=== PATIENT | male | born 1955 | race Caucasian/White ===

== ENCOUNTER → 2017-07-01 11:35 | Outpatient (CLI) | payer OTHER, SELFPAY ==
[2017-07-01 13:58] LABS: Absolute Lymphocyte Count 2.41 X10^3/ul (0.83-4.51); Absolute Neutrophil Count 5.3 X10^3/uL (2.0-7.7); Basophil# 0.02 X10^3/uL; Basophil% 0.2 % (0-1); Eosinophil# 0.12 X10^3/uL; Eosinophils% 1.4 % (0-5); Hematocrit 47.1 % (40-54); Hemoglobin 15.8 g/dl (13.0-16.5); Lymphocyte # 2.41 X10^3/ul (4.0); Lymphocyte % 28.4 % (19-41); Mean Corp Hgb Conc 33.5 g/gl (32-36); Mean Corpuscular Hgb 32.6 pg (27.0-32.0); Mean Corpuscular Volume 97.1 fL (80-94); Mean Platelet Vol. 9.5 fl (6.2-12.0); Monocyte% 7.1 % (0-10); Neutrophil # 5.34 X10^3/uL (2.7-7.7); Neutrophil % 62.8 % (47-70); Platelet Count 275 K/mm3 (150-450); RBC Distribution Width CV 13.4 % (11.6-14.6); RBC Distribution Width SD 46.3 fl (35.1-43.9); Red Blood Count 4.85 M/mm3 (4.6-6.2); White Blood Count 8.5 K/mm3 (4.4-11.0)
[2017-07-01 13:59] LABS: POSITIVE COUNT NO; POSITIVE DIFFERENTIAL NO; POSITIVE MORPHOLOGY NO
[2017-07-01 14:25] LABS: ALB/GLOB Ratio 1.1 RATIO (0.9-2.4); AST(SGOT) 23 U/L (15-37); Alanine Aminotransfer ALT/SGPT 36 U/L (16-61); Albumin, Serum 3.8 g/dL (3.2-5.0); Alkaline Phosphatase 82 U/L (45-117); Anion Gap 7 (5-15); BUN 11 mg/dL (7-18); BUN/Creat Ratio 12.9 RATIO (10-20); Calcium,Total 8.9 mg/dL (8.5-10.1); Chloride 107 mmol/L (98-107); Creatinine, Serum 0.85 mg/dL (0.70-1.30); EST Glomerular Filtration Rate 97 mL/min (>60); Est Glom Filt Rate - Afr Amer 118 mL/min (>60); Globulin 3.4 g/dL (2.2-4.2); Glucose 88 mg/dL (74-106); Potassium 4.1 mmol/L (3.5-5.1); Protein, Total 7.2 g/dL (6.4-8.2); Sodium Level 141 mmol/L (136-145)
== END ==
PROVIDERS: Family Provider Family Medicine; PCP Family Medicine; Visit Provider Internal Medicine Rheumatology
DX: M05.70 Rheumatoid arthritis with rheumatoid factor of unspecified site without organ or systems involvement (principal); Z79.899 Other long term (current) drug therapy; C44.91 Basal cell carcinoma of skin, unspecified; I73.9 Peripheral vascular disease, unspecified
CPT/HCPCS: 36415; 80053; 85025

== ENCOUNTER → 2017-07-12 09:15 | Day surgery (SDC) | payer OTHER, SELFPAY ==
[2017-07-11 11:33] VITALS: BMI 23.8
[2017-07-12 09:39] LABS: Hematocrit 47.6 % (40-54); Hemoglobin 16.5 g/dl (13.0-16.5); Mean Corp Hgb Conc 34.7 g/gl (32-36); Mean Corpuscular Hgb 33.5 pg (27.0-32.0); Mean Corpuscular Volume 96.6 fL (80-94); Mean Platelet Vol. 9.2 fl (6.2-12.0); Platelet Count 272 K/mm3 (150-450); RBC Distribution Width CV 13.7 % (11.6-14.6); RBC Distribution Width SD 47.8 fl (35.1-43.9); Red Blood Count 4.93 M/mm3 (4.6-6.2); Scan Indicated on CBC? Y/N NO; White Blood Count 11.4 K/mm3 (4.4-11.0)
[2017-07-12 09:45] LABS: Anion Gap 5 (5-15); BUN 13 mg/dL (7-18); BUN/Creat Ratio 14.6 RATIO (10-20); Calcium,Total 8.6 mg/dL (8.5-10.1); Chloride 108 mmol/L (98-107); Creatinine, Serum 0.89 mg/dL (0.70-1.30); EST Glomerular Filtration Rate 92 mL/min (>60); Est Glom Filt Rate - Afr Amer 112 mL/min (>60); Estimated Creatinine Clearance 78.65 ml/min; Glucose 118 mg/dL (74-106); Potassium 4.2 mmol/L (3.5-5.1); Sodium Level 140 mmol/L (136-145)
--- NOTE | 2017-07-12 11:50 | PCM.OPRPT ---
Problem List (1) Peripheral arterial occlusive disease Status: Acute Report of Operation Date of Procedure: 07/12/17 Pre-Operative Diagnosis: Symptomatic left lower extremity claudication Post-Operative Diagnosis: Left lower extremity superficial femoral artery in-stent stenosis Surgery/Procedure Performed:: Left lower extremity arteriogram with 5 x 40 mm Powerflex angioplasty and 6 x 80 mm Lutonix drug-coated balloon therapy Description of Surgical Findings:: Timeout and informed consent was obtained. 62-year-old gentleman was taken to the special procedures lab placed on the table. 50 mcg fentanyl and 2 mg of Versed were given as intravenous sedation. He received Ancef 2 g intravenously. The right groin was sterilely prepped draped. Ultrasound was used to identify the right common femoral artery. Under ultrasound guidance 2% lidocaine was instilled. A total of 10 cc was used. Under ultrasound guidance micropuncture needle inserted in the right common femoral artery. Micropuncture wire. Micropuncture sheath dilator. An 035 J-wire was inserted. A 5 Danish short sheath dilator was inserted. Using an 035 angled Glidewire a 5 Danish universal flush catheter was initially placed into the aorta and then selectively accessed into the left iliac system. It would suggest down into the left superficial femoral artery. Static views of the left superficial femoral artery and infrageniculate vessels were obtained. This demonstrated clinically significant in-stent stenosis within the previously placed protege that. An 035 Magic wire was advanced. The short 5 Danish sheath was removed. A 45 cm long 5 Danish sheath was placed. The patient received 7000 units of heparin. I predilated the lesion with a 5 x 40 mm Powerflex balloon. There was watermelon and each and the stent suggesting candy wrapper stenosis at each end of the stent. I treated with dilatation just past that area. I then placed a 6 x 80 mmLutonix drug-coated balloon. That was inflated to 12 annie of pressure. A final hand-injection performed. This demonstrated a 1 cm area of very limited dissection proximal to the stent. The in-stent stenosis however was felt to been appropriately treated. Devices were removed. A Perclose device was placed in the right groin and applied nicely. There were no apparent complications. He has a 3+ palpable left PT pulse. Foot was nice and viable. Angiographic findings demonstrate a left mid superficial femoral artery stent with in-stent stenosis. Subsequent to the angioplasty and drug-coated balloon therapy there is now resolution of the in-stent stenosis with a limited area of dissection proximal to the stent with no evidence of flow restriction. As the paclitaxel from the drug-coated balloon would be placed into the media I elected not to place additional metal at this time. He has three-vessel runoff initially seen. Well-tolerated taken to recovery or insect condition. Gennaro Hanna M.D., F.A.C.S.
--- NOTE | 2017-07-12 11:59 | OP.PCM_ITS ---
Problem List (1) Peripheral arterial occlusive disease Status: Acute Report of Operation Date of Procedure: 07/12/17 Pre-Operative Diagnosis: Symptomatic left lower extremity claudication Post-Operative Diagnosis: Left lower extremity superficial femoral artery in- stent stenosis Surgery/Procedure Performed:: Left lower extremity arteriogram with 5 x 40 mm Powerflex angioplasty and 6 x 80 mm Lutonix drug-coated balloon therapy Description of Surgical Findings:: Timeout and informed consent was obtained. 62-year-old gentleman was taken to the special procedures lab placed on the table. 50 mcg fentanyl and 2 mg of Versed were given as intravenous sedation. He received Ancef 2 g intravenously. The right groin was sterilely prepped draped. Ultrasound was used to identify the right common femoral artery. Under ultrasound guidance 2% lidocaine was instilled. A total of 10 cc was used. Under ultrasound guidance micropuncture needle inserted in the right common femoral artery. Micropuncture wire. Micropuncture sheath dilator. An 035 J-wire was inserted. A 5 [place] Islander short sheath dilator was inserted. Using an 035 angled Glidewire a 5 [place] Island[place] universal flush catheter was initially placed into the aorta and then selectively accessed into the left iliac system. It would suggest down into the left superficial femoral artery. Static views of the left superficial femoral artery and infrageniculate vessels were obtained. This demonstrated clinically significant in-stent stenosis within the previously placed protege that. An 035 Magic wire was advanced. The short 5 [place] Islander sheath was removed. A 45 cm long 5 [place] Islander sheath was placed. The patient received 7000 units of heparin. I predilated the lesion with a 5 x 40 mm Powerflex balloon. There was watermelon and each and the stent suggesting candy wrapper stenosis at each end of the stent. I treated with dilatation just past that area. I then placed a 6 x 80 mmLutonix drug-coated balloon. That was inflated to 12 annie of pressure. A final hand-injection performed. This demonstrated a 1 cm area of very limited dissection proximal to the stent. The in-stent stenosis however was felt to been appropriately treated. Devices were removed. A Perclose device was placed in the right groin and applied nicely. There were no apparent complications. He has a 3+ palpable left PT pulse. Foot was nice and viable. Angiographic findings demonstrate a left mid superficial femoral artery stent with in-stent stenosis. Subsequent to the angioplasty and drug-coated balloon therapy there is now resolution of the in-stent stenosis with a limited area of dissection proximal to the stent with no evidence of flow restriction. As the paclitaxel from the drug-coated balloon would be placed into the media I elected not to place additional metal at this time. He has three-vessel runoff initially seen. Well-tolerated taken to recovery or insect condition. Gennaro Hanna M.D., F.A.C.S.
[2017-07-12 12:51] LABS: ACT Activated Clotting Time 235 sec (74-137)
[2017-07-12 12:51] LABS: ACT Activated Clotting Time 120 sec (74-137)
== END ==
PROVIDERS: Family Provider Family Medicine; PCP Family Medicine; Visit Provider Surgery
DX: I77.9 Disorder of arteries and arterioles, unspecified (principal); T82.858A Stenosis of other vascular prosthetic devices, implants and grafts, initial encounter; Z79.899 Other long term (current) drug therapy; M06.9 Rheumatoid arthritis, unspecified; F41.9 Anxiety disorder, unspecified; E78.5 Hyperlipidemia, unspecified; F17.200 Nicotine dependence, unspecified, uncomplicated
CPT/HCPCS: 36200; 36245; 36415; 37224; 75625; 75710; 76937; 80048; 85027; 85347; 99152; 99153; C1725; J7030; Q9967; C1760; C1769; C1894

== ENCOUNTER → 2017-07-25 14:04 | Outpatient (CLI) | payer OTHER, SELFPAY ==
[2017-07-25 15:51] LABS: AST(SGOT) 17 U/L (15-37); Alanine Aminotransfer ALT/SGPT 27 U/L (16-61); Cholesterol 156 mg/dL (200); High Density Lipoprotein 60 mg/dL; Triglycerides 67 mg/dL; Very Low Density Lipoprotein 13 mg/dL (5-40)
== END ==
PROVIDERS: Family Provider Family Medicine; PCP Family Medicine; Visit Provider Family Medicine
DX: E78.5 Hyperlipidemia, unspecified (principal)
CPT/HCPCS: 36415; 80061; 84450; 84460

== ENCOUNTER → 2017-08-12 13:48 | Outpatient (CLI) | payer OTHER, SELFPAY ==
--- NOTE | 2017-08-15 05:49 | LEAS ---
Arterial Study - Arterial Study Arterial Study: Bilateral lower extremity noninvasive arterial exam with exercise Right lower extremity The right PT and DP ankle-brachial index at rest are 0.93 and 1.01 respectively. The right posterior tibial and dorsalis pedis waveforms are triphasic. Volume pulse recordings demonstrate normal amplification the calf. The ankle waveforms are significantly depressed and the digital waveforms essentially flattened. With exercise the right ZELALEM goes from resting 1.012 immediately after exercise at 0.66 there is failure of recovery by 9 minutes Left lower extremity Left PT and DP ankle-brachial indices at rest are 1.25 and 1.16 respectively. The left posterior tibial Doppler waveforms are triphasic while the dorsalis pedis is biphasic. The volume pulse recordings demonstrate maintained Waveforms but the ankle waveforms are significantly depressed and the digital waveforms essentially flattened. With exercise the left ZELALEM goes from resting 1.25 to immediate after exercise at 0.98 there is failure recovery by 9 minutes Impression Normal bilateral lower extremity resting indices. With exercise however indices drop bilaterally most notable on the right very much consistent with vascular claudication. The level of the disease cannot be determined on this study. Digital waveforms are severely flattened bilaterally consistent with significant distal small vessel disease. Gennaro Hanna M.D., F.A.C.S.
== END ==
PROVIDERS: Family Provider Family Medicine; PCP Family Medicine; Visit Provider Surgery
DX: I77.9 Disorder of arteries and arterioles, unspecified (principal)
CPT/HCPCS: 93924

== ENCOUNTER → 2017-09-20 10:04 | Outpatient (CLI) | payer OTHER, SELFPAY ==
[2017-09-20 12:14] LABS: Absolute Lymphocyte Count 2.25 X10^3/ul (0.83-4.51); Absolute Neutrophil Count 5.7 X10^3/uL (2.0-7.7); Basophil# 0.03 X10^3/uL; Basophil% 0.3 % (0-1); Eosinophil# 0.12 X10^3/uL; Eosinophils% 1.4 % (0-5); Hemoglobin 15.4 g/dl (13.0-16.5); Lymphocyte # 2.25 X10^3/ul (4.0); Lymphocyte % 26.1 % (19-41); Mean Corp Hgb Conc 34.2 g/gl (32-36); Mean Corpuscular Hgb 33.3 pg (27.0-32.0); Mean Corpuscular Volume 97.2 fL (80-94); Mean Platelet Vol. 9.9 fl (6.2-12.0); Monocyte# 0.45 X10^3/uL; Monocyte% 5.2 % (0-10); Neutrophil # 5.74 X10^3/uL (2.7-7.7); Neutrophil % 66.8 % (47-70); Platelet Count 262 K/mm3 (150-450); RBC Distribution Width CV 13.1 % (11.6-14.6); RBC Distribution Width SD 45.7 fl (35.1-43.9); Red Blood Count 4.63 M/mm3 (4.6-6.2); White Blood Count 8.6 K/mm3 (4.4-11.0)
[2017-09-20 12:22] LABS: ALB/GLOB Ratio 1.1 RATIO (0.9-2.4); AST(SGOT) 18 U/L (15-37); Alanine Aminotransfer ALT/SGPT 26 U/L (16-61); Albumin, Serum 3.5 g/dL (3.2-5.0); Alkaline Phosphatase 72 U/L (45-117); Anion Gap 7 (5-15); BUN 15 mg/dL (7-18); BUN/Creat Ratio 15.6 RATIO (10-20); Calcium,Total 8.5 mg/dL (8.5-10.1); Chloride 108 mmol/L (98-107); Creatinine, Serum 0.96 mg/dL (0.70-1.30); EST Glomerular Filtration Rate 85 mL/min (>60); Est Glom Filt Rate - Afr Amer 102 mL/min (>60); Globulin 3.2 g/dL (2.2-4.2); Glucose 125 mg/dL (74-106); Potassium 4.2 mmol/L (3.5-5.1); Protein, Total 6.7 g/dL (6.4-8.2); Sodium Level 142 mmol/L (136-145)
[2017-09-20 12:27] LABS: POSITIVE COUNT NO; POSITIVE DIFFERENTIAL NO; POSITIVE MORPHOLOGY NO
== END ==
PROVIDERS: Family Provider Family Medicine; PCP Family Medicine; Visit Provider Internal Medicine Rheumatology
DX: M05.70 Rheumatoid arthritis with rheumatoid factor of unspecified site without organ or systems involvement (principal); C44.91 Basal cell carcinoma of skin, unspecified; I73.9 Peripheral vascular disease, unspecified; Z79.899 Other long term (current) drug therapy
CPT/HCPCS: 36415; 80053; 85025

== ENCOUNTER → 2017-12-14 10:17 | Outpatient (CLI) | payer OTHER, SELFPAY ==
[2017-12-14 12:21] LABS: Absolute Lymphocyte Count 2.87 X10^3/ul (0.83-4.51); Absolute Neutrophil Count 6.5 X10^3/uL (2.0-7.7); Basophil# 0.04 X10^3/uL; Basophil% 0.4 % (0-1); Eosinophil# 0.21 X10^3/uL; Hematocrit 47.6 % (40-54); Hemoglobin 16.5 g/dl (13.0-16.5); Lymphocyte # 2.87 X10^3/ul (4.0); Lymphocyte % 27.5 % (19-41); Mean Corp Hgb Conc 34.7 g/gl (32-36); Mean Corpuscular Hgb 33.8 pg (27.0-32.0); Mean Corpuscular Volume 97.5 fL (80-94); Mean Platelet Vol. 9.9 fl (6.2-12.0); Monocyte# 0.75 X10^3/uL; Monocyte% 7.2 % (0-10); Neutrophil # 6.51 X10^3/uL (2.7-7.7); Neutrophil % 62.5 % (47-70); Platelet Count 274 K/mm3 (150-450); RBC Distribution Width CV 13.1 % (11.6-14.6); RBC Distribution Width SD 45.6 fl (35.1-43.9); Red Blood Count 4.88 M/mm3 (4.6-6.2); White Blood Count 10.4 K/mm3 (4.4-11.0)
[2017-12-14 12:28] LABS: POSITIVE COUNT NO; POSITIVE DIFFERENTIAL NO; POSITIVE MORPHOLOGY NO
[2017-12-14 12:41] LABS: AST(SGOT) 22 U/L (15-37); Alanine Aminotransfer ALT/SGPT 32 U/L (16-61); Albumin, Serum 3.7 g/dL (3.2-5.0); Alkaline Phosphatase 78 U/L (45-117); Anion Gap 7 (5-15); BUN 13 mg/dL (7-18); BUN/Creat Ratio 14.7 RATIO (10-20); Chloride 107 mmol/L (98-107); Creatinine, Serum 0.89 mg/dL (0.70-1.30); EST Glomerular Filtration Rate 93 mL/min (>60); Est Glom Filt Rate - Afr Amer 112 mL/min (>60); Globulin 3.6 g/dL (2.2-4.2); Glucose 93 mg/dL (74-106); Potassium 4.9 mmol/L (3.5-5.1); Protein, Total 7.3 g/dL (6.4-8.2); Sodium Level 142 mmol/L (136-145)
== END ==
PROVIDERS: Family Provider Family Medicine; PCP Family Medicine; Visit Provider Internal Medicine Rheumatology
DX: M05.70 Rheumatoid arthritis with rheumatoid factor of unspecified site without organ or systems involvement (principal); C44.91 Basal cell carcinoma of skin, unspecified; I73.9 Peripheral vascular disease, unspecified; Z79.899 Other long term (current) drug therapy
CPT/HCPCS: 36415; 80053; 85025

== ENCOUNTER → 2018-03-17 11:19 | Outpatient (CLI) | payer OTHER, SELFPAY ==
[2018-03-17 13:04] LABS: Absolute Lymphocyte Count 2.58 X10^3/ul (0.83-4.51); Absolute Neutrophil Count 4.2 X10^3/uL (2.0-7.7); Basophil# 0.04 X10^3/uL; Basophil% 0.5 % (0-1); Eosinophil# 0.19 X10^3/uL; Eosinophils% 2.5 % (0-5); Hemoglobin 16.9 g/dl (13.0-16.5); Lymphocyte # 2.58 X10^3/ul (4.0); Lymphocyte % 33.3 % (19-41); Mean Corp Hgb Conc 34.5 g/gl (32-36); Mean Corpuscular Hgb 34.3 pg (27.0-32.0); Mean Corpuscular Volume 99.4 fL (80-94); Monocyte# 0.69 X10^3/uL; Monocyte% 8.9 % (0-10); Neutrophil # 4.22 X10^3/uL (2.7-7.7); Neutrophil % 54.5 % (47-70); Platelet Count 269 K/mm3 (150-450); RBC Distribution Width CV 13.1 % (11.6-14.6); Red Blood Count 4.93 M/mm3 (4.6-6.2); White Blood Count 7.7 K/mm3 (4.4-11.0)
[2018-03-17 13:05] LABS: POSITIVE COUNT NO; POSITIVE DIFFERENTIAL NO; POSITIVE MORPHOLOGY NO
[2018-03-17 13:28] LABS: ALB/GLOB Ratio 1.1 RATIO (0.9-2.4); AST(SGOT) 18 U/L (15-37); Alanine Aminotransfer ALT/SGPT 27 U/L (16-61); Albumin, Serum 3.8 g/dL (3.2-5.0); Alkaline Phosphatase 83 U/L (45-117); Anion Gap 7 (5-15); BUN 13 mg/dL (7-18); BUN/Creat Ratio 14.3 RATIO (10-20); Calcium,Total 8.9 mg/dL (8.5-10.1); Chloride 106 mmol/L (98-107); Creatinine, Serum 0.91 mg/dL (0.70-1.30); EST Glomerular Filtration Rate 90 mL/min (>60); Est Glom Filt Rate - Afr Amer 109 mL/min (>60); Globulin 3.6 g/dL (2.2-4.2); Glucose 95 mg/dL (74-106); Potassium 4.1 mmol/L (3.5-5.1); Protein, Total 7.4 g/dL (6.4-8.2); Sodium Level 140 mmol/L (136-145)
== END ==
PROVIDERS: Family Provider Family Medicine; PCP Family Medicine; Referring Provider Internal Medicine Rheumatology; Visit Provider Internal Medicine Rheumatology
DX: M05.70 Rheumatoid arthritis with rheumatoid factor of unspecified site without organ or systems involvement (principal); C44.91 Basal cell carcinoma of skin, unspecified; I73.9 Peripheral vascular disease, unspecified; Z79.899 Other long term (current) drug therapy
CPT/HCPCS: 36415; 80053; 85025

== ENCOUNTER → 2018-06-16 14:48 | Outpatient (CLI) | payer OTHER, SELFPAY ==
[2018-06-16 15:32] LABS: Absolute Lymphocyte Count 2.46 X10^3/ul (0.83-4.51); Absolute Neutrophil Count 5.3 X10^3/uL (2.0-7.7); Basophil# 0.06 X10^3/uL; Basophil% 0.7 % (0-1); Eosinophil# 0.13 X10^3/uL; Eosinophils% 1.5 % (0-5); Hemoglobin 15.9 g/dl (13.0-16.5); Lymphocyte # 2.46 X10^3/ul (4.0); Lymphocyte % 28.7 % (19-41); Mean Corp Hgb Conc 33.8 g/gl (32-36); Mean Corpuscular Hgb 33.1 pg (27.0-32.0); Mean Corpuscular Volume 97.7 fL (80-94); Mean Platelet Vol. 9.5 fl (6.2-12.0); Monocyte# 0.64 X10^3/uL; Monocyte% 7.5 % (0-10); Neutrophil # 5.26 X10^3/uL (2.7-7.7); Neutrophil % 61.5 % (47-70); Platelet Count 278 K/mm3 (150-450); RBC Distribution Width CV 12.8 % (11.6-14.6); RBC Distribution Width SD 44.6 fl (35.1-43.9); Red Blood Count 4.81 M/mm3 (4.6-6.2); White Blood Count 8.6 K/mm3 (4.4-11.0)
[2018-06-16 15:56] LABS: POSITIVE COUNT NO; POSITIVE DIFFERENTIAL NO; POSITIVE MORPHOLOGY NO
[2018-06-16 15:58] LABS: ALB/GLOB Ratio 1.1 RATIO (0.9-2.4); AST(SGOT) 26 U/L (15-37); Alanine Aminotransfer ALT/SGPT 40 U/L (16-61); Albumin, Serum 3.8 g/dL (3.2-5.0); Alkaline Phosphatase 84 U/L (45-117); Anion Gap 8 (5-15); BUN 14 mg/dL (7-18); BUN/Creat Ratio 15.9 RATIO (10-20); Calcium,Total 8.9 mg/dL (8.5-10.1); Chloride 106 mmol/L (98-107); Creatinine, Serum 0.88 mg/dL (0.70-1.30); EST Glomerular Filtration Rate 93 mL/min (>60); Est Glom Filt Rate - Afr Amer 113 mL/min (>60); Globulin 3.4 g/dL (2.2-4.2); Glucose 96 mg/dL (74-106); Potassium 4.3 mmol/L (3.5-5.1); Protein, Total 7.2 g/dL (6.4-8.2); Sodium Level 141 mmol/L (136-145)
== END ==
PROVIDERS: Family Provider Family Medicine; PCP Family Medicine; Referring Provider Internal Medicine Rheumatology; Visit Provider Internal Medicine Rheumatology
DX: M05.70 Rheumatoid arthritis with rheumatoid factor of unspecified site without organ or systems involvement (principal); C44.91 Basal cell carcinoma of skin, unspecified; I73.9 Peripheral vascular disease, unspecified; Z79.899 Other long term (current) drug therapy
CPT/HCPCS: 36415; 80053; 85025

== ENCOUNTER → 2018-09-13 10:23 | Outpatient (CLI) | payer OTHER, SELFPAY ==
[2018-09-13 12:39] LABS: Absolute Lymphocyte Count 2.26 X10^3/ul (0.83-4.51); Absolute Neutrophil Count 6.5 X10^3/uL (2.0-7.7); Basophil# 0.03 X10^3/uL; Basophil% 0.3 % (0-1); Eosinophil# 0.18 X10^3/uL; Eosinophils% 1.9 % (0-5); Hematocrit 45.6 % (40-54); Hemoglobin 15.5 g/dl (13.0-16.5); Lymphocyte # 2.26 X10^3/ul (4.0); Lymphocyte % 23.7 % (19-41); Mean Corpuscular Hgb 32.9 pg (27.0-32.0); Mean Corpuscular Volume 96.8 fL (80-94); Mean Platelet Vol. 9.9 fl (6.2-12.0); Monocyte# 0.53 X10^3/uL; Monocyte% 5.6 % (0-10); Neutrophil # 6.51 X10^3/uL (2.7-7.7); Neutrophil % 68.3 % (47-70); Platelet Count 283 K/mm3 (150-450); RBC Distribution Width SD 45.4 fl (35.1-43.9); Red Blood Count 4.71 M/mm3 (4.6-6.2); White Blood Count 9.5 K/mm3 (4.4-11.0)
[2018-09-13 12:40] LABS: ALB/GLOB Ratio 1.1 RATIO (0.9-2.4); AST(SGOT) 22 U/L (15-37); Alanine Aminotransfer ALT/SGPT 28 U/L (16-61); Albumin, Serum 3.6 g/dL (3.2-5.0); Alkaline Phosphatase 82 U/L (45-117); Anion Gap 6 (5-15); BUN 11 mg/dL (7-18); BUN/Creat Ratio 13.4 RATIO (10-20); Calcium,Total 8.6 mg/dL (8.5-10.1); Chloride 108 mmol/L (98-107); Creatinine, Serum 0.82 mg/dL (0.70-1.30); EST Glomerular Filtration Rate 101 mL/min (>60); Est Glom Filt Rate - Afr Amer 122 mL/min (>60); Globulin 3.2 g/dL (2.2-4.2); Glucose 104 mg/dL (74-106); POSITIVE COUNT NO; POSITIVE DIFFERENTIAL NO; POSITIVE MORPHOLOGY NO; Protein, Total 6.8 g/dL (6.4-8.2); Sodium Level 142 mmol/L (136-145)
== END ==
PROVIDERS: Family Provider Family Medicine; PCP Family Medicine; Referring Provider Internal Medicine Rheumatology; Visit Provider Internal Medicine Rheumatology
DX: M05.70 Rheumatoid arthritis with rheumatoid factor of unspecified site without organ or systems involvement (principal); C44.91 Basal cell carcinoma of skin, unspecified; I73.9 Peripheral vascular disease, unspecified; Z79.899 Other long term (current) drug therapy
CPT/HCPCS: 36415; 80053; 85025

== ENCOUNTER → 2018-12-15 09:22 | Outpatient (CLI) | payer OTHER, SELFPAY ==
[2018-12-15 12:29] LABS: Absolute Lymphocyte Count 2.28 X10^3/uL (0.83-4.51); Absolute Neutrophil Count 5.5 X10^3/uL (2.0-7.7); Basophil# 0.05 X10^3/uL; Basophil% 0.6 % (0-1); Eosinophil# 0.25 X10^3/uL; Eosinophils% 2.9 % (0-5); Hematocrit 49.1 % (40-54); Hemoglobin 16.1 g/dL (13.0-16.5); Lymphocyte # 2.28 X10^3/ul (4.0); Lymphocyte % 26.1 % (19-41); Mean Corp Hgb Conc 32.8 g/dL (32-36); Mean Corpuscular Hgb 32.5 pg (27.0-32.0); Mean Corpuscular Volume 99.2 fL (80-94); Mean Platelet Vol. 9.8 fl (6.2-12.0); Monocyte# 0.62 X10^3/uL; Monocyte% 7.1 % (0-10); NRBC Flagged by Analyzer 0 % (0-5); Neutrophil % 62.8 % (47-70); Platelet Count 280 K/mm3 (150-450); RBC Distribution Width CV 13.2 % (11.6-14.6); RBC Distribution Width SD 47.9 fl (35.1-43.9); Red Blood Count 4.95 M/mm3 (4.6-6.2); White Blood Count 8.7 K/mm3 (4.4-11.0)
[2018-12-15 12:40] LABS: ALB/GLOB Ratio 1.2 RATIO (0.9-2.4); AST(SGOT) 19 U/L (15-37); Alanine Aminotransfer ALT/SGPT 25 U/L (16-61); Albumin, Serum 3.7 g/dL (3.2-5.0); Alkaline Phosphatase 86 U/L (45-117); Anion Gap 8 (5-15); BUN 11 mg/dL (7-18); BUN/Creat Ratio 13.2 RATIO (10-20); Calcium,Total 9.1 mg/dL (8.5-10.1); Chloride 106 mmol/L (98-107); Creatinine, Serum 0.84 mg/dL (0.70-1.30); EST Glomerular Filtration Rate 99 mL/min (>60); Est Glom Filt Rate - Afr Amer 120 mL/min (>60); Glucose 99 mg/dL (74-106); Potassium 4.5 mmol/L (3.5-5.1); Protein, Total 6.7 g/dL (6.4-8.2); Sodium Level 144 mmol/L (136-145)
== END ==
PROVIDERS: Family Provider Family Medicine; PCP Family Medicine; Referring Provider Internal Medicine Rheumatology; Visit Provider Internal Medicine Rheumatology
DX: M05.70 Rheumatoid arthritis with rheumatoid factor of unspecified site without organ or systems involvement (principal); C44.91 Basal cell carcinoma of skin, unspecified; I73.9 Peripheral vascular disease, unspecified; Z79.899 Other long term (current) drug therapy
CPT/HCPCS: 36415; 80053; 85025

== ENCOUNTER → 2019-02-13 15:01 | Outpatient (CLI) | payer OTHER, SELFPAY ==
[2019-02-13 17:54] LABS: AST(SGOT) 21 U/L (15-37); Alanine Aminotransfer ALT/SGPT 27 U/L (16-61); Cholesterol 176 mg/dL (200); High Density Lipoprotein 52 mg/dL; Triglycerides 60 mg/dL; Very Low Density Lipoprotein 12 mg/dL (5-40)
== END ==
PROVIDERS: Family Provider Family Medicine; PCP Family Medicine; Referring Provider Family Medicine; Visit Provider Family Medicine
DX: E78.5 Hyperlipidemia, unspecified (principal)
CPT/HCPCS: 36415; 80061; 84450; 84460

== ENCOUNTER → 2019-03-12 11:14 | Outpatient (CLI) | payer OTHER, SELFPAY ==
[2019-03-12 14:10] LABS: Absolute Lymphocyte Count 2.35 X10^3/uL (0.83-4.51); Absolute Neutrophil Count 5.5 X10^3/uL (2.0-7.7); Basophil# 0.04 X10^3/uL; Basophil% 0.5 % (0-1); Eosinophil# 0.17 X10^3/uL; Hematocrit 48.9 % (40-54); Lymphocyte # 2.35 X10^3/ul (4.0); Lymphocyte % 27.4 % (19-41); Mean Corp Hgb Conc 32.7 g/dL (32-36); Mean Corpuscular Hgb 32.5 pg (27.0-32.0); Mean Corpuscular Volume 99.4 fL (80-94); Mean Platelet Vol. 9.3 fl (6.2-12.0); Monocyte# 0.55 X10^3/uL; Monocyte% 6.4 % (0-10); NRBC Flagged by Analyzer 0 % (0-5); Neutrophil # 5.45 X10^3/uL (2.7-7.7); Neutrophil % 63.4 % (47-70); Platelet Count 272 K/mm3 (150-450); RBC Distribution Width CV 12.8 % (11.6-14.6); RBC Distribution Width SD 46.8 fl (35.1-43.9); Red Blood Count 4.92 M/mm3 (4.6-6.2); White Blood Count 8.6 K/mm3 (4.4-11.0)
[2019-03-12 14:29] LABS: ALB/GLOB Ratio 1.1 RATIO (0.9-2.4); AST(SGOT) 20 U/L (15-37); Alanine Aminotransfer ALT/SGPT 29 U/L (16-61); Albumin, Serum 3.7 g/dL (3.2-5.0); Alkaline Phosphatase 80 U/L (45-117); Anion Gap 7 (5-15); BUN 13 mg/dL (7-18); BUN/Creat Ratio 16.9 RATIO (10-20); Calcium,Total 8.8 mg/dL (8.5-10.1); Chloride 107 mmol/L (98-107); Creatinine, Serum 0.77 mg/dL (0.70-1.30); EST Glomerular Filtration Rate 109 mL/min (>60); Est Glom Filt Rate - Afr Amer 132 mL/min (>60); Globulin 3.4 g/dL (2.2-4.2); Glucose 86 mg/dL (74-106); Potassium 4.1 mmol/L (3.5-5.1); Protein, Total 7.1 g/dL (6.4-8.2); Sodium Level 140 mmol/L (136-145)
== END ==
PROVIDERS: Family Provider Family Medicine; PCP Family Medicine; Referring Provider Internal Medicine Rheumatology; Visit Provider Internal Medicine Rheumatology
DX: M05.70 Rheumatoid arthritis with rheumatoid factor of unspecified site without organ or systems involvement (principal); C44.91 Basal cell carcinoma of skin, unspecified; I73.9 Peripheral vascular disease, unspecified; Z79.899 Other long term (current) drug therapy
CPT/HCPCS: 36415; 80053; 85025

== ENCOUNTER → 2019-06-11 12:34 | Outpatient (CLI) | payer OTHER, SELFPAY ==
[2019-06-11 14:02] LABS: Absolute Lymphocyte Count 2.46 X10^3/uL (0.83-4.51); Absolute Neutrophil Count 4.9 X10^3/uL (2.0-7.7); Basophil# 0.04 X10^3/uL; Basophil% 0.5 % (0-1); Eosinophil# 0.17 X10^3/uL; Eosinophils% 2.1 % (0-5); Hematocrit 47.2 % (40-54); Hemoglobin 15.5 g/dL (13.0-16.5); Lymphocyte # 2.46 X10^3/ul (4.0); Lymphocyte % 30.9 % (19-41); Mean Corp Hgb Conc 32.8 g/dL (32-36); Mean Corpuscular Volume 97.5 fL (80-94); Mean Platelet Vol. 9.5 fl (6.2-12.0); NRBC Flagged by Analyzer 0 % (0-5); Neutrophil # 4.88 X10^3/uL (2.7-7.7); Neutrophil % 61.2 % (47-70); Platelet Count 251 K/mm3 (150-450); RBC Distribution Width CV 12.4 % (11.6-14.6); RBC Distribution Width SD 44.7 fl (35.1-43.9); Red Blood Count 4.84 M/mm3 (4.6-6.2)
[2019-06-11 14:22] LABS: ALB/GLOB Ratio 1.1 RATIO (0.9-2.4); AST(SGOT) 19 U/L (15-37); Alanine Aminotransfer ALT/SGPT 32 U/L (16-61); Albumin, Serum 3.7 g/dL (3.2-5.0); Alkaline Phosphatase 75 U/L (45-117); Anion Gap 4 (5-15); BUN 11 mg/dL (7-18); BUN/Creat Ratio 12.2 RATIO (10-20); Calcium,Total 8.9 mg/dL (8.5-10.1); Chloride 109 mmol/L (98-107); EST Glomerular Filtration Rate 91 mL/min (>60); Est Glom Filt Rate - Afr Amer 110 mL/min (>60); Globulin 3.5 g/dL (2.2-4.2); Glucose 90 mg/dL (74-106); Potassium 4.2 mmol/L (3.5-5.1); Protein, Total 7.2 g/dL (6.4-8.2); Sodium Level 141 mmol/L (136-145)
== END ==
PROVIDERS: PCP Family Medicine; Referring Provider Internal Medicine Rheumatology; Visit Provider Internal Medicine Rheumatology
DX: M05.70 Rheumatoid arthritis with rheumatoid factor of unspecified site without organ or systems involvement (principal); C44.91 Basal cell carcinoma of skin, unspecified; I73.9 Peripheral vascular disease, unspecified; Z79.899 Other long term (current) drug therapy
CPT/HCPCS: 36415; 80053; 85025

== ENCOUNTER → 2019-09-10 10:47 | Outpatient (CLI) | payer OTHER, SELFPAY ==
[2019-09-10 12:00] LABS: Absolute Lymphocyte Count 2.15 X10^3/uL (0.83-4.51); Absolute Neutrophil Count 5.1 X10^3/uL (2.0-7.7); Basophil# 0.05 X10^3/uL; Basophil% 0.6 % (0-1); Eosinophil# 0.15 X10^3/uL; Eosinophils% 1.9 % (0-5); Hematocrit 47.8 % (40-54); Hemoglobin 16.1 g/dL (13.0-16.5); Lymphocyte # 2.15 X10^3/ul (4.0); Lymphocyte % 27.4 % (19-41); Mean Corp Hgb Conc 33.7 g/dL (32-36); Mean Corpuscular Hgb 32.7 pg (27.0-32.0); Mean Corpuscular Volume 97.2 fL (80-94); Mean Platelet Vol. 9.6 fl (6.2-12.0); Monocyte# 0.43 X10^3/uL; Monocyte% 5.5 % (0-10); NRBC Flagged by Analyzer 0 % (0-5); Neutrophil # 5.05 X10^3/uL (2.7-7.7); Neutrophil % 64.3 % (47-70); Platelet Count 277 K/mm3 (150-450); RBC Distribution Width CV 12.6 % (11.6-14.6); RBC Distribution Width SD 44.9 fl (35.1-43.9); Red Blood Count 4.92 M/mm3 (4.6-6.2); White Blood Count 7.9 K/mm3 (4.4-11.0)
[2019-09-10 12:19] LABS: ALB/GLOB Ratio 1.1 RATIO (0.9-2.4); AST(SGOT) 25 U/L (15-37); Alanine Aminotransfer ALT/SGPT 34 U/L (16-61); Albumin, Serum 3.8 g/dL (3.2-5.0); Alkaline Phosphatase 84 U/L (45-117); Anion Gap 6 (5-15); BUN 15 mg/dL (7-18); BUN/Creat Ratio 16.7 RATIO (10-20); Chloride 107 mmol/L (98-107); EST Glomerular Filtration Rate 91 mL/min (>60); Est Glom Filt Rate - Afr Amer 110 mL/min (>60); Globulin 3.5 g/dL (2.2-4.2); Glucose 128 mg/dL (74-106); Protein, Total 7.3 g/dL (6.4-8.2); Sodium Level 140 mmol/L (136-145)
== END ==
PROVIDERS: PCP Family Medicine; Referring Provider Internal Medicine Rheumatology; Visit Provider Internal Medicine Rheumatology
DX: M05.70 Rheumatoid arthritis with rheumatoid factor of unspecified site without organ or systems involvement (principal); C44.91 Basal cell carcinoma of skin, unspecified; I73.9 Peripheral vascular disease, unspecified; Z79.899 Other long term (current) drug therapy
CPT/HCPCS: 36415; 80053; 85025

== ENCOUNTER → 2019-12-03 12:59 | Outpatient (CLI) | payer OTHER, SELFPAY ==
[2019-12-03 15:17] LABS: Absolute Neutrophil Count 12.3 X10^3/uL (2.0-7.7); Basophil# 0.03 X10^3/uL; Basophil% 0.2 % (0-1); Eosinophil# 0.03 X10^3/uL; Eosinophils% 0.2 % (0-5); Hematocrit 49.6 % (40-54); Hemoglobin 16.5 g/dL (13.0-16.5); Lymphocyte % 10.2 % (19-41); Mean Corp Hgb Conc 33.3 g/dL (32-36); Mean Corpuscular Hgb 33.2 pg (27.0-32.0); Mean Corpuscular Volume 99.8 fL (80-94); Mean Platelet Vol. 9.5 fl (6.2-12.0); Monocyte# 0.72 X10^3/uL; Monocyte% 4.9 % (0-10); NRBC Flagged by Analyzer 0 % (0-5); Neutrophil # 12.32 X10^3/uL (2.7-7.7); Neutrophil % 84.2 % (47-70); Platelet Count 302 K/mm3 (150-450); RBC Distribution Width CV 12.8 % (11.6-14.6); RBC Distribution Width SD 46.8 fl (35.1-43.9); Red Blood Count 4.97 M/mm3 (4.6-6.2); White Blood Count 14.7 K/mm3 (4.4-11.0)
[2019-12-03 15:27] LABS: AST(SGOT) 14 U/L (15-37); Alanine Aminotransfer ALT/SGPT 26 U/L (16-61); Albumin, Serum 3.8 g/dL (3.2-5.0); Alkaline Phosphatase 81 U/L (45-117); Anion Gap 9 (5-15); BUN 14 mg/dL (7-18); BUN/Creat Ratio 16.5 RATIO (10-20); Chloride 100 mmol/L (98-107); Creatinine, Serum 0.85 mg/dL (0.70-1.30); EST Glomerular Filtration Rate 97 mL/min (>60); Est Glom Filt Rate - Afr Amer 117 mL/min (>60); Globulin 3.7 g/dL (2.2-4.2); Glucose 110 mg/dL (74-106); Potassium 3.7 mmol/L (3.5-5.1); Protein, Total 7.5 g/dL (6.4-8.2); Sodium Level 135 mmol/L (136-145)
== END ==
PROVIDERS: PCP Family Medicine; Referring Provider Internal Medicine Rheumatology; Visit Provider Internal Medicine Rheumatology
DX: M05.70 Rheumatoid arthritis with rheumatoid factor of unspecified site without organ or systems involvement (principal); C44.91 Basal cell carcinoma of skin, unspecified; I73.9 Peripheral vascular disease, unspecified; Z79.899 Other long term (current) drug therapy
CPT/HCPCS: 36415; 80053; 85025

== ENCOUNTER → 2019-12-31 14:12 | Outpatient (CLI) | payer OTHER, SELFPAY ==
[2019-12-31 18:36] LABS: AST(SGOT) 18 U/L (15-37); Alanine Aminotransfer ALT/SGPT 26 U/L (16-61); Cholesterol 171 mg/dL (200); High Density Lipoprotein 54 mg/dL; Triglycerides 74 mg/dL; Very Low Density Lipoprotein 15 mg/dL (5-40)
== END ==
PROVIDERS: PCP Family Medicine; Visit Provider Family Medicine
DX: E78.5 Hyperlipidemia, unspecified (principal)
CPT/HCPCS: 36415; 80061; 84450; 84460

== ENCOUNTER → 2020-02-19 10:49 | Outpatient (CLI) | payer OTHER, SELFPAY ==
[2020-02-19 12:26] LABS: Absolute Lymphocyte Count 2.46 X10^3/uL (0.83-4.51); Absolute Neutrophil Count 5.8 X10^3/uL (2.0-7.7); Basophil# 0.05 X10^3/uL; Basophil% 0.6 % (0-1); Eosinophil# 0.15 X10^3/uL; Eosinophils% 1.7 % (0-5); Hematocrit 47.9 % (40-54); Hemoglobin 15.6 g/dL (13.0-16.5); Lymphocyte # 2.46 X10^3/ul (4.0); Lymphocyte % 27.1 % (19-41); Mean Corp Hgb Conc 32.6 g/dL (32-36); Mean Corpuscular Hgb 32.6 pg (27.0-32.0); Mean Platelet Vol. 9.5 fl (6.2-12.0); Monocyte# 0.55 X10^3/uL; Monocyte% 6.1 % (0-10); NRBC Flagged by Analyzer 0 % (0-5); Neutrophil # 5.84 X10^3/uL (2.7-7.7); Neutrophil % 64.2 % (47-70); Platelet Count 286 K/mm3 (150-450); RBC Distribution Width CV 12.6 % (11.6-14.6); Red Blood Count 4.79 M/mm3 (4.6-6.2); White Blood Count 9.1 K/mm3 (4.4-11.0)
[2020-02-19 13:15] LABS: ALB/GLOB Ratio 1.1 RATIO (0.9-2.4); AST(SGOT) 20 U/L (15-37); Alanine Aminotransfer ALT/SGPT 22 U/L (16-61); Albumin, Serum 3.9 g/dL (3.2-5.0); Alkaline Phosphatase 95 U/L (45-117); Anion Gap 4 (5-15); BUN 11 mg/dL (7-18); BUN/Creat Ratio 12.8 RATIO (10-20); Calcium,Total 9.1 mg/dL (8.5-10.1); Chloride 108 mmol/L (98-107); Creatinine, Serum 0.86 mg/dL (0.70-1.30); EST Glomerular Filtration Rate 95 mL/min (>60); Est Glom Filt Rate - Afr Amer 115 mL/min (>60); Globulin 3.4 g/dL (2.2-4.2); Glucose 97 mg/dL (74-106); Potassium 4.4 mmol/L (3.5-5.1); Protein, Total 7.3 g/dL (6.4-8.2); Sodium Level 140 mmol/L (136-145)
== END ==
PROVIDERS: PCP Family Medicine; Referring Provider Internal Medicine Rheumatology; Visit Provider Internal Medicine Rheumatology
DX: M05.70 Rheumatoid arthritis with rheumatoid factor of unspecified site without organ or systems involvement (principal); Z79.899 Other long term (current) drug therapy; C44.91 Basal cell carcinoma of skin, unspecified; I73.9 Peripheral vascular disease, unspecified
CPT/HCPCS: 36415; 80053; 85025

== ENCOUNTER → 2020-05-07 09:20 | Outpatient (CLI) | payer OTHER, SELFPAY ==
[2020-05-07 10:08] LABS: Absolute Lymphocyte Count 2.31 X10^3/uL (0.83-4.51); Basophil# 0.05 X10^3/uL; Basophil% 0.5 % (0-1); Eosinophil# 0.22 X10^3/uL; Eosinophils% 2.2 % (0-5); Hematocrit 50.4 % (40-54); Hemoglobin 16.8 g/dL (13.0-16.5); Lymphocyte # 2.31 X10^3/ul (4.0); Lymphocyte % 22.7 % (19-41); Mean Corp Hgb Conc 33.3 g/dL (32-36); Mean Platelet Vol. 9.3 fl (6.2-12.0); Monocyte% 5.9 % (0-10); NRBC Flagged by Analyzer 0 % (0-5); Neutrophil # 6.95 X10^3/uL (2.7-7.7); Neutrophil % 68.3 % (47-70); Platelet Count 270 K/mm3 (150-450); RBC Distribution Width CV 12.2 % (11.6-14.6); RBC Distribution Width SD 44.6 fl (35.1-43.9); Red Blood Count 5.09 M/mm3 (4.6-6.2); White Blood Count 10.2 K/mm3 (4.4-11.0)
[2020-05-07 10:51] LABS: ALB/GLOB Ratio 1.1 RATIO (0.9-2.4); AST(SGOT) 18 U/L (15-37); Alanine Aminotransfer ALT/SGPT 33 U/L (16-61); Albumin, Serum 3.8 g/dL (3.2-5.0); Alkaline Phosphatase 87 U/L (45-117); Anion Gap 3 (5-15); BUN 14 mg/dL (7-18); Calcium,Total 8.9 mg/dL (8.5-10.1); Chloride 108 mmol/L (98-107); Creatinine, Serum 0.82 mg/dL (0.70-1.30); EST Glomerular Filtration Rate 100 mL/min (>60); Est Glom Filt Rate - Afr Amer 121 mL/min (>60); Globulin 3.5 g/dL (2.2-4.2); Glucose 99 mg/dL (74-106); Protein, Total 7.3 g/dL (6.4-8.2); Sodium Level 139 mmol/L (136-145)
== END ==
PROVIDERS: PCP Family Medicine; Referring Provider Internal Medicine Rheumatology; Visit Provider Internal Medicine Rheumatology
DX: M05.70 Rheumatoid arthritis with rheumatoid factor of unspecified site without organ or systems involvement (principal); C44.91 Basal cell carcinoma of skin, unspecified; I73.9 Peripheral vascular disease, unspecified; Z79.899 Other long term (current) drug therapy
CPT/HCPCS: 36415; 80053; 85025

== ENCOUNTER → 2020-07-01 11:26 | Outpatient (CLI) | payer OTHER, SELFPAY ==
[2020-07-01 13:14] LABS: PSA,Total - Annual Screen 6.04 ng/mL (0.00-4.00)
== END ==
PROVIDERS: PCP Family Medicine; Referring Provider Family Medicine; Visit Provider Family Medicine
DX: Z00.00 Encounter for general adult medical examination without abnormal findings (principal); Z12.5 Encounter for screening for malignant neoplasm of prostate
CPT/HCPCS: 36415; 84153; G0103

== ENCOUNTER → 2020-07-17 13:05 | Outpatient (CLI) | payer OTHER, SELFPAY ==
--- NOTE | 2020-07-17 13:09 | EKG12_ITS ---
Test Reason : PRE OP Blood Pressure : / mmHG Vent. Rate : 080 BPM Atrial Rate : 080 BPM P-R Int : 118 ms QRS Dur : 068 ms QT Int : 368 ms P-R-T Axes : 065 063 077 degrees QTc Int : 424 ms Normal sinus rhythm Normal ECG Confirmed by SAHIL SILVER, CONNOR ([id number]), state editor MO SUMNER ([id number]) on 07/21/2020 7:52:36 AM Referred By: ANA Confirmed By:NICOLAS BAXTER MD
[2020-07-17 14:23] LABS: Hematocrit 46.6 % (40-54); Hemoglobin 15.9 g/dL (13.0-16.5); Mean Corp Hgb Conc 34.1 g/dL (32-36); Mean Corpuscular Hgb 33.4 pg (27.0-32.0); Mean Corpuscular Volume 97.9 fL (80-94); Mean Platelet Vol. 9.6 fl (6.2-12.0); Platelet Count 273 K/mm3 (150-450); RBC Distribution Width CV 12.5 % (11.6-14.6); RBC Distribution Width SD 44.8 fl (35.1-43.9); Red Blood Count 4.76 M/mm3 (4.6-6.2)
[2020-07-17 14:36] LABS: Anion Gap 4 (5-15); BUN 11 mg/dL (7-18); BUN/Creat Ratio 13.5 RATIO (10-20); Chloride 106 mmol/L (98-107); Creatinine, Serum 0.81 mg/dL (0.70-1.30); EST Glomerular Filtration Rate 102 mL/min (>60); Est Glom Filt Rate - Afr Amer 123 mL/min (>60); Glucose 106 mg/dL (74-106); Potassium 4.3 mmol/L (3.5-5.1); Sodium Level 138 mmol/L (136-145)
== END ==
PROVIDERS: PCP Family Medicine; Visit Provider Urology
DX: Z01.812 Encounter for preprocedural laboratory examination (principal); Z20.822 Contact with and (suspected) exposure to COVID-19; I10 Essential (primary) hypertension
CPT/HCPCS: 36415; 80048; 85027; 87635; 93005; C9803; U0005; U0003

== ENCOUNTER → 2020-08-04 12:40 | Outpatient (CLI) | payer OTHER, SELFPAY ==
[2020-08-04 15:23] LABS: Absolute Lymphocyte Count 2.54 X10^3/uL (0.83-4.51); Absolute Neutrophil Count 7.1 X10^3/uL (2.0-7.7); Basophil# 0.04 X10^3/uL; Basophil% 0.4 % (0-1); Eosinophil# 0.08 X10^3/uL; Eosinophils% 0.8 % (0-5); Hematocrit 48.5 % (40-54); Hemoglobin 15.8 g/dL (13.0-16.5); Lymphocyte # 2.54 X10^3/ul (4.0); Lymphocyte % 24.4 % (19-41); Mean Corp Hgb Conc 32.6 g/dL (32-36); Mean Corpuscular Hgb 32.4 pg (27.0-32.0); Mean Corpuscular Volume 99.6 fL (80-94); Mean Platelet Vol. 9.6 fl (6.2-12.0); Monocyte# 0.64 X10^3/uL; Monocyte% 6.1 % (0-10); NRBC Flagged by Analyzer 0 % (0-5); Neutrophil # 7.08 X10^3/uL (2.7-7.7); Platelet Count 270 K/mm3 (150-450); RBC Distribution Width CV 12.3 % (11.6-14.6); RBC Distribution Width SD 45.6 fl (35.1-43.9); Red Blood Count 4.87 M/mm3 (4.6-6.2); White Blood Count 10.4 K/mm3 (4.4-11.0)
[2020-08-04 15:26] LABS: ALB/GLOB Ratio 1.1 RATIO (0.9-2.4); AST(SGOT) 21 U/L (15-37); Alanine Aminotransfer ALT/SGPT 29 U/L (16-61); Albumin, Serum 3.7 g/dL (3.2-5.0); Alkaline Phosphatase 81 U/L (45-117); Anion Gap 5 (5-15); BUN 12 mg/dL (7-18); BUN/Creat Ratio 13.9 RATIO (10-20); Calcium,Total 9.1 mg/dL (8.5-10.1); Chloride 108 mmol/L (98-107); Creatinine, Serum 0.86 mg/dL (0.70-1.30); EST Glomerular Filtration Rate 95 mL/min (>60); Est Glom Filt Rate - Afr Amer 115 mL/min (>60); Globulin 3.5 g/dL (2.2-4.2); Glucose 109 mg/dL (74-106); Potassium 4.4 mmol/L (3.5-5.1); Protein, Total 7.2 g/dL (6.4-8.2); Sodium Level 141 mmol/L (136-145)
== END ==
LOC: MTRAD 12:41 → MTLAB 12:48
PROVIDERS: PCP Family Medicine; Referring Provider Internal Medicine Rheumatology; Visit Provider Internal Medicine Rheumatology
DX: M05.70 Rheumatoid arthritis with rheumatoid factor of unspecified site without organ or systems involvement (principal); C44.91 Basal cell carcinoma of skin, unspecified; I73.9 Peripheral vascular disease, unspecified; Z79.899 Other long term (current) drug therapy
CPT/HCPCS: 36415; 80053; 85025

== ENCOUNTER → 2020-10-22 09:05 | Outpatient (CLI) | payer OTHER, SELFPAY ==
[2020-10-22 10:07] LABS: Absolute Lymphocyte Count 1.88 X10^3/uL (0.83-4.51); Absolute Neutrophil Count 6.3 X10^3/uL (2.0-7.7); Basophil# 0.05 X10^3/uL; Basophil% 0.6 % (0-1); Eosinophil# 0.14 X10^3/uL; Eosinophils% 1.6 % (0-5); Hematocrit 46.8 % (40-54); Hemoglobin 15.5 g/dL (13.0-16.5); Lymphocyte # 1.88 X10^3/ul (0.83-4.51); Mean Corp Hgb Conc 33.1 g/dL (32-36); Mean Corpuscular Volume 99.8 fL (80-94); Mean Platelet Vol. 9.7 fl (6.2-12.0); Monocyte# 0.52 X10^3/uL; Monocyte% 5.8 % (0-10); NRBC Flagged by Analyzer 0 % (0-5); Neutrophil # 6.32 X10^3/uL (2.7-7.7); Neutrophil % 70.6 % (47-70); Platelet Count 269 K/mm3 (150-450); RBC Distribution Width CV 12.6 % (11.6-14.6); RBC Distribution Width SD 46.3 fl (35.1-43.9); Red Blood Count 4.69 M/mm3 (4.6-6.2)
[2020-10-22 10:33] LABS: ALB/GLOB Ratio 1.1 RATIO (0.9-2.4); AST(SGOT) 23 U/L (15-37); Alanine Aminotransfer ALT/SGPT 29 U/L (16-61); Albumin, Serum 3.6 g/dL (3.2-5.0); Alkaline Phosphatase 76 U/L (45-117); Anion Gap 4 (5-15); BUN 10 mg/dL (7-18); BUN/Creat Ratio 13.2 RATIO (10-20); Calcium,Total 9.1 mg/dL (8.5-10.1); Chloride 108 mmol/L (98-107); Creatinine, Serum 0.76 mg/dL (0.70-1.30); EST Glomerular Filtration Rate 110 mL/min (>60); Est Glom Filt Rate - Afr Amer 133 mL/min (>60); Globulin 3.2 g/dL (2.2-4.2); Glucose 97 mg/dL (74-106); Potassium 4.5 mmol/L (3.5-5.1); Protein, Total 6.8 g/dL (6.4-8.2); Sodium Level 141 mmol/L (136-145)
== END ==
PROVIDERS: PCP Family Medicine; Referring Provider Internal Medicine Rheumatology; Visit Provider Internal Medicine Rheumatology
DX: M05.70 Rheumatoid arthritis with rheumatoid factor of unspecified site without organ or systems involvement (principal); C44.91 Basal cell carcinoma of skin, unspecified; I73.9 Peripheral vascular disease, unspecified; Z79.899 Other long term (current) drug therapy
CPT/HCPCS: 36415; 80053; 85025

== ENCOUNTER → 2021-01-13 09:19 | Outpatient (CLI) | payer OTHER, SELFPAY ==
[2021-01-13 12:16] LABS: Absolute Lymphocyte Count 2.03 X10^3/uL (0.83-4.51); Absolute Neutrophil Count 6.1 X10^3/uL (2.0-7.7); Basophil# 0.07 X10^3/uL; Basophil% 0.8 % (0-1); Eosinophil# 0.13 X10^3/uL; Eosinophils% 1.5 % (0-5); Hematocrit 46.7 % (40-54); Hemoglobin 15.9 g/dL (13.0-16.5); Lymphocyte # 2.03 X10^3/ul (0.83-4.51); Lymphocyte % 22.9 % (19-41); Mean Corpuscular Hgb 33.8 pg (27.0-32.0); Mean Corpuscular Volume 99.2 fL (80-94); Monocyte# 0.49 X10^3/uL; Monocyte% 5.5 % (0-10); NRBC Flagged by Analyzer 0 % (0-5); Neutrophil # 6.12 X10^3/uL (2.7-7.7); Platelet Count 266 K/mm3 (150-450); RBC Distribution Width CV 12.6 % (11.6-14.6); Red Blood Count 4.71 M/mm3 (4.6-6.2); White Blood Count 8.9 K/mm3 (4.4-11.0)
[2021-01-13 12:47] LABS: ALB/GLOB Ratio 1.1 RATIO (0.9-2.4); AST(SGOT) 17 U/L (15-37); Alanine Aminotransfer ALT/SGPT 25 U/L (16-61); Albumin, Serum 3.8 g/dL (3.2-5.0); Alkaline Phosphatase 85 U/L (45-117); Anion Gap 5 (5-15); BUN 12 mg/dL (7-18); BUN/Creat Ratio 16.4 RATIO (10-20); Calcium,Total 9.5 mg/dL (8.5-10.1); Chloride 108 mmol/L (98-107); Creatinine, Serum 0.73 mg/dL (0.70-1.30); EST Glomerular Filtration Rate 114 mL/min (>60); Est Glom Filt Rate - Afr Amer 138 mL/min (>60); Globulin 3.4 g/dL (2.2-4.2); Glucose 89 mg/dL (74-106); Potassium 4.3 mmol/L (3.5-5.1); Protein, Total 7.2 g/dL (6.4-8.2); Sodium Level 141 mmol/L (136-145)
== END ==
PROVIDERS: PCP Family Medicine; Referring Provider Internal Medicine Rheumatology; Visit Provider Internal Medicine Rheumatology
DX: M05.70 Rheumatoid arthritis with rheumatoid factor of unspecified site without organ or systems involvement (principal); C44.519 Basal cell carcinoma of skin of other part of trunk; I73.9 Peripheral vascular disease, unspecified; Z79.899 Other long term (current) drug therapy
CPT/HCPCS: 36415; 80053; 85025

== ENCOUNTER → 2021-01-21 11:05 | Outpatient (CLI) | payer OTHER, SELFPAY ==
[2021-01-21 12:52] LABS: AST(SGOT) 17 U/L (15-37); Alanine Aminotransfer ALT/SGPT 23 U/L (16-61); Anion Gap 4 (5-15); BUN 9 mg/dL (7-18); BUN/Creat Ratio 13.2 RATIO (10-20); Calcium,Total 9.1 mg/dL (8.5-10.1); Chloride 107 mmol/L (98-107); Cholesterol 173 mg/dL (200); Creatinine, Serum 0.68 mg/dL (0.70-1.30); EST Glomerular Filtration Rate 124 mL/min (>60); Est Glom Filt Rate - Afr Amer 150 mL/min (>60); Glucose 102 mg/dL (74-106); High Density Lipoprotein 63 mg/dL; Potassium 4.2 mmol/L (3.5-5.1); Sodium Level 139 mmol/L (136-145); Triglycerides 54 mg/dL; Very Low Density Lipoprotein 11 mg/dL (5-40)
== END ==
PROVIDERS: PCP Family Medicine; Referring Provider Family Medicine; Visit Provider Family Medicine
DX: I10 Essential (primary) hypertension (principal); E78.5 Hyperlipidemia, unspecified
CPT/HCPCS: 36415; 80048; 80061; 84450; 84460

== ENCOUNTER → 2021-01-29 09:28 | Outpatient (CLI) | payer OTHER, SELFPAY ==
[2021-01-29 12:16] LABS: PSA,Total- Diagnostic 6.04 ng/mL (0.0-4.0)
== END ==
PROVIDERS: PCP Family Medicine; Referring Provider Urology; Visit Provider Urology
DX: R97.20 Elevated prostate specific antigen [PSA] (principal)
CPT/HCPCS: 36415; 84153

== ENCOUNTER 2021-02-13 07:50 | Day surgery (SDC) | payer OTHER, SELFPAY ==
--- NOTE | 2021-02-13 | COLBX_PTH ---
PATIENT: SIENA SOSA LOC: EN U#:[id number] AGE/SX: 66/M ROOM: RE02/13/[address]: Dr. Gennaro Hanna MD : 1955 BED: DIS: 02/13/2021 SPEC #: [id number] RECD: 02/13/21 12:41 STATUS: DAVID CRUZ #: [id number] LEXI: 02/13/21 00:[address]: Gennaro Hanna DEPT: SURGICAL PATHOLOGY RECD BY: Eduardo Wilson ENTERED: 02/13/21 12:41 SP TYPE: COLON BX BRENDON DR: Dr. Jessica Astorga MD Tissues: A - SPLENIC FLEXURE B - Sigmoid colon biopsy C - Sigmoid colon biopsy D - Sigmoid colon biopsy Procedures: Surgery Specimen Level IV HEADER OPERATION: Colonoscopy ? open access (MAC) PRE-OP DIAGNOSIS: Screening for intestinal cancer TISSUE SUBMITTED: A ? Splenic flexure polyp, B ? Proximal sigmoid polyp biopsy, C ? Mid sigmoid polyp biopsy, D ? Distal sigmoid polyp MICROSCOPIC DIAGNOSIS A. Colonic polyp at splenic flexure, biopsy: Tubular adenoma. B. Proximal sigmoid colon polyp, biopsy: Hyperplastic polyp. C. Mid sigmoid colon polyp, biopsy: Fragments of hyperplastic polyp. D. Distal sigmoid colon polyp, biopsy. Fragments of tubular adenoma. AM:cosmo 02/16/2021 MICROSCOPIC DESCRIPTION Slides are reviewed. GROSS DESCRIPTION A - Received in fixative is one container labeled with the patient's name and designated splenic flexure polyp. The specimen consists of a piña-pink polyp measuring 1.5 x 1 x 1 cm. The apparent base is inked. Also present in the container are multiple fragments of piña soft tissue measuring in aggregate 1.5 x 0.5 x 0.1 cm. The entire specimen is submitted in one cassette. B - Received in fixative is one container labeled with the patient's name and designated proximal sigmoid polyp biopsy. The specimen consists of one irregular fragment of light piña soft tissue that measures 0.4 x 0.3 x 0.1 cm. The specimen is totally submitted in one cassette. C - Received in fixative is one container labeled with the patient's name and designated mid sigmoid polyp biopsy. The specimen consists of multiple irregular fragments of light piña soft tissue that in aggregate measure 1 x 0.3 x 0.1 cm. The specimen is totally submitted in one cassette. D - Received in fixative is one container labeled with the patient's name and designated distal sigmoid polyp. The specimen consists of multiple irregular fragments of light piña soft tissue mixed with fecal material that in aggregate measure 2 x 0.5 x 0.3 cm. The specimen is totally submitted in one cassette. / JAVID:cosmo 02/13/21 TC:5 CPT: 48327 x4
--- NOTE | 2021-02-13 07:55 | PCM.HP.STD ---
HPI - General HPI Narrative SIENA SOSA, is a 66 M who presents today for screening colonoscopy. He has never had a previous exam. His mother had colon cancer. His only anticoagulant is aspirin. He presents via open access today. PFSH Medical History Anxiety Arthritis Cancer Depression High cholesterol Hyperlipidemia Hypertension Peripheral arterial occlusive disease Rheumatoid arthritis Shortness of breath on exertion Smoker Home Medications duloxetine 60 mg PO DAILY 07/23/16 [History Last Taken Unknown] folic acid 2 mg PO DAILY 07/23/16 [History Last Taken Unknown] methotrexate sodium 12.5 mg PO FR 07/23/16 [History Last Taken Unknown] atorvastatin 20 mg PO QHS 07/30/16 [History Last Taken Unknown] aspirin [Aspir-81] 81 mg PO DAILY 02/10/21 [History Last Taken 02/12/21 18:00] metoprolol tartrate 50 mg PO QHS 02/10/21 [History Last Taken 02/13/21 06:00] Allergy/AdvReac Type Severity Reaction Status Date / Time NSAIDS (Non-Steroidal Allergy Hives Verified 02/13/21 08:23 Anti-Inflamma Family History Mother Colon cancer Father Arthritis Surgical History (Updated 07/26/17 @ 13:48 by Gertrude Pineda) APLL APLL Hx of shoulder surgery S/P carpal tunnel release Social History (Updated 07/26/17 @ 14:[address] Gennaro Hanna MD) Smoking Status: Current every day smoker tobacco type: cigarettes second hand exposure: Yes alcohol intake: never substance use type: does not use caffeine: Yes what type of physical activity do you participate in: none frequency: does not exercise seatbelt use: always ROS Constitutional Constitutional: Reports systems reviewed and no addt'l complaints, except as documented Cardiovascular Cardiovascular: Denies chest pain Respiratory/Chest Respiratory/Chest: Denies shortness of breath at rest Gastrointestinal Gastrointestinal: Denies abdominal pain, change in bowel habits, hematochezia or melena Physical Exam Const alert, oriented x3 and no apparent distress General Appearance: cooperative and comfortable Eyes General Eye: normal appearance of both eyes Neck General: normal visual inspection Chest inspection of chest normal Resp Effort and Inspection: able to speak in complete sentences and symmetric chest movement Auscultation: clear to auscultation bilaterally Cardio regular rate and regular rhythm GI soft to palpation, non-tender and non-distended Extremity no calf tenderness Neuro oriented x3 Psych thought process normal Results Lab / Micro Data Micro: Microbiology 02/12/21 10:00 Interface Orders SARS-CoV-2 Antigen (Rapid) - Final Assessment & Plan Assessment/Plan (1) Screening for intestinal cancer: PLAN: The patient presents via open access today for screening colonoscopy with possible biopsy or polypectomy as indicated. Family history colon cancer in his mother. He has not had a previous endoscopy. He is aware of the technique, benefit, risk, alternatives. He is had an opportunity to ask and have questions answered. We will proceed as noted. Gennaro Hanna M.D., F.A.C.S. Procedure Criteria Type of Procedure Procedure Type: Elective Elective Risks - COVID COVID Risk Discussion: The surgeon/proceduralist and patient have discussed in detail the risk of exposure to and/or potential harm posed by the COVID-19 virus with having a surgery/procedure at this time versus the risk of delaying the surgery/procedure. It is not possible to know either the risk of delaying the surgery or procedure or chance of getting an infection with perfect accuracy, but a joint decision was made between the patient and the surgeon/proceduralist to proceed at this time with the scheduled surgery/procedure as indicated on the consent form.
[2021-02-13 08:25] VITALS: BP 137/78; PULSE 77; RESP 18; TEMP 35.9; O2SAT 96; BMI 22.6
[2021-02-13] MEDS: Lactated Ringers 1,000 ML 100 ML IV (08:30)
[2021-02-13 09:54] VITALS: BP 137/78; BP 97/71; PULSE 65; RESP 16; TEMP 36.8; O2SAT 99
--- NOTE | 2021-02-13 09:57 | OP.COLON_ITS ---
Patient Name: Artur Wall Procedure Date: 02/13/2021 9:04 AM Date of : 1955 Age: 66 Procedure: Colonoscopy Indications: Screening for colorectal malignant neoplasm Providers: Gennaro Hanna MD Referring MD: Gennaro Hanna MD Medicines: See the Anesthesia note for documentation of the administered medications Patient Profile: Last Colonoscopy: none. The patient's first colonoscopy is today. Complications: No immediate complications. Procedure: Pre-Anesthesia Assessment: - Prior to the procedure, a History and Physical was performed, and patient medications and allergies were reviewed. The patient's tolerance of previous anesthesia was also reviewed. The risks and benefits of the procedure and the sedation options and risks were discussed with the patient. All questions were answered, and informed consent was obtained. Prior Anticoagulants: The patient has taken aspirin, last dose was day of procedure. ASA Grade Assessment: II - A patient with mild systemic disease. After reviewing the risks and benefits, the patient was deemed in satisfactory condition to undergo the procedure. After I obtained informed consent, the scope was passed under direct vision. Throughout the procedure, the patient's blood pressure, pulse, and oxygen saturations were monitored continuously. The pediatric colonoscope was introduced through the anus and advanced to the cecum, identified by appendiceal orifice and ileocecal valve. The colonoscopy was performed with moderate difficulty due to multiple diverticula in the colon. The patient tolerated the procedure well. The quality of the bowel preparation was good. Scope In: 9:13:09 AM Scope Withdrawal Time 0 hours 28 minutes 27 seconds Scope Out: 9:46:35 AM Total Procedure Duration Time 0 hours 33 minutes 26 seconds Findings: The digital rectal exam findings include non-thrombosed external hemorrhoids, non-thrombosed internal hemorrhoids and internal hemorrhoids that prolapse with straining, but spontaneously regress to the resting position (Grade II). Pertinent negatives include normal prostate (size, shape, and consistency). A 20 mm polyp was found in the splenic flexure. The polyp was pedunculated. Polypectomy was attempted, initially using a large endoloop and hot snare. The large endoloop was maneuvered over the polyp stalk and closed at the mucosal attachment (prior to using the hot snare) in order to prevent bleeding. Polyp resection was incomplete using the hot snare. This intervention then required a different device and polypectomy technique. The polyp was removed with a hot snare. Resection and retrieval were complete. A 5 mm polyp was found in the proximal sigmoid colon. The polyp was sessile. The polyp was removed with a cold biopsy forceps. Resection and retrieval were complete. A 9 mm polyp was found in the mid sigmoid colon. The polyp was sessile. The polyp was removed with a cold biopsy forceps. Resection and retrieval were complete. A 9 mm polyp was found in the distal sigmoid colon. The polyp was semi-pedunculated. The polyp was removed with a hot snare. Resection and retrieval were complete. To prevent bleeding post-intervention, one hemostatic clip was successfully placed. There was no bleeding at the end of the procedure. Multiple diverticula were found in the sigmoid colon and descending colon. Impression: - Non-thrombosed external hemorrhoids, non-thrombosed internal hemorrhoids and internal hemorrhoids that prolapse with straining, but spontaneously regress to the resting position (Grade II) found on digital rectal exam. - One 20 mm polyp at the splenic flexure, removed with a hot snare. Resected and retrieved. - One 5 mm polyp in the proximal sigmoid colon, removed with a cold biopsy forceps. Resected and retrieved. - One 9 mm polyp in the mid sigmoid colon, removed with a cold biopsy forceps. Resected and retrieved. - One 9 mm polyp in the distal sigmoid colon, removed with a hot snare. Resected and retrieved. Clip was placed. - Diverticulosis in the sigmoid colon and in the descending colon. Recommendation: - Discharge patient to home. - Resume previous diet. - Continue present medications. - Repeat colonoscopy in 1 year for surveillance. - Telephone my office for pathology results in 1 week. Procedure Code(s): --- Professional --- 12795, Colonoscopy, flexible; with removal of tumor(s), polyp(s), or other lesion(s) by snare technique 78198, 59, Colonoscopy, flexible; with biopsy, single or multiple Diagnosis Code(s): --- Professional --- Z12.11, Encounter for screening for malignant neoplasm of colon K64.1, Second degree hemorrhoids K64.4, Residual hemorrhoidal skin tags D12.3, Benign neoplasm of transverse colon (hepatic flexure or splenic flexure) D12.5, Benign neoplasm of sigmoid colon K57.30, Diverticulosis of large intestine without perforation or abscess without bleeding CPT copyright 2017 [employer]. All rights reserved. The codes documented in this report are preliminary and upon surface hydrologist review may be revised to meet current compliance requirements. Gennaro Hanna MD 02/13/2021 9:56:41 AM This report has been signed electronically. Number of Addenda: 0 Note Initiated On: 02/13/2021 9:04 AM
--- NOTE | 2021-02-13 09:58 | OP.CCLET_ITS ---
02/13/2021 Jessica [address] [place] [address] Re : Colonoscopy procedure for Artur Wall Dear Dr. Astorga This procedure was performed on Saturday, February 13, 2021. My impressions and recommendations are as follows: Impressions : - Non-thrombosed external hemorrhoids, non-thrombosed internal hemorrhoids and internal hemorrhoids that prolapse with straining, but spontaneously regress to the resting position (Grade II) found on digital rectal exam. - One 20 mm polyp at the splenic flexure, removed with a hot snare. Resected and retrieved. - One 5 mm polyp in the proximal sigmoid colon, removed with a cold biopsy forceps. Resected and retrieved. - One 9 mm polyp in the mid sigmoid colon, removed with a cold biopsy forceps. Resected and retrieved. - One 9 mm polyp in the distal sigmoid colon, removed with a hot snare. Resected and retrieved. Clip was placed. - Diverticulosis in the sigmoid colon and in the descending colon. Recommendations : - Discharge patient to home. - Resume previous diet. - Continue present medications. - Repeat colonoscopy in 1 year for surveillance. - Telephone my office for pathology results in 1 week. My findings are described in the full procedure note, which is enclosed. If I can be of further assistance, please feel free to contact me at Doctor phone number(s): Work: . Sincerely, Gennaro Hanna MD 02/13/2021 9:56:41 AM This report has been signed electronically.
[2021-02-13 10:00] VITALS: BP 102/69; BP 137/78; PULSE 65; RESP 16; O2SAT 99
[2021-02-13 10:05] VITALS: BP 112/72; BP 137/78; PULSE 65; RESP 16; O2SAT 95
[2021-02-13 10:11] VITALS: BP 108/63; BP 137/78; RESP 16; TEMP 36.2; O2SAT 100
[2021-02-13 10:38] VITALS: BP 137/78
== END 2021-02-13 10:44 | disposition home or self-care (01) ==
LOC: EN 07:52 → AC 07:52
PROVIDERS: PCP Family Medicine; Referring Provider Surgery; Visit Provider Surgery
PROC: 0DJD8ZZ Inspection of Lower Intestinal Tract, Via Natural or Artificial Opening Endoscopic (ICD-10-PCS; CPT 45378; principal; 2021-02-13 08:55)
DX: Z12.11 Encounter for screening for malignant neoplasm of colon (principal); K64.1 Second degree hemorrhoids; K64.4 Residual hemorrhoidal skin tags; D12.3 Benign neoplasm of transverse colon; D12.5 Benign neoplasm of sigmoid colon; K57.30 Diverticulosis of large intestine without perforation or abscess without bleeding; I10 Essential (primary) hypertension; E78.00 Pure hypercholesterolemia, unspecified; M06.9 Rheumatoid arthritis, unspecified; F32.9 Major depressive disorder, single episode, unspecified; F41.9 Anxiety disorder, unspecified; F17.210 Nicotine dependence, cigarettes, uncomplicated; Z79.82 Long term (current) use of aspirin; Z79.899 Other long term (current) drug therapy; Z20.822 Contact with and (suspected) exposure to COVID-19; Z80.0 Family history of malignant neoplasm of digestive organs
CPT/HCPCS: 45380; 45385; 87426; 88305; C9803; J7120

== ENCOUNTER → 2021-04-01 09:45 | Outpatient (CLI) | payer OTHER, SELFPAY ==
[2021-04-01 12:18] LABS: Absolute Lymphocyte Count 2.44 X10^3/uL (0.83-4.51); Absolute Neutrophil Count 5.6 X10^3/uL (2.0-7.7); Basophil# 0.06 X10^3/uL; Basophil% 0.7 % (0-1); Eosinophil# 0.15 X10^3/uL; Eosinophils% 1.7 % (0-5); Hemoglobin 15.9 g/dL (13.0-16.5); Lymphocyte # 2.44 X10^3/ul (0.83-4.51); Lymphocyte % 27.4 % (19-41); Mean Corp Hgb Conc 33.8 g/dL (32-36); Mean Corpuscular Hgb 33.6 pg (27.0-32.0); Mean Corpuscular Volume 99.4 fL (80-94); Mean Platelet Vol. 9.8 fl (6.2-12.0); Monocyte# 0.66 X10^3/uL; Monocyte% 7.4 % (0-10); NRBC Flagged by Analyzer 0 % (0-5); Neutrophil # 5.55 X10^3/uL (2.7-7.7); Neutrophil % 62.5 % (47-70); Platelet Count 278 K/mm3 (150-450); RBC Distribution Width CV 12.5 % (11.6-14.6); RBC Distribution Width SD 46.4 fl (35.1-43.9); Red Blood Count 4.73 M/mm3 (4.6-6.2); White Blood Count 8.9 K/mm3 (4.4-11.0)
[2021-04-01 13:19] LABS: AST(SGOT) 23 U/L (15-37); Alanine Aminotransfer ALT/SGPT 27 U/L (16-61); Albumin, Serum 3.7 g/dL (3.2-5.0); Alkaline Phosphatase 80 U/L (45-117); Anion Gap 8 (5-15); BUN 17 mg/dL (7-18); BUN/Creat Ratio 20.6 RATIO (10-20); Calcium,Total 9.2 mg/dL (8.5-10.1); Chloride 108 mmol/L (98-107); Creatinine, Serum 0.83 mg/dL (0.70-1.30); EST Glomerular Filtration Rate 99 mL/min (>60); Est Glom Filt Rate - Afr Amer 120 mL/min (>60); Globulin 3.6 g/dL (2.2-4.2); Glucose 117 mg/dL (74-106); Potassium 4.7 mmol/L (3.5-5.1); Protein, Total 7.3 g/dL (6.4-8.2); Sodium Level 140 mmol/L (136-145)
== END ==
PROVIDERS: PCP Family Medicine; Referring Provider Internal Medicine Rheumatology; Visit Provider Internal Medicine Rheumatology
DX: M05.70 Rheumatoid arthritis with rheumatoid factor of unspecified site without organ or systems involvement (principal); C44.91 Basal cell carcinoma of skin, unspecified; I73.9 Peripheral vascular disease, unspecified; Z79.899 Other long term (current) drug therapy
CPT/HCPCS: 36415; 80053; 85025

== ENCOUNTER 2021-07-02 09:47 | Outpatient (CLI) | payer OTHER, SELFPAY ==
[2021-07-02 12:05] LABS: Absolute Lymphocyte Count 2.34 X10^3/uL (0.83-4.51); Absolute Neutrophil Count 6.4 X10^3/uL (2.0-7.7); Basophil# 0.07 X10^3/uL; Basophil% 0.7 % (0-1); Eosinophil# 0.18 X10^3/uL; Eosinophils% 1.9 % (0-5); Hematocrit 44.7 % (40-54); Hemoglobin 15.4 g/dL (13.0-16.5); Lymphocyte # 2.34 X10^3/ul (0.83-4.51); Lymphocyte % 24.2 % (19-41); Mean Corp Hgb Conc 34.5 g/dL (32-36); Mean Corpuscular Hgb 34.1 pg (27.0-32.0); Mean Corpuscular Volume 99.1 fL (80-94); Mean Platelet Vol. 9.5 fl (6.2-12.0); Monocyte# 0.68 X10^3/uL; NRBC Flagged by Analyzer 0 % (0-5); Neutrophil # 6.35 X10^3/uL (2.7-7.7); Neutrophil % 65.9 % (47-70); Platelet Count 303 K/mm3 (150-450); RBC Distribution Width CV 13.1 % (11.6-14.6); RBC Distribution Width SD 47.5 fl (35.1-43.9); Red Blood Count 4.51 M/mm3 (4.6-6.2); White Blood Count 9.7 K/mm3 (4.4-11.0)
[2021-07-02 12:22] LABS: ALB/GLOB Ratio 1.1 RATIO (0.9-2.4); AST(SGOT) 19 U/L (15-37); Alanine Aminotransfer ALT/SGPT 34 U/L (16-61); Albumin, Serum 3.7 g/dL (3.2-5.0); Alkaline Phosphatase 73 U/L (45-117); Anion Gap 4 (5-15); BUN 12 mg/dL (7-18); BUN/Creat Ratio 15.7 RATIO (10-20); Calcium,Total 8.7 mg/dL (8.5-10.1); Chloride 108 mmol/L (98-107); Creatinine, Serum 0.77 mg/dL (0.70-1.30); EST Glomerular Filtration Rate 108 mL/min (>60); Est Glom Filt Rate - Afr Amer 131 mL/min (>60); Globulin 3.4 g/dL (2.2-4.2); Glucose 107 mg/dL (74-106); Potassium 4.3 mmol/L (3.5-5.1); Protein, Total 7.1 g/dL (6.4-8.2); Sodium Level 140 mmol/L (136-145)
== END 2021-07-02 23:59 | disposition home or self-care (01) ==
LOC: MTLAB 09:48
PROVIDERS: PCP Family Medicine; Referring Provider Internal Medicine Rheumatology; Visit Provider Internal Medicine Rheumatology
DX: M05.70 Rheumatoid arthritis with rheumatoid factor of unspecified site without organ or systems involvement (principal); I73.9 Peripheral vascular disease, unspecified; C44.91 Basal cell carcinoma of skin, unspecified; Z79.899 Other long term (current) drug therapy
CPT/HCPCS: 36415; 80053; 85025

== ENCOUNTER → 2021-09-29 | Outpatient (CLI) | payer OTHER, SELFPAY ==
[2021-09-29 12:19] LABS: Absolute Lymphocyte Count 2.86 X10^3/uL (0.83-4.51); Basophil# 0.07 X10^3/uL; Basophil% 0.7 % (0-1); Eosinophil# 0.16 X10^3/uL; Eosinophils% 1.7 % (0-5); Hematocrit 47.7 % (40-54); Hemoglobin 16.2 g/dL (13.0-16.5); Lymphocyte # 2.86 X10^3/ul (0.83-4.51); Lymphocyte % 29.6 % (19-41); Mean Corpuscular Hgb 33.3 pg (27.0-32.0); Mean Corpuscular Volume 97.9 fL (80-94); Mean Platelet Vol. 9.4 fl (6.2-12.0); Monocyte# 0.54 X10^3/uL; Monocyte% 5.6 % (0-10); NRBC Flagged by Analyzer 0 % (0-5); Neutrophil # 5.99 X10^3/uL (2.7-7.7); Neutrophil % 62.1 % (47-70); Platelet Count 290 K/mm3 (150-450); RBC Distribution Width CV 12.4 % (11.6-14.6); RBC Distribution Width SD 44.6 fl (35.1-43.9); Red Blood Count 4.87 M/mm3 (4.6-6.2); White Blood Count 9.7 K/mm3 (4.4-11.0)
[2021-09-29 12:52] LABS: ALB/GLOB Ratio 1.1 RATIO (0.9-2.4); AST(SGOT) 25 U/L (15-37); Alanine Aminotransfer ALT/SGPT 31 U/L (16-61); Albumin, Serum 3.9 g/dL (3.2-5.0); Alkaline Phosphatase 85 U/L (45-117); Anion Gap 6 (5-15); BUN 21 mg/dL (7-18); BUN/Creat Ratio 24.6 RATIO (10-20); Calcium,Total 9.2 mg/dL (8.5-10.1); Chloride 107 mmol/L (98-107); Creatinine, Serum 0.85 mg/dL (0.70-1.30); EST Glomerular Filtration Rate 96 mL/min (>60); Est Glom Filt Rate - Afr Amer 116 mL/min (>60); Globulin 3.5 g/dL (2.2-4.2); Glucose 107 mg/dL (74-106); Potassium 4.7 mmol/L (3.5-5.1); Protein, Total 7.4 g/dL (6.4-8.2); Sodium Level 139 mmol/L (136-145)
== END | disposition home or self-care (01) ==
LOC: MTLAB 10:06
PROVIDERS: PCP Family Medicine; Referring Provider Internal Medicine Rheumatology; Visit Provider Internal Medicine Rheumatology
DX: M05.70 Rheumatoid arthritis with rheumatoid factor of unspecified site without organ or systems involvement (principal); I73.9 Peripheral vascular disease, unspecified; C44.91 Basal cell carcinoma of skin, unspecified; Z79.899 Other long term (current) drug therapy
CPT/HCPCS: 36415; 80053; 85025

== ENCOUNTER → 2021-11-17 | Outpatient (CLI) | payer OTHER, SELFPAY | END | disposition home or self-care (01) | LOC: MFPLAB 10:16 | PROVIDERS: PCP Family Medicine; Visit Provider Family Medicine | DX: Z12.5 Encounter for screening for malignant neoplasm of prostate (principal) | CPT/HCPCS: 36415; 84153; G0103 ==

== ENCOUNTER → 2021-12-25 | Outpatient (CLI) | payer OTHER, SELFPAY ==
[2021-12-25 12:37] LABS: AST(SGOT) 16 U/L (15-37); Alanine Aminotransfer ALT/SGPT 22 U/L (16-61); Albumin, Serum 3.5 g/dL (3.2-5.0); Alkaline Phosphatase 77 U/L (45-117); Anion Gap 2 (5-15); BUN 15 mg/dL (7-18); BUN/Creat Ratio 17.6 RATIO (10-20); Chloride 111 mmol/L (98-107); Creatinine, Serum 0.85 mg/dL (0.70-1.30); EST Glomerular Filtration Rate 96 mL/min (>60); Est Glom Filt Rate - Afr Amer 116 mL/min (>60); Globulin 3.4 g/dL (2.2-4.2); Glucose 79 mg/dL (74-106); Potassium 4.3 mmol/L (3.5-5.1); Protein, Total 6.9 g/dL (6.4-8.2); Sodium Level 140 mmol/L (136-145)
[2021-12-25 12:47] LABS: Absolute Neutrophil Count 7.4 X10^3/uL (2.0-7.7); Basophil# 0.07 X10^3/uL; Basophil% 0.7 % (0-1); Eosinophil# 0.23 X10^3/uL; Eosinophils% 2.2 % (0-5); Hematocrit 47.4 % (40-54); Hemoglobin 16.1 g/dL (13.0-16.5); Lymphocyte % 18.2 % (19-41); Mean Corpuscular Hgb 34.6 pg (27.0-32.0); Mean Corpuscular Volume 101.9 fL (80-94); Mean Platelet Vol. 9.5 fl (6.2-12.0); Monocyte# 0.79 X10^3/uL; Monocyte% 7.6 % (0-10); NRBC Flagged by Analyzer 0 % (0-5); Neutrophil # 7.44 X10^3/uL (2.7-7.7); Platelet Count 262 K/mm3 (150-450); RBC Distribution Width CV 13.4 % (11.6-14.6); RBC Distribution Width SD 50.2 fl (35.1-43.9); Red Blood Count 4.65 M/mm3 (4.6-6.2); White Blood Count 10.5 K/mm3 (4.4-11.0)
== END | disposition home or self-care (01) ==
LOC: MTLAB 09:43
PROVIDERS: PCP Family Medicine; Referring Provider Internal Medicine Rheumatology; Visit Provider Internal Medicine Rheumatology
DX: M05.70 Rheumatoid arthritis with rheumatoid factor of unspecified site without organ or systems involvement (principal); I73.9 Peripheral vascular disease, unspecified; C44.519 Basal cell carcinoma of skin of other part of trunk; Z79.899 Other long term (current) drug therapy
CPT/HCPCS: 36415; 80053; 85025

== ENCOUNTER → 2022-02-01 | Outpatient (CLI) | payer OTHER, SELFPAY ==
--- NOTE | 2022-02-01 10:12 | RAD_ITS ---
STUDY: X-RAY - PELVIS AND LEFT HIP REASON FOR EXAM: Male, 67 years old. PAIN TECHNIQUE: XR Hip Unilateral with Pelvis when performed; 2-3 Views COMPARISON: None. FINDINGS: There is a non-specific bowel gas pattern. Normal visualized soft tissue structures. There are atherosclerotic vascular calcifications. There are degenerative changes of the lumbar spine. Normal bilateral iliac wings, sacroiliac joints and visualized sacrum. Normal bilateral superior and inferior pubic rami. Normal pubic symphysis. Normal bilateral ischial tuberosities. Normal visualized femoral head. Normal acetabulum. Normal hip joint. Left leg stent graft. RAD/HIP, UNI W/ Pelvis 2-3 Views IMPRESSION: No acute findings. Electronically Signed: Idris Fountain MD at 18:22 EDT ,
== END | disposition home or self-care (01) ==
LOC: MTRAD 10:11
PROVIDERS: PCP Family Medicine; Referring Provider Family Medicine; Visit Provider Family Medicine
DX: M25.552 Pain in left hip (principal)
CPT/HCPCS: 73502

== ENCOUNTER → 2022-03-23 | Outpatient (CLI) | payer OTHER, SELFPAY ==
[2022-03-23 15:29] LABS: Absolute Neutrophil Count 6.8 X10^3/uL (2.0-7.7); Basophil# 0.07 X10^3/uL; Basophil% 0.7 % (0-1); Eosinophil# 0.13 X10^3/uL; Eosinophils% 1.3 % (0-5); Hematocrit 47.3 % (40-54); Hemoglobin 16.1 g/dL (13.0-16.5); Lymphocyte % 23.1 % (19-41); Mean Corpuscular Hgb 34.2 pg (27.0-32.0); Mean Corpuscular Volume 100.4 fL (80-94); Mean Platelet Vol. 9.7 fl (6.2-12.0); Monocyte# 0.61 X10^3/uL; Monocyte% 6.1 % (0-10); NRBC Flagged by Analyzer 0 % (0-5); Neutrophil # 6.81 X10^3/uL (2.7-7.7); Neutrophil % 68.6 % (47-70); Platelet Count 306 K/mm3 (150-450); RBC Distribution Width SD 48.4 fl (35.1-43.9); Red Blood Count 4.71 M/mm3 (4.6-6.2); White Blood Count 9.9 K/mm3 (4.4-11.0)
[2022-03-23 15:35] LABS: ALB/GLOB Ratio 1.1 RATIO (0.9-2.4); AST(SGOT) 20 U/L (15-37); Alanine Aminotransfer ALT/SGPT 28 U/L (16-61); Albumin, Serum 3.7 g/dL (3.2-5.0); Alkaline Phosphatase 79 U/L (45-117); Anion Gap 5 (5-15); BUN 11 mg/dL (7-18); BUN/Creat Ratio 15.2 RATIO (10-20); Calcium,Total 9.2 mg/dL (8.5-10.1); Chloride 105 mmol/L (98-107); Creatinine, Serum 0.73 mg/dL (0.70-1.30); EST Glomerular Filtration Rate 115 mL/min (>60); Est Glom Filt Rate - Afr Amer 139 mL/min (>60); Globulin 3.3 g/dL (2.2-4.2); Glucose 93 mg/dL (74-106); Potassium 4.3 mmol/L (3.5-5.1); Sodium Level 138 mmol/L (136-145)
== END | disposition home or self-care (01) ==
LOC: MTLAB 12:51
PROVIDERS: PCP Family Medicine; Referring Provider Internal Medicine Rheumatology; Visit Provider Internal Medicine Rheumatology
DX: M05.70 Rheumatoid arthritis with rheumatoid factor of unspecified site without organ or systems involvement (principal); I73.9 Peripheral vascular disease, unspecified; C44.91 Basal cell carcinoma of skin, unspecified; Z79.899 Other long term (current) drug therapy
CPT/HCPCS: 36415; 80053; 85025

== ENCOUNTER → 2022-06-23 | Outpatient (CLI) | payer OTHER, SELFPAY ==
[2022-06-23 12:24] LABS: Absolute Lymphocyte Count 2.17 X10^3/uL (0.83-4.51); Absolute Neutrophil Count 7.1 X10^3/uL (2.0-7.7); Basophil# 0.05 X10^3/uL; Basophil% 0.5 % (0-1); Eosinophil# 0.09 X10^3/uL; Eosinophils% 0.9 % (0-5); Hematocrit 48.7 % (40-54); Hemoglobin 15.8 g/dL (13.0-16.5); Lymphocyte # 2.17 X10^3/ul (0.83-4.51); Lymphocyte % 21.2 % (19-41); Mean Corp Hgb Conc 32.4 g/dL (32-36); Mean Corpuscular Hgb 32.9 pg (27.0-32.0); Mean Corpuscular Volume 101.5 fL (80-94); Mean Platelet Vol. 9.7 fl (6.2-12.0); Monocyte# 0.67 X10^3/uL; Monocyte% 6.5 % (0-10); NRBC Flagged by Analyzer 0 % (0-5); Neutrophil # 7.06 X10^3/uL (2.7-7.7); Neutrophil % 68.9 % (47-70); Platelet Count 281 K/mm3 (150-450); RBC Distribution Width CV 12.5 % (11.6-14.6); RBC Distribution Width SD 46.8 fl (35.1-43.9); White Blood Count 10.2 K/mm3 (4.4-11.0)
[2022-06-23 12:43] LABS: ALB/GLOB Ratio 1.2 RATIO (0.9-2.4); AST(SGOT) 23 U/L (15-37); Alanine Aminotransfer ALT/SGPT 28 U/L (16-61); Albumin, Serum 3.9 g/dL (3.2-5.0); Alkaline Phosphatase 76 U/L (45-117); Anion Gap 8 (5-15); BUN 11 mg/dL (7-18); Calcium,Total 8.9 mg/dL (8.5-10.1); Chloride 107 mmol/L (98-107); Creatinine, Serum 0.78 mg/dL (0.70-1.30); EST Glomerular Filtration Rate 105 mL/min (>60); Est Glom Filt Rate - Afr Amer 127 mL/min (>60); Globulin 3.3 g/dL (2.2-4.2); Glucose 102 mg/dL (74-106); Potassium 4.5 mmol/L (3.5-5.1); Protein, Total 7.2 g/dL (6.4-8.2); Sodium Level 142 mmol/L (136-145)
== END | disposition home or self-care (01) ==
PROVIDERS: PCP Family Medicine; Referring Provider Internal Medicine Rheumatology; Visit Provider Internal Medicine Rheumatology
DX: M05.70 Rheumatoid arthritis with rheumatoid factor of unspecified site without organ or systems involvement (principal); I73.9 Peripheral vascular disease, unspecified; C44.91 Basal cell carcinoma of skin, unspecified; Z79.899 Other long term (current) drug therapy
CPT/HCPCS: 36415; 80053; 85025

== ENCOUNTER → 2022-09-22 | Outpatient (CLI) | payer OTHER, SELFPAY ==
[2022-09-22 15:29] LABS: Absolute Lymphocyte Count 2.12 X10^3/uL (0.83-4.51); Absolute Neutrophil Count 7.4 X10^3/uL (2.0-7.7); Basophil# 0.07 X10^3/uL; Basophil% 0.7 % (0-1); Eosinophil# 0.15 X10^3/uL; Eosinophils% 1.4 % (0-5); Hematocrit 49.1 % (40-54); Hemoglobin 16.8 g/dL (13.0-16.5); Lymphocyte # 2.12 X10^3/ul (0.83-4.51); Lymphocyte % 20.3 % (19-41); Mean Corp Hgb Conc 34.2 g/dL (32-36); Mean Corpuscular Hgb 34.3 pg (27.0-32.0); Mean Corpuscular Volume 100.2 fL (80-94); Mean Platelet Vol. 9.9 fl (6.2-12.0); Monocyte# 0.68 X10^3/uL; Monocyte% 6.5 % (0-10); NRBC Flagged by Analyzer 0 % (0-5); Neutrophil % 70.7 % (47-70); Platelet Count 278 K/mm3 (150-450); RBC Distribution Width CV 13.2 % (11.6-14.6); RBC Distribution Width SD 48.8 fl (35.1-43.9); White Blood Count 10.5 K/mm3 (4.4-11.0)
[2022-09-22 16:05] LABS: ALB/GLOB Ratio 1.2 RATIO (0.9-2.4); AST(SGOT) 22 U/L (15-37); Alanine Aminotransfer ALT/SGPT 34 U/L (16-61); Albumin, Serum 3.7 g/dL (3.2-5.0); Alkaline Phosphatase 90 U/L (45-117); Anion Gap 8 (5-15); BUN 13 mg/dL (7-18); BUN/Creat Ratio 13.6 RATIO (10-20); Calcium,Total 9.1 mg/dL (8.5-10.1); Chloride 106 mmol/L (98-107); Creatinine, Serum 0.96 mg/dL (0.70-1.30); EST Glomerular Filtration Rate 83 mL/min (>60); Est Glom Filt Rate - Afr Amer 101 mL/min (>60); Globulin 3.2 g/dL (2.2-4.2); Glucose 109 mg/dL (74-106); Potassium 4.2 mmol/L (3.5-5.1); Protein, Total 6.9 g/dL (6.4-8.2); Sodium Level 140 mmol/L (136-145)
== END | disposition home or self-care (01) ==
LOC: MTLAB 12:57
PROVIDERS: PCP Family Medicine; Referring Provider Internal Medicine Rheumatology; Visit Provider Internal Medicine Rheumatology
DX: M05.70 Rheumatoid arthritis with rheumatoid factor of unspecified site without organ or systems involvement (principal); I73.9 Peripheral vascular disease, unspecified; C44.519 Basal cell carcinoma of skin of other part of trunk; Z79.899 Other long term (current) drug therapy
CPT/HCPCS: 36415; 80053; 85025

== ENCOUNTER 2022-10-01 07:03 | Day surgery (SDC) | payer OTHER, SELFPAY ==
[2022-10-01 07:27] VITALS: BP 130/68; PULSE 73; RESP 16; TEMP 36.5; O2SAT 97; BMI 23.2
--- NOTE | 2022-10-01 07:36 | PCM.HP.STD ---
HPI - General General Date of Service: 10/01/22 Chief Complaint: Personal history of colon polyps HPI Narrative SIENA SOSA, is a 67 M who presents who presents via open access today for a colonoscopy. He has a personal history of multiple colon polyps. January 2021 I did a colonoscopy identified multiple polyps and had to use an Endoloop snare for one of them. He has a family history of the mother has colon cancer. He denies abdominal pain bright red blood per rectum or melena. PFSH Medical History Anxiety Arthritis Cancer COPD (chronic obstructive pulmonary disease) Depression High cholesterol History of adenomatous polyp of colon Hyperlipidemia Hypertension Leg cramps Peripheral arterial occlusive disease Rheumatoid arthritis Shortness of breath on exertion Smoker Home Medications duloxetine 60 mg capsule,delayed release 60 mg PO QHS Depression 07/23/16 [History Last Taken Unknown] folic acid 1 mg tablet 2 mg PO DAILY Arthritis 07/23/16 [History Last Taken Unknown] methotrexate sodium 2.5 mg tablet 12.5 mg PO FR Arthritis 07/23/16 [History Last Taken Unknown] atorvastatin 20 mg tablet 20 mg PO QHS Cholesterol 07/30/16 [History Last Taken Unknown] aspirin 81 mg tablet,delayed release 81 mg PO DAILY 02/10/21 [History Last Taken 02/12/21 18:00] metoprolol tartrate 50 mg tablet 50 mg PO DAILY 02/10/21 [History Last Taken 02/13/21 06:00] amlodipine 5 mg tablet 5 mg PO QHS 09/27/22 [History Last Taken Unknown] fluticasone furoate 200 mcg-vilanterol 25 mcg/dose inhalation powder (Breo Ellipta) 1 inh inhalation DAILY 09/27/22 [History Last Taken Unknown] Allergy/AdvReac Type Severity Reaction Status Date / Time clopidogrel [From Plavix] Allergy Rash Verified 10/01/22 07:26 dandelion (Taraxacum Allergy Other Verified 10/01/22 07:26 officinale) NSAIDS (Non-Steroidal Allergy Hives Verified 10/01/22 07:26 Anti-Inflamma Family History Mother Colon cancer Father Arthritis Surgical History (Updated 09/27/22 @ 12:04 by Kamala Espana) APLL APLL History of colonoscopy Hx of shoulder surgery S/P carpal tunnel release Social History (Updated 02/24/23 @ 10:49 by Ambreen Das) household members: spouse Smoking Status: Current every day smoker tobacco type: cigarettes second hand exposure: Yes alcohol intake: never substance use type: does not use caffeine: Yes what type of physical activity do you participate in: none frequency: does not exercise seatbelt use: always ROS Constitutional Constitutional: Reports systems reviewed and no addt'l complaints, except as documented Cardiovascular Cardiovascular: Denies chest pain Respiratory/Chest Respiratory/Chest: Denies shortness of breath at rest Gastrointestinal Gastrointestinal: Denies abdominal pain, change in bowel habits, hematochezia or melena Vital Signs Vital Signs Vital Signs: 10/01/22 07:27 10/01/22 07:27 Temperature 97.7 F L Temperature Source Temporal Pulse Rate 73 Respiratory Rate 16 Respiratory Pattern Normal Blood Pressure 130/68 H Blood Pressure Mean 88 Blood Pressure Source Monitor Blood Pressure Position Semi-Fowlers Blood Pressure Location Left Arm Pulse Ox 97 Oxygen Delivery Method Room Air Weight Weight: 143 lb 15.39 oz Body Mass Index (BMI) 23.2 Physical Exam Const alert, oriented x3 and no apparent distress General Appearance: cooperative and comfortable Eyes General Eye: normal appearance of both eyes Neck General: normal visual inspection Chest inspection of chest normal Resp Effort and Inspection: able to speak in complete sentences and symmetric chest movement Auscultation: clear to auscultation bilaterally Cardio regular rate and regular rhythm GI soft to palpation, non-tender and non-distended Extremity no calf tenderness Neuro oriented x3 Psych thought process normal Assessment & Plan Assessment/Plan (1) History of adenomatous polyp of colon: PLAN: The patient presents via open access today. I propose for him a colonoscopy with possible biopsy or polypectomy as indicated. He is aware of the technique, benefit, risk, alternatives. We will proceed as noted. Gennaro Hanna M.D., F.A.C.S.
[2022-10-01] MEDS: Lactated Ringers 1,000 ML 15 ML IV (07:38)
--- NOTE | 2022-10-01 08:15 | COLBX_PTH ---
PATIENT: SIENA SOSA LOC: EN U#:[id number] AGE/SX: 67/M ROOM: RE10/01/[address]: Dr. Gennaro Hanna MD : 1955 BED: DIS: 10/01/2022 SPEC #: [id number] RECD: 10/01/22 10:27 STATUS: DAVID ARROYO #: [id number] LEXI: 10/01/22 08:[address]: Gennaro Hanna DEPT: SURGICAL PATHOLOGY RECD BY: Julieth Cuello ENTERED: 10/01/22 11:26 SP TYPE: COLON BX OTHR DR: Dr. Jessica Astorga MD Tissues: A - Ascending colon B - COLON BIOPSY C - Sigmoid colon biopsy Procedures: Surgery Specimen Level IV HEADER OPERATION: Colonoscopy ? open access (MAC), polypectomy, biopsy PRE-OP DIAGNOSIS: History of adenomatous polyp of colon TISSUE SUBMITTED: A - Mid ascending colon polyp biopsy, B - Polyp proximal sigmoid, C - Polyp mid sigmoid MICROSCOPIC DIAGNOSIS A. Mid ascending colon polyp, biopsy: Fragments of hyperplastic polyp. B. Proximal sigmoid colon polyp, biopsy: Fragments of hyperplastic polyp. C. Mid sigmoid colon polyp, biopsy: Fragments of hyperplastic polyp. AM:cosmo 10/04/2022 MICROSCOPIC DESCRIPTION Slides are reviewed. GROSS DESCRIPTION A - Received in fixative is one container labeled with the patient's name and designated mid ascending colon polyp biopsy. The specimen consists of two irregular fragments of light piña soft tissue that in aggregate measure 0.6 x 0.3 x 0.1 cm. The specimen is totally submitted in one cassette. B - Received in fixative is one container labeled with the patient's name and designated polyp proximal sigmoid. The specimen consists of two irregular fragments of light piña soft tissue that in aggregate measure 0.6 x 0.4 x 0.2 cm. The specimen is totally submitted in one cassette. C - Received in fixative is one container labeled with the patient's name and designated polyp mid sigmoid. The specimen consists of two irregular fragments of light piña soft tissue that in aggregate measure 0.4 x 0.3 x 0.1 cm. The specimen is totally submitted in one cassette. / JAVID:cosmo 10/01/2022 TC:5 CPT: 52960 x3
[2022-10-01 08:48] VITALS: BP 130/68; BP 95/60; PULSE 88; RESP 16; TEMP 36.4; O2SAT 100
--- NOTE | 2022-10-01 08:50 | OP.COLON_ITS ---
Patient Name: Artur Wall Procedure Date: 10/01/2022 8:16 AM Date of : 1955 Age: 67 Procedure: Colonoscopy Indications: High risk colon cancer surveillance: Personal history of colonic polyps Providers: Gennaro Hanna MD Referring MD: Jessica Astorga Medicines: See the Anesthesia note for documentation of the administered medications Patient Profile: Last Colonoscopy: 1 year ago. Complications: No immediate complications. Procedure: Pre-Anesthesia Assessment: - Prior to the procedure, a History and Physical was performed, and patient medications and allergies were reviewed. The patient's tolerance of previous anesthesia was also reviewed. The risks and benefits of the procedure and the sedation options and risks were discussed with the patient. All questions were answered, and informed consent was obtained. Prior Anticoagulants: The patient has taken no previous anticoagulant or antiplatelet agents. ASA Grade Assessment: II - A patient with mild systemic disease. After reviewing the risks and benefits, the patient was deemed in satisfactory condition to undergo the procedure. After I obtained informed consent, the scope was passed under direct vision. Throughout the procedure, the patient's blood pressure, pulse, and oxygen saturations were monitored continuously. The adult colonoscope was introduced through the anus and advanced to the cecum, identified by appendiceal orifice and ileocecal valve. The colonoscopy was performed without difficulty. The patient tolerated the procedure well. The quality of the bowel preparation was good. The ileocecal valve and the appendiceal orifice were photographed. Scope In: 8:22:17 AM Scope Withdrawal Time 0 hours 15 minutes 46 seconds Scope Out: 8:42:14 AM Total Procedure Duration Time 0 hours 19 minutes 57 seconds Findings: The digital rectal exam findings include non-thrombosed internal hemorrhoids and internal hemorrhoids that prolapse with straining, but spontaneously regress to the resting position (Grade II). Pertinent negatives include normal prostate (size, shape, and consistency). A 5 mm polyp was found in the mid ascending colon. The polyp was sessile. The polyp was removed with a cold biopsy forceps. Resection and retrieval were complete. A 6 mm polyp was found in the proximal sigmoid colon. The polyp was sessile. The polyp was removed with a hot snare. Resection and retrieval were complete. A 4 mm polyp was found in the proximal sigmoid colon. The polyp was sessile. The polyp was removed with a cold biopsy forceps. Resection and retrieval were complete. Two sessile polyps were found in the distal sigmoid colon. The polyps were 3 to 4 mm in size. These polyps were removed with a cold biopsy forceps. Resection and retrieval were complete. Multiple diverticula were found in the sigmoid colon. Impression: - Non-thrombosed internal hemorrhoids and internal hemorrhoids that prolapse with straining, but spontaneously regress to the resting position (Grade II) found on digital rectal exam. - One 5 mm polyp in the mid ascending colon, removed with a cold biopsy forceps. Resected and retrieved. - One 6 mm polyp in the proximal sigmoid colon, removed with a hot snare. Resected and retrieved. - One 4 mm polyp in the proximal sigmoid colon, removed with a cold biopsy forceps. Resected and retrieved. - Two 3 to 4 mm polyps in the distal sigmoid colon, removed with a cold biopsy forceps. Resected and retrieved. - Diverticulosis in the sigmoid colon. Recommendation: - Discharge patient to home. - Resume previous diet. - Continue present medications. - Repeat colonoscopy in 3 years for surveillance based on pathology results. - Telephone my office for pathology results in 1 week. Procedure Code(s): --- Professional --- 84580, Colonoscopy, flexible; with removal of tumor(s), polyp(s), or other lesion(s) by snare technique 46802, 59, Colonoscopy, flexible; with biopsy, single or multiple Diagnosis Code(s): --- Professional --- Z86.010, Personal history of colonic polyps K64.1, Second degree hemorrhoids D12.2, Benign neoplasm of ascending colon D12.5, Benign neoplasm of sigmoid colon K57.30, Diverticulosis of large intestine without perforation or abscess without bleeding CPT copyright 2017 [employer]. All rights reserved. The codes documented in this report are preliminary and upon prototype special build review may be revised to meet current compliance requirements. Gennaro Hanna MD 10/01/2022 8:49:36 AM This report has been signed electronically. Number of Addenda: 0 Note Initiated On: 10/01/2022 8:16 AM
--- NOTE | 2022-10-01 08:50 | OP.CCLET_ITS ---
10/01/2022 Jessica Astorga [address] [place] [address] Re : Colonoscopy procedure for Artur Wall Dear Dr. Astorga This procedure was performed on Saturday, October 01, 2022. My impressions and recommendations are as follows: Impressions : - Non-thrombosed internal hemorrhoids and internal hemorrhoids that prolapse with straining, but spontaneously regress to the resting position (Grade II) found on digital rectal exam. - One 5 mm polyp in the mid ascending colon, removed with a cold biopsy forceps. Resected and retrieved. - One 6 mm polyp in the proximal sigmoid colon, removed with a hot snare. Resected and retrieved. - One 4 mm polyp in the proximal sigmoid colon, removed with a cold biopsy forceps. Resected and retrieved. - Two 3 to 4 mm polyps in the distal sigmoid colon, removed with a cold biopsy forceps. Resected and retrieved. - Diverticulosis in the sigmoid colon. Recommendations : - Discharge patient to home. - Resume previous diet. - Continue present medications. - Repeat colonoscopy in 3 years for surveillance based on pathology results. - Telephone my office for pathology results in 1 week. My findings are described in the full procedure note, which is enclosed. If I can be of further assistance, please feel free to contact me at Doctor phone number(s): Work: . Sincerely, Gennaro Hanna MD 10/01/2022 8:49:36 AM This report has been signed electronically.
[2022-10-01 08:56] VITALS: BP 130/68; BP 99/59; PULSE 81; RESP 16; O2SAT 99
[2022-10-01 09:01] VITALS: BP 105/64; BP 130/68; PULSE 81; RESP 16; O2SAT 100
[2022-10-01 09:05] VITALS: BP 130/68; BP 94/64; PULSE 77; RESP 16; TEMP 36.6; O2SAT 97
[2022-10-01 09:20] VITALS: BP 130/68
== END 2022-10-01 09:23 | disposition home or self-care (01) ==
LOC: EN 07:07 → AC 07:07
PROVIDERS: PCP Family Medicine; Referring Provider Family Medicine; Visit Provider Surgery
PROC: 0DJD8ZZ Inspection of Lower Intestinal Tract, Via Natural or Artificial Opening Endoscopic (ICD-10-PCS; CPT 45378; principal; 2022-10-01 08:10)
DX: Z12.11 Encounter for screening for malignant neoplasm of colon (principal); M06.9 Rheumatoid arthritis, unspecified; J44.9 Chronic obstructive pulmonary disease, unspecified; D12.2 Benign neoplasm of ascending colon; D12.5 Benign neoplasm of sigmoid colon; K64.1 Second degree hemorrhoids; E78.00 Pure hypercholesterolemia, unspecified; I10 Essential (primary) hypertension; K57.30 Diverticulosis of large intestine without perforation or abscess without bleeding; F32.A Depression, unspecified; F17.210 Nicotine dependence, cigarettes, uncomplicated; Z79.02 Long term (current) use of antithrombotics/antiplatelets; Z79.82 Long term (current) use of aspirin; Z79.899 Other long term (current) drug therapy; Z86.010 Personal history of colon polyps; Z80.0 Family history of malignant neoplasm of digestive organs
CPT/HCPCS: 45385; 45380; 88305; J7120; J2405

== ENCOUNTER → 2022-12-23 | Outpatient (CLI) | payer OTHER, SELFPAY ==
[2022-12-23 15:14] LABS: Absolute Lymphocyte Count 2.29 X10^3/uL (0.83-4.51); Basophil# 0.06 X10^3/uL; Basophil% 0.6 % (0-1); Eosinophil# 0.21 X10^3/uL; Eosinophils% 2.2 % (0-5); Hematocrit 46.3 % (40-54); Hemoglobin 16.1 g/dL (13.0-16.5); Lymphocyte # 2.29 X10^3/ul (0.83-4.51); Lymphocyte % 24.5 % (19-41); Mean Corp Hgb Conc 34.8 g/dL (32-36); Mean Corpuscular Hgb 34.9 pg (27.0-32.0); Mean Corpuscular Volume 100.4 fL (80-94); Mean Platelet Vol. 9.5 fl (6.2-12.0); Monocyte# 0.77 X10^3/uL; Monocyte% 8.2 % (0-10); NRBC Flagged by Analyzer 0 % (0-5); Neutrophil # 5.99 X10^3/uL (2.7-7.7); Neutrophil % 64.1 % (47-70); Platelet Count 262 K/mm3 (150-450); RBC Distribution Width CV 13.1 % (11.6-14.6); RBC Distribution Width SD 48.3 fl (35.1-43.9); Red Blood Count 4.61 M/mm3 (4.6-6.2); White Blood Count 9.4 K/mm3 (4.4-11.0)
[2022-12-23 16:30] LABS: AST(SGOT) 17 U/L (15-37); Alanine Aminotransfer ALT/SGPT 28 U/L (16-61); Albumin, Serum 3.4 g/dL (3.2-5.0); Alkaline Phosphatase 80 U/L (45-117); Anion Gap 1 (5-15); BUN 10 mg/dL (7-18); BUN/Creat Ratio 12.6 RATIO (10-20); Chloride 108 mmol/L (98-107); EST Glomerular Filtration Rate 103 mL/min (>60); Est Glom Filt Rate - Afr Amer 125 mL/min (>60); Globulin 3.3 g/dL (2.2-4.2); Glucose 85 mg/dL (74-106); Potassium 3.9 mmol/L (3.5-5.1); Protein, Total 6.7 g/dL (6.4-8.2); Sodium Level 140 mmol/L (136-145)
== END | disposition home or self-care (01) ==
LOC: MTLAB 13:52
PROVIDERS: PCP Family Medicine; Visit Provider Internal Medicine Rheumatology
DX: M05.70 Rheumatoid arthritis with rheumatoid factor of unspecified site without organ or systems involvement (principal); Z79.899 Other long term (current) drug therapy
CPT/HCPCS: 36415; 80053; 85025

== ENCOUNTER → 2023-01-21 | Outpatient (CLI) | payer OTHER, SELFPAY ==
[2023-01-21 13:06] LABS: AST(SGOT) 18 U/L (15-37); Alanine Aminotransfer ALT/SGPT 25 U/L (16-61); Cholesterol 165 mg/dL (200); High Density Lipoprotein 58 mg/dL; Triglycerides 64 mg/dL; Very Low Density Lipoprotein 13 mg/dL (5-40)
== END | disposition home or self-care (01) ==
LOC: MTLAB 10:33
PROVIDERS: PCP Family Medicine; Referring Provider Family Medicine; Visit Provider Family Medicine
DX: E78.5 Hyperlipidemia, unspecified (principal); Z12.5 Encounter for screening for malignant neoplasm of prostate
CPT/HCPCS: 36415; 80061; 84153; 84450; 84460; G0103

== ENCOUNTER → 2023-03-18 | Outpatient (CLI) | payer OTHER, SELFPAY ==
[2023-03-18 12:05] LABS: Absolute Neutrophil Count 8.5 X10^3/uL (2.0-7.7); Basophil# 0.05 X10^3/uL; Basophil% 0.5 % (0-1); Eosinophil# 0.11 X10^3/uL; Hematocrit 46.2 % (40-54); Hemoglobin 15.9 g/dL (13.0-16.5); Lymphocyte % 15.6 % (19-41); Mean Corp Hgb Conc 34.4 g/dL (32-36); Mean Corpuscular Volume 101.8 fL (80-94); Mean Platelet Vol. 9.4 fl (6.2-12.0); Monocyte# 0.47 X10^3/uL; Monocyte% 4.3 % (0-10); NRBC Flagged by Analyzer 0 % (0-5); Neutrophil # 8.49 X10^3/uL (2.7-7.7); Neutrophil % 78.1 % (47-70); Platelet Count 241 K/mm3 (150-450); RBC Distribution Width CV 12.3 % (11.6-14.6); Red Blood Count 4.54 M/mm3 (4.6-6.2); White Blood Count 10.9 K/mm3 (4.4-11.0)
[2023-03-18 12:21] LABS: AST(SGOT) 16 U/L (15-37); Alanine Aminotransfer ALT/SGPT 25 U/L (16-61); Albumin, Serum 3.3 g/dL (3.2-5.0); Alkaline Phosphatase 90 U/L (45-117); Anion Gap 5 (5-15); BUN 15 mg/dL (7-18); BUN/Creat Ratio 18.1 RATIO (10-20); Calcium,Total 8.9 mg/dL (8.5-10.1); Chloride 106 mmol/L (98-107); Creatinine, Serum 0.83 mg/dL (0.70-1.30); EST Glomerular Filtration Rate 98 mL/min (>60); Est Glom Filt Rate - Afr Amer 119 mL/min (>60); Globulin 3.4 g/dL (2.2-4.2); Glucose 137 mg/dL (74-106); Potassium 4.1 mmol/L (3.5-5.1); Protein, Total 6.7 g/dL (6.4-8.2); Sodium Level 139 mmol/L (136-145)
== END | disposition home or self-care (01) ==
LOC: MTLAB 10:36
PROVIDERS: PCP Family Medicine; Referring Provider Internal Medicine Rheumatology; Visit Provider Internal Medicine Rheumatology
DX: M05.70 Rheumatoid arthritis with rheumatoid factor of unspecified site without organ or systems involvement (principal); Z79.899 Other long term (current) drug therapy
CPT/HCPCS: 36415; 80053; 85025

== ENCOUNTER 2023-05-24 12:04 | Inpatient (IN) | payer OTHER, MEDICARE, SELFPAY ==
[2023-05-24] VITALS (11 sets, daily range): BP systolic 106–113; BP diastolic 72–91; PULSE 61–76; RESP 18–26; TEMP 36–36.9; O2SAT 88–97
--- NOTE | 2023-05-24 12:30 | ED.VIS.DYS ---
HPI <BRAIN Lane - Last Filed: 05/24/23 15:00> History of Present Illness Chief Complaint: Cold Sx Narrative Narrative: Patient presenting today after being sent from urgent care due to hypoxia. He reports that he has been sick with flulike symptoms over the past week. He is concerned that he has COVID. He reports that he has had shortness of breath, nausea, diarrhea, productive cough, weakness, lightheadedness, and decreased appetite. He reports that he feels dehydrated. He denies fever, chills, abdominal pain, chest pain. Has has a PMH of daily tobacco use, COPD, hypertension, and peripheral vascular disease. PE Risk Factors: Negative for Prior DVT or PE, Recent immobilization, Recent surgery or Recent travel PFSH <BRAIN Lane - Last Filed: 05/24/23 15:00> PFSH Medical History Anxiety Arthritis Cancer COPD (chronic obstructive pulmonary disease) Depression High cholesterol History of adenomatous polyp of colon Hyperlipidemia Hypertension Leg cramps Peripheral arterial occlusive disease Rheumatoid arthritis Shortness of breath on exertion Smoker Home Medications duloxetine 60 mg capsule,delayed release 60 mg PO QHS Depression 07/23/16 [History Last Taken Unknown] folic acid 1 mg tablet 2 mg PO DAILY Arthritis 07/23/16 [History Last Taken Unknown] methotrexate sodium 2.5 mg tablet 12.5 mg PO FR Arthritis 07/23/16 [History Last Taken Unknown] atorvastatin 20 mg tablet 20 mg PO QHS Cholesterol 07/30/16 [History Last Taken Unknown] aspirin 81 mg tablet,delayed release 81 mg PO DAILY 02/10/21 [History Last Taken 02/12/21 18:00] metoprolol tartrate 50 mg tablet 50 mg PO DAILY 02/10/21 [History Last Taken 02/13/21 06:00] amlodipine 5 mg tablet 5 mg PO QHS 09/27/22 [History Last Taken Unknown] fluticasone furoate 200 mcg-vilanterol 25 mcg/dose inhalation powder (Breo Ellipta) 1 inh inhalation DAILY 09/27/22 [History Last Taken Unknown] metoprolol succinate 50 mg tablet,extended release 24 hr mg PO 05/24/23 [History Last Taken Unknown] Allergy/AdvReac Type Severity Reaction Status Date / Time clopidogrel [From Plavix] Allergy Rash Verified 10/01/22 07:26 dandelion (Taraxacum Allergy Other Verified 10/01/22 07:26 officinale) NSAIDS (Non-Steroidal Allergy Hives Verified 10/01/22 07:26 Anti-Inflamma Family History Mother Colon cancer Father Arthritis Surgical History APLL APLL History of colonoscopy Hx of shoulder surgery S/P carpal tunnel release Social History household members: spouse Smoking Status: Current every day smoker tobacco type: cigarettes second hand exposure: Yes alcohol intake: never substance use type: does not use caffeine: Yes what type of physical activity do you participate in: none frequency: does not exercise seatbelt use: always ROS <BRAIN Lane - Last Filed: 05/24/23 15:00> ROS ED Constitutional Constitutional ED: Reports fatigue and weakness; Denies chills or fever(s) ENT ENT ED: Denies rhinorrhea or sore throat Cardiovascular Cardiovascular: Denies chest pain or palpitations Respiratory/Chest Respiratory/Chest: Reports chest congestion, cough, dyspnea and dyspnea on exertion Gastrointestinal Gastrointestinal: Reports diarrhea and nausea; Denies abdominal pain or vomiting Musculoskeletal Musculoskeletal: Denies arthralgias or myalgias Integumentary Denies rash Neurologic Neurologic: Reports weakness EXAM <BRAIN Lane - Last Filed: 05/24/23 15:00> Physical Exam Const Vital Signs: 05/24/23 12:05 05/24/23 12:34 05/24/23 12:35 Temperature 96.8 F L Temperature Source Temporal Pulse Rate 76 70 Respiratory Rate 26 H 19 H Respiratory Effort Short of Breath Respiratory Depth Respiratory Pattern Tachypnea Blood Pressure 113/72 110/91 H Blood Pressure Mean 85 97 Pulse Ox 88 96 Oxygen Delivery Method Room Air Nasal Cannula Oxygen Flow Rate (L/min) 3 05/24/23 13:21 05/24/23 13:40 05/24/23 14:10 Temperature Temperature Source Pulse Rate 69 68 Respiratory Rate 18 24 H Respiratory Effort Normal Non-Labored Respiratory Depth Normal Respiratory Pattern Normal Normal Blood Pressure 112/76 Blood Pressure Mean 88 Pulse Ox 93 Oxygen Delivery Method Nasal Cannula Nasal Cannula Oxygen Flow Rate (L/min) 3 3 Positive well nourished, well developed and no apparent distress General Appearance ED: well developed HEENT Reports normocephalic, head/scalp atraumatic and dry mucous membranes Mouth ED: Yes dry mucous membranes Mouth: dry mucous membranes Eyes PERRL and EOMs intact bilaterally Neck full ROM and supple Chest Wall inspection of chest normal Resp normal respiratory effort and clear to auscultation bilaterally Cardio regular rate and regular rhythm GI soft to palpation, non-tender, non-distended and no masses Back/Spine normal ROM and normal to inspection Extremity normal to inspection and full ROM Neuro oriented x3, CN's II-XII intact bilaterally, moves all extremities, no focal motor deficits and no sensory deficits noted Sensorium / Orientation: awake and alert Psych mental status grossly normal and thought process normal Skin no rashes or lesions noted and no wounds <Dr. Kalin Stahl MD - Last Filed: 05/24/23 15:10> Physical Exam Const Vital Signs: 05/24/23 12:05 05/24/23 12:34 05/24/23 12:35 Temperature 96.8 F L Temperature Source Temporal Pulse Rate 76 70 Respiratory Rate 26 H 19 H Respiratory Effort Short of Breath Respiratory Depth Respiratory Pattern Tachypnea Blood Pressure 113/72 110/91 H Blood Pressure Mean 85 97 Pulse Ox 88 96 Oxygen Delivery Method Room Air Nasal Cannula Oxygen Flow Rate (L/min) 3 05/24/23 13:21 05/24/23 13:40 05/24/23 14:10 Temperature Temperature Source Pulse Rate 69 68 Respiratory Rate 18 24 H Respiratory Effort Normal Non-Labored Respiratory Depth Normal Respiratory Pattern Normal Normal Blood Pressure 112/76 Blood Pressure Mean 88 Pulse Ox 93 Oxygen Delivery Method Nasal Cannula Nasal Cannula Oxygen Flow Rate (L/min) 3 3 [facility] <BRAIN Lane - Last Filed: 05/24/23 15:00> [facility] Narrative Medical decision making narrative: Patient presenting with cold-like symptoms he has had over the past week. He went to urgent care originally but was sent here due to being hypoxic. He is 88% on room air and has been placed on 3 L supplemental O2 and is now 96%. He is slightly tachypneic. Labs will be obtained as well as COVID and influenza swabs. He will be given IV fluids. Chest x-ray will be obtained to rule out infiltrate and other cardiopulmonary abnormality and shows COPD changes. COVID and flu negative. Labs are unremarkable. He was given Solu-Medrol and breathing treatments. On reexamination patient was taken off supplemental O2 and did drop to 86% on room air. Given his hypoxia, I do feel that he needs to be admitted to the hospital for further treatment. I spoke with Dr. Aparicio, patient will be admitted in stable condition and is comfortable with plan. Lab Data Attestation: I reviewed the patient's lab results. Labs: Laboratory Results - last 24 hr 05/24/23 12:05 WBC 5.2 RBC 5.36 Hgb 17.6 H Hct 51.9 MCV 96.8 H MCH 32.8 H MCHC 33.9 RDW Std Deviation 43.8 RDW Coeff of Carmen 12.4 Plt Count 164 MPV 10.2 Immature Gran % (Auto) 0.600 Neut % (Auto) 74.3 H Lymph % (Auto) 13.6 L Harlan % (Auto) 11.3 H Eos % (Auto) 0.0 Baso % (Auto) 0.2 Absolute Neuts (auto) 3.9 Absolute Lymphs (auto) 0.71 L Nucleated RBC % 0 Reactive Lymphocytes 1+ Sodium 136 Potassium 4.5 Chloride 101 Carbon Dioxide 30.0 Anion Gap 5 BUN 16 Creatinine 0.83 Est GFR (MDRD) Af Amer 119 Est GFR (MDRD) Non-Af 98 BUN/Creatinine Ratio 19.3 Glucose 120 H Calcium 8.2 L Radiography X-Ray: Read by ED Physician and Read by Radiologist Diagnostic Testing: Clinical Impression(s) from Imaging Studies Chest X-Ray 05/24/23 12:50 IMPRESSION: 1. Hyperinflation and COPD changes. 2. No focal infiltrate is seen. Electronically Signed: Eduardo Llanos MD at 13:20 EST , <Dr. Kalin Stahl MD - Last Filed: 05/24/23 15:10> [facility] Lab Data Labs: Laboratory Results - last 24 hr 05/24/23 12:05 WBC 5.2 RBC 5.36 Hgb 17.6 H Hct 51.9 MCV 96.8 H MCH 32.8 H MCHC 33.9 RDW Std Deviation 43.8 RDW Coeff of Carmen 12.4 Plt Count 164 MPV 10.2 Immature Gran % (Auto) 0.600 Neut % (Auto) 74.3 H Lymph % (Auto) 13.6 L Harlan % (Auto) 11.3 H Eos % (Auto) 0.0 Baso % (Auto) 0.2 Absolute Neuts (auto) 3.9 Absolute Lymphs (auto) 0.71 L Nucleated RBC % 0 Reactive Lymphocytes 1+ Sodium 136 Potassium 4.5 Chloride 101 Carbon Dioxide 30.0 Anion Gap 5 BUN 16 Creatinine 0.83 Est GFR (MDRD) Af Amer 119 Est GFR (MDRD) Non-Af 98 BUN/Creatinine Ratio 19.3 Glucose 120 H Calcium 8.2 L Radiography Diagnostic Testing: Clinical Impression(s) from Imaging Studies Chest X-Ray 05/24/23 12:50 IMPRESSION: 1. Hyperinflation and COPD changes. 2. No focal infiltrate is seen. Electronically Signed: Eduardo Llanos MD at 13:20 EST , Treatment and Re-Evaluation Comments:: I have personally performed a face to face assessment of the patient and have reviewed the NICOLASA Note. I performed a substantive portion of the visit including all aspects of the following. My ledbetter findings include: History is cold symptoms with mild dyspnea for the past week. Thinks he may have a history of COPD but is not sure. Continues to smoke. Has not used his rescue inhaler at all in the past week even though he admits he has 1. Has been using a prescription maintenance inhaler. Exam is diffuse end expiratory wheezes and diminished breath sounds symmetrically but no rales or rhonchi. Mildly tachypneic but in no distress. Conversive in full sentences. No leg edema no JVD. Medical Decison Making infectious workup including chest x-ray, swabs, nebulizers, steroids, oxygen and reevaluation. Other additions or changes: [None] Discharge Plan Dx/Rx/DC Orders Clinical Impression: Viral illness, Hypoxia, COPD exacerbation Disposition Disposition: Acute Care [facility]
[2023-05-24 12:43] LABS: Absolute Lymphocyte Count 0.71 X10^3/uL (0.83-4.51); Absolute Neutrophil Count 3.9 X10^3/uL (2.0-7.7); Basophil# 0.01 X10^3/uL; Basophil% 0.2 % (0-1); Hematocrit 51.9 % (40-54); Hemoglobin 17.6 g/dL (13.0-16.5); Lymphocyte # 0.71 X10^3/ul (0.83-4.51); Lymphocyte % 13.6 % (19-41); Mean Corp Hgb Conc 33.9 g/dL (32-36); Mean Corpuscular Hgb 32.8 pg (27.0-32.0); Mean Corpuscular Volume 96.8 fL (80-94); Mean Platelet Vol. 10.2 fl (6.2-12.0); Monocyte# 0.59 X10^3/uL; Monocyte% 11.3 % (0-10); NRBC Flagged by Analyzer 0 % (0-5); Neutrophil # 3.87 X10^3/uL (2.7-7.7); Neutrophil % 74.3 % (47-70); POSITIVE MORPHOLOGY YES; Platelet Count 164 K/mm3 (150-450); RBC Distribution Width CV 12.4 % (11.6-14.6); RBC Distribution Width SD 43.8 fl (35.1-43.9); Red Blood Count 5.36 M/mm3 (4.6-6.2); White Blood Count 5.2 K/mm3 (4.4-11.0)
[2023-05-24 12:45] LABS: Differential Indicated SCAN CRITERIA MET
[2023-05-24] MEDS: 0.9% Normal Saline (1000mL) 1,000 ML 999 ML IV (12:49)
--- NOTE | 2023-05-24 12:50 | RAD_ITS ---
INDICATION: cough EXAMINATION/TECHNIQUE: X-RAY - XR Chest 2 Views COMPARISON: No relevant prior comparison study available FINDINGS: LINES/DEVICES: None. LUNGS: Lungs are hyperinflated with COPD changes. No focal infiltrate is seen. No evidence of pleural effusions. MEDIASTINUM AND CARDIOVASCULAR STRUCTURES: Cardiac silhouette not enlarged. Central airways and mediastinal contour are unremarkable. BONES AND SOFT TISSUES: No demonstrated acute osseous changes. RAD/Chest PA and Lateral IMPRESSION: 1. Hyperinflation and COPD changes. 2. No focal infiltrate is seen. Electronically Signed: Eduardo Llanos MD at 13:20 EST ,
[2023-05-24 12:55] LABS: Anion Gap 5 (5-15); BUN 16 mg/dL (7-18); BUN/Creat Ratio 19.3 RATIO (10-20); Calcium,Total 8.2 mg/dL (8.5-10.1); Chloride 101 mmol/L (98-107); Creatinine, Serum 0.83 mg/dL (0.70-1.30); EST Glomerular Filtration Rate 98 mL/min (>60); Est Glom Filt Rate - Afr Amer 119 mL/min (>60); Glucose 120 mg/dL (74-106); Potassium 4.5 mmol/L (3.5-5.1); Sodium Level 136 mmol/L (136-145)
[2023-05-24 13:16] LABS: Reactive Lymphocyte 1+
[2023-05-24] MEDS: Ipratropium/Albuterol Sulfate 3 ML AMPUL.NEB INHALATION ×3 (13:23→23:58)
[2023-05-24] MEDS: MethylPREDNISolone 125 MG/2 ML Vial IV (13:38)
--- NOTE | 2023-05-24 14:30 | NURSING ---
DR FRANCY JOHNS STOCKTON
--- NOTE | 2023-05-24 14:38 | PCM.HP.STD ---
HPI - General General Date of Admission: 05/24/23 Date of Service: 05/24/23 Chief Complaint: Shortness of breath and cough and dyspnea for 1 week HPI Narrative SIENA SOSA, is a 68 M, history of COPD, currently smoker about half pack per day came to ED for shortness of breath progressively worsening along with cough for 1 week. Patient is states that he was not getting better therefore went to urgent care today from where he was sent to ED. Patient has chronic tremors and shaking but denies history of Parkinson disease or associated diagnosis. He measured his temperature at home and was afebrile. Not on home oxygen or NIPPV. In ED, patient was tachypneic and found hypoxic, 88% on room air, 93% on 3 L of oxygen. Patient given treatment for COPD exacerbation and further admitted. Earlier patient tested negative for COVID and flu. PFSH Medical History Anxiety Arthritis Cancer COPD (chronic obstructive pulmonary disease) Depression High cholesterol History of adenomatous polyp of colon Hyperlipidemia Hypertension Leg cramps Peripheral arterial occlusive disease Rheumatoid arthritis Shortness of breath on exertion Smoker Home Medications duloxetine 60 mg capsule,delayed release 60 mg PO QHS Depression 07/23/16 [History Last Taken Unknown] folic acid 1 mg tablet 2 mg PO DAILY Arthritis 07/23/16 [History Last Taken Unknown] methotrexate sodium 2.5 mg tablet 12.5 mg PO FR Arthritis 07/23/16 [History Last Taken Unknown] atorvastatin 20 mg tablet 20 mg PO QHS Cholesterol 07/30/16 [History Last Taken Unknown] aspirin 81 mg tablet,delayed release 81 mg PO DAILY 02/10/21 [History Last Taken 02/12/21 18:00] metoprolol tartrate 50 mg tablet 50 mg PO DAILY 02/10/21 [History Last Taken 02/13/21 06:00] amlodipine 5 mg tablet 5 mg PO QHS 09/27/22 [History Last Taken Unknown] fluticasone furoate 200 mcg-vilanterol 25 mcg/dose inhalation powder (Breo Ellipta) 1 inh inhalation DAILY 09/27/22 [History Last Taken Unknown] metoprolol succinate 50 mg tablet,extended release 24 hr mg PO 05/24/23 [History Last Taken Unknown] Allergy/AdvReac Type Severity Reaction Status Date / Time clopidogrel [From Plavix] Allergy Rash Verified 10/01/22 07:26 dandelion ([place] Allergy Other Verified 10/01/22 07:26 officinale) NSAIDS (Non-Steroidal Allergy Hives Verified 10/01/22 07:26 Anti-Inflamma Family History Mother Colon cancer Father Arthritis Surgical History APLL APLL History of colonoscopy Hx of shoulder surgery S/P carpal tunnel release Social History household members: spouse Smoking Status: Current every day smoker tobacco type: cigarettes second hand exposure: Yes alcohol intake: never substance use type: does not use caffeine: Yes what type of physical activity do you participate in: none frequency: does not exercise seatbelt use: always ROS ROS Narrative Constitutional: Reports fatigue and weakness. No fever. HEENT: Reports systems reviewed and no addt'l complaints, except as documented Respiratory/Chest: As described in HPI. Mild wheezing CVS: Denies chest pain pressure or tightness. Gastrointestinal: Denies coffee ground emesis, hematemesis or vomiting Genitourinary: Denies burning urination or new urinary tract symptoms Musculoskeletal: Denies acute joint pain or limited range of motion. No acute injury Neurologic: Chronic tremors but does not have diagnosis. Denies seizure-like symptoms. skin: No ulcer. No rash Endocrinology: Reports systems reviewed and no addt'l complaints, except as documented Hematologic/Lymphatic: Reports systems reviewed and no addt'l complaints, except as documented Rest 14 ROS are negative except as mentioned in HPI Vital Signs Vital Signs Vital Signs: 05/24/23 12:05 05/24/23 12:34 05/24/23 12:35 Temperature 96.8 F L Temperature Source Temporal Pulse Rate 76 70 Respiratory Rate 26 H 19 H Respiratory Effort Short of Breath Respiratory Depth Respiratory Pattern Tachypnea Blood Pressure 113/72 110/91 H Blood Pressure Mean 85 97 Pulse Ox 88 96 Oxygen Delivery Method Room Air Nasal Cannula Oxygen Flow Rate (L/min) 3 05/24/23 13:21 05/24/23 13:40 05/24/23 14:10 Temperature Temperature Source Pulse Rate 69 68 Respiratory Rate 18 24 H Respiratory Effort Normal Non-Labored Respiratory Depth Normal Respiratory Pattern Normal Normal Blood Pressure 112/76 Blood Pressure Mean 88 Pulse Ox 93 Oxygen Delivery Method Nasal Cannula Nasal Cannula Oxygen Flow Rate (L/min) 3 3 Results Lab / Micro Data 05/24/23 12:05 05/24/23 12:05 Labs: Laboratory Results - last 24 hr 05/24/23 12:05: WBC 5.2, RBC 5.36, Hgb 17.6 H, Hct 51.9, MCV 96.8 H, MCH 32.8 H, MCHC 33.9, RDW Std Deviation 43.8, RDW Coeff of Carmen 12.4, Plt Count 164, MPV 10.2, Immature Gran % (Auto) 0.600, Neut % (Auto) 74.3 H, Lymph % (Auto) 13.6 L, [place] % (Auto) 11.3 H, Eos % (Auto) 0.0, Baso % (Auto) 0.2, Absolute Neuts (auto) 3.9, Absolute Lymphs (auto) 0.71 L, Nucleated RBC % 0, Reactive Lymphocytes 1+, Sodium 136, Potassium 4.5, Chloride 101, Carbon Dioxide 30.0, Anion Gap 5, BUN 16, Creatinine 0.83, Est GFR (MDRD) Af Amer 119, Est GFR (MDRD) Non-Af 98, BUN/Creatinine Ratio 19.3, Glucose 120 H, Calcium 8.2 L Micro: Microbiology 05/24/23 12:09 Nasal Secretion SARS-CoV-2 & FLU Antigen (Rapid) - Final Imagaing Radiology Impression Chest X-Ray 05/24/23 12:50 IMPRESSION: 1. Hyperinflation and COPD changes. 2. No focal infiltrate is seen. Electronically Signed: Eduardo Llanos MD at 13:20 EST , Assessment & Plan Assessment/Plan (1) COPD exacerbation: PLAN: Plan This is a 68-year-old gentleman with history of COPD is being admitted for COPD exacerbation: 1. COPD exacerbation possible due to viral acute bronchitis: ABG was done in the ED 7.4 on 1 L of oxygen. Will increase oxygen at least to 2 L/min. Patient is being admitted on [facility] floor. Patient is being managed on scheduled bronchodilator, IV Solu-Medrol, Mucinex, incentive spirometry and Pep.SARS-CoV-2 and flu antigens are negative. COVID-19 PCR, respiratory panel and sputum culture ordered ordered. Advised follow-up in pulmonary clinic for PFT. 2. Hypertension: Amlodipine 5 mg daily continued. Metoprolol succinate 50 mg daily. 3. Dyslipidemia: 4. Peripheral arterial occlusive disease:Patient had left lower extremity arteriogram by Dr. Hanna in 2018 and found to have left SFA in-stent restenosis and angioplasty was done. 5. Chronic smoker: Smoking cessation advised. 6. Maternal arthritis: Patient on methotrexate and folic acid continued. DVT prophylaxis moderate to high risk: Lovenox 40 mg subcut daily. Living will/advanced directive/end of life care: Patient does have living will or advanced directive. His near the bedside is power of insurance defense attorney for health. After discussion of benefits/risks procedures involved with full code, DNR CC arrest and DNR CC, the patient opted for full code. Patient does want artificial life support including intubation, tube feed, ventilator and/chest compression, central venous catheter, vasopressor and DC shock if needed Total time spent in [id number] encounter in discussion of advanced directive 17 minutes. Charges/Coding Visit Charges Inpatient E&M: 23327 Init Hosp L3 Procedures Hospitalists Procedures: 87524 Advncd Care Plan 30 Min
[2023-05-24 15:21] LABS: Allen Test Positive; Base Excess -2 mmol/L (-2 to +2); Bicarbonate 22.5 mmol/L (22-26); Blood Gas Specimen Type ART; Mode Not entered; O2 Delivery Device Cannula; PO2 59 mmHG (75-100); SITE R Radial; SO2 92 % (95-99); Total Carbon Dioxide 24 mmol/L; pCO2 32.6 mmHg (35-45); pH 7.45 (7.35-7.45)
[2023-05-24] MEDS: 0.9% Normal Saline (1000mL) 1,000 ML 75 ML IV (16:13)
[2023-05-24] MEDS: Azithromycin 250 MG Tablet 500 MG PO (16:14)
[2023-05-24] MEDS: guaiFENesin/D-Methorphan TAB.SR.12H 2 TABLET PO ×2 (16:14→22:18)
[2023-05-24] MEDS: Enoxaparin 40 MG/0.4 ML Syringe SC (16:37)
--- OUTSIDE RECORDS SUMMARY | 2023-05-24 17:21 | XMS RPT_ITS | CCD ---
Author Name Unknown Address [address] [place] [address] Organization [facility] Care Team Providers Care Patient Partner Name Role Phone Gennaro Hanna MD Unavailable [phone] Jessica Astorga Primary Care Provider Jessica Astorga Ghassan Primary Care Provider JESSICA ASTORGA GHASSAN Primary Care Unavailable JOLLIFF, JESSICA GHASSAN Primary Care Unavailable ELZA AMANDA Referring Unavailable JOLLIFF, JESSICA GHASSAN Primary Care Unavailable JOLLIFF, JESSICA GHASSAN Primary Care Unavailable JOKAITLYNIFF, JESSICA GHASSAN Primary Care Unavailable DUGLAS HARRISON Attending Unavailable RODLLIFF, JESSICA GHASSAN Primary Care Unavailable NAYELI HUTCHINS Referring Unavailable Allergies Allergy Classification Reported Allergen(s) Allergy Type Date of Onset Reaction(s) Facility (11 sources) ibuprofen; Translations: [IBUPROFEN] Drug Allergy 07-28-2016 [facility] Work Phone: (5 sources) Dandelion Extract; Translations: [DANDELION EXTRACT] Drug Allergy 07-16-2022 [facility] Medications Current Medications Medication Drug Class(es) Dates Sig (Normalized) Sig (Original) amoxicillin 875 mg / clavulanate 125 mg oral tablet (1 source) Penicillin-class Antibacterial Start: 05-18-2022 End: 05-23-2022 take 1 tablet by mouth twice daily amoxicillin-clav ulanic acid (AUGMENTIN) 875-125 mg per tablet Take 1 tablet by mouth twice daily for 5 days. 10 tablet 0 05/18/2022 05/23/2022 Active Completed/Discontinued Medications Medication Drug Class(es) Dates Sig (Normalized) Sig (Original) [id number] 200 actuat albuterol 0.09 mg/actuat metered dose inhaler (7 sources) beta2-Adrenergic Agonist Start: 05-17-2022 take 2 puff(s) by inhalation every four hours as needed albuterol HFA (PROAIR HFA) 90 mcg/actuation inhaler Inhale 2 Puffs as instructed every 4 hours as needed. 18 g 0 05/17/2022 Active Problems Active Problems Problem Classification Problem Date Documented Da te Episodic/Chronic Anxiety disorders (2 sources) Anxiety disorder; Translations: [Anxiety disorder, unspecified] Onset: 02-28-2017 02-28-2017 Chronic Blindness and vision defects (1 source) Disorder of refraction; Translations: [Unspecified disorder of refraction] 01-10-2023 Episodic Chronic obstructive pulmonary disease and bronchiectasis (8 sources) Pulmonary emphysema; Translations: [Emphysema, unspecified] Onset: 07-28-2016 07-28-2016 Chronic Disorders of lipid metabolism (2 sources) Hyperlipidemia; Translations: [Hyperlipidemia, unspecified] Onset: 02-28-2017 02-28-2017 Chronic Inflammation; infection of eye (except that caused by tuberculosis or sexually transmitteddisease) (1 source) Chronic allergic conjunctivitis; Translations: [Other chronic allergic conjunctivitis] 12-20-2022 Chronic Osteoarthritis (2 sources) Arthritis; Translations: [Unspecified osteoarthritis, unspecified site] Onset: 02-28-2017 02-28-2017 Chronic Other circulatory disease (2 sources) Peripheral arterial occlusive disease; Translations: [Peripheral vascular disease, unspecified] Onset: 02-28-2017 02-28-2017 Chronic Other circulatory disease (1 source) Wheeze - rhonchi; Translations: [Other specified symptoms and signs involving the circulatory and respiratory systems] Episodic Other eye disorders (2 sources) Lesion of conjunctiva; Translations: [Unspecified disorder of conjunctiva] 12-20-2022 Episodic Other eye disorders (1 source) Disorder of lacrimal gland; Translations: [Dry eye syndrome of bilateral lacrimal glands] 12-20-2022 Episodic Other eye disorders (1 source) Meibomian gland dysfunction of bilateral eyes; Translations: [Meibomian gland dysfunction right eye, upper and lower eyelids] 12-20-2022 Episodic Other lower respiratory disease (1 source) Cough; Translations: [Acute cough] Episodic Other lower respiratory disease (1 source) Wheezing; Translations: [Wheezing] Episodic Peripheral and visceral atherosclerosis (8 sources) Peripheral vascular disease, unspecified; Translations: [Peripheral vascular disease, unspecified] Onset: 07-28-2016 07-28-2016 Chronic Rheumatoid arthritis and related disease (2 sources) Rheumatoid arthritis; Translations: [Rheumatoid arthritis, unspecified] Onset: 02-28-2017 02-28-2017 Chronic Unclassified (1 source) Acute cough; Translations: [Acute cough] Onset: 05-18-2022 Past or Other Problems Problem Classification Problem Date Documented Da te Episodic/Chronic Spondylosis; intervertebral disc disorders; other back problems (2 sources) Sciatica; Translations: [Sciatica, left side] Onset: 01-14-2022 Episodic Results Test Name Value Interpretation Reference Range Facil ity Vital Signs Date Time Vital Sign Value Performing Clinician Marcos lity 05-17-2022 12:58-0500 Body temperature 97.39 [degF] Nayeli Hutchins APRN.[employer] Work Phone: [facility] 05-17-2022 12:58-0500 Body weight 67.77 kg Nayeli Hutchins 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.[employer] Work Phone: [facility] 05-17-2022 12:58-0500 Diastolic blood pressure 70 mm[Hg] Nayeli Hutchins 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.[employer] Work Phone: [facility] 05-17-2022 12:58-0500 Heart rate 80 /min Nayeli Hutchins 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.[employer] Work Phone: [facility] 05-17-2022 12:58-0500 Respiratory rate 26 /min Nayeli Hutchins 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.[employer] Work Phone: [facility] 05-17-2022 12:58-0500 SaO2% (BldA) [Mass fraction] 93 % Nayeli Hutchins 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.[employer] Work Phone: [facility] 05-17-2022 12:58-0500 Systolic blood pressure 112 mm[Hg] Nayeli Hutchins 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.[employer] Work Phone: [facility] 01-14-2022 11:43-0400 Body temperature 98.8 [degF] Elza Praisler-Wood 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.[employer] Work Phone: [facility] 01-14-2022 11:43-0400 Body weight 67.22 kg Elza Praisler-Wood 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.[employer] Work Phone: [facility] 01-14-2022 11:43-0400 Diastolic blood pressure 78 mm[Hg] Elza Praisler-Wood 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.[employer] Work Phone: [facility] 01-14-2022 11:43-0400 Heart rate 80 /min Elza Praisler-Wood 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.[employer] Work Phone: [facility] 01-14-2022 11:43-0400 Respiratory rate 20 /min Elza Praisler-Wood 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.[employer] Work Phone: [facility] 01-14-2022 11:43-0400 SaO2% (BldA) [Mass fraction] 96 % Elza Praisler-Wood 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.[employer] Work Phone: [facility] 01-14-2022 11:43-0400 Systolic blood pressure 140 mm[Hg] Elza Praisler-Wood 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.[employer] Work Phone: [facility] Encounters Encounter Date Encounter Type Care Provider Facility Start: 01-10-2023 End: 01-10-2023 ambulatory [facility] Facility:[facility] Start: 01-10-2023 End: 01-10-2023 Patient encounter procedure James Chen MD Work Phone: Ophthalmology Procedures Date Procedure Procedure Detail Performing Clinician Start: 12-20-2022 End: 12-20-2022 Cmptr ophthalmic dx img ant segmt w/i&r uni/bi Duglas Harrison MD Work Phone: Start: 12-20-2022 Computerized corneal topography uni/bi Duglas Harrison MD Work Phone: Plan of Treatment Date Care Activity Detail Author Start: 01-21-2023 Influenza vaccination [facility] Start: 05-23-2022 ADVANCE DIRECTIVE DISCUSSION ADVANCE DIRECTIVE DISCUSSION [facility] Start: 05-23-2022 DEPRESSION ASSESSMENT DEPRESSION ASSESSMENT [facility] Start: 01-21-2022 Influenza vaccination INFLUENZA (#1) [facility] Start: 05-23-2021 ADVANCE DIRECTIVE DISCUSSION ADVANCE DIRECTIVE DISCUSSION [facility] Start: 05-23-2021 DEPRESSION ASSESSMENT DEPRESSION ASSESSMENT [facility] Start: 03-24-2017 End: 03-24-[address] [facility] Work Phone: Start: 02-28-2017 End: 02-28-2017 Ar[address] Arterial exam [facility] Work Phone: Start: 02-28-2017 End: 02-28-2017 N-invas physiologic std lxtr art compl bi PVR with exercise [facility] Work Phone: Start: 01-06-2011 PROSTATE CANCER SCREENING DISCUSSION PROSTATE CANCER SCREENING DISCUSSION [facility] Start: 01-06-2006 Influenza vaccination LUNG CANCER SCREENING [facility] Start: 01-06-2006 SHINGRIX VACCINE (1 of 2) SHINGRIX VACCINE (1 of 2) [facility] Start: 01-06-2001 COLOGUARD (FIT-DNA) COLOGUARD (FIT-DNA) [facility] Start: 01-06-2001 Colonoscopy COLONOSCOPY [facility] Start: 01-06-2001 COLORECTAL CANCER SCREENING COLORECTAL CANCER SCREENING [facility] Start: 01-06-[address] COLONOGRAPHY [facility] Start: 01-06-2001 DIABETES SCREEN DIABETES SCREEN [facility] Start: 01-06-2001 FECAL OCCULT BLOOD FECAL OCCULT BLOOD [facility] Start: 01-06-2001 SIGMOIDOSCOPY SIGMOIDOSCOPY [facility] Start: 01-06-1991 LIPID SCREEN LIPID SCREEN [facility] Start: 01-06-1986 Zoledronic acid therapy ALPHA-1 ANTITRYPSIN DEFICIENCY SCREENING [facility] Start: 01-06-1975 SHINGRIX VACCINE (1 of 2) SHINGRIX VACCINE (1 of 2) [facility] Start: 01-06-1975 Urine microalbumin profile DTAP,TDAP,TD (1 - Tdap) [facility] Start: 01-06-1974 ANNUAL PCP TEAM CHRONIC DISEASE VISIT ANNUAL PCP TEAM CHRONIC DISEASE VISIT [facility] Start: 01-06-1974 HEPATITIS C SCREENING HEPATITIS C SCREENING [facility] Start: 01-06-1974 SPIROMETRY SPIROMETRY [facility] Start: 1968 Adult depression screening assessment DEPRESSION SCREENING [facility] Start: 01-06-1962 PNEUMOCOCCAL: 65+ (1 - PCV) PNEUMOCOCCAL: 65+ (1 - PCV) [facility] Start: 01-06-1961 COVID-19 VACCINE (#1) COVID-19 VACCINE (#1) [facility] Start: 1956 COVID-19 VACCINE (#1) COVID-19 VACCINE (#1) [facility] Start: 1955 ABDOMINAL AORTIC ANEURYSM SCREENING ABDOMINAL AORTIC ANEURYSM SCREENING [facility] Payers Date Payer Category Payer Unknown [id number] 2018 Unknown [id number] Social History Date Type Detail Facility Start: 01-14-2022 End: 01-10-2023 Tobacco smoking status NHIS Smokes tobacco daily [facility] History of tobacco use Cigarette Smoker C [facility] Start: 01-14-2022 End: 12-20-2022 Cigarettes smoked current (pack per day) - Reported 1 [facility] Start: 01-14-2022 End: 01-10-2023 Tobacco use and exposure Smokeless tobacco non-user [facility] Start: 01-14-2022 End: 01-10-2023 Alcohol intake Current non-drinker of alcohol (finding) [facility] Start: 01-14-2022 Tobacco Comment recently cut b ack to 4-5 days [facility] Start: 1955 Sex Assigned At Not on file C [facility] Start: 01-04-2022 End: 01-14-2022 Exposure to SARS-CoV-2 (event) Not sure [facility] Work Phone: Start: 05-17-2022 End: 12-20-2022 Tobacco use panel [facility] National Score (1-10 0), lower number is lower risk 67 [facility] Clinical Notes 01-14-2022 to 01-10-2023 James Chen MD - 01/10/2023 11:24 AM EDTTelephone Encounter - Jing Vallecillo APRN.CNP - 12/24/2022 5:06 PM EDTTelephone Encounter - Duglas Harrison MD - 12/24/2022 11:27 AM EDT Note Date & Type Note Facility 01-10-2023 Note HNO ID: [id number] Author: James Chen MD Service: ? Author Type: Physician Type: Progress Notes Filed: 01/10/2023 12:04 PM Note Text: 68 yo male, - referred by Dr Harrison for an evaluation of a Conjunctival lesion left eye. 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 I have seen and examined this patient. I have discussed the case and the management of this patient's care with the Resident/Fellow, if applicable. I also have reviewed and agree with the assessment and plan as stated above and agree with all of its relevant components. James Chen MD January 10, 2023 12:03 PM [facility] 01-10-2023 History of Presen t illness Narrative 68 yo male, - referred by Dr Harrison for an evaluation of a Conjunctival lesion left eye. 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 I have seen and examined this patient. I have discussed the case and the management of this patient's care with the Resident/Fellow, if applicable. I also have reviewed and agree with the assessment and plan as stated above and agree with all of its relevant components. James Chen MD January 10, 2023 12:03 PM documented in this encounter [facility] 12-24-2022 Miscellaneous Notes Phoned pt. Scheduled with Dr. James Chen on 01/10 at 11:30am. documented in this encounter [facility] 12-24-2022 Miscellaneous Notes Discussed images/exam with Dr. Chen and Jing Vallecillo. Exam with Dr. Chen recommended. Notified pt that schedulers will call to establish appt. All questions answered. documented in this encounter [facility] 12-20-2022 Note HNO ID: [id number] Author: Duglas Harrison MD Service: ? Author Type: Physician Type: Progress Notes Filed: 12/20/2022 11:51 AM Note Text: Conjunctival lesion OS - 3 months ago noticed lesion OS - [place] significant amount of time [place] - symmetric intermittent itching (no pain) - likely related to ocular surface per below - temporal conj lesion with engorged vessel - images obtained - will discuss with Dr. James Chen Other chronic allergic conjunctivitis of both eyes - discussed OTC allergy drop such as pataday Dry eye syndrome, both eyes Meibomian gland dysfunction, both eyes - Treatment options discussed, including warm compresses, lid cleansers (occusoft eyelash dry cleaner hand/theratears sterilid), and ATs (instructions printed/reviewed) I have confirmed and edited as necessary the relevant ophthalmic history, ROS, and the neuro exam findings as obtained by others. I have seen and examined Siena Sosa. I have discussed the case and the management of this patient's care with the Resident/Fellow, if applicable. I also have reviewed and agree with the assessment and plan as stated above and agree with all of its relevant components. Duglas Harrison MD [facility] 12-20-2022 Instructions Duglas Harrison MD - 12/20/2022 10:09 AM EDT Start Artificial tears 3-4 times daily Brands, such as the examples listed below, are available over the counter at stores like [employer], etc. - Systane - Optive - Blink and Soothe XP - Refresh Artificial tear drops are available in 2 versions: - With preservative: large bottle, can be irritating with frequent >4 times daily use over time, good for occasional use - Without preservative: small clear container, individual daily use, less irritating formulation, can be recapped throughout day and then trashed after being open >24 hours AVOID drops such as Visine as they can exacerbate inflammation Start warm compress 10 minutes daily Obtain a reusable warm compress (examples listed below): - Bausch and lomb TheraPearl eyemask - Donato mask - Can also use other devices that hold moderate heat for extended periods of time that are gentle and safe to use around the eye Follow the instructions provided on the box of the mask to heat Start cleansing eyelid daily Following 10 minute application of heat, gently clean the area with cleaning product (examples listed below): - TheraTears SteriLid Antimicrobial Eyelid Cleanser and Facial Wash - OcuSoft Eyelash Cleanser Pre-Moistened Towelette Discontinue if there is any significant redness, swelling, pain, blurred vision or discharge. documented in this encounter [facility] 12-20-2022 History of Presen t illness Narrative Conjunctival lesion OS - 3 months ago noticed lesion OS - [place] significant amount of time [place] - symmetric intermittent itching (no pain) - likely related to ocular surface per below - temporal conj lesion with engorged vessel - images obtained - will discuss with Dr. James Chen Other chronic allergic conjunctivitis of both eyes - discussed OTC allergy drop such as pataday Dry eye syndrome, both eyes Meibomian gland dysfunction, both eyes - Treatment options discussed, including warm compresses, lid cleansers (occusoft eyelash dry cleaner hand/theratears sterilid), and ATs (instructions printed/reviewed) I have confirmed and edited as necessary the relevant ophthalmic history, ROS, and the neuro exam findings as obtained by others. I have seen and examined Siena Sosa. I have discussed the case and the management of this patient's care with the Resident/Fellow, if applicable. I also have reviewed and agree with the assessment and plan as stated above and agree with all of its relevant components. Duglas Harrison MD documented in this encounter [facility] 11-03-2022 Miscellaneous Notes I reviewed the notes-I would suggest trying to get in with any of our cornea providers in the meantime for an initial consultation. If needed, I can always see the patient in follow-up if my input is needed but I would expect any of her cornea doctors could at least provide some initial guidance here. Patient is being referred by Dr. Lozano for a corneal contusion and the doctor would like to know if you can see the patient sooner than the NA appt. Records are in your office for review. documented in this encounter [facility] 05-18-2022 Note HNO ID: [id number] Author: RT Jalil(R) Service: Nuclear Medicine Author Type: Technologist Type: Progress Notes Filed: 05/18/2022 10:06 AM Note Text: Radiology Service Progress Note PATIENT NAME: Siena Sosa DATE OF SERVICE: May 18, 2022 TIME: 10:01 AM PATIENT IDENTITY VERIFICATION COMPLETED USING TWO (2) IDENTIFIERS: Name and Date of confirmed by patient verbally. FALL SCREENING: Has the patient had 2 falls in the last year or 1 fall with injury or currently using an Ambulatory Assistive Device (Walker, Cane, Wheelchair, Crutches, etc.)? No PATIENT GENDER DATA: Male PATIENT RELEVANT IMPLANT DATA REVIEWED: Not Applicable RADIOLOGY DEPARTMENT: General X-ray: Exam(s) Completed: Chest X-Ray PERIPHERAL IV DATA: Not applicable SIGNED BY: Valerie Thapa RT(R) May 18, 2022 10:01 AM [facility] 05-18-2022 Miscellaneous Notes This [facility] called patient at [phone]. and identified with name and . Informed of xray results below Added augmentin to Doxycyline Follow up with PCP in 2 weeks. All questions answered. Nayeli Hutchins CNP RESULT: Lines, tubes, and devices: None. Lungs and pleura: Bilateral perihilar hazy opacities. Hyperinflation of the lungs. No pleural effusion or pneumothorax. Cardiomediastinal silhouette: Normal cardiomediastinal silhouette. Bones and soft tissues: Degenerative disease of the thoracic spine. IMPRESSION: Bilateral perihilar hazy opacities may be infectious/inflammatory Interpred by : KIM JONES MD documented in this encounter [facility] 05-17-2022 Note HNO ID: [id number] Author: Nayeli Hutchins APRN.[employer] [facility] Service: ? Author Type: Nurse Practitioner Type: Progress Notes Filed: 05/17/2022 1:30 PM Note Text: Subjective The history is provided by the patient and the spouse. No computer language coder was used. HPI Siena Sosa is a 67 year old male who presents today for CC of cough, chest congestion, wheezing, shortness of breath for 10 days. He was not tested for covid or flu He has used mucinex without relief. He is an everyday smoker, denies any asthma or copd, patient of Dr. Delacruz, denies any known kidney issues BP 112/70 Pulse 80 Temp 36.3 ?C (97.4 ?F) Resp 26 Wt 67.8 kg (149 lb 6.4 oz) SpO2 93% Social History Tobacco Use Smoking status: Every Day Packs/day: 1.00 Types: Cigarettes Smokeless tobacco: Never Tobacco comments: recently cut back to 4-5 days Substance Use Topics Alcohol use: No Drug use: No PAST MEDICAL HISTORY Diagnosis Date Arthritis Hyperlipidemia I have confirmed and edited as necessary, the [facility] Review of Systems Constitutional: Positive for malaise/fatigue. Negative for chills and fever. HENT: Positive for congestion. Negative for ear pain, sinus pain and sore throat. Respiratory: Positive for cough, shortness of breath and wheezing. Negative for sputum production. Cardiovascular: Negative for chest pain. Gastrointestinal: Negative for abdominal pain, diarrhea, nausea and vomiting. Musculoskeletal: Negative for myalgias. Neurological: Negative for headaches. Objective Physical Exam Vitals and nursing note reviewed. Constitutional: Appearance: He is not toxic-appearing. HENT: Head: Normocephalic and atraumatic. Right Ear: Tympanic membrane, ear canal and external ear normal. Left Ear: Tympanic membrane, ear canal and external ear normal. Nose: Mucosal edema, congestion and rhinorrhea present. Right Sinus: No maxillary sinus tenderness or frontal sinus tenderness. Left Sinus: No maxillary sinus tenderness or frontal sinus tenderness. Mouth/Throat: Pharynx: Uvula midline. No oropharyngeal exudate or posterior oropharyngeal erythema. Tonsils: No tonsillar abscesses. Cardiovascular: Rate and Rhythm: Normal rate and regular rhythm. Heart sounds: Normal heart sounds. Pulmonary: Effort: Pulmonary effort is normal. Breath sounds: Decreased breath sounds, wheezing and rhonchi present. No rales. Lymphadenopathy: Head: Right side of head: No submental, submandibular, tonsillar or preauricular adenopathy. Left side of head: No submental, submandibular, tonsillar or preauricular adenopathy. Cervical: No cervical adenopathy. Right cervical: No superficial cervical adenopathy. Left cervical: No superficial cervical adenopathy. Neurological: Mental Status: He is alert. ASSESSMENT/PLAN: 1. Acute cough - ICD9: 786.2, ICD10: R05.1 (primary diagnosis) - XR CHEST 2V FRONTAL/LAT 2. Wheezing - ICD9: 786.07, ICD10: R06.2 3. Rhonchi - ICD9: 786.7, ICD10: R09.89 Possible pneumonia, bronchitis Prednisone burst, albuterol inhaler, tessalon perls Will return tomorrow for cxr Will start on doxycyline, if positive for pneumonia will need Augmentin called in Diagnosis and treatment plan were discussed and questions were answered to the patient's satisfaction. Pt acknowledged understanding of concepts and follow up plan. Specific signs and symptoms that would indicate the need for higher level of care were discussed in detail warranting prompt ER evaluation. Nayeli Hutchins APRN.[employer] [facility] 05-17-2022 History of Presen t illness Narrative Subjective The history is provided by the patient and the spouse. No computer language coder was used. HPI Siena Sosa is a 67 year old male who presents today for CC of cough, chest congestion, wheezing, shortness of breath for 10 days. He was not tested for covid or flu He has used mucinex without relief. He is an everyday smoker, denies any asthma or copd, patient of Dr. Delacruz, denies any known kidney issues BP 112/70 Pulse 80 Temp 36.3 C (97.4 F) Resp 26 Wt 67.8 kg (149 lb 6.4 oz) SpO2 93% Social History Tobacco Use Smoking status: Every Day Packs/day: 1.00 Types: Cigarettes Smokeless tobacco: Never Tobacco comments: recently cut back to 4-5 days Substance Use Topics Alcohol use: No Drug use: No PAST MEDICAL HISTORY Diagnosis Date Arthritis Hyperlipidemia I have confirmed and edited as necessary, the [facility] Review of Systems Constitutional: Positive for malaise/fatigue. Negative for chills and fever. HENT: Positive for congestion. Negative for ear pain, sinus pain and sore throat. Respiratory: Positive for cough, shortness of breath and wheezing. Negative for sputum production. Cardiovascular: Negative for chest pain. Gastrointestinal: Negative for abdominal pain, diarrhea, nausea and vomiting. Musculoskeletal: Negative for myalgias. Neurological: Negative for headaches. Objective Physical Exam Vitals and nursing note reviewed. Constitutional: Appearance: He is not toxic-appearing. HENT: Head: Normocephalic and atraumatic. Right Ear: Tympanic membrane, ear canal and external ear normal. Left Ear: Tympanic membrane, ear canal and external ear normal. Nose: Mucosal edema, congestion and rhinorrhea present. Right Sinus: No maxillary sinus tenderness or frontal sinus tenderness. Left Sinus: No maxillary sinus tenderness or frontal sinus tenderness. Mouth/Throat: Pharynx: Uvula midline. No oropharyngeal exudate or posterior oropharyngeal erythema. Tonsils: No tonsillar abscesses. Cardiovascular: Rate and Rhythm: Normal rate and regular rhythm. Heart sounds: Normal heart sounds. Pulmonary: Effort: Pulmonary effort is normal. Breath sounds: Decreased breath sounds, wheezing and rhonchi present. No rales. Lymphadenopathy: Head: Right side of head: No submental, submandibular, tonsillar or preauricular adenopathy. Left side of head: No submental, submandibular, tonsillar or preauricular adenopathy. Cervical: No cervical adenopathy. Right cervical: No superficial cervical adenopathy. Left cervical: No superficial cervical adenopathy. Neurological: Mental Status: He is alert. ASSESSMENT/PLAN: 1. Acute cough - ICD9: 786.2, ICD10: R05.1 (primary diagnosis) - XR CHEST 2V FRONTAL/LAT 2. Wheezing - ICD9: 786.07, ICD10: R06.2 3. Rhonchi - ICD9: 786.7, ICD10: R09.89 Possible pneumonia, bronchitis Prednisone burst, albuterol inhaler, tessalon perls Will return tomorrow for cxr Will start on doxycyline, if positive for pneumonia will need Augmentin called in Diagnosis and treatment plan were discussed and questions were answered to the patient's satisfaction. Pt acknowledged understanding of concepts and follow up plan. Specific signs and symptoms that would indicate the need for higher level of care were discussed in detail warranting prompt ER evaluation. Nayeli Hutchins APRN.ANABELL documented in this encounter [facility] 05-17-2022 Instructions Nayeli Hutchins APRN.CNP - 05/17/2022 1:22 PM EST Albuterol inhaler 2 puffs every 4-6 hours as needed for cough, shortness of breath Tessalon Perles 1-2 every 8 hours, do not combine this with robitussin or delsym Continue mucinex Doxycyline as ordered CXR tomorrow, if positive will need to add second antibiotic. Xray 8-7 pm tomorrow * Prednisone 40 mg (2 tablets) per day for 5 days, take in morning or early in day * Do not NSAIDs during this 5 day course (ibuprofen, naproxen, Motrin, Aleve, Advil) Tylenol only during prednisone use * Follow up with primary care provider if no improvement with treatment * Seek medical care immediately, call 911, go to ER if you have chest pain, difficulty breathing, shortness of breath, inability to swallow. documented in this encounter [facility] 01-14-2022 Note HNO ID: [id number] Author: RT Jalil(R) Service: Nuclear Medicine Author Type: Technologist Type: Progress Notes Filed: 01/14/2022 12:28 PM Note Text: Radiology Service Progress Note PATIENT NAME: Siena Sosa DATE OF SERVICE: January 14, 2022 TIME: 12:13 PM PATIENT IDENTITY VERIFICATION COMPLETED USING TWO (2) IDENTIFIERS: Name and Date of confirmed by patient verbally. FALL SCREENING: Has the patient had 2 falls in the last year or 1 fall with injury or currently using an Ambulatory Assistive Device (Walker, Cane, Wheelchair, Crutches, etc.)? No PATIENT GENDER DATA: Male PATIENT RELEVANT IMPLANT DATA REVIEWED: Not Applicable RADIOLOGY DEPARTMENT: General X-ray: Exam(s) Completed: Spine X-Ray(s): Lumbar AP / LAT / L5-S1 PERIPHERAL IV DATA: Not applicable SIGNED BY: RT Jalil(R) January 14, 2022 12:13 PM [facility] 01-14-2022 Note HNO ID: [id number] Author: Elza Amanda APRN.[facility] [facility] Service: ? Author Type: Nurse Practitioner Type: Progress Notes Filed: 01/14/2022 12:58 PM Note Text: Subjective HPI Siena Sosa is a 67 year old male who presents with left lower back pain that radiates to his left buttock for the past 5 days. He denies any injury. He rates his pain 10/10 at night. He cannot lay down as the pain is worse with lying or standing and walking. He is most comfortable when sitting. He has taken tylenol for pain. He also used a heating pad which made his pain worse. He denies any loss of bowel or bladder function. Review of Systems Constitutional: Negative for chills and fever. Respiratory: Negative. Cardiovascular: Negative. Genitourinary: Negative. Musculoskeletal: Positive for back pain and joint pain. Negative for falls. Skin: Negative for itching and rash. Neurological: Negative for tingling, tremors, focal weakness and weakness. BP 140/78 Pulse 80 Temp 37.1 ?C (98.8 ?F) Resp 20 Wt 67.2 kg (148 lb 3.2 oz) SpO2 96% PAST MEDICAL HISTORY Diagnosis Date Arthritis Hyperlipidemia PAST SURGICAL HISTORY Procedure Laterality Date CARPAL TUNNEL Bilateral 2013 SHOULDER SURGERY HX Left 2015 Dr. Brambila ALLERGIES Ibuprofen MEDICATIONS amLODIPine (NORVASC) 5 mg tablet TAKE 1 TABLET BY MOUTH EVERYDAY AT BEDTIME metoprolol succinate ER (TOPROL XL) 50 mg 24 hr tablet BABY ASPIRIN ORAL Take 81 mg by mouth once daily. DULoxetine (CYMBALTA) 60 mg capsule Take 60 mg by mouth once daily. atorvastatin (LIPITOR) 20 mg tablet Take 20 mg by mouth once daily. folic acid 1 mg tablet Take 2 mg by mouth once daily. methotrexate 2.5 mg tablet Take 2.5 mg by mouth one time only. Take five tablets once a week BREO ELLIPTA 200-25 mcg/dose inhaler clopidogrel (PLAVIX) 75 mg tablet 75 mg once daily. FAMILY HISTORY Problem Relation Age of Onset Colon Cancer Mother Arthritis Father Social History Tobacco Use Smoking status: Every Day Packs/day: 1.00 Types: Cigarettes Smokeless tobacco: Never Tobacco comments: recently cut back to 4-5 days Substance Use Topics Alcohol use: No Drug use: No Objective Physical Exam Vitals and nursing note reviewed. Constitutional: Appearance: Normal appearance. Cardiovascular: Rate and Rhythm: Normal rate. Pulmonary: Effort: Pulmonary effort is normal. Musculoskeletal: General: Tenderness present. Lumbar back: Tenderness present. No swelling, signs of trauma or bony tenderness. Positive left straight leg raise test. Negative right straight leg raise test. Back: Skin: General: Skin is warm and dry. Findings: No bruising, erythema or rash. Neurological: Mental Status: He is alert. Motor: Motor function is intact. No weakness or abnormal muscle tone. Gait: Gait is intact. Gait normal. Deep Tendon Reflexes: Reflex Scores: Patellar reflexes are 2+ on the right side and 2+ on the left side. ASSESSMENT/PLAN: 1. Left sided sciatica - ICD9: 724.3, ICD10: M54.32 Sciatica - Ice for localized tenderness - Prednisone burst- see orders - Xrays- see orders - XR LUMBAR GENERAL 3V AP/LAT/L5-S1 Radiologist FINDINGS: There are five cqg-lny-idxtwbj lumbar vertebrae. No acute fracture or subluxations are noted. There is diffuse disc space narrowing involving L1-L5 levels. There is at least moderate osteophyte formation. Others: Degenerative changes noted in bilateral hips. 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 Banquet Prep Cook: ANNI Transcribe Date/Time: Jan 14 2022 12:32P Dictated by : LON WHITE MD - PREDNISONE 10 MG TABLET - rest, no lifting, bending, twisting, turning. - Ice only, avoid heat. - Follow-up with your PCP in 3-5 days if symptoms have not improved or sooner if symptoms worsen - Discussed red flags and need for immediate medical evaluation if any occur. - Discussed supportive care treatment with fluids, rest and analgesia. - Discussed expected course of illness Elza Amanda APRN.ANABELL [facility] 01-14-2022 Instructions Elza Amanda APRN.ANABELL - 01/14/2022 12:45 PM EDT ASSESSMENT/PLAN: 1. Left sided sciatica - ICD9: 724.3, ICD10: M54.32 Sciatica - Ice for localized tenderness - Prednisone burst- see orders - Xrays- see orders - XR LUMBAR GENERAL 3V AP/LAT/L5-S1 Radiologist FINDINGS: There are five bdx-vag-[id number] lumbar vertebrae. No acute fracture or subluxations are noted. There is diffuse disc space narrowing involving L1-L5 levels. There is at least moderate osteophyte formation. Others: Degenerative changes noted in bilateral hips. 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 Banquet Prep Cook: ANNI Transcribe Date/Time: Jan 14 2022 12:32P Dictated by : LON WHITE MD - PREDNISONE 10 MG TABLET - rest, no lifting, bending, twisting, turning. - Ice only, avoid heat. - Follow-up with your PCP in 3-5 days if symptoms have not improved or sooner if symptoms worsen - Discussed red flags and need for immediate medical evaluation if any occur. - Discussed supportive care treatment with fluids, rest and analgesia. - Discussed expected course of illness Elza Amanda APRN.CNP SCIATICA: Your exam shows you have sciatica, a condition most often seen in patients with disc disease of the lower back. Sciatica causes pain to radiate from the lower back or buttock area down the leg. It results from pressure on nerve roots coming out of the spine when a disc deteriorates and pushes to one side. Often there is a history of back problems. In most cases sciatica improves greatly with conservative treatment. Most patients with it are completely better after 2-4 weeks of supportive care. Bed rest reduces the disc pressure greatly; sitting is the worst position since the pressure on the disc is over 5 times greater than it is while lying down. You should avoid bending, lifting, and all other activities which make the problem worse. After the pain improves, you may continue with normal activity, taking brief periods for bed rest throughout the day until you are back to normal. Aspirin, ibuprofen, or other anti-inflammatory drugs are often used to help control pain. Muscle relaxants may help by relieving spasm and providing mild sedation. Cold therapy and massage may also give significant relief. Spinal manipulation is not recommended because it can increase the degree of disc protrusion. Surgery is reserved for patients that do not improve with conservative treatment, or who have signs of severe nerve root pressure. You should see your doctor for follow up care as recommended. A program for back injury rehabilitation with stretching and strengthening exercises is an important part of management. Please call your doctor, a back specialist, or the emergency room right away if you notice increased pain, weakness, or numbness in your legs, or if you have any difficulty with bladder or bowel control. documented in this encounter [facility] 01-14-2022 History of Presen t illness Narrative Images from the original note were not included. Subjective HPI Siena Sosa is a 67 year old male who presents with left lower back pain that radiates to his left buttock for the past 5 days. He denies any injury. He rates his pain 10/10 at night. He cannot lay down as the pain is worse with lying or standing and walking. He is most comfortable when sitting. He has taken tylenol for pain. He also used a heating pad which made his pain worse. He denies any loss of bowel or bladder function. Review of Systems Constitutional: Negative for chills and fever. Respiratory: Negative. Cardiovascular: Negative. Genitourinary: Negative. Musculoskeletal: Positive for back pain and joint pain. Negative for falls. Skin: Negative for itching and rash. Neurological: Negative for tingling, tremors, focal weakness and weakness. BP 140/78 Pulse 80 Temp 37.1 C (98.8 F) Resp 20 Wt 67.2 kg (148 lb 3.2 oz) SpO2 96% PAST MEDICAL HISTORY Diagnosis Date Arthritis Hyperlipidemia PAST SURGICAL HISTORY Procedure Laterality Date CARPAL TUNNEL Bilateral 2013 SHOULDER SURGERY HX Left 2015 Dr. Brambila ALLERGIES Ibuprofen MEDICATIONS amLODIPine (NORVASC) 5 mg tablet TAKE 1 TABLET BY MOUTH EVERYDAY AT BEDTIME metoprolol succinate ER (TOPROL XL) 50 mg 24 hr tablet BABY ASPIRIN ORAL Take 81 mg by mouth once daily. DULoxetine (CYMBALTA) 60 mg capsule Take 60 mg by mouth once daily. atorvastatin (LIPITOR) 20 mg tablet Take 20 mg by mouth once daily. folic acid 1 mg tablet Take 2 mg by mouth once daily. methotrexate 2.5 mg tablet Take 2.5 mg by mouth one time only. Take five tablets once a week BREO ELLIPTA 200-25 mcg/dose inhaler clopidogrel (PLAVIX) 75 mg tablet 75 mg once daily. FAMILY HISTORY Problem Relation Age of Onset Colon Cancer Mother Arthritis Father Social History Tobacco Use Smoking status: Every Day Packs/day: 1.00 Types: Cigarettes Smokeless tobacco: Never Tobacco comments: recently cut back to 4-5 days Substance Use Topics Alcohol use: No Drug use: No Objective Physical Exam Vitals and nursing note reviewed. Constitutional: Appearance: Normal appearance. Cardiovascular: Rate and Rhythm: Normal rate. Pulmonary: Effort: Pulmonary effort is normal. Musculoskeletal: General: Tenderness present. Lumbar back: Tenderness present. No swelling, signs of trauma or bony tenderness. Positive left straight leg raise test. Negative right straight leg raise test. Back: Skin: General: Skin is warm and dry. Findings: No bruising, erythema or rash. Neurological: Mental Status: He is alert. Motor: Motor function is intact. No weakness or abnormal muscle tone. Gait: Gait is intact. Gait normal. Deep Tendon Reflexes: Reflex Scores: Patellar reflexes are 2+ on the right side and 2+ on the left side. ASSESSMENT/PLAN: 1. Left sided sciatica - ICD9: 724.3, ICD10: M54.32 Sciatica - Ice for localized tenderness - Prednisone burst- see orders - Xrays- see orders - XR LUMBAR GENERAL 3V AP/LAT/L5-S1 Radiologist FINDINGS: There are five yie-xfm-ciermpe lumbar vertebrae. No acute fracture or subluxations are noted. There is diffuse disc space narrowing involving L1-L5 levels. There is at least moderate osteophyte formation. Others: Degenerative changes noted in bilateral hips. 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 Banquet Prep Cook: ANNI Transcribe Date/Time: Jan 14 2022 12:32P Dictated by : LON WHITE MD - PREDNISONE 10 MG TABLET - rest, no lifting, bending, twisting, turning. - Ice only, avoid heat. - Follow-up with your PCP in 3-5 days if symptoms have not improved or sooner if symptoms worsen - Discussed red flags and need for immediate medical evaluation if any occur. - Discussed supportive care treatment with fluids, rest and analgesia. - Discussed expected course of illness Elza Amanda APRN.[facility] documented in this encounter [facility] Acute cough- Primary Wheezing Rhonchi Abnormal chest sounds [facility] Diagnosis Conjunctival lesion- Primary Unspecified disorder of conjunctiva Other chronic allergic conjunctivitis of both eyes Dry eye syndrome of bilateral lacrimal glands Tear film insufficiency, unspecified Meibomian gland dysfunction (MGD) of upper and lower lids of both eyes [facility] Diagnosis Conjunctival lesion- Primary Unspecified disorder of conjunctiva Refraction error Unspecified disorder of refraction and accommodation [facility] Diagnostic Procedure Only (Urgent) - Closed Specialty Diagnoses / Procedures Referred By Contac t Referred To Contact XR IMAGING Diagnoses Left sided sciatica Procedures XR LUMBAR GENERAL 3V AP/LAT/L5-S1 RADEX SPINE LUMBOSACRAL 2/3 VIEWS Praisler-Wood, Elza, 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.[employer] [facility] [facility] [address] [place] [address] Xr Imaging Referral ID Status Reason Start Date Expiration Date V isits Requested Visits Authorized [id number] Closed Auto-Generate d Referral 01/14/2022 02/13/2023 1 1 [facility] Reason for Referral Specialty Diagnoses / Procedures Referred By Contac t Referred To Contact Nayeli Hutchins APRN.[facility] [facility] [address] [place] [address] Referral ID Status Reason Start Date Expiration Date V isits Requested Visits Authorized [id number] Pending Review 1 1 Summary Purpose Family History No Family History Records Found Advance Directives No Advanced Directives Records Found Additional Source Comments Source Comments (unrecognize d section and content) In the event this informatio n is protected by the Federal Confidentiality of Alcohol and Drug Abuse Patient Records regulations: The Federal rules restrict any use of the information to criminally investigate or prosecute any alcohol or drug abuse patient.[facility] the event this information is protected by the Federal Confidentiality of Alcohol and Drug Abuse Patient Records regulations: The Federal rules restrict any use of the information to criminally investigate or prosecute any alcohol or drug abuse patient.[facility] the event this information is protected by the Federal Confidentiality of Alcohol and Drug Abuse Patient Records regulations: The Federal rules restrict any use of the information to criminally investigate or prosecute any alcohol or drug abuse patient.[facility] the event this information is protected by the Federal Confidentiality of Alcohol and Drug Abuse Patient Records regulations: The Federal rules restrict any use of the information to criminally investigate or prosecute any alcohol or drug abuse patient.[facility] the event this information is protected by the Federal Confidentiality of Alcohol and Drug Abuse Patient Records regulations: The Federal rules restrict any use of the information to criminally investigate or prosecute any alcohol or drug abuse patient.[facility] the event this information is protected by the Federal Confidentiality of Alcohol and Drug Abuse Patient Records regulations: The Federal rules restrict any use of the information to criminally investigate or prosecute any alcohol or drug abuse patient.[facility] the event this information is protected by the Federal Confidentiality of Alcohol and Drug Abuse Patient Records regulations: The Federal rules restrict any use of the information to criminally investigate or prosecute any alcohol or drug abuse patient.[facility] the event this information is protected by the Federal Confidentiality of Alcohol and Drug Abuse Patient Records regulations: The Federal rules restrict any use of the information to criminally investigate or prosecute any alcohol or drug abuse patient.[facility] Reason for Visit (unrecogniz ed section and content) Reason Comments Cough Fatigue,wheezing x1. 5 weeks Reason Comments Results Reason Comments Appointment Received Outside Medical Records Reason Comments Corneal evaluation Reason Comments Patient Update Reason Comments Appointment Reason Comments Conjunctival lesion OS Care Teams (unrecognized sec tion and content) Patient Partner Relationship Specialty Start Date End Date Jessica Astorga PCP - General Family Medicine 07/27/16 Patient Partner Relationship Specialty Start Date End Date Jessica Astorga PCP - General Family Medicine 07/27/16 Patient Partner Relationship Specialty Start Date End Date Jessica Astorga PCP - General Family Medicine 07/27/16 Patient Partner Relationship Specialty Start Date End Date Jessica Astorga PCP - General Family Medicine 07/27/16 Patient Partner Relationship Specialty Start Date End Date Jessica Astorga PCP - General [facility] Medicine 07/27/16 Patient Partner Relationship Specialty Start Date End Date Jessica Astorga PCP - General Family Medicine 07/27/16 (unrecognized sect ion and content) No Status Records Found INFORMATION SOURCE (unrecogn ized section and content) FOR RECORDS PERTAINING TO PATIENTS WHO ARE OR HAVE BEEN ENROLLED IN A CHEMICAL DEPENDENCY/SUBSTANCEABUSE PROGRAM, SOME INFORMATION MAY BE OMITTED. This clinical summary was aggregated from multiple sources. Caution should be exercised in using it in the provision of clinical care. This summary normalizes information from multiple sources, and as a consequence, information in this document may materially change the coding, format and clinical context of patient data. In addition, data may be omitted in some cases. CLINICAL DECISIONS SHOULD BE BASED ON THE PRIMARY CLINICAL RECORDS. [employer] [facility] provides no warranty or guarantee of the accuracy or completeness of information in this document.
--- NOTE | 2023-05-24 21:57 | NURSING ---
ot sleepin with 02 on at 2lnc po drop to 82%. increased 02 to 4lnc
[2023-05-24] MEDS: Atorvastatin Calcium 20 MG Tablet PO (22:18)
[2023-05-24] MEDS: DULoxetine Hcl 60 MG Capsule PO (22:18)
[2023-05-24] MEDS: amLODIPine 5 MG Tablet PO (22:18)
[2023-05-25] VITALS (9 sets, daily range): BP systolic 101–134; BP diastolic 65–77; PULSE 64–81; RESP 16–20; TEMP 36.6–37.1; O2SAT 85–96; BMI 23.3
[2023-05-25] MEDS: Ipratropium/Albuterol Sulfate 3 ML AMPUL.NEB INHALATION ×3 (04:01→15:09)
[2023-05-25 07:45] LABS: Absolute Lymphocyte Count 0.59 X10^3/uL (0.83-4.51); Absolute Neutrophil Count 5.1 X10^3/uL (2.0-7.7); Basophil# 0.02 X10^3/uL; Basophil% 0.3 % (0-1); Hematocrit 46.2 % (40-54); Hemoglobin 15.6 g/dL (13.0-16.5); Lymphocyte # 0.59 X10^3/ul (0.83-4.51); Lymphocyte % 9.8 % (19-41); Mean Corp Hgb Conc 33.8 g/dL (32-36); Mean Corpuscular Hgb 33.1 pg (27.0-32.0); Mean Corpuscular Volume 98.1 fL (80-94); Mean Platelet Vol. 9.8 fl (6.2-12.0); Monocyte# 0.28 X10^3/uL; Monocyte% 4.6 % (0-10); NRBC Flagged by Analyzer 0 % (0-5); Neutrophil # 5.13 X10^3/uL (2.7-7.7); POSITIVE DIFFERENTIAL YES; POSITIVE MORPHOLOGY YES; Platelet Count 151 K/mm3 (150-450); RBC Distribution Width CV 12.3 % (11.6-14.6); RBC Distribution Width SD 44.3 fl (35.1-43.9); Red Blood Count 4.71 M/mm3 (4.6-6.2)
[2023-05-25 07:53] LABS: Differential Indicated SCAN CRITERIA MET
[2023-05-25] MEDS: Enoxaparin 40 MG/0.4 ML Syringe SC (08:44)
--- NOTE | 2023-05-25 08:44 | PN.HOSP_ITS ---
Reason for Visit Reason for Visit: Diagnoses Chronic obstructive pulmonary disease with (acute) exacerbation (05/24/23) Subjective Subjective Feeling better overall. Breathing better. Said he been sick for about a week before initially presenting. Objective Data Objective Data Vital Signs: Vital Signs Temp Pulse Resp BP Pulse Ox O2 Del Method O2 Flow Rate 36.6 C 64 20 H 101/74 95 Nasal Cannula 2 05/25/23 05:00 05/25/23 05:00 05/25/23 05:00 05/25/23 05:00 05/25/23 07:15 05/25/23 07:15 05/25/23 07:15 Oxygen Flow Rate (L/min) 2 Oxygen Delivery Method Nasal Cannula Weight: 65.5 kg Body Mass Index (BMI) 23.3 Intake & Output: Intake and Output for Last 24 Hours 05/23/23 05/24/23 05/25/23 23:59 23:59 23:59 Intake Total 1000 / 1000 1000 / 1000 Output Total 300 / 300 500 / 500 Balance 700 / 700 500 / 500 Lab / Micro Data 05/25/23 07:15 05/25/23 08:37 Labs: Laboratory Results - last 24 hr 05/24/23 12:05: WBC 5.2, RBC 5.36, Hgb 17.6 H, Hct 51.9, MCV 96.8 H, MCH 32.8 H, MCHC 33.9, RDW Std Deviation 43.8, RDW Coeff of Carmen 12.4, Plt Count 164, MPV 10.2, Immature Gran % (Auto) 0.600, Neut % (Auto) 74.3 H, Lymph % (Auto) 13.6 L, [place] % (Auto) 11.3 H, Eos % (Auto) 0.0, Baso % (Auto) 0.2, Absolute Neuts (auto) 3.9, Absolute Lymphs (auto) 0.71 L, Nucleated RBC % 0, Reactive Lymphocytes 1+, Sodium 136, Potassium 4.5, Chloride 101, Carbon Dioxide 30.0, Anion Gap 5, BUN 1 6, Creatinine 0.83, Est GFR (MDRD) Af Amer 119, Est GFR (MDRD) Non-Af 98, BUN/Creatinine Ratio 19.3, Glucose 120 H, Calcium 8.2 L 05/25/23 07:15: WBC 6.0, RBC 4.71, Hgb 15.6, Hct 46.2, MCV 98.1 H, MCH 33.1 H, MCHC 33.8, RDW Std Deviation 44.3 H, RDW Coeff of Carmen 12.3, Plt Count 151, MPV 9.8, Immature Gran % (Auto) 0.300, Neut % (Auto) 85.0 H, Lymph % (Auto) 9.8 L, [place] % (Auto) 4.6, Eos % (Auto) 0.0, Baso % (Auto) 0.3, Absolute Neuts (auto) 5.1, Absolute Lymphs (auto) 0.59 L, Nucleated RBC % 0, Sodium Cancelled, Potassium Cancelled, Chloride Cancelled, Carbon Dioxide Cancelled, Anion Gap Cancelled, BUN Cancelled, Creatinine Cancelled, Estim Creat Clear Calc Cancelled, Est GFR (MDRD) Af Amer Cancelled, Est GFR (MDRD) Non-Af Cancelled, BUN/Creatinine Ratio Cancelled, Glucose Cancelled, Calcium Cancelled Micro: Microbiology 05/24/23 Unknown Mucosa - Nasopharyngeal Respiratory Panel (PCR) - Final 05/24/23 Unknown Mucosa - Nasopharyngeal Coronavirus COVID-19 PCR - Final 05/24/23 12:09 Nasal Secretion SARS-CoV-2 & FLU Antigen (Rapid) - Final ABG Data ABG results: ABG 05/24/23 15:17 Specimen Type ART Sample Site R Radial pH 7.45 Bicarbonate Actual 22.5 Total CO2 24 Base Excess -2 O2 Saturation 92 L O2 % 1.0 ABG pCO2 32.6 L ABG pO2 59 L Erick Test Positive O2 Delivery Device Cannula Vent Mode Not entered Radiography Diagnostic Testing: Radiology Impression Chest X-Ray 05/24/23 12:50 IMPRESSION: 1. Hyperinflation and COPD changes. 2. No focal infiltrate is seen. Electronically Signed: Eduardo Llanos MD at 13:20 EST , Physical Exam Const alert and no apparent distress HEENT head/scalp atraumatic Resp clear to auscultation bilaterally Cardio regular rate and regular rhythm Neuro Sensorium / Orientation: awake and alert Assessment & Plan Assessment/Plan (1) COPD exacerbation: PLAN: Plan COPD exacerbation * possible due to viral acute bronchitis: * ABG was done in the ED 7.4 on 1 L of oxygen. * scheduled bronchodilator, IV Solu-Medrol, Mucinex, incentive spirometry and Pep. * SARS-CoV-2 and flu antigens are negative. COVID-19 PCR, respiratory panel negative. * Advised follow-up in pulmonary clinic for PFT. * Patient requiring 3 L of oxygen with activity. Patient is ambulatory in the home and community and requires home oxygen with portability. * Change to prednisone taper. Albuterol. Chronic conditions: * Hypertension: Amlodipine 5 mg daily continued. Metoprolol succinate 50 mg daily. * Dyslipidemia: * Peripheral arterial occlusive disease:Patient had left lower extremity arteriogram by Dr. Hanna in 2018 and found to have left SFA in-stent restenosis and angioplasty was done. * Chronic smoker: Smoking cessation advised. * Rheumatoid arthritis: Patient on methotrexate and folic acid continued. DVT prophylaxis moderate to high risk: Lovenox 40 mg subcut daily. Code Status: full.
[2023-05-25] MEDS: Folic Acid 1 MG Tablet 2 MG PO (08:46)
[2023-05-25] MEDS: Azithromycin 250 MG Tablet 500 MG PO (08:46)
[2023-05-25] MEDS: Aspirin E.C. 81 MG Tablet PO (08:46)
[2023-05-25] MEDS: guaiFENesin/D-Methorphan TAB.SR.12H 2 TABLET PO (08:47)
[2023-05-25 08:55] LABS: Differential Comment SCANNED; Reactive Lymphocyte 1+
[2023-05-25 09:30] LABS: Anion Gap 3 (5-15); BUN 14 mg/dL (7-18); Calcium,Total 8.1 mg/dL (8.5-10.1); Chloride 111 mmol/L (98-107); Creatinine, Serum 0.58 mg/dL (0.70-1.30); EST Glomerular Filtration Rate 147 mL/min (>60); Est Glom Filt Rate - Afr Amer 178 mL/min (>60); Estimated Creatinine Clearance 64.69 ml/min; Glucose 159 mg/dL (74-106); Potassium 3.9 mmol/L (3.5-5.1); Sodium Level 138 mmol/L (136-145)
[2023-05-25] MEDS: 0.9% Saline Lock 10 ML Syringe IV (14:12)
--- NOTE | 2023-05-25 14:37 | DS.PCM_ITS ---
Providers Date of Admission: 05/24/23 Primary Care Physician: Dr. Jessica Astorga MD Reason For Visit: COPD EXACERBATION Diagnosis Discharge Diagnosis (1) COPD exacerbation: Status: Chronic Code(s): J44.1 - Chronic obstructive pulmonary disease with (acute) exacerbation Plan COPD exacerbation * possible due to viral acute bronchitis: * ABG was done in the ED 7.4 on 1 L of oxygen. * scheduled bronchodilator, IV Solu-Medrol, Mucinex, incentive spirometry and Pep. * SARS-CoV-2 and flu antigens are negative. COVID-19 PCR, respiratory panel negative. * Advised follow-up in pulmonary clinic for PFT. * Patient requiring 3 L of oxygen with activity. Patient is ambulatory in the home and community and requires home oxygen with portability. * Change to prednisone taper. Albuterol. Chronic conditions: * Hypertension: Amlodipine 5 mg daily continued. Metoprolol succinate 50 mg daily. * Dyslipidemia: * Peripheral arterial occlusive disease:Patient had left lower extremity arteriogram by Dr. Hanna in 2018 and found to have left SFA in-stent restenosis and angioplasty was done. * Chronic smoker: Smoking cessation advised. * Rheumatoid arthritis: Patient on methotrexate and folic acid continued. DVT prophylaxis moderate to high risk: Lovenox 40 mg subcut daily. Code Status: full. Medications at Discharge Home Medications duloxetine 60 mg capsule,delayed release 60 mg PO QHS Depression 07/23/16 folic acid 1 mg tablet 2 mg PO DAILY Arthritis 07/23/16 methotrexate sodium 2.5 mg tablet 12.5 mg PO FR Arthritis 07/23/16 atorvastatin 20 mg tablet 20 mg PO QHS Cholesterol 07/30/16 aspirin 81 mg tablet,delayed release 81 mg PO DAILY 02/10/21 amlodipine 5 mg tablet 5 mg PO QHS 09/27/22 fluticasone furoate 200 mcg-vilanterol 25 mcg/dose inhalation powder (Breo Ellipta) 1 inh inhalation DAILY 09/27/22 albuterol sulfate 90 mcg/actuation aerosol inhaler 2 puff inhalation Q6H PRN shortness of breath or wheezing #6.7 grams 05/25/23 azithromycin 250 mg tablet 500 mg (2 x 250 mg) PO Q24 #3 tabs 05/25/23 metoprolol succinate 50 mg tablet,extended release 24 hr 50 mg PO DAILY #30 tabs 05/25/23 prednisone 10 mg tablet 10 mg PO DAILY #30 tabs 05/25/23 Hospital Course Operations None Procedures None Summary of Care Provided Minutes Spent on Discharge: 32 Weight / BMI Weight Weight: 65.5 kg Body Mass Index (BMI) 23.3 ABG / Lab / Microbiology Data 05/25/23 07:15 05/25/23 08:37 Laboratory: Laboratory Results - last 24 hr 05/25/23 07:15: WBC 6.0, RBC 4.71, Hgb 15.6, Hct 46.2, MCV 98.1 H, MCH 33.1 H, MCHC 33.8, RDW Std Deviation 44.3 H, RDW Coeff of Carmen 12.3, Plt Count 151, MPV 9 .8, Immature Gran % (Auto) 0.300, Neut % (Auto) 85.0 H, Lymph % (Auto) 9.8 L, [place] % (Auto) 4.6, Eos % (Auto) 0.0, Baso % (Auto) 0.3, Absolute Neuts (auto) 5.1, Absolute Lymphs (auto) 0.59 L, Nucleated RBC % 0, Differential Comment SCANNED, Reactive Lymphocytes 1+, Sodium Cancelled, Potassium Cancelled, Chloride Cancelled, Carbon Dioxide Cancelled, Anion Gap Cancelled, BUN Cancelled, Creatinine Cancelled, Estim Creat Clear Calc Cancelled, Est GFR (MDRD) Af Amer Cancelled, Est GFR (MDRD) Non-Af Cancelled, BUN/Creatinine Ratio Cancelled, Glucose Cancelled, Calcium Cancelled 05/25/23 08:37: Sodium 138, Potassium 3.9, Chloride 111 H, Carbon Dioxide 24.0, Anion Gap 3 L, BUN 14, Creatinine 0.58 L, Estim Creat Clear Calc 64.69, Est GFR (MDRD) Af Amer 178, Est GFR (MDRD) Non-Af 147, BUN/Creatinine Ratio 24.0 H, Glucose 159 H, Calcium 8.1 L Microbiology: Microbiology 05/24/23 20:30 Urine, Random Streptococcus pneumoniae Antigen (M - Final 05/24/23 20:30 Urine, Clean Catch Legionella Antigen - Final 05/24/23 16:05 Sputum, Expectorated/Coughed Gram Stain - Final 05/24/23 Unknown Mucosa - Nasopharyngeal Respiratory Panel (PCR) - Final 05/24/23 Unknown Mucosa - Nasopharyngeal Coronavirus COVID-19 PCR - Final 05/24/23 12:09 Nasal Secretion SARS-CoV-2 & FLU Antigen (Rapid) - Final ABG: ABG 05/24/23 15:17 Specimen Type ART Sample Site R Radial pH 7.45 Bicarbonate Actual 22.5 Total CO2 24 Base Excess -2 O2 Saturation 92 L O2 % 1.0 ABG pCO2 32.6 L ABG pO2 59 L Erick Test Positive O2 Delivery Device Cannula Vent Mode Not entered D/C Instructions Discharge Diet: No restrictions Meaningful Use Info Meaningful Use Diagnoses (Choose all that apply): None applicable Discharge Plan Admission Admit Date/Time: 05/24/23 14:33 Primary Reason for Your Visit: COPD exacerbation. Attending Provider: Saul Henry Primary Care Provider: Jessica Astorga Consulting Providers: Christoph Aparicio Instructions Additional Instructions / Restrictions: An exacerbation of your COPD. It is unclear what started out but it may have been due to an infection he may have had a week before. Your infectious workup here, however, was negative. You will be on prednisone taper as well as albuterol as needed. You will require oxygen least temporarily. Please follow- up with pulmonology as outpatient. Discharge Orders/Prescriptions Prescriptions: New metoprolol succinate 50 mg Tablet Extended Release 24 Hr 50 mg PO DAILY Qty: 30 0RF azithromycin 250 mg Tablet 500 mg PO Q24 Qty: 3 0RF albuterol sulfate 90 mcg/actuation HFA aerosol inhaler 2 puff inhalation Q6H PRN (Reason: shortness of breath or wheezing) Qty: 6.7 0RF prednisone 10 mg tablet 10 mg PO DAILY Qty: 30 0RF Rx Instructions: 4 tabs daily for 3 days, then 3 tabs daily for 3 days, then 2 tabs daily for 3 days, then 1 tab daily for 3 days Continued methotrexate sodium 2.5 MG tablet 12.5 mg PO FR folic acid 1 MG tablet 2 mg PO DAILY duloxetine 60 MG capsule 60 mg PO QHS atorvastatin 20 MG tablet 20 mg PO QHS aspirin 81 mg Tablet,Delayed Release (Dr/Ec) 81 mg PO DAILY amlodipine 5 mg Tablet 5 mg PO QHS fluticasone furoate-vilanterol [Breo Ellipta] 200-25 mcg/dose Blister With Device 1 inh INHALATION DAILY Discontinued metoprolol tartrate 50 mg Tablet 50 mg PO DAILY Referrals / Follow Up: [facility] [Provider Group] - Within 1 Month Jessica Astorga MD [Primary Care Provider] - Within 2 Weeks Disposition Disposition (needs filled in before D/C Order can be placed): Home, Self Care Charges/Coding Visit Charges Inpatient E&M: 04162 Disch Hosp >30min
--- NOTE | 2023-05-25 14:39 | CASEMGMT ---
TERI HOPPER Assessment Face to Face with patient for initial transition planning/care coordination assessment. TERI HOPPER introduced self and role at [facility], pt voices understanding. Pt is A&Ox4 and is resting comfortably in bed and is calm. Care providers, pharmacy, and demographics verified. Admitting dx: COPD Exacerbation LACE Strata: 2 PCP: Gauri Specialists: Mirtha [facility] Insurance: MMO, MCR A only Prescription Benefit: Yes LNOK: - Meghann Wall Living Arrangements: Pt states he lives in a one story home with a basement with his . States one step to enter the home with no issues. Pt states there are side rails for the basement stairs. ADLs/IADLs: Pt states complete independence. Transportation: Pt and pt drives DME: Denies any prior DME use. Pt verbally provided with local list of in-network DME companies. Pt is on oxygen currently and states that he would be willing to go through [facility] if needing home O2. Pt states they have a pulse ox device at home. HHC/SNF: Denies history or needs. Pt?s goal/ Plan: Pt goal is to DC from the hospital today or tomorrow with his . Will follow for home O2. Geraldine Gonzalez RN, CM
== END 2023-05-25 18:38 | disposition home or self-care (01) | DRG 192 ==
LOC: ED 12:55 → MS3 14:42
PROVIDERS: Physician Assistant; Admitting Provider Internal Medicine; Emergency Provider Emergency Medicine; PCP Family Medicine
DX: J44.1 Chronic obstructive pulmonary disease with (acute) exacerbation (principal); E78.00 Pure hypercholesterolemia, unspecified; I73.9 Peripheral vascular disease, unspecified; M06.9 Rheumatoid arthritis, unspecified; I10 Essential (primary) hypertension; J20.8 Acute bronchitis due to other specified organisms; F17.210 Nicotine dependence, cigarettes, uncomplicated; Z79.82 Long term (current) use of aspirin; Z79.899 Other long term (current) drug therapy
CPT/HCPCS: 36415; 36600; 71046; 80048; 82803; 85025; 87070; 87205; 87428; 87449; 87633; 87635; 94640; 94668; 94762; 99252; 99285; 99406; J7030; A4216; G0463

== ENCOUNTER → 2023-06-14 | Outpatient (CLI) | payer OTHER, SELFPAY ==
[2023-06-14 15:59] LABS: Absolute Lymphocyte Count 1.63 X10^3/uL (0.83-4.51); Absolute Neutrophil Count 7.7 X10^3/uL (2.0-7.7); Basophil# 0.04 X10^3/uL; Basophil% 0.4 % (0-1); Eosinophil# 0.18 X10^3/uL; Eosinophils% 1.7 % (0-5); Hematocrit 41.5 % (40-54); Hemoglobin 13.6 g/dL (13.0-16.5); Lymphocyte # 1.63 X10^3/ul (0.83-4.51); Lymphocyte % 15.5 % (19-41); Mean Corp Hgb Conc 32.8 g/dL (32-36); Mean Corpuscular Hgb 32.9 pg (27.0-32.0); Mean Corpuscular Volume 100.5 fL (80-94); Monocyte# 0.77 X10^3/uL; Monocyte% 7.3 % (0-10); NRBC Flagged by Analyzer 0 % (0-5); Neutrophil # 7.72 X10^3/uL (2.7-7.7); Neutrophil % 73.3 % (47-70); Platelet Count 317 K/mm3 (150-450); RBC Distribution Width CV 12.3 % (11.6-14.6); RBC Distribution Width SD 44.5 fl (35.1-43.9); Red Blood Count 4.13 M/mm3 (4.6-6.2); White Blood Count 10.5 K/mm3 (4.4-11.0)
[2023-06-14 16:38] LABS: ALB/GLOB Ratio 0.5 RATIO (0.9-2.4); AST(SGOT) 16 U/L (15-37); Alanine Aminotransfer ALT/SGPT 21 U/L (16-61); Albumin, Serum 2.1 g/dL (3.2-5.0); Alkaline Phosphatase 74 U/L (45-117); Anion Gap 5 (5-15); BUN 12 mg/dL (7-18); BUN/Creat Ratio 16.9 RATIO (10-20); Chloride 106 mmol/L (98-107); Creatinine, Serum 0.71 mg/dL (0.70-1.30); EST Glomerular Filtration Rate 118 mL/min (>60); Est Glom Filt Rate - Afr Amer 143 mL/min (>60); Globulin 4.5 g/dL (2.2-4.2); Glucose 96 mg/dL (74-106); Potassium 4.1 mmol/L (3.5-5.1); Protein, Total 6.6 g/dL (6.4-8.2); Sodium Level 138 mmol/L (136-145)
== END | disposition home or self-care (01) ==
LOC: MTLAB 13:29
PROVIDERS: PCP Family Medicine; Referring Provider Internal Medicine Rheumatology; Visit Provider Internal Medicine Rheumatology
DX: M05.70 Rheumatoid arthritis with rheumatoid factor of unspecified site without organ or systems involvement (principal); Z79.899 Other long term (current) drug therapy
CPT/HCPCS: 36415; 80053; 85025

== ENCOUNTER → 2023-09-06 | Outpatient (CLI) | payer OTHER, SELFPAY ==
[2023-09-06 17:47] LABS: Absolute Lymphocyte Count 2.57 X10^3/uL (0.83-4.51); Absolute Neutrophil Count 7.2 X10^3/uL (2.0-7.7); Basophil# 0.06 X10^3/uL; Basophil% 0.6 % (0-1); Eosinophil# 0.12 X10^3/uL; Eosinophils% 1.1 % (0-5); Hematocrit 46.4 % (40-54); Hemoglobin 15.6 g/dL (13.0-16.5); Lymphocyte # 2.57 X10^3/ul (0.83-4.51); Lymphocyte % 24.5 % (19-41); Mean Corp Hgb Conc 33.6 g/dL (32-36); Mean Corpuscular Hgb 32.8 pg (27.0-32.0); Mean Corpuscular Volume 97.7 fL (80-94); Mean Platelet Vol. 9.2 fl (6.2-12.0); Monocyte# 0.52 X10^3/uL; Monocyte% 4.9 % (0-10); NRBC Flagged by Analyzer 0 % (0-5); Neutrophil # 7.22 X10^3/uL (2.7-7.7); Neutrophil % 68.7 % (47-70); Platelet Count 287 K/mm3 (150-450); RBC Distribution Width CV 13.3 % (11.6-14.6); RBC Distribution Width SD 48.1 fl (35.1-43.9); Red Blood Count 4.75 M/mm3 (4.6-6.2); White Blood Count 10.5 K/mm3 (4.4-11.0)
[2023-09-06 18:05] LABS: AST(SGOT) 22 U/L (15-37); Alanine Aminotransfer ALT/SGPT 25 U/L (16-61); Albumin, Serum 3.8 g/dL (3.2-5.0); Alkaline Phosphatase 84 U/L (45-117); Anion Gap 6 (5-15); BUN 12 mg/dL (7-18); BUN/Creat Ratio 14.1 RATIO (10-20); Calcium,Total 9.4 mg/dL (8.5-10.1); Chloride 107 mmol/L (98-107); Creatinine, Serum 0.85 mg/dL (0.70-1.30); EST Glomerular Filtration Rate 95 mL/min (>60); Est Glom Filt Rate - Afr Amer 115 mL/min (>60); Globulin 3.8 g/dL (2.2-4.2); Glucose 85 mg/dL (74-106); Potassium 4.4 mmol/L (3.5-5.1); Protein, Total 7.6 g/dL (6.4-8.2); Sodium Level 140 mmol/L (136-145)
== END | disposition home or self-care (01) ==
LOC: MTLAB 14:30
PROVIDERS: PCP Family Medicine; Referring Provider Internal Medicine Rheumatology; Visit Provider Internal Medicine Rheumatology
DX: M05.70 Rheumatoid arthritis with rheumatoid factor of unspecified site without organ or systems involvement (principal); Z79.899 Other long term (current) drug therapy
CPT/HCPCS: 36415; 80053; 85025

== ENCOUNTER → 2023-11-14 | Outpatient (CLI) | payer OTHER, SELFPAY ==
--- NOTE | 2023-11-14 07:00 | RAD_ITS ---
Examination: Orbit radiograph. INDICATION: Foreign body. TECHNIQUE: 2 images of the orbits were obtained. COMPARISON: None FINDINGS: There are no radiopaque foreign bodies within the orbits. The paranasal sinuses are well aerated. There are no suspicious bony lesions seen. RAD/Orbits for Foreign Body IMPRESSION: No orbital foreign body identified. Electronically Signed: Simi Olivas MD at 8:08 EDT ,
--- NOTE | 2023-11-14 08:00 | MRI_ITS ---
HISTORY: lower extremity hyperreflexia; myelopathy , TREMORS. TECHNIQUE: Multiplanar and multisequence MR images of the cervical spine were obtained without contrast. 226 images. COMPARISON: None. FINDINGS: VERTEBRAE: Vertebral body heights maintained. Degenerative endplate bone marrow changes of C5-6 and C6/-7. VERTEBRAL ALIGNMENT: Reversal of the cervical lordosis without significant anterior or posterior subluxation. SPINAL CORD: Slightly increased T2 cord signal at C5-6 and C6-7. SOFT TISSUES: No prevertebral fluid collection. INTERVERTEBRAL DISCS: C2-3: No significant posterior disc protrusion, central canal stenosis, or foraminal narrowing. C3-4: Very mild disc bulge with uncovertebral and facet arthropathy resulting in minimal narrowing of the thecal sac and mild bilateral foraminal narrowing. C4-5: Mild posterior disc bulge osteophyte complex with uncovertebral and facet arthropathy resulting in mild indentation of the ventral cord, mild central canal stenosis, and bilateral foraminal narrowing. C5-6, C6-7: Mild posterior disc bulge osteophyte complexes with uncovertebral and facet arthropathy resulting in moderate-severe central canal stenosis, mild flattening of the ventral cord, and bilateral foraminal narrowing. C7-T1: Minimal disc bulge without significant central canal stenosis. Mild right foraminal narrowing. MRI/Spine Cervical (Routine) IMPRESSION: Multilevel degenerative disc disease resulting in moderate-severe spinal canal stenosis, mild cord impingement, mild cord edema/myelopathy, and bilateral foraminal narrowing of C5-6 and C6-7. Mild spinal canal stenosis, mild cord impingement, and mild bilateral foraminal narrowing of C4-5. Electronically Signed: Gardenia Rangel MD at 10:29 EDT ,
== END | disposition home or self-care (01) ==
LOC: MRI 06:55
PROVIDERS: PCP Family Medicine; Referring Provider Psychiatry & Neurology Neurology; Visit Provider Psychiatry & Neurology Neurology
DX: G95.9 Disease of spinal cord, unspecified (principal); R29.2 Abnormal reflex; Z71.1 Person with feared health complaint in whom no diagnosis is made
CPT/HCPCS: 70030; 72141

== ENCOUNTER → 2023-11-30 | Outpatient (CLI) | payer MEDICARE, SELFPAY ==
[2023-11-30 10:09] LABS: Absolute Lymphocyte Count 2.16 X10^3/uL (0.83-4.51); Absolute Neutrophil Count 5.7 X10^3/uL (2.0-7.7); Basophil# 0.06 X10^3/uL; Basophil% 0.7 % (0-1); Eosinophil# 0.25 X10^3/uL; Eosinophils% 2.9 % (0-5); Hematocrit 46.5 % (40-54); Hemoglobin 15.6 g/dL (13.0-16.5); Lymphocyte # 2.16 X10^3/ul (0.83-4.51); Lymphocyte % 24.7 % (19-41); Mean Corp Hgb Conc 33.5 g/dL (32-36); Mean Corpuscular Hgb 33.5 pg (27.0-32.0); Mean Platelet Vol. 9.4 fl (6.2-12.0); Monocyte# 0.57 X10^3/uL; Monocyte% 6.5 % (0-10); NRBC Flagged by Analyzer 0 % (0-5); Neutrophil # 5.68 X10^3/uL (2.7-7.7); Neutrophil % 64.7 % (47-70); Platelet Count 254 K/mm3 (150-450); RBC Distribution Width CV 13.4 % (11.6-14.6); RBC Distribution Width SD 49.3 fl (35.1-43.9); Red Blood Count 4.65 M/mm3 (4.6-6.2); White Blood Count 8.8 K/mm3 (4.4-11.0)
[2023-11-30 10:49] LABS: AST(SGOT) 16 U/L (15-37); Alanine Aminotransfer ALT/SGPT 19 U/L (16-61); Albumin, Serum 3.4 g/dL (3.2-5.0); Alkaline Phosphatase 91 U/L (45-117); Anion Gap 5 (5-15); BUN 14 mg/dL (7-18); BUN/Creat Ratio 17.1 RATIO (10-20); Calcium,Total 8.7 mg/dL (8.5-10.1); Chloride 107 mmol/L (98-107); Creatinine, Serum 0.82 mg/dL (0.70-1.30); EST Glomerular Filtration Rate 100 mL/min (>60); Est Glom Filt Rate - Afr Amer 121 mL/min (>60); Globulin 3.3 g/dL (2.2-4.2); Glucose 140 mg/dL (74-106); Potassium 4.3 mmol/L (3.5-5.1); Protein, Total 6.7 g/dL (6.4-8.2); Sodium Level 139 mmol/L (136-145)
== END | disposition home or self-care (01) ==
PROVIDERS: PCP Family Medicine; Referring Provider Internal Medicine Rheumatology; Visit Provider Internal Medicine Rheumatology
DX: M05.70 Rheumatoid arthritis with rheumatoid factor of unspecified site without organ or systems involvement (principal); Z79.899 Other long term (current) drug therapy
CPT/HCPCS: 36415; 80053; 85025

== ENCOUNTER → 2024-01-24 | Outpatient (CLI) | payer MEDICARE, SELFPAY ==
[2024-01-24 15:55] LABS: Hemoglobin A1c 5.7 % (3.8-5.6)
[2024-01-24 16:11] LABS: PSA,Total- Diagnostic 7.96 ng/mL (0.0-4.0)
== END | disposition home or self-care (01) ==
LOC: MFPLAB 11:15
PROVIDERS: PCP Family Medicine; Visit Provider Family Medicine
DX: R97.20 Elevated prostate specific antigen [PSA] (principal); R73.01 Impaired fasting glucose
CPT/HCPCS: 36415; 83036; 84153

== ENCOUNTER → 2024-02-23 | Outpatient (CLI) | payer MEDICARE, SELFPAY ==
[2024-02-23 12:16] LABS: Absolute Neutrophil Count 6.7 X10^3/uL (2.0-7.7); Eosinophil# 0.23 X10^3/uL; Eosinophils% 2.3 % (0-5); Hematocrit 48.8 % (40-54); Hemoglobin 16.2 g/dL (13.0-16.5); Lymphocyte % 22.8 % (19-41); Mean Corp Hgb Conc 33.2 g/dL (32-36); Mean Corpuscular Hgb 33.1 pg (27.0-32.0); Mean Corpuscular Volume 99.6 fL (80-94); Mean Platelet Vol. 9.4 fl (6.2-12.0); Monocyte# 0.68 X10^3/uL; Monocyte% 6.7 % (0-10); NRBC Flagged by Analyzer 0 % (0-5); Neutrophil # 6.73 X10^3/uL (2.7-7.7); Neutrophil % 66.8 % (47-70); Platelet Count 303 K/mm3 (150-450); RBC Distribution Width CV 12.8 % (11.6-14.6); RBC Distribution Width SD 47.2 fl (35.1-43.9); White Blood Count 10.1 K/mm3 (4.4-11.0)
[2024-02-23 13:20] LABS: AST(SGOT) 21 U/L (15-37); Alanine Aminotransfer ALT/SGPT 23 U/L (16-61); Albumin, Serum 3.7 g/dL (3.2-5.0); Alkaline Phosphatase 90 U/L (45-117); Anion Gap 4 (5-15); BUN 12 mg/dL (7-18); BUN/Creat Ratio 14.7 RATIO (10-20); Calcium,Total 9.6 mg/dL (8.5-10.1); Chloride 106 mmol/L (98-107); Creatinine, Serum 0.81 mg/dL (0.70-1.30); EST Glomerular Filtration Rate 100 mL/min (>60); Est Glom Filt Rate - Afr Amer 121 mL/min (>60); Globulin 3.6 g/dL (2.2-4.2); Glucose 115 mg/dL (74-106); Potassium 4.9 mmol/L (3.5-5.1); Protein, Total 7.3 g/dL (6.4-8.2); Sodium Level 138 mmol/L (136-145)
== END | disposition home or self-care (01) ==
LOC: MTLAB 10:14
PROVIDERS: PCP Family Medicine; Referring Provider Internal Medicine Rheumatology; Visit Provider Internal Medicine Rheumatology
DX: M05.70 Rheumatoid arthritis with rheumatoid factor of unspecified site without organ or systems involvement (principal); Z79.899 Other long term (current) drug therapy
CPT/HCPCS: 36415; 80053; 85025

== ENCOUNTER → 2024-03-08 | Outpatient (CLI) | payer MEDICARE, SELFPAY | END | disposition home or self-care (01) | PROVIDERS: PCP Family Medicine; Referring Provider Psychiatry & Neurology Neurology; Visit Provider Psychiatry & Neurology Neurology | DX: G25.0 Essential tremor (principal) | CPT/HCPCS: 36415; 84443 ==

== ENCOUNTER → 2024-06-12 | Outpatient (CLI) | payer MEDICARE, SELFPAY ==
[2024-06-12 12:35] LABS: Absolute Neutrophil Count 8.3 X10^3/uL (2.0-7.7); Basophil# 0.12 X10^3/uL; Eosinophil# 1.13 X10^3/uL; Hematocrit 45.6 % (40-54); Hemoglobin 15.2 g/dL (13.0-16.5); Lymphocyte % 18.3 % (19-41); Mean Corp Hgb Conc 33.3 g/dL (32-36); Mean Corpuscular Hgb 33.1 pg (27.0-32.0); Mean Corpuscular Volume 99.3 fL (80-94); Mean Platelet Vol. 9.4 fl (6.2-12.0); Monocyte# 0.72 X10^3/uL; Monocyte% 5.7 % (0-10); NRBC Flagged by Analyzer 0 % (0-5); Neutrophil # 8.27 X10^3/uL (2.7-7.7); Neutrophil % 65.6 % (47-70); Platelet Count 347 K/mm3 (150-450); RBC Distribution Width CV 13.2 % (11.6-14.6); Red Blood Count 4.59 M/mm3 (4.6-6.2); White Blood Count 12.6 K/mm3 (4.4-11.0)
[2024-06-12 13:11] LABS: ALB/GLOB Ratio 0.9 RATIO (0.9-2.4); AST(SGOT) 18 U/L (15-37); Alanine Aminotransfer ALT/SGPT 22 U/L (16-61); Albumin, Serum 3.5 g/dL (3.2-5.0); Alkaline Phosphatase 81 U/L (45-117); Anion Gap 6 (5-15); BUN 15 mg/dL (7-18); BUN/Creat Ratio 18.1 RATIO (10-20); Calcium,Total 9.6 mg/dL (8.5-10.1); Chloride 106 mmol/L (98-107); Creatinine, Serum 0.83 mg/dL (0.70-1.30); EST Glomerular Filtration Rate 98 mL/min (>60); Est Glom Filt Rate - Afr Amer 118 mL/min (>60); Glucose 113 mg/dL (74-106); Potassium 4.8 mmol/L (3.5-5.1); Protein, Total 7.5 g/dL (6.4-8.2); Sodium Level 139 mmol/L (136-145)
== END | disposition home or self-care (01) ==
PROVIDERS: PCP Family Medicine; Referring Provider Internal Medicine Rheumatology; Visit Provider Internal Medicine Rheumatology
DX: M05.70 Rheumatoid arthritis with rheumatoid factor of unspecified site without organ or systems involvement (principal); C44.519 Basal cell carcinoma of skin of other part of trunk; I73.9 Peripheral vascular disease, unspecified; Z79.899 Other long term (current) drug therapy
CPT/HCPCS: 36415; 80053; 85025

== ENCOUNTER → 2024-07-30 | Outpatient (CLI) | payer MEDICARE, SELFPAY ==
[2024-07-30 18:01] LABS: Hemoglobin A1c 6.1 % (<=5.6)
[2024-07-30 19:22] LABS: Protein, Urine (Random) 9.4 mg/dL (0.0-12.0); Protein:Creat Ratio 97 mg/g CRE (0-200)
[2024-07-30 20:37] LABS: Cholesterol 166 mg/dL (<=200); High Density Lipoprotein 48 mg/dL; Low Density Lipoprotein Calc. 105 mg/dL; Triglycerides 68 mg/dL; Very Low Density Lipoprotein 14 mg/dL (5-40); cholesterol:hdl ratio screen 3.47
[2024-07-30 20:41] LABS: AST(SGOT) 21 U/L (<=37); Alanine Aminotransfer ALT/SGPT 13 U/L (<=46); Anion Gap 13 (5-15); BUN 12 mg/dL (4-19); Calcium,Total 9.3 mg/dL (7.6-11.0); Carbon Dioxide 22.7 mmol/L (21.0-32.0); Chloride 103 mmol/L (98-108); Creatinine, Serum 0.64 mg/dL (0.70-1.20); EST Glomerular Filtration Rate 103 (>60); Glucose 80 mg/dL (70-99); Potassium 4.6 mmol/L (3.3-5.1); Sodium Level 138 mmol/L (133-145)
== END | disposition home or self-care (01) ==
LOC: MFPLAB 11:36
PROVIDERS: PCP Family Medicine; Visit Provider Family Medicine
DX: R73.01 Impaired fasting glucose (principal); I10 Essential (primary) hypertension; E78.5 Hyperlipidemia, unspecified
CPT/HCPCS: 36415; 80048; 80061; 82570; 83036; 84156; 84443; 84450; 84460

== ENCOUNTER → 2024-09-05 | Outpatient (CLI) | payer MEDICARE, SELFPAY ==
[2024-09-05 12:51] LABS: Absolute Lymphocyte Count 1.79 X10^3/uL (0.83-4.51); Absolute Neutrophil Count 7.7 X10^3/uL (2.0-7.7); Basophil# 0.11 X10^3/uL; Eosinophil# 1.04 X10^3/uL; Eosinophils% 9.1 % (0-5); Hematocrit 43.3 % (40-54); Hemoglobin 14.7 g/dL (13.0-16.5); Lymphocyte # 1.79 X10^3/ul (0.83-4.51); Lymphocyte % 15.7 % (19-41); Mean Corp Hgb Conc 33.9 g/dL (32-36); Mean Corpuscular Hgb 32.6 pg (27.0-32.0); Mean Platelet Vol. 9.4 fl (6.2-12.0); Monocyte# 0.75 X10^3/uL; Monocyte% 6.6 % (0-10); NRBC Flagged by Analyzer 0 % (0-5); Neutrophil # 7.69 X10^3/uL (2.7-7.7); Neutrophil % 67.2 % (47-70); Platelet Count 383 K/mm3 (150-450); RBC Distribution Width CV 12.2 % (11.6-14.6); RBC Distribution Width SD 42.9 fl (35.1-43.9); Red Blood Count 4.51 M/mm3 (4.6-6.2); White Blood Count 11.4 K/mm3 (4.4-11.0)
[2024-09-05 13:13] LABS: ALB/GLOB Ratio 1.1 RATIO (0.9-2.4); AST(SGOT) 18 U/L (<=37); Alanine Aminotransfer ALT/SGPT 16 U/L (<=46); Albumin, Serum 3.8 g/dL (3.4-4.8); Alkaline Phosphatase 99 U/L (40-129); Anion Gap 12 (5-15); BUN 11 mg/dL (4-19); Calcium,Total 9.3 mg/dL (7.6-11.0); Carbon Dioxide 25.6 mmol/L (21.0-32.0); Chloride 101 mmol/L (98-108); Creatinine, Serum 0.71 mg/dL (0.70-1.20); EST Glomerular Filtration Rate 100 (>60); Globulin 3.5 g/dL (2.2-4.2); Glucose 151 mg/dL (70-99); Potassium 4.5 mmol/L (3.3-5.1); Protein, Total 7.3 g/dL (5.9-8.4); Sodium Level 138 mmol/L (133-145); Total Bilirubin 0.19 mg/dL (0.00-1.30)
== END | disposition home or self-care (01) ==
LOC: MTLAB 10:54
PROVIDERS: PCP Family Medicine; Referring Provider Internal Medicine Rheumatology; Visit Provider Internal Medicine Rheumatology
DX: M05.70 Rheumatoid arthritis with rheumatoid factor of unspecified site without organ or systems involvement (principal); I73.9 Peripheral vascular disease, unspecified; Z79.899 Other long term (current) drug therapy
CPT/HCPCS: 36415; 80053; 85025

== ENCOUNTER → 2024-11-12 | Outpatient (CLI) | payer MEDICARE, SELFPAY ==
[2024-11-12 15:18] LABS: Absolute Lymphocyte Count 1.91 X10^3/uL (0.83-4.51); Absolute Neutrophil Count 6.5 X10^3/uL (2.0-7.7); Basophil# 0.07 X10^3/uL; Basophil% 0.7 % (0-1); Eosinophil# 0.59 X10^3/uL; Eosinophils% 6.2 % (0-5); Hematocrit 41.5 % (40-54); Hemoglobin 13.7 g/dL (13.0-16.5); Lymphocyte # 1.91 X10^3/ul (0.83-4.51); Mean Corpuscular Hgb 31.9 pg (27.0-32.0); Mean Corpuscular Volume 96.5 fL (80-94); Mean Platelet Vol. 9.7 fl (6.2-12.0); Monocyte# 0.51 X10^3/uL; Monocyte% 5.3 % (0-10); NRBC Flagged by Analyzer 0 % (0-5); Neutrophil # 6.45 X10^3/uL (2.7-7.7); Neutrophil % 67.5 % (47-70); Platelet Count 325 K/mm3 (150-450); RBC Distribution Width CV 14.2 % (11.6-14.6); RBC Distribution Width SD 50.5 fl (35.1-43.9); White Blood Count 9.6 K/mm3 (4.4-11.0)
[2024-11-12 15:52] LABS: ALB/GLOB Ratio 1.2 RATIO (0.9-2.4); AST(SGOT) 20 U/L (<=37); Alanine Aminotransfer ALT/SGPT 17 U/L (<=46); Albumin, Serum 3.9 g/dL (3.4-4.8); Alkaline Phosphatase 99 U/L (40-129); Anion Gap 12 (5-15); BUN 10 mg/dL (4-19); BUN/Creat Ratio 14.4 RATIO (10-20); Calcium,Total 9.3 mg/dL (7.6-11.0); Carbon Dioxide 23.9 mmol/L (21.0-32.0); Chloride 103 mmol/L (98-108); Creatinine, Serum 0.71 mg/dL (0.70-1.20); EST Glomerular Filtration Rate 100 (>60); Globulin 3.1 g/dL (2.2-4.2); Glucose 94 mg/dL (70-99); Potassium 4.5 mmol/L (3.3-5.1); Sodium Level 139 mmol/L (133-145); Total Bilirubin 0.33 mg/dL (0.00-1.30)
== END | disposition home or self-care (01) ==
LOC: MTLAB 12:00
PROVIDERS: PCP Family Medicine; Referring Provider Internal Medicine Rheumatology; Visit Provider Internal Medicine Rheumatology
DX: M05.70 Rheumatoid arthritis with rheumatoid factor of unspecified site without organ or systems involvement (principal); C44.519 Basal cell carcinoma of skin of other part of trunk; I73.9 Peripheral vascular disease, unspecified; Z79.899 Other long term (current) drug therapy
CPT/HCPCS: 36415; 80053; 85025

== ENCOUNTER → 2025-01-25 | Outpatient (CLI) | payer MEDICARE, SELFPAY ==
[2025-01-25 15:31] LABS: Hematocrit 44.8 % (40-54); Hemoglobin 14.6 g/dL (13.0-16.5); Immature Granulocytes Count 0.040 X10^3/uL (0.0-0.0); Mean Corp Hgb Conc 32.6 g/dL (32-36); Mean Corpuscular Volume 100.9 fL (80-94); Mean Platelet Vol. 9.7 fl (6.2-12.0); NRBC Flagged by Analyzer 0 % (0-5); Platelet Count 282 K/mm3 (150-450); RBC Distribution Width CV 13.5 % (11.6-14.6); RBC Distribution Width SD 50.1 fl (35.1-43.9); Red Blood Count 4.44 M/mm3 (4.6-6.2); White Blood Count 9.0 K/mm3 (4.4-11.0)
[2025-01-25 15:45] LABS: AST(SGOT) 23 U/L (<=37); Alanine Aminotransfer ALT/SGPT 21 U/L (<=46); Albumin, Serum 4.2 g/dL (3.4-4.8); Alkaline Phosphatase 91 U/L (40-129); Anion Gap 10 (5-15); BUN 12 mg/dL (4-19); BUN/Creat Ratio 16.3 RATIO (10-20); Calcium,Total 9.4 mg/dL (7.6-11.0); Carbon Dioxide 25.8 mmol/L (21.0-32.0); Chloride 103 mmol/L (98-108); Globulin 3.0 g/dL (2.2-4.2); Glucose 136 mg/dL (70-99); Potassium 4.9 mmol/L (3.3-5.1)
== END | disposition home or self-care (01) ==
LOC: MTLAB 11:39
PROVIDERS: Referring Provider Internal Medicine Rheumatology; Visit Provider Internal Medicine Rheumatology
DX: M05.70 Rheumatoid arthritis with rheumatoid factor of unspecified site without organ or systems involvement (principal); Z79.899 Other long term (current) drug therapy
CPT/HCPCS: 36415; 80053; 85025

== ENCOUNTER → 2025-01-29 | Outpatient (CLI) | payer MEDICARE, SELFPAY ==
[2025-01-29 17:49] LABS: PSA,Total - Annual Screen 10.70 ng/mL (0.02-4.00)
== END | disposition home or self-care (01) ==
LOC: MFPLAB 11:58
DX: Z12.5 Encounter for screening for malignant neoplasm of prostate (principal)
CPT/HCPCS: 36415; 84153; G0103

== ENCOUNTER → 2025-04-19 | Outpatient (CLI) | payer MEDICARE, SELFPAY ==
--- OUTSIDE RECORDS SUMMARY | 2025-04-19 11:20 | XMS RPT_ITS | CCD ---
Author Organization [facility] Care Team Providers Care Calibration Technician Name Role Phone Gennaro Hanna MD Unavailable Jessica Astorga Primary Care Provider [phone] Jessica Astorga Primary Care Provider Dr. Jessica Astorga Primary Care Provider Ambreen Das Attending Provider Unavailable Dr. Jessica Astorga Referring Provider Dr. Gennaro Hanna Attending Provider [phone] Gennaro Hanna Other Provider Dr. Jessica Astorga Primary Care Provider JESSICA ASTORGA Primary Care Unavailable JESSICA ASTORGA Primary Care Unavailable JESSICA ASTORGA Primary Care Unavailable DUGLAS HARRISON Attending Unavailable Dr. Jessica Astorga Primary Care Provider Dr. Kalin Stahl Emergency Provider [phone] Christoph Aparicio Admit Provider Dr. Christoph Aparicio Attending Provider Dr. Christoph Aparicio Other Provider Dr. Saul Henry Attending Provider Dr. Saul Henry Other Provider Dr. Jessica Astorga Primary Care Provider Dr. Kalin Stahl Emergency Provider [phone] Christoph Aparicio Admit Provider Dr. Christoph Aparicio Attending Provider Dr. Christoph Aparicio Other Provider Dr. Saul Henry Attending Provider Dr. Saul Henry Other Provider Jessica Astorga Primary Care Provider Gauri SILVER, Dr. Jessica Hearn Primary Care Provider Mirtha SILVER, Dr. Lobato Attending Provider Mirtha SILVER, Dr. Lobato Referring Provider Gauri SILVER, Dr. Jessica Hearn Attending Provider Gauri SILVER, Dr. Jessica Hearn Referring Provider Albert SILVER, Dr. Ramirez Attending Provider Gauri SILVER, Dr. Jessica Hearn Primary Care Provider Mirtha SILVER, Dr. Lobato Attending Provider Mirtha SILVER, Dr. Lobato Referring Provider Gauri SILVER, Dr. Jessica Hearn Primary Care Provider Mirtha SILVER, Dr. Lobato Attending Provider Mirtha SILVER, Dr. Lobato Referring Provider [facility] SERVICES COORDINATOR-C, Philippe Primary Care Provider [facility] SERVICES COORDINATOR-C, Philippe Attending Provider [facility] SERVICES COORDINATOR-C, Philippe Referring Provider [facility] SERVICES COORDINATOR, Philippe Primary Care Unavailable Vellanki, Cheryle Referring Unavailable Tyrellanki, Cheryle Attending Unavailable [facility] SERVICES COORDINATOR, Philippe Primary Care Unavailable [facility] SERVICES COORDINATOR, Philippe Attending Unavailable [facility] SERVICES COORDINATOR, Philippe Referring Unavailable Jolliff, Jessica S Primary Care Unavailable Mirtha, Cheryle Attending Unavailable Amberki, Cheryle Referring Unavailable Jolliff, Jessica S Primary Care Unavailable James Price Attending Unavailable James Price Referring Unavailable Jolliff, Jessica S Primary Care Unavailable Kacey, Granville Attending Unavailable Jolliff, Jessica S Primary Care Unavailable Jolliff, Jessica S Referring Unavailable [facility] SERVICES COORDINATOR, Jesus Guerrero Attending Unavailable Jolliff, Jessica S Primary Care Unavailable Jolliff, Jessica S Referring Unavailable Baddour, James Attending Unavailable Jolliff, Jessica S Primary Care Unavailable Jolliff, Jessica S Referring Unavailable Cali Navas Attending Unavailable Jolliff, Jessica S Referring Unavailable Jolliff, Jessica S Primary Care Unavailable Baddour, James Attending Unavailable Jolliff, Jessica S Attending Unavailable Jolliff, Jessica S Primary Care Unavailable Jolliff, Jessica S Primary Care Unavailable Vellanki, Cheryle Referring Unavailable Vellanki, Cheryle Attending Unavailable Jolliff, Jessica S Attending Unavailable Jolliff, Jessica S Primary Care Unavailable Jolliff, Jessica S Primary Care Unavailable Vellanki, Cheryle Attending Unavailable Vellanki, Cheryle Referring Unavailable Jolliff, Jessica S Primary Care Unavailable Vellanki, Cheryle Referring Unavailable Vellanki, Cheryle Attending Unavailable Dr. Jessica Astorga MD Primary Care Physician [phone] Dr. Cheryle Shannon MD [facility]-Philippe Jones Primary Care Physician [facility] SERVICES COORDINATOR-CPhilippe Attending Physician Allergies Allergy Classification Reported Allergen(s) Allergy Type Date of Onset Reaction(s) Facility (13 sources) ibuprofen; Translations: [IBUPROFEN] Drug Allergy 07-28-2016 [facility] Work Phone: (20 sources) NSAIDS (Non-Steroidal Anti-Inflamma; Translations: [NSAIDS (Non-Steroidal Anti-Inflamma] Allergy to substance 02-13-2021 [facility] (14 sources) clopidogrel Drug Allergy 07-16-2022 Rash [facility] (18 sources) Dandelion Extract Drug Allergy 07-16-2022 Swelling [facility] Comment on above: SWELLING OF EYES (1 source) Dandelion Extract; Translations: [DANDELION EXTRACT] Drug Allergy 07-16-2022 [facility] Repository (1 source) clopidogrel Drug Allergy 08-27-2024 [facility] Repository (1 source) Dandelion Extract Drug Allergy 08-27-2024 [facility] Repository Medications Current Medications Medication Drug Class(es) Dates Sig (Normalized) Sig (Original) [id number] 200 actuat albuterol 0.09 mg/actuat metered dose inhaler (16 sources) beta2-Adrenergic Agonist Start: 05-25-2023 Start: 05-25-2023 take 1 puff(s) by in halation every six hours Albuterol Sulfate Active 2 PUFF INHALATION EVERY 6 HOURS 6.7 May 25, 2023 1:00am Start: 05-17-2022 take 2 puff(s) by in halation every four hours as needed albuterol HFA (PROAIR HFA) 90 mcg/actuation inhaler Inhale 2 Puffs as instructed every 4 hours as needed. 18 g 05/17/2022 Active Comment on above: Inhale 2 Puffs as in structed every 4 hours as needed. amLODIPine 5 mg oral tablet (20 sources) Dihydropyridine Calcium Channel Min Start: 2 take 1 tablet by mouth at bedtime Comment on above: TAKE 1 TABLET BY CANDELARIO EVERYDAY AT BEDTIME amoxicillin 875 mg / clavulanate 125 mg oral tablet (1 source) Penicillin-class Antibacterial Start: 2 End: 3 take 1 tablet by mouth twice daily amoxicillin-cla vulanic acid (AUGMENTIN) 875-125 mg per tablet Take 1 tablet by mouth twice daily for 5 days. 10 tablet 0 05/18/2022 05/23/2022 Active Comment on above: Take 1 tablet by candelario twice daily for 5 days. aspirin 81 mg delayed release oral tablet (20 sources) Nonsteroidal Anti-inflammatory Drug Start: 1 take 1 tablet by mouth once daily Start: 02-28-2017 take 1 tablet by candelario once daily ADULT ASPIRIN EC LOW STRENGTH 81 MG TBEC One tablet by mouth daily ASPIRIN [id number] Gennaro Hanna MD Comment on above: Take 81 mg by mouth once daily. atorvastatin 20 mg oral tablet (20 sources) HMG-CoA Reductase Inhibitor Start: 07-30-2016 take 1 tablet by mouth at bedtime Comment on above: Take 20 mg by mouth once daily. azithromycin 250 mg oral tablet (13 sources) Macrolide Antimicrobial Start: 04-01-2024 Start: 05-25-2023 End: 10-31-2023 take 2 tablets by mouth every twenty-four hours Azithromycin 250 mg Tablet Discontinued 500 mg PO EVERY 24 HOURS 3 0 May 25 2024 1:00am October 31, 2023 9:59am Start: 05-25-2023 take 500 mg by mouth every twenty-four hours Azithromycin Active 500 MG PO EVERY 24 HOURS May 25, 2023 1:00am clopidogrel 75 mg oral tablet (10 sources) [id number] Platelet Inhibitor Start: 07-31-2016 clopidogrel (PLAVIX) 75 mg tablet 75 mg once daily. 07/31/2016 Active Comment on above: 75 mg once daily. DULoxetine 60 mg delayed release oral capsule (20 sources) Serotonin and Norepinephrine Reuptake Inhibitor Start: 07-23-2016 take 1 capsule by mouth at bedtime Comment on above: Take 60 mg by mouth once daily. 30 actuat fluticasone furoate 0.2 mg/actuat / vilanterol 0.025 mg/actuat dry powder inhaler (20 sources) Corticosteroid, beta2-Adrenergic Agonist Start: 09-27-2022 Start: 09-27-2022 Fluticasone Fu roate-Vilanterol (Breo Ellipta) 200-25 mcg/dose Blister With Device Active 1 INH INHALATION DAILY September 27, 2022 12:00am Start: 12-18-2021 BREO ELLIPTA 2 00-25 mcg/dose inhaler 12/18/2021 Active folic acid 1 mg oral tablet (20 sources) Start: 07-23-2016 take 2 tablets by mouth once d aily Start: 07-23-2016 take 2 mg by mouth once daily Folic Acid Active 2 MG PO DAILY July 23, 2016 1:00am Comment on above: Take 2 mg by mouth o nce daily. 24 hr metoprolol succinate 50 mg extended release oral tablet (20 sources) beta-Adrenergic Min Start: 05-25-2023 take 1 tablet by mouth once daily Start: 05-24-2023 Metoprolol Suc cinate Active MG PO May 24, 2023 12:00am Start: 01-06-2022 metoprolol suc cinate ER (TOPROL XL) 50 mg 24 hr tablet 01/06/2022 Active Start: 02-10-2021 End: 05-25-2023 take 1 tablet by mouth once daily Metoprolol Tartrate 50 mg Tablet Discontinued 50 mg PO DAILY February 10, 2021 12:00am May 25, 2023 3:42pm htn Completed/Discontinued Medications Medication Drug Class(es) Dates Sig (Normalized) Sig (Original) benzonatate 100 mg oral capsule (8 sources) Non-narcotic Antitussive Start: 05-17-2022 End: 01-10-2023 take 2 capsules by mouth every eight hours as needed benzonatate (TESSALON PERLE) 100 mg capsule Take 2 capsules by mouth three times daily as needed. 30 capsule 05/17/2022 01/10/2023 Discontinued (Patient chooses alternative therapy) Comment on above: Take 2 capsules by m [facility] three times daily as needed. doxycycline hyclate 100 mg oral capsule (8 sources) Tetracycline-class Drug Start: 04-01-2024 End: 04-08-2024 take 1 capsule by mouth twice daily Doxycycline Hyclate 100 mg capsule Discontinued 100 mg PO TWICE A DAY 14 7 0 April 01, 2024 1:00am April 07, 2024 1:00am April 08, 2024 1:09am Start: 05-17-2022 End: 05-22-2022 take 1 capsule by mouth twice daily doxycycline monohydrate (MONODOX) 100 mg capsule Take 1 capsule by mouth twice daily for 5 days. 10 capsule 05/17/2022 05/22/2022 Comment on above: Take 1 capsule by [facility] twice daily for 5 days. methotrexate 2.5 mg oral tablet (20 sources) Folate Analog Metabolic Inhibitor Start: 09-29-2022 methotrexate 2.5 mg tablet Start: 02-28-2017 METHOTREXATE 2 .5 MG TABS Take five tablets once a week METHOTREXATE SODIUM [id number] Elayne Romero Start: 07-23-2016 Start: 07-23-2016 Methotrexate S odium Active 12.5 MG PO FR July 23, 2016 1:00am End: 05-18-2022 take 1 tablet by mouth once methotrexate 2.5 mg tablet Take 2.5 mg by mouth one time only. Take five tablets once a week 05/18/2022 Discontinued (Discontinued by Patient) Comment on above: Take 2.5 mg by mouth one time only. Take five tablets once a week predniSONE 10 mg oral tablet (17 sources) Start: 04-01-2024 End: 04-13-2024 take 4 tablets by mouth once daily, then take 3 tablets by mouth once daily, then take 2 tablets by mouth once daily, then take 1 tablet by mouth once daily Prednisone 10 mg tablet Discontinued 10 mg PO .COMPLEX 30 12 April 01, 2024 1:00am April 12, 2024 1:00am April 13, 2024 1:09am 10 mg orally; 4 tabs daily for 3 days, then 3 tabs daily for 3 days, then 2 tabs daily for 3 days, then 1 tab daily for 3 days Start: 05-25-2023 End: 10-31-2023 take 4 tablets by mouth once daily, then take 3 tablets by mouth once daily, then take 2 tablets by mouth once daily, then take 1 tablet by mouth once daily Prednisone 10 mg tablet Discontinued 10 mg PO DAILY 30 May 25, 2023 1:00am October 31, 2023 9:59am 4 tabs daily for 3 days, then 3 tabs daily for 3 days, then 2 tabs daily for 3 days, then 1 tab daily for 3 days Start: 05-17-2022 End: 05-22-2022 take 2 tablets by mouth once daily predniSONE (DELTASONE) 20 mg tablet Take 2 tablets by mouth once daily for 5 days. 10 tablet 05/17/2022 05/22/2022 Start: 01-14-2022 End: 01-26-2022 predniSONE (DELTASONE) 10 mg tablet Indications: Left sided sciatica Take 6 tabs for 3 days, then 4 tabs for 3 days, then 2 tabs for 3 days then 1 tab for 3 days with food. 39 tablet 0 01/14/2022 01/26/2022 Active Comment on above: Take 6 tabs for 3 da ys, then 4 tabs for 3 days, then 2 tabs for 3 days then 1 tab for 3 days with food. Take 2 tablets by [facility] once daily for 5 days. primidone 50 mg oral tablet (19 sources) Anti-epileptic Agent Start: 03-06-2024 End: 08-27-2024 take 1 tablet by mouth twice daily Primidone 50 mg tablet Discontinued 50 mg PO TWICE A DAY 180 March 06, 2024 3:08pm August 27, 2024 11:25am Start: 10-31-2023 End: 03-06-2024 take 0.5 tablet by mouth once daily, then take 0.5 tablet by mouth twice daily, then take 1 tablet by mouth twice daily Primidone 50 mg tablet Discontinued 0 .Route .COMPLEX 60 5 October 31, 2023 12:00am March 06, 2024 11:50am One-half tablet PO daily for one week then one-half tablet BID for one week then one tablet BID thereafter Problems Active Problems Problem Classification Problem Date Documented Da te Episodic/Chronic Anxiety disorders (20 sources) Anxiety disorder; Translations: [Anxiety] Onset: 02-28-2017 02-28-2017 Chronic Blindness and vision defects (1 source) Disorder of refraction; Translations: [Unspecified disorder of refraction] 01-10-2023 Episodic Chronic obstructive pulmonary disease and bronchiectasis (20 sources) Pulmonary emphysema; Translations: [Emphysema, unspecified] Onset: 07-28-2016 07-28-2016 Chronic Disorders of lipid metabolism (20 sources) Hyperlipidemia; Translations: [Hyperlipidemia, unspecified] Onset: 02-28-2017 02-28-2017 Chronic Inflammation; infection of eye (except that caused by tuberculosis or sexually transmitteddisease) (1 source) Chronic allergic conjunctivitis; Translations: [Other chronic allergic conjunctivitis] 12-20-2022 Chronic Osteoarthritis (20 sources) Arthritis; Translations: [Unspecified osteoarthritis, unspecified site] Onset: 02-28-2017 02-28-2017 Chronic Other acquired deformities (5 sources) Cervical kyphosis; Translations: [Unspecified kyphosis, cervical region] 03-30-2024 Chronic Other and unspecified benign neoplasm (13 sources) History of adenomatous polyp of colon; Translations: [Personal history of colonic polyps] 10-01-2022 Episodic Other and unspecified benign neoplasm (3 sources) Personal history of colonic polyps; Translations: [Personal history of colonic polyps] 10-01-2022 Episodic Other circulatory disease (20 sources) Peripheral arterial occlusive disease; Translations: [Disorder of arteries and arterioles, unspecified] Onset: 02-28-2017 02-28-2017 Chronic Comment on above: STENT LEFT LEG Other circulatory disease (1 source) Wheeze - [...] upper and lower eyelids] 12-20-2022 Episodic Other hereditary and degenerative nervous system conditions (7 sources) Essential tremor; Translations: [Essential tremor] 10-31-2023 Chronic Other hereditary and degenerative nervous system conditions (1 source) Essential tremor; Translations: [Essential tremor] Onset: 04-02-2024 Chronic Other lower respiratory disease (1 source) Cough; Translations: [Acute cough] Episodic Other lower respiratory disease (1 source) Wheezing; Translations: [Wheezing] Episodic Other lower respiratory disease (9 sources) Hypoxia; Translations: [Hypoxemia] 05-24-2023 Episodic Other lower respiratory disease (4 sources) Hypoxemia; Translations: [Hypoxemia] 05-24-2023 Episodic Other lower respiratory disease (1 source) Cough; Translations: [Acute cough] 05-18-2022 Episodic Other nervous system disorders (7 sources) Spinal cord disease; Translations: [Disease of spinal cord, unspecified] 10-31-2023 Chronic Other nervous system disorders (5 sources) Cervical myelopathy; Translations: [Disease of spinal cord, unspecified] 03-30-2024 Chronic Other nervous system disorders (1 source) Disease of spinal cord, unspecified; Translations: [Disease of spinal cord, unspecified] Onset: 04-02-2024 Chronic Other screening for suspected conditions (not mental disorders or infectious disease) (20 sources) Patient encounter status; Translations: [Encounter for screening for malignant neoplasm of intestinal tract, unspecified] Onset: 02-14-2025 02-13-2021 Episodic Peripheral and visceral atherosclerosis (10 sources) Peripheral vascular disease, unspecified; Translations: [Peripheral vascular disease, unspecified] Onset: 07-28-2016 07-28-2016 Chronic Residual codes; unclassified (19 sources) History of operative procedure on shoulder; Translations: [Other specified postprocedural states] 07-12-2017 Episodic Comment on above: Left 2016 Rheumatoid arthritis and related disease (20 sources) Rheumatoid arthritis; Translations: [Rheumatoid arthritis, unspecified] Onset: 02-28-2017 02-28-2017 Chronic Comment on above: ON MED Viral infection (4 sources) Viral disease; Translations: [Viral infection, unspecified] 05-24-2023 Episodic Past or Other Problems Problem Classification Problem Date Documented Da te Episodic/Chronic Diabetes mellitus without complication (1 source) Impaired fasting glucose; Translations: [Impaired fasting glucose] Onset: 08-09-2024 Episodic Other upper respiratory infections (6 sources) Upper respiratory infection; Translations: [Acute upper respiratory infection, unspecified] Onset: 04-02-2024 04-01-2024 Episodic Spondylosis; intervertebral disc disorders; other back problems (11 sources) Sciatica; Translations: [Sciatica, left side] Onset: 03-29-2024 Episodic Unclassified (20 sources) APLL 12-10-2021 Comment on above: 07/2016 Results Test Name Value Interpretation Reference Range Facility PSA,Total - Annual Screenon 01-29-2025 PSA,TOT SCREEN 10.70 ng/mL High 0.02-4.00 [facility] Comment on above: Order Comment: Order Date: 01/29/25Order Info: [id number] - PSAComments: screening for prostate cancer Result Comment: This test was performed using the MiracleCord tPSA method. Measured values of a patient??sample can vary depending on the testing procedure used. PSA values determined on patient samples by different testing procedures cannot be used interchangeably. If there is a change in PSA assays while monitoring therapy, sequential testing should be performed to confirm baseline values. Performed By: #### L 500.4050, L100.0100 #### [facility] [place], [address] Absolute lymphocyte countOrd ered By: Cheryle Shannon on 01-25-2025 Lymphocytes Auto (Unsp spec) [#/Vol] 1.90 10*3/uL 0.83-4.51 [facility] Absolute neutrophil countOrd ered By: Cheryle Shannon on 01-25-2025 Neutrophils (Bld) [#/Vol] 5.9 10*3/uL 2.0-7.7 [facility] Anion gap in Serum or Plasma Ordered By: Cheryle Shannon on 01-25-2025 Anion gap [Moles/Vol] 10 mmol/L 5-15 [facility] Automated lymphocyte count a s percentage of total leukocytesOrdered By: Cheryle Shannon on 01-25-2025 Lymphocytes/100 WBC Auto (Unsp spec) 21.1 % 19-41 [facility] BUN/creatinine ratioOrdered By: Cheryle Shannon on 01-25-2025 Urea nitrogen/Creatinine [Mass ratio] 16.3 mg/mg 10-20 [facility] Basophil percentageOrdered B y: Cheryle Shannon on 01-25-2025 Basophils/100 WBC (Bld) 0.8 % 0-1 [facility] Bilirubin, totalOrdered By: Cheryle Shannon on 01-25-2025 Bilirubin [Mass/Vol] 0.30 mg/dL 0.00-1.30 [facility] CBC W/Diff, Automatedon Absolute Lymph 1.90 X10 3/uL Normal 0.83-4.51 [facility] Comment on above: Performed By: #### L 100.0100, L500.4050 #### [facility] [address] [place], [address] Absolute Neut 5.9 X10 3/uL Normal 2.0-7.7 [facility] Comment on above: Performed By: #### L 100.0100, L500.4050 #### [facility] [address] [place], [address] Basophils/100 WBC (Bld) 0.8 % Normal 0-1 [facility] Comment on above: Performed By: #### L 100.0100, L500.4050 #### [facility] [address] [place], [address] Eosinophils/100 WBC (Bld) 4.8 % Normal 0-5 [facility] Comment on above: Performed By: #### L 100.0100, L500.4050 #### [facility] [address] [place], [address] Erythrocyte distribution width (RBC) [Ratio] 13.5 % Normal 11.6-14.6 [facility] Comment on above: Performed By: #### L 100.0100, L500.4050 #### [facility] [address] [place], [address] Hematocrit (Bld) [Volume fraction] 44.8 % Normal 40-54 [facility] Comment on above: Performed By: #### L 100.0100, L500.4050 #### [facility] [address] [place], [address] Hemoglobin (Bld) [Mass/Vol] 14.6 g/dL Normal 13.0-16.5 [facility] Comment on above: Performed By: #### L 100.0100, L500.4050 #### [facility] [address] [place], [address] IG% 0.400 Normal 0.0-0.9 [facility] Comment on above: Result Comment: IG% - Immature Granulocytes (promyelocytes, myelocytes and metamyelocytes) > 1% indicates that a LEFT SHIFT is Present. Performed By: #### L 100.0100, L500.4050 #### [facility] [address] [place], [address] Lymphocytes/100 WBC (Bld) 21.1 % Normal 19-41 [facility] Comment on above: Performed By: #### L 100.0100, L500.4050 #### [facility] [address] [place], [address] MCH (RBC) [Entitic mass] 32.9 pg High 27.0-32.0 [facility] Comment on above: Performed By: #### L 100.0100, L500.4050 #### [facility] [address] [place], [address] MCHC (RBC) [Mass/Vol] 32.6 g/dL Normal 32-36 [facility] Comment on above: Performed By: #### L 100.0100, [id number] #### [facility] [address] [place], [address] MCV (RBC) [Entitic vol] 100.9 fL High 80-94 [facility] Comment on above: Performed By: #### L 100.0100, L500.4050 #### [facility] [address] [place], [address] Monocytes/100 WBC (Bld) 8.1 % Normal 0-10 [facility] Comment on above: Performed By: #### L 100.0100, [id number] #### [facility] [address] [place], [address] Neutrophils/100 WBC (Bld) 64.8 % Normal 47-70 [facility] Comment on above: Performed By: #### L 100.0100, L500.4050 #### [facility] [address] [place], [address] Nucleated RBC (Bld) [#/Vol] 0 10*3/uL Normal 0-5 [facility] Comment on above: Performed By: #### L 100.0100, L500.4050 #### [facility] [address] [place], [address] Platelet mean volume (Bld) [Entitic vol] 9.7 fL Normal 6.2-12.0 [facility] Comment on above: Performed By: #### L 100.0100, L500.4050 #### [facility] [address] [place], [address] Platelets (Bld) [#/Vol] 282 10*3/uL Normal 150-450 [facility] Comment on above: Performed By: #### L 100.0100, L500.4050 #### [facility] [address] [place], [address] RBC (Bld) [#/Vol] 4.44 10*6/uL Low 4.6-6.2 [facility] Comment on above: Performed By: #### L 100.0100, [id number] #### [facility] [address] [place], [address] RDW SD 50.1 fl High 35.1-43.9 [facility] Comment on above: Performed By: #### L 100.0100, [id number] #### [facility] [address] [place], [address] WBC (Bld) [#/Vol] 9.0 10*3/uL Normal 4.4-11.0 [facility] Comment on above: Performed By: #### L 100.0100, L500.4050 #### [facility] [address] [place], [address] Carbon dioxide, total [Moles /volume] in Central venous bloodOrdered By: Cheryle Shannon on 01-25-2025 CO2 [Moles/Vol] 25.8 mmol/L 21.0-32.0 [facility] Chloride assayOrdered By: Brain Shannon on 01-25-2025 Chloride [Moles/Vol] 103 mmol/L 98-108 [facility] Comprehensive Metabolic Prof ilon 01-25-2025 Albumin [Mass/Vol] 4.2 g/dL Normal 3.4-4.8 [facility] Comment on above: Performed By: #### L 100.0100, [id number] #### [facility] [address] [place], [address] Albumin/Globulin [Mass ratio] 1.4 {ratio} Normal 0.9-2.4 [facility] Comment on above: Performed By: #### L 100.0100, [id number] #### [facility] [address] [place], [address] ALK PHOS 91 U/L Normal 40-129 [facility] Comment on above: Performed By: #### L 100.0100, L500.4050 #### [facility] [address] [place], [address] ALT [Catalytic activity/Vol] 21 U/L Normal <=46 [facility] Comment on above: Performed By: #### L 100.0100, L500.4050 #### [facility] [address] [place], [address] AST [Catalytic activity/Vol] 23 U/L Normal <=37 [facility] Comment on above: Performed By: #### L 100.0100, L500.4050 #### [facility] [address] [place], [address] Bilirubin [Mass/Vol] 0.30 mg/dL Normal 0.00-1.30 [facility] Comment on above: Performed By: #### L 100.0100, L500.4050 #### [facility] [address] [place], [address] BUN/CRE 16.3 RATIO Normal 10-20 [facility] Comment on above: Performed By: #### L 100.0100, L500.4050 #### [facility] [address] [place], [address] Calcium [Mass/Vol] 9.4 mg/dL Normal 7.6-11.0 [facility] Comment on above: Performed By: #### L 100.0100, L500.4050 #### [facility] [address] [place], [address] Chloride [Moles/Vol] 103 mmol/L Normal 98-108 [facility] Comment on above: Performed By: #### L 100.0100, L500.4050 #### [facility] [address] [place], [address] CO2 [Moles/Vol] 25.8 mmol/L Normal 21.0-32.0 [facility] Comment on above: Performed By: #### L 100.0100, L500.4050 #### [facility] [address] [place], [address] Creatinine [Mass/Vol] 0.72 mg/dL Normal 0.70-1.20 [facility] Comment on above: Performed By: #### L 100.0100, L500.4050 #### [facility] [address] [place], [address] GAP 10 Normal 5-15 [facility] Comment on above: Performed By: #### L 100.0100, L500.4050 #### [facility] [address] [place], [address] GFR/1.73 sq M.predicted among non-blacks MDRD (S/P/Bld) [Vol rate/Area] 99 mL/min/{1.73_m2} Normal >60 [facility] Comment on above: Result Comment: mL/m in/1.73m2 CKD-EPI Creatinine Equation (2020) Performed By: #### L 100.0100, L500.4050 #### [facility] [address] [place], [address] Globulin (S) [Mass/Vol] 3.0 g/dL Normal 2.2-4.2 [facility] Comment on above: Performed By: #### L 100.0100, L500.4050 #### [facility] [address] [place], [address] Glucose [Mass/Vol] 136 mg/dL High 70-99 [facility] Comment on above: Performed By: #### L 100.0100, L500.4050 #### [facility] [address] [place], [address] Potassium [Moles/Vol] 4.9 mmol/L Normal 3.3-5.1 [facility] Comment on above: Performed By: #### L 100.0100, L500.4050 #### [facility] [address] [place], [address] Sodium [Moles/Vol] 139 mmol/L Normal 133-145 [facility] Comment on above: Performed By: #### L 100.0100, L500.4050 #### [facility] [address] [place], [address] T PROT 7.2 g/dL Normal 5.9-8.4 [facility] Comment on above: Performed By: #### L 100.0100, L500.4050 #### [facility] [address] [place], [address] Urea nitrogen [Mass/Vol] 12 mg/dL Normal 4-19 [facility] Comment on above: Performed By: #### L 100.0100, L500.4050 #### [facility] [address] [place], [address] Eosinophil percentageOrdered By: Cheryle Shannon on 01-25-2025 Eosinophils/100 WBC (Bld) 4.8 % 0-5 [facility] Erythrocyte distribution wid th ratioOrdered By: Cheryle Shannon on 01-25-2025 Erythrocyte distribution width (RBC) [Ratio] 13.5 % 11.6-14.6 [facility] Erythrocyte distribution wid th standard deviationOrdered By: Cheryle Shannon on 01-25-2025 Erythrocyte distribution width (RBC) [Ratio] 50.1 fl High 35.1-43.9 [facility] Glomerular filtration rate ( GFR) estimation/1.73 sq m using serum, plasma, or whole bOrdered By: Cheryle Shannon on 01-25-2025 GFR/1.73 sq M.predicted among non-blacks MDRD (S/P/Bld) [Vol rate/Area] 99 mL/min/{1.73_m2} >60 [facility] Comment on above: mL/min/1.73m2 CKD-EP I Creatinine Equation (2020) Hematocrit Auto (Bld) [Volum e fraction]Ordered By: Cheryle Shannon on 01-25-2025 Hematocrit (Bld) [Volume fraction] 44.8 % 40-54 [facility] Hemoglobin measurementOrdere d By: Cheryle Shannon on 01-25-2025 Hemoglobin (Bld) [Mass/Vol] 14.6 g/dL 13.0-16.5 [facility] Immature granulocytes/100 WB C Auto (Bld)Ordered By: Cheryle Shannon on 01-25-2025 Immature granulocytes/100 WBC (Bld) 0.400 % 0.0-0.9 [facility] Comment on above: IG% - Immature Granu locytes (promyelocytes, myelocytes and metamyelocytes) > 1% indicates that a LEFT SHIFT is Present. Laboratory - Chemistry and C hemistry - challengeOrdered By: Cheryle Shannon on 01-25-2025 AST [Catalytic activity/Vol] 23 U/L <38 [facility] MCV (mean corpuscular volume ) determinationOrdered By: Cheryle Shannon on 01-25-2025 MCV (RBC) [Entitic vol] 100.9 fL High 80-94 [facility] Mean corpuscular hemoglobin (MCH) determinationOrdered By: Cheryle Shannon on 01-25-2025 MCH (RBC) [Entitic mass] 32.9 pg High 27.0-32.0 [facility] Mean corpuscular hemoglobin concentration (MCHC) determinationOrdered By: Cheryle Shannon on 01-25-2025 MCHC (RBC) [Mass/Vol] 32.6 g/dL 32-36 [facility] Mean platelet volume determi nationOrdered By: Cheryle Shannon on 01-25-2025 Platelet mean volume (Bld) [Entitic vol] 9.7 fL 6.2-12.0 [facility] Monocyte percentageOrdered B y: Cheryle Shannon on 01-25-2025 Monocytes/100 WBC (Bld) 8.1 % 0-10 [facility] Neutrophil percentageOrdered By: Cheryle Shannon on 01-25-2025 Neutrophils/100 WBC (Bld) 64.8 % 47-70 [facility] Nucleated red blood cell per centageOrdered By: Cheryle Shannon on 01-25-2025 Nucleated RBC/100 WBC (Bld) [Ratio] 0 % 0-5 [facility] Platelet countOrdered By: Brain Shannon on 01-25-2025 Platelets (Bld) [#/Vol] 282 10*3/uL 150-450 [facility] Potassium measurement (mass/ volume)Ordered By: Cheryle Shannon on 01-25-2025 Potassium (Unsp spec) [Mass/Vol] 4.9 mmol/L 3.3-5.1 [facility] RBC Auto (Bld) [#/Vol]Ordere d By: Cheryle Shannon on 01-25-2025 RBC (Bld) [#/Vol] 4.44 10*6/uL Low 4.6-6.2 [facility] Serum creatinine measurement (mass/volume)Ordered By: Cheryle Shannon on 01-25-2025 Creatinine [Mass/Vol] 0.72 mg/dL 0.70-1.20 [facility] Serum globulin measurementOr dered By: Cheryle Shannon on 01-25-2025 Globulin (S) [Mass/Vol] 3.0 g/dL 2.2-4.2 [facility] Serum glucose measurement (m ass/volume)Ordered By: Cheryle Shannon on 01-25-2025 Glucose [Mass/Vol] 136 mg/dL High 70-99 [facility] Serum or plasma alanine das otransferase (ALT) measurementOrdered By: Cheryle Shannon on 01-25-2025 ALT [Catalytic activity/Vol] 21 U/L <47 [facility] Serum or plasma albumin torrie urement (mass/volume)Ordered By: Cheryle Shannon on 01-25-2025 Albumin [Mass/Vol] 4.2 g/dL 3.4-4.8 [facility] Serum or plasma albumin/glob ulin mass ratioOrdered By: Cheryle Shannon on 01-25-2025 Albumin/Globulin [Mass ratio] 1.4 {ratio} 0.9-2.4 [facility] Serum or plasma alkaline dagoberto sphatase measurementOrdered By: Cheryle Shannon on 01-25-2025 ALP [Catalytic activity/Vol] 91 U/L 40-129 [facility] Serum or plasma calcium torrie urement (mass/volume)Ordered By: Cheryle Shannon on 01-25-2025 Calcium [Mass/Vol] 9.4 mg/dL 7.6-11.0 [facility] Serum or plasma urea nitroge n measurement (mass/volume)Ordered By: Cheryle Shannon on 01-25-2025 Urea nitrogen [Mass/Vol] 12 mg/dL 4-19 [facility] Sodium levelOrdered By: Enedina Shannon on 01-25-2025 Sodium [Moles/Vol] 139 mmol/L 133-145 [facility] Total proteinOrdered By: Shellie Shannon on 01-25-2025 Protein [Mass/Vol] 7.2 g/dL 5.9-8.4 [facility] White blood cell (WBC) count Ordered By: Cheryle Shannon on 01-25-2025 WBC (Bld) [#/Vol] 9.0 10*3/uL 4.4-11.0 [facility] Absolute lymphocyte countOrd ered By: Cheryle Shannon on 11-12-2024 Lymphocytes Auto (Unsp spec) [#/Vol] 1.91 10*3/uL 0.83-4.51 [facility] Absolute neutrophil countOrd ered By: Cheryle Shannon on 11-12-2024 Neutrophils (Bld) [#/Vol] 6.5 10*3/uL 2.0-7.7 [facility] Anion gap in Serum or Plasma Ordered By: Cheryle Shannon on 11-12-2024 Anion gap [Moles/Vol] 12 mmol/L 5-15 [facility] Automated lymphocyte count a s percentage of total leukocytesOrdered By: Cheryle Shannon on 11-12-2024 Lymphocytes/100 WBC Auto (Unsp spec) 20.0 % 19-41 [facility] BUN/creatinine ratioOrdered By: Cheryle Shannon on 11-12-2024 Urea nitrogen/Creatinine [Mass ratio] 14.4 mg/mg 10-20 [facility] Basophil percentageOrdered B y: Cheryle Shannon on 11-12-2024 Basophils/100 WBC (Bld) 0.7 % 0-1 [facility] Bilirubin, totalOrdered By: Cheryle Clarkbrenda on 11-12-2024 Bilirubin [Mass/Vol] 0.33 mg/dL 0.00-1.30 [facility] CBC W/Diff, Automatedon 10-22 Absolute Lymph 1.91 X10 3/uL Normal 0.83-4.51 [facility] Comment on above: Performed By: #### L 100.0100, L500.4050 ####[facility] [address] [place], [address] Absolute Neut 6.5 X10 3/uL Normal 2.0-7.7 [facility] Comment on above: Performed By: #### L 100.0100, L500.4050 ####[facility] [address] [place], [address] Basophils/100 WBC (Bld) 0.7 % Normal 0-1 [facility] Comment on above: Performed By: #### L 100.0100, L500.4050 ####[facility] [address] [place], [address] Eosinophils/100 WBC (Bld) 6.2 % High 0-5 [facility] Comment on above: Performed By: #### L 100.0100, L500.4050 ####[facility] [address] [place], [address] Erythrocyte distribution width (RBC) [Ratio] 14.2 % Normal 11.6-14.6 [facility] Comment on above: Performed By: #### L 100.0100, L500.4050 ####[facility] [address] [place], [address] Hematocrit (Bld) [Volume fraction] 41.5 % Normal 40-54 [facility] Comment on above: Performed By: #### L 100.0100, L500.4050 ####[facility] [address] [place], [address] Hemoglobin (Bld) [Mass/Vol] 13.7 g/dL Normal 13.0-16.5 [facility] Comment on above: Performed By: #### L 100.0100, L500.4050 ####[facility] [address] [place], [address] IG% 0.300 Normal 0.0-0.9 [facility] Comment on above: Result Comment: IG% - Immature Granulocytes (promyelocytes, myelocytes and metamyelocytes) > 1% indicates that a LEFT SHIFT is Present. Performed By: #### L 100.0100, L500.4050 ####[facility] [address] [place], [address] Lymphocytes/100 WBC (Bld) 20.0 % Normal 19-41 [facility] Comment on above: Performed By: #### L 100.0100, L500.4050 ####[facility] [address] [place], [address] MCH (RBC) [Entitic mass] 31.9 pg Normal 27.0-32.0 [facility] Comment on above: Performed By: #### L 100.0100, L500.4050 ####[facility] [address] [place], [address] MCHC (RBC) [Mass/Vol] 33.0 g/dL Normal 32-36 [facility] Comment on above: Performed By: #### L 100.0100, L500.4050 ####[facility] [address] [place], [address] MCV (RBC) [Entitic vol] 96.5 fL High 80-94 [facility] Comment on above: Performed By: #### L 100.0100, L500.4050 ####[facility] [address] [place], [address] Monocytes/100 WBC (Bld) 5.3 % Normal 0-10 [facility] Comment on above: Performed By: #### L 100.0100, L500.4050 ####[facility] [address] [place], [address] Neutrophils/100 WBC (Bld) 67.5 % Normal 47-70 [facility] Comment on above: Performed By: #### L 100.0100, L500.4050 ####[facility] [address] [place], [address] Nucleated RBC (Bld) [#/Vol] 0 10*3/uL Normal 0-5 [facility] Comment on above: Performed By: #### L 100.0100, L500.4050 ####[facility] [address] [place], [address] Platelet mean volume (Bld) [Entitic vol] 9.7 fL Normal 6.2-12.0 [facility] Comment on above: Performed By: #### L 100.0100, L500.4050 ####[facility] [address] [place], [address] Platelets (Bld) [#/Vol] 325 10*3/uL Normal 150-450 [facility] Comment on above: Performed By: #### L 100.0100, L500.4050 ####[facility] [address] [place], [address] RBC (Bld) [#/Vol] 4.30 10*6/uL Low 4.6-6.2 [facility] Comment on above: Performed By: #### L 100.0100, L500.4050 ####[facility] [address] [place], [address] RDW SD 50.5 fl High 35.1-43.9 [facility] Comment on above: Performed By: #### L 100.0100, L500.4050 ####[facility] [address] [place], [address] WBC (Bld) [#/Vol] 9.6 10*3/uL Normal 4.4-11.0 [facility] Comment on above: Performed By: #### L 100.0100, L500.4050 ####[facility] [address] [place], [address] Carbon dioxide, total [Moles /volume] in Central venous bloodOrdered By: Cheryle Shannon on 11-12-2024 CO2 [Moles/Vol] 23.9 mmol/L 21.0-32.0 [facility] Chloride assayOrdered By: Brain Shannon on 11-12-2024 Chloride [Moles/Vol] 103 mmol/L 98-108 [facility] Comprehensive Metabolic Prof ilon 11-12-2024 Albumin [Mass/Vol] 3.9 g/dL Normal 3.4-4.8 [facility] Comment on above: Performed By: #### L 100.0100, L500.4050 ####[facility] [address] [place], [address] Albumin/Globulin [Mass ratio] 1.2 {ratio} Normal 0.9-2.4 [facility] Comment on above: Performed By: #### L 100.0100, L500.4050 ####[facility] [address] [place], [address] ALK PHOS 99 U/L Normal 40-129 [facility] Comment on above: Performed By: #### L 100.0100, L500.4050 ####[facility] [address] [place], [address] ALT [Catalytic activity/Vol] 17 U/L Normal <=46 [facility] Comment on above: Performed By: #### L 100.0100, L500.4050 ####[facility] [address] [place], [address] AST [Catalytic activity/Vol] 20 U/L Normal <=37 [facility] Comment on above: Performed By: #### L 100.0100, L500.4050 ####[facility] [address] [place], [address] Bilirubin [Mass/Vol] 0.33 mg/dL Normal 0.00-1.30 [facility] Comment on above: Performed By: #### L 100.0100, L500.4050 ####[facility] [address] [place], [address] BUN/CRE 14.4 RATIO Normal 10-20 [facility] Comment on above: Performed By: #### L 100.0100, L500.4050 ####[facility] [address] [place], [address] Calcium [Mass/Vol] 9.3 mg/dL Normal 7.6-11.0 [facility] Comment on above: Performed By: #### L 100.0100, L500.4050 ####[facility] [address] [place], [address] Chloride [Moles/Vol] 103 mmol/L Normal 98-108 [facility] Comment on above: Performed By: #### L 100.0100, L500.4050 ####[facility] [address] [place], [address] CO2 [Moles/Vol] 23.9 mmol/L Normal 21.0-32.0 [facility] Comment on above: Performed By: #### L 100.0100, L500.4050 ####[facility] [address] [place], [address] Creatinine [Mass/Vol] 0.71 mg/dL Normal 0.70-1.20 [facility] Comment on above: Performed By: #### L 100.0100, L500.4050 ####[facility] [address] [place], [address] GAP 12 Normal 5-15 [facility] Comment on above: Performed By: #### L 100.0100, L500.4050 ####[facility] [address] [place], [address] GFR/1.73 sq M.predicted among non-blacks MDRD (S/P/Bld) [Vol rate/Area] 100 mL/min/{1.73_m2} Normal >60 [facility] Comment on above: Result Comment: mL/m in/1.73m2 CKD-EPI Creatinine Equation (2020) Performed By: #### L 100.0100, L500.4050 ####[facility] [address] [place], [address] Globulin (S) [Mass/Vol] 3.1 g/dL Normal 2.2-4.2 [facility] Comment on above: Performed By: #### L 100.0100, L500.4050 ####[facility] [address] [place], [address] Glucose [Mass/Vol] 94 mg/dL Normal 70-99 [facility] Comment on above: Performed By: #### L 100.0100, L500.4050 ####[facility] [address] [place], [address] Potassium [Moles/Vol] 4.5 mmol/L Normal 3.3-5.1 [facility] Comment on above: Performed By: #### L 100.0100, L500.4050 ####[facility] [address] [place], [address] Sodium [Moles/Vol] 139 mmol/L Normal 133-145 [facility] Comment on above: Performed By: #### L 100.0100, L500.4050 ####[facility] [address] [place], [address] T PROT 7.0 g/dL Normal 5.9-8.4 [facility] Comment on above: Performed By: #### L 100.0100, L500.4050 ####[facility] [address] [place], [address] Urea nitrogen [Mass/Vol] 10 mg/dL Normal 4-19 [facility] Comment on above: Performed By: #### L 100.0100, L500.4050 ####[facility] [address] [place], [address] Eosinophil percentageOrdered By: Cheryle Shannon on 11-12-2024 Eosinophils/100 WBC (Bld) 6.2 % High 0-5 [facility] Erythrocyte distribution wid th ratioOrdered By: [facility] Mirtha on 11-12-2024 Erythrocyte distribution width (RBC) [Ratio] 14.2 % 11.6-14.6 [facility] Erythrocyte distribution wid th standard deviationOrdered By: Cheryle Shannon on 11-12-2024 Erythrocyte distribution width (RBC) [Ratio] 50.5 fl High 35.1-43.9 [facility] Glomerular filtration rate ( GFR) estimation/1.73 sq m using serum, plasma, or whole bOrdered By: Cheryle Shannon on 11-12-2024 GFR/1.73 sq M.predicted among non-blacks MDRD (S/P/Bld) [Vol rate/Area] 100 mL/min/{1.73_m2} >60 [facility] Comment on above: mL/min/1.73m2 CKD-EP I Creatinine Equation (2020) Hematocrit Auto (Bld) [Volum e fraction]Ordered By: Cheryle Shannon on 11-12-2024 Hematocrit (Bld) [Volume fraction] 41.5 % 40-54 [facility] Hemoglobin measurementOrdere d By: Cheryle Shannon on 11-12-2024 Hemoglobin (Bld) [Mass/Vol] 13.7 g/dL 13.0-16.5 [facility] Immature granulocytes/100 WB C Auto (Bld)Ordered By: Cheryle Shannon on 11-12-2024 Immature granulocytes/100 WBC (Bld) 0.300 % 0.0-0.9 [facility] Comment on above: IG% - Immature Granu locytes (promyelocytes, myelocytes and metamyelocytes) > 1% indicates that a LEFT SHIFT is Present. Laboratory - Chemistry and C hemistry - challengeOrdered By: Cheryle Shannon on 11-12-2024 AST [Catalytic activity/Vol] 20 U/L <38 [facility] MCV (mean corpuscular volume ) determinationOrdered By: Cheryle Shannon on 11-12-2024 MCV (RBC) [Entitic vol] 96.5 fL High 80-94 [facility] Mean corpuscular hemoglobin (MCH) determinationOrdered By: Cheryle Shannon on 11-12-2024 MCH (RBC) [Entitic mass] 31.9 pg 27.0-32.0 [facility] Mean corpuscular hemoglobin concentration (MCHC) determinationOrdered By: Cheryle Shannon on 11-12-2024 MCHC (RBC) [Mass/Vol] 33.0 g/dL 32-36 [facility] Mean platelet volume determi nationOrdered By: Cheryle Shannon on 11-12-2024 Platelet mean volume (Bld) [Entitic vol] 9.7 fL 6.2-12.0 [facility] Monocyte percentageOrdered B y: Cheryle Shannon on 11-12-2024 Monocytes/100 WBC (Bld) 5.3 % 0-10 [facility] Neutrophil percentageOrdered By: Cheryle Shannon on 11-12-2024 Neutrophils/100 WBC (Bld) 67.5 % 47-70 [facility] Nucleated red blood cell per centageOrdered By: Cheryle Shannon on 11-12-2024 Nucleated RBC/100 WBC (Bld) [Ratio] 0 % 0-5 [facility] Platelet countOrdered By: Brain Shannon on 11-12-2024 Platelets (Bld) [#/Vol] 325 10*3/uL 150-450 [facility] Potassium measurement (mass/ volume)Ordered By: Cheryle Shannon on 11-12-2024 Potassium (Unsp spec) [Mass/Vol] 4.5 mmol/L 3.3-5.1 [facility] RBC Auto (Bld) [#/Vol]Ordere d By: Cheryle Shannon on 11-12-2024 RBC (Bld) [#/Vol] 4.30 10*6/uL Low 4.6-6.2 [facility] Serum creatinine measurement (mass/volume)Ordered By: Cheryle Shannon on 11-12-2024 Creatinine [Mass/Vol] 0.71 mg/dL 0.70-1.20 [facility] Serum globulin measurementOr dered By: Cheryle Shannon on 11-12-2024 Globulin (S) [Mass/Vol] 3.1 g/dL 2.2-4.2 [facility] Serum glucose measurement (m ass/volume)Ordered By: Cheryle Shannon on 11-12-2024 Glucose [Mass/Vol] 94 mg/dL 70-99 [facility] Serum or plasma alanine das otransferase (ALT) measurementOrdered By: Cheryle Shannon on 11-12-2024 ALT [Catalytic activity/Vol] 17 U/L <47 [facility] Serum or plasma albumin torrie urement (mass/volume)Ordered By: Cheryle Shannon on 11-12-2024 Albumin [Mass/Vol] 3.9 g/dL 3.4-4.8 [facility] Serum or plasma albumin/glob ulin mass ratioOrdered By: Cheryle Shannon on 11-12-2024 Albumin/Globulin [Mass ratio] 1.2 {ratio} 0.9-2.4 [facility] Serum or plasma alkaline dagoberto sphatase measurementOrdered By: Cheryle Shannon on 11-12-2024 ALP [Catalytic activity/Vol] 99 U/L 40-129 [facility] Serum or plasma calcium torrie urement (mass/volume)Ordered By: Cheryle Shannon on 11-12-2024 Calcium [Mass/Vol] 9.3 mg/dL 7.6-11.0 [facility] Serum or plasma urea nitroge n measurement (mass/volume)Ordered By: Cheryle Shannon on 11-12-2024 Urea nitrogen [Mass/Vol] 10 mg/dL 4-19 [facility] Sodium levelOrdered By: Enedina Shannon on 11-12-2024 Sodium [Moles/Vol] 139 mmol/L 133-145 [facility] Total proteinOrdered By: Shellie Shannon on 11-12-2024 Protein [Mass/Vol] 7.0 g/dL 5.9-8.4 [facility] White blood cell (WBC) count Ordered By: Cheryle Shannon on 11-12-2024 WBC (Bld) [#/Vol] 9.6 10*3/uL 4.4-11.0 [facility] Absolute lymphocyte countOrd ered By: Cheryle Shannon on 09-05-2024 Lymphocytes Auto (Unsp spec) [#/Vol] 1.79 10*3/uL 0.83-4.51 [facility] Absolute neutrophil countOrd ered By: Cheryle Shannon on 09-05-2024 Neutrophils (Bld) [#/Vol] 7.7 10*3/uL 2.0-7.7 [facility] Anion gap in Serum or Plasma Ordered By: Cheryle Shannon on 09-05-2024 Anion gap [Moles/Vol] 12 mmol/L 5-15 [facility] Automated lymphocyte count a s percentage of total leukocytesOrdered By: Cheryle Shannon on 09-05-2024 Lymphocytes/100 WBC Auto (Unsp spec) 15.7 % Low 19-41 [facility] BUN/creatinine ratioOrdered By: Cheryle Shannon on 09-05-2024 Urea nitrogen/Creatinine [Mass ratio] 15.0 mg/mg 10-20 [facility] Basophil percentageOrdered B y: Cheryle Shannon on 09-05-2024 Basophils/100 WBC (Bld) 1.0 % 0-1 [facility] Bilirubin, totalOrdered By: Cheryle Shannon on 09-05-2024 Bilirubin [Mass/Vol] 0.19 mg/dL 0.00-1.30 [facility] CBC W/Diff, Automatedon 04- Absolute Lymph 1.79 X10 3/uL Normal 0.83-4.51 [facility] Comment on above: Performed By: #### L 500.4050, L100.0100 #### [facility] [address] [place], [address] Absolute Neut 7.7 X10 3/uL Normal 2.0-7.7 [facility] Comment on above: Performed By: #### L 500.4050, L100.0100 #### [facility] [address] [place], [address] Basophils/100 WBC (Bld) 1.0 % Normal 0-1 [facility] Comment on above: Performed By: #### L 500.4050, L100.0100 #### [facility] [address] [place], [address] Eosinophils/100 WBC (Bld) 9.1 % High 0-5 [facility] Comment on above: Performed By: #### L 500.4050, L100.0100 #### [facility] [address] [place], [address] Erythrocyte distribution width (RBC) [Ratio] 12.2 % Normal 11.6-14.6 [facility] Comment on above: Performed By: #### L 500.4050, L100.0100 #### [facility] [address] [place], [address] Hematocrit (Bld) [Volume fraction] 43.3 % Normal 40-54 [facility] Comment on above: Performed By: #### L 500.4050, L100.0100 #### [facility] [address] [place], [address] Hemoglobin (Bld) [Mass/Vol] 14.7 g/dL Normal 13.0-16.5 [facility] Comment on above: Performed By: #### L 500.4050, L100.0100 #### [facility] [address] [place], [address] IG% 0.400 Normal 0.0-0.9 [facility] Comment on above: Result Comment: IG% - Immature Granulocytes (promyelocytes, myelocytes and metamyelocytes) > 1% indicates that a LEFT SHIFT is Present. Performed By: #### L 500.4050, L100.0100 #### [facility] [address] [place], [address] Lymphocytes/100 WBC (Bld) 15.7 % Low 19-41 [facility] Comment on above: Performed By: #### L 500.4050, L100.0100 #### [facility] [address] [place], [address] MCH (RBC) [Entitic mass] 32.6 pg High 27.0-32.0 [facility] Comment on above: Performed By: #### L 500.4050, L100.0100 #### [facility] [address] [place], [address] MCHC (RBC) [Mass/Vol] 33.9 g/dL Normal 32-36 [facility] Comment on above: Performed By: #### L 500.4050, L100.0100 #### [facility] [address] [place], [address] MCV (RBC) [Entitic vol] 96.0 fL High 80-94 [facility] Comment on above: Performed By: #### L 500.4050, L100.0100 #### [facility] [address] [place], [address] Monocytes/100 WBC (Bld) 6.6 % Normal 0-10 [facility] Comment on above: Performed By: #### L 500.4050, L100.0100 #### [facility] [address] [facility] [place], [address] Neutrophils/100 WBC (Bld) 67.2 % Normal 47-70 [facility] Comment on above: Performed By: #### L 500.4050, L100.0100 #### [facility] [address] [place], [address] Nucleated RBC (Bld) [#/Vol] 0 10*3/uL Normal 0-5 [facility] Comment on above: Performed By: #### L 500.4050, L100.0100 #### [facility] [address] [place], [address] Platelet mean volume (Bld) [Entitic vol] 9.4 fL Normal 6.2-12.0 [facility] Comment on above: Performed By: #### L 500.4050, L100.0100 #### [facility] [address] [place], [address] Platelets (Bld) [#/Vol] 383 10*3/uL Normal 150-450 [facility] Comment on above: Performed By: #### L 500.4050, L100.0100 #### [facility] [address] [place], [address] RBC (Bld) [#/Vol] 4.51 10*6/uL Low 4.6-6.2 [facility] Comment on above: Performed By: #### L 500.4050, L100.0100 #### [facility] [address] [place], [address] RDW SD 42.9 fl Normal 35.1-43.9 [facility] Comment on above: Performed By: #### L 500.4050, L100.0100 #### [facility] [address] [place], [address] WBC (Bld) [#/Vol] 11.4 10*3/uL High 4.4-11.0 [facility] Comment on above: Performed By: #### L 500.4050, L100.0100 #### [facility] [address] [place], [address] Carbon dioxide, total [Moles /volume] in Central venous bloodOrdered By: Cheryle Shannon on 09-05-2024 CO2 [Moles/Vol] 25.6 mmol/L 21.0-32.0 [facility] Chloride assayOrdered By: Brain Shannon on 09-05-2024 Chloride [Moles/Vol] 101 mmol/L 98-108 [facility] Comprehensive Metabolic Prof ilon 09-05-2024 Albumin [Mass/Vol] 3.8 g/dL Normal 3.4-4.8 [facility] Comment on above: Performed By: #### L 500.4050, L100.0100 #### [facility] [address] [place], [address] Albumin/Globulin [Mass ratio] 1.1 {ratio} Normal 0.9-2.4 [facility] Comment on above: Performed By: #### L 500.4050, L100.0100 #### [facility] [address] [place], [address] ALK PHOS 99 U/L Normal 40-129 [facility] Comment on above: Performed By: #### L 500.4050, L100.0100 #### [facility] [address] [place], [address] ALT [Catalytic activity/Vol] 16 U/L Normal <=46 [facility] Comment on above: Performed By: #### L 500.4050, L100.0100 #### [facility] [address] [place], [address] AST [Catalytic activity/Vol] 18 U/L Normal <=37 [facility] Comment on above: Performed By: #### L 500.4050, L100.0100 #### [facility] [address] [place], [address] Bilirubin [Mass/Vol] 0.19 mg/dL Normal 0.00-1.30 [facility] Comment on above: Performed By: #### L 500.4050, L100.0100 #### [facility] [address] [place], [address] BUN/CRE 15.0 RATIO Normal 10-20 [facility] Comment on above: Performed By: #### L 500.4050, L100.0100 #### [facility] [address] [place], [address] Calcium [Mass/Vol] 9.3 mg/dL Normal 7.6-11.0 [facility] Comment on above: Performed By: #### L 500.4050, L100.0100 #### [facility] [address] [place], [address] Chloride [Moles/Vol] 101 mmol/L Normal 98-108 [facility] Comment on above: Performed By: #### L 500.4050, L100.0100 #### [facility] [address] [place], [address] CO2 [Moles/Vol] 25.6 mmol/L Normal 21.0-32.0 [facility] Comment on above: Performed By: #### L 500.4050, L100.0100 #### [facility] [address] [place], [address] Creatinine [Mass/Vol] 0.71 mg/dL Normal 0.70-1.20 [facility] Comment on above: Performed By: #### L 500.4050, L100.0100 #### [facility] [address] [place], [address] GAP 12 Normal 5-15 [facility] Comment on above: Performed By: #### L 500.4050, L100.0100 #### [facility] [address] [place], [address] GFR/1.73 sq M.predicted among non-blacks MDRD (S/P/Bld) [Vol rate/Area] 100 mL/min/{1.73_m2} Normal >60 [facility] Comment on above: Result Comment: mL/m in/1.73m2 CKD-EPI Creatinine Equation (2020) Performed By: #### L 500.4050, L100.0100 #### [facility] [address] [place], [address] Globulin (S) [Mass/Vol] 3.5 g/dL Normal 2.2-4.2 [facility] Comment on above: Performed By: #### L 500.4050, L100.0100 #### [facility] [address] [place], [address] Glucose [Mass/Vol] 151 mg/dL High 70-99 [facility] Comment on above: Performed By: #### L 500.4050, L100.0100 #### [facility] [address] [place], [address] Potassium [Moles/Vol] 4.5 mmol/L Normal 3.3-5.1 [facility] Comment on above: Performed By: #### L 500.4050, L100.0100 #### [facility] [address] [place], [address] Sodium [Moles/Vol] 138 mmol/L Normal 133-145 [facility] Comment on above: Performed By: #### L 500.4050, L100.0100 #### [facility] [address] [place], [address] T PROT 7.3 g/dL Normal 5.9-8.4 [facility] Comment on above: Performed By: #### L 500.4050, L100.0100 #### [facility] [address] [place], [place], [address] Urea nitrogen [Mass/Vol] 11 mg/dL Normal 4-19 [facility] Comment on above: Performed By: #### L 500.4050, L100.0100 #### [facility] [address] [place], [address] Eosinophil percentageOrdered By: Cheryle Shannon on 09-05-2024 Eosinophils/100 WBC (Bld) 9.1 % High 0-5 [facility] Erythrocyte distribution wid th (RBC) [Ratio]Ordered By: Cheryle Shannon on 09-05-2024 Erythrocyte distribution width (RBC) [Entitic vol] 42.9 fL 35.1-43.9 [facility] Erythrocyte distribution wid th ratioOrdered By: Cheryle Shannon on 09-05-2024 Erythrocyte distribution width (RBC) [Ratio] 12.2 % 11.6-14.6 [facility] Erythrocyte distribution wid th standard deviationOrdered By: Cheryle Shannon on 09-05-2024 Erythrocyte distribution width (RBC) [Ratio] 42.9 fl 35.1-43.9 [facility] GFR/1.73 sq M.predicted vivian g non-blacks MDRD (S/P/Bld) [Vol rate/Area]Ordered By: Cheryle Shannon on 09-05-2024 Estimated GFR (MDRD) Non-Af Amer 100 >60 [facility] Comment on above: mL/min/1.73m2 CKD-EP I Creatinine Equation (2020) Glomerular filtration rate ( GFR) estimation/1.73 sq m using serum, plasma, or whole bOrdered By: Cheryle Shannon on 09-05-2024 GFR/1.73 sq M.predicted among non-blacks MDRD (S/P/Bld) [Vol rate/Area] 100 mL/min/{1.73_m2} >60 [facility] Comment on above: mL/min/1.73m2 CKD-EP I Creatinine Equation (2020) Hematocrit Auto (Bld) [Volum e fraction]Ordered By: Cheryle Shannon on 09-05-2024 Hematocrit (Bld) [Volume fraction] 43.3 % 40-54 [facility] Hemoglobin measurementOrdere d By: Cheryle Shannon on 09-05-2024 Hemoglobin (Bld) [Mass/Vol] 14.7 g/dL 13.0-16.5 [facility] Immature granulocytes/100 WB C Auto (Bld)Ordered By: Cheryle Shannon on 09-05-2024 Immature granulocytes/100 WBC (Bld) 0.400 % 0.0-0.9 [facility] Comment on above: IG% - Immature Granu locytes (promyelocytes, myelocytes and metamyelocytes) > 1% indicates that a LEFT SHIFT is Present. Laboratory - Chemistry and C hemistry - challengeOrdered By: Cheryle Shannon on 09-05-2024 AST [Catalytic activity/Vol] 18 U/L <38 [facility] Lymphocytes Auto (Unsp spec) [#/Vol]Ordered By: Cheryle Shannon on 09-05-2024 Lymphocytes (Bld) [#/Vol] 1.79 10*3/uL 0.83-4.51 [facility] Lymphocytes/100 WBC Auto (Un sp spec)Ordered By: Cheryle Shannon on 09-05-2024 Lymphocytes/100 WBC (Bld) 15.7 % Low 19-41 [facility] MCV (mean corpuscular volume ) determinationOrdered By: Cheryle Shannon 09-05-2024 MCV (RBC) [Entitic vol] 96.0 fL High 80-94 [facility] Mean corpuscular hemoglobin (MCH) determinationOrdered By: Cheryle Shannon 09-05-2024 MCH (RBC) [Entitic mass] 32.6 pg High 27.0-32.0 [facility] Mean corpuscular hemoglobin concentration (MCHC) determinationOrdered By: Cheryle Shannon on 09-05-2024 MCHC (RBC) [Mass/Vol] 33.9 g/dL 32-36 [facility] Mean platelet volume determi nationOrdered By: Cheryle Shannon on 09-05-2024 Platelet mean volume (Bld) [Entitic vol] 9.4 fL 6.2-12.0 [facility] Monocyte percentageOrdered B y: Cheryle Shannon on 09-05-2024 Monocytes/100 WBC (Bld) 6.6 % 0-10 [facility] Neutrophil percentageOrdered By: Cheryle Shannon on 09-05-2024 Neutrophils/100 WBC (Bld) 67.2 % 47-70 [facility] Nucleated red blood cell per centageOrdered By: Cheryle Shannon on 09-05-2024 Nucleated RBC/100 WBC (Bld) [Ratio] 0 % 0-5 [facility] Platelet countOrdered By: Brain Shannon on 09-05-2024 Platelets (Bld) [#/Vol] 383 10*3/uL 150-450 [facility] Potassium (Unsp spec) [Mass/ Vol]Ordered By: Cheryle Shannon on 09-05-2024 Potassium [Moles/Vol] 4.5 mmol/L 3.3-5.1 [facility] Potassium measurement (mass/ volume)Ordered By: Cheryle Shannon on 09-05-2024 Potassium (Unsp spec) [Mass/Vol] 4.5 mmol/L 3.3-5.1 [facility] RBC Auto (Bld) [#/Vol]Ordere d By: Cheryle Shannon on 09-05-2024 RBC (Bld) [#/Vol] 4.51 10*6/uL Low 4.6-6.2 [facility] Serum creatinine measurement (mass/volume)Ordered By: Cheryle Shannon on 09-05-2024 Creatinine [Mass/Vol] 0.71 mg/dL 0.70-1.20 [facility] Serum globulin measurementOr dered By: Cheryle Shannon on 09-05-2024 Globulin (S) [Mass/Vol] 3.5 g/dL 2.2-4.2 [facility] Serum glucose measurement (m ass/volume)Ordered By: Cheryle Shannon on 09-05-2024 Glucose [Mass/Vol] 151 mg/dL High 70-99 [facility] Serum or plasma alanine das otransferase (ALT) measurementOrdered By: Cheryle Shannon on 09-05-2024 ALT [Catalytic activity/Vol] 16 U/L <47 [facility] Serum or plasma albumin torrie urement (mass/volume)Ordered By: Cheryle Shannon on 09-05-2024 Albumin [Mass/Vol] 3.8 g/dL 3.4-4.8 [facility] Serum or plasma albumin/glob ulin mass ratioOrdered By: Cheryle Shannon on 09-05-2024 Albumin/Globulin [Mass ratio] 1.1 {ratio} 0.9-2.4 [facility] Serum or plasma alkaline dagoberto sphatase measurementOrdered By: Cheryle Shannon on 09-05-2024 ALP [Catalytic activity/Vol] 99 U/L 40-129 [facility] Serum or plasma calcium torrie urement (mass/volume)Ordered By: Cheryle Shannon on 09-05-2024 Calcium [Mass/Vol] 9.3 mg/dL 7.6-11.0 [facility] Serum or plasma urea nitroge n measurement (mass/volume)Ordered By: Cheryle Shannon on 09-05-2024 Urea nitrogen [Mass/Vol] 11 mg/dL 4-19 [facility] Sodium levelOrdered By: Enedina Shannon on 09-05-2024 Sodium [Moles/Vol] 138 mmol/L 133-145 [facility] Total proteinOrdered By: Shellie Shannon on 09-05-2024 Protein [Mass/Vol] 7.3 g/dL 5.9-8.4 [facility] White blood cell (WBC) count Ordered By: Cheryle Shannon on 09-05-2024 WBC (Bld) [#/Vol] 11.4 10*3/uL High 4.4-11.0 [facility] Neurology Visit Reporton Neurology Visit Report [facility] [address], [address] [place] [address] OFFICE VISIT Date of Service: 08/27/24 MR#: [id number] Acct: [id number] Name: SIENA SOSA Lorraine Rep #: [id number] : 1955 Provider: Dr. James lynch MD Age/Sex: 69/M Location: [facility] Status: Signed HPI [facility] Chief Complaint: Details: Interim History: Siena returns for follow-up visit. He has a history of hypertension, hyperlipidemia, COPD, peripheral vascular disease status post left lower extremity arterial stent placement, and rheumatoid arthritis. He has been experiencing a tremor since he was in his 20s. His tremor worsened over time. His tremor affects both hands but is worse on the right. His tremor has interfered with activities such as using eating utensils, writing and other activities requiring fine motor control of the hands, however since initiation of primidone in 2023, his tremor has diminished and he is no longer experiencing functional impairment due to his tremor. He has not had slowing of his gait. He denied having speech difficulty, swallowing difficulty or change in his voice. He denied having headache, numbness or weakness. He denied having neck pain or low back pain. He denies having gait imbalance, bowel incontinence or bladder incontinence. On assessment in 2023, he was noted to have lower extremity hyperreflexia and an upgoing left plantar response. He was evaluated by an orthopedic energy efficiency specialist, Dr. Navas, in 2023; surgery was not pursued however if development of gait imbalance or impaired dexterity should begin, he may follow-up with Dr. Navas to address cervical spine surgery. He has been prescribed duloxetine for anxiety. He has had bilateral carpal tunnel surgery in years past. His spine MRI which moderate to severe central canal stenosis at C5-6 and C6-7 with associated signal change within the spinal cord. Physical Exam: Neuro: The patient is awake and alert and responds appropriately; motor strength is 5/5 in the foot dorsiflexors bilaterally; a moderate tremor is noted in both hands when arms are extended; no rigidity is noted in the wrists; gait is unremarkable Neck: No bruits Heart: Regular rhythm and rate Note: On his initial assessment in October 2023 plantar responses were downward on the right and upward on the left. On assessment in February 2024, deep tendon reflexes were +3 at the right knee, +2 at the left knee and nonsustained clonus was noted at the ankles Supplemental Info CBC, CMP (09/06/2023): MCV 97.7 (high) Cervical spine MRI (11/14/2023): FINDINGS: VERTEBRAE: Vertebral body heights maintained. Degenerative endplate bone marrow changes of C5-6 and C6/-7. VERTEBRAL ALIGNMENT: Reversal of the cervical lordosis without significant anterior or posterior subluxation. SPINAL CORD: Slightly increased T2 cord signal at C5-6 and C6-7. SOFT TISSUES: No prevertebral fluid collection. INTERVERTEBRAL DISCS: C2-3: No significant posterior disc protrusion, central canal stenosis, or foraminal narrowing. C3-4: Very mild disc bulge with uncovertebral and facet arthropathy resulting in minimal narrowing of the thecal sac and mild bilateral foraminal narrowing. C4-5: Mild posterior disc bulge osteophyte complex with uncovertebral and facet arthropathy resulting in mild indentation of the ventral cord, mild central canal stenosis, and bilateral foraminal narrowing. C5-6, C6-7: Mild posterior disc bulge osteophyte complexes with uncovertebral and facet arthropathy resulting in moderate-severe central canal stenosis, mild flattening of the ventral cord, and bilateral foraminal narrowing. C7-T1: Minimal disc bulge without significant central canal stenosis. Mild right foraminal narrowing. IMPRESSION: Multilevel degenerative disc disease resulting in moderate-severe spinal canal stenosis, mild cord impingement, mild cord edema/myelopathy, and bilateral foraminal narrowing of C5-6 and C6-7. Mild spinal canal stenosis, mild cord impingement, and mild bilateral foraminal narrowing of C4-5. These images were reviewed on 11/28/2023. CBC, CMP (02/23/2024): MCV 99.6 (high), glucose 115 (high) Cervical spine x-rays (03/29/2024): FINDINGS: Normal anterior atlantoaxial articulation. Normal odontoid process. Straightening of the cervical lordosis. Degenerative changes of the vertebral bodies with spurring at the endplates. Narrowed lower cervical disc space heights. Limited extension. The soft tissue structures are unremarkable. IMPRESSION: Degenerative cervical changes with limited extension. These images were reviewed on 08/27/2024. CBC (06/12/2024): WBC 12.6 (high), MCV 99.3 (high), glucose 113 (high) BMP, hemoglobin A1c, AST, ALT, lipid profile, TSH (07/30/2024): Triglycerides 68 (normal), cholesterol 166 (normal), LDL 105 (normal), HDL 48 (normal) Assessment and Plan Assessment and Plan (1) Es (more content not included)... Normal [facility] AST(SGOT)on 07-30-2024 AST [Catalytic activity/Vol] 21 U/L Normal <=37 [facility] Comment on above: Performed By: #### L 501.4405, L501.9985, L501.9520, L501.0900, L500.4100, L500.2500, L501.4100 ####[facility] [address] [place], [place], [id number] Alanine Aminotransferas (SGP T)on 07-30-2024 ALT [Catalytic activity/Vol] 13 U/L Normal <=46 [facility] Comment on above: Performed By: #### L 501.4405, L501.9985, L501.9520, L501.0900, L500.4100, L500.2500, L501.4100 ####[facility] [address] [place], [address] Anion gap in Serum or Plasma Ordered By: Jessica Astorga on 07-30-2024 Anion gap [Moles/Vol] 13 mmol/L 10-04 [facility] BUN/creatinine ratioOrdered By: Jessica Astorga on 07-30-2024 Urea nitrogen/Creatinine [Mass ratio] 18.0 mg/mg 03-11 [facility] Basic Metabolic Profile (BMP )on 07-30-2024 BUN/CRE 18.0 RATIO Normal 03-11 [facility] Comment on above: Performed By: #### L 501.4405, L501.9985, L501.9520, L501.0900, L500.4100, L500.2500, L501.4100 ####[facility] [address] [place], [place], [id number] Calcium [Mass/Vol] 9.3 mg/dL Normal 7.6-11.0 [facility] Comment on above: Performed By: #### L 501.4405, L501.9985, L501.9520, L501.0900, L500.4100, L500.2500, L501.4100 ####[facility] [address] [place], [address] Chloride [Moles/Vol] 103 mmol/L Normal 98-108 [facility] Comment on above: Performed By: #### L 501.4405, L501.9985, L501.9520, L501.0900, L500.4100, L500.2500, L501.4100 ####[facility] [address] [place], [address] CO2 [Moles/Vol] 22.7 mmol/L Normal 21.0-32.0 [facility] Comment on above: Performed By: #### L 501.4405, L501.9985, L501.9520, L501.0900, L500.4100, L500.2500, L501.4100 ####[facility] [address] [place], [address] Creatinine [Mass/Vol] 0.64 mg/dL Low 0.70-1.20 [facility] Comment on above: Performed By: #### L 501.4405, L501.9985, L501.9520, L501.0900, L500.4100, L500.2500, L501.4100 ####[facility] [address] [place], [address] GAP 13 Normal 5-15 [facility] Comment on above: Performed By: #### L 501.4405, L501.9985, L501.9520, L501.0900, L500.4100, L500.2500, L501.4100 ####[facility] [address] [place], [address] GFR/1.73 sq M.predicted among non-blacks MDRD (S/P/Bld) [Vol rate/Area] 103 mL/min/{1.73_m2} Normal >60 [facility] Comment on above: Result Comment: mL/m in/1.73m2 CKD-EPI Creatinine Equation (2020) Performed By: #### L 501.4405, L501.9985, L501.9520, L501.0900, L500.4100, L500.2500, L501.4100 ####[facility] [address] [place], [address] Glucose [Mass/Vol] 80 mg/dL Normal 70-99 [facility] Comment on above: Performed By: #### L 501.4405, L501.9985, L501.9520, L501.0900, L500.4100, L500.2500, L501.4100 ####[facility] [address] [place], [address] Potassium [Moles/Vol] 4.6 mmol/L Normal 3.3-5.1 [facility] Comment on above: Performed By: #### L 501.4405, L501.9985, L501.9520, L501.0900, L500.4100, L500.2500, L501.4100 ####[facility] [address] [place], [address] Sodium [Moles/Vol] 138 mmol/L Normal 133-145 [facility] Comment on above: Performed By: #### L 501.4405, L501.9985, L501.9520, L501.0900, L500.4100, L500.2500, L501.4100 ####[facility] [address] [place], [address] Urea nitrogen [Mass/Vol] 12 mg/dL Normal 4-19 [facility] Comment on above: Performed By: #### L 501.4405, L501.9985, L501.9520, L501.0900, L500.4100, L500.2500, L501.4100 ####[facility] [address] [place], [address] Calculated very low density lipoprotein (VLDL) cholesterol measurementOrdered By: Jessica Astorga on 07-30-2024 Calculated very low density lipoprotein (VLDL) cholesterol measurement 14 mg/dL 5-40 [facility] VLDL Cholesterol 14 mg/dL 5-40 [facility] Carbon dioxide, total [Moles /volume] in Central venous bloodOrdered By: Jessica Astorga on 07-30-2024 CO2 [Moles/Vol] 22.7 mmol/L 21.0-32.0 [facility] Chloride assayOrdered By: Robert Astorga on 07-30-2024 Chloride [Moles/Vol] 103 mmol/L 98-108 [facility] Creatinine Unsp time (U) [Ma ss/Vol]Ordered By: Jessica Astorga on 07-30-2024 Creatinine (U) [Mass/Vol] 97.30 mg/dL 39-259 [facility] GFR/1.73 sq M.predicted vivian g non-blacks MDRD (S/P/Bld) [Vol rate/Area]Ordered By: Jessica Astorga on 07-30-2024 Estimated GFR (MDRD) Non-Af Amer 103 >60 [facility] Comment on above: mL/min/1.73m2 CKD-EP I Creatinine Equation (2020) Glomerular filtration rate ( GFR) estimation/1.73 sq m using serum, plasma, or whole bOrdered By: Jessica Astorga on 07-30-2024 GFR/1.73 sq M.predicted among non-blacks MDRD (S/P/Bld) [Vol rate/Area] 103 mL/min/{1.73_m2} >60 [facility] Comment on above: mL/min/1.73m2 CKD-EP I Creatinine Equation (2020) Hemoglobin A1con 07-30-2024 HbA1c (Bld) [Mass fraction] 6.1 % Normal <=5.6 [facility] Comment on above: Performed By: #### L 501.4405, L501.9985, L501.9520, L501.0900, L500.4100, L500.2500, L501.4100 ####[facility] [address] [place], [address] Hemoglobin A1c percentageOrd ered By: Jessica Astorga on 07-30-2024 HbA1c (Bld) [Mass fraction] 6.1 % >5.7 [facility] LDL calc ser/plasOrdered By: Jessica Astorga on 07-30-2024 Cholesterol in LDL [Mass/Vol] 105 mg/dL [facility] Comment on above: Brppxgzeek=220-003 m g/dL & Higher Qlil=683 mg/dL or greater LDL Cholesterol, Calculated 105 mg/dL [facility] Comment on above: Xwemdxpkrm=007-871 m g/dL & Higher Xryg=866 mg/dL or greater Laboratory - Chemistry and C hemistry - challengeOrdered By: Jessica Astorga on 07-30-2024 AST [Catalytic activity/Vol] 21 U/L <38 [facility] Lipid Profileon 07-30-2024 CHOL:HDL 3.47 Normal [facility] Comment on above: Performed By: #### L 501.4405, L501.9985, L501.9520, L501.0900, L500.4100, L500.2500, L501.4100 ####[facility] [address] [place], [address] Cholesterol [Mass/Vol] 166 mg/dL Normal <=200 [facility] Comment on above: Result Comment: Chol esterol level, Desirable <200 mg/dL Borderline high cholesterol 200-239 mg/dL High cholesterol >=240 mg/dL Recommendations of the NCEP Adult Treatment Panel for the following risk-cutoff thresholds for the [place] population. Performed By: #### L 501.4405, L501.9985, L501.9520, L501.0900, L500.4100, L500.2500, L501.4100 ####[facility] [address] [place], [address] Cholesterol in HDL [Mass/Vol] 48 mg/dL Normal [facility] Comment on above: Result Comment: Marie onal Cholesterol Education Program (NCEP) guidelines: <40 mg/dL: Low HDL-cholesterol (major risk factor for CHD) >= 60 mg/dL: High HDL-cholesterol (negative risk factor for CHD) HDL-cholesterol is affected by a number of factors, e.g. smoking, exercise, hormones, sex and age. Performed By: #### L 501.4405, L501.9985, L501.9520, L501.0900, L500.4100, L500.2500, L501.4100 ####[facility] [address] [place], [address] Cholesterol in LDL [Mass/Vol] 105 mg/dL Normal [facility] Comment on above: Result Comment: Bord tcmvcw=621-730 mg/dL Higher Jgja=612 mg/dL or greater Performed By: #### L 501.4405, L501.9985, L501.9520, L501.0900, L500.4100, L500.2500, L501.4100 ####[facility] [address] [place], [address] Cholesterol in VLDL [Mass/Vol] 14 mg/dL Normal 5-40 [facility] Comment on above: Performed By: #### L 501.4405, L501.9985, L501.9520, L501.0900, L500.4100, L500.2500, L501.4100 ####[facility] [address] [place], [address] Triglyceride [Mass/Vol] 68 mg/dL Normal [facility] Comment on above: Result Comment: The drugs N-Acetylcysteine and Metamizole may falsely depress this assay. Normal range: <150 mg/dL Borderline High: 150-199 mg/dL High: 200-499 mg/dL Very High: >500 mg/dL Performed By: #### L 501.4405, L501.9985, L501.9520, L501.0900, L500.4100, L500.2500, L501.4100 ####[facility] [address] [place], [address] Potassium (Unsp spec) [Mass/ Vol]Ordered By: Jessica Astorga on 07-30-2024 Potassium [Moles/Vol] 4.6 mmol/L 3.3-5.1 [facility] Potassium measurement (mass/ volume)Ordered By: Jessica Astorga on 07-30-2024 Potassium (Unsp spec) [Mass/Vol] 4.6 mmol/L 3.3-5.1 [facility] Protein+Creatinine Ratio,Uri neon 07-30-2024 PROT:CRE RATIO 97 mg/g CRE Normal 0-200 [facility] Comment on above: Performed By: #### L 501.4405, L501.9985, L501.9520, L501.0900, L500.4100, L500.2500, L501.4100 ####[facility] [address] [place], [address] Protein (U) [Mass/Vol] 9.4 mg/dL Normal 0.0-12.0 [facility] Comment on above: Performed By: #### L 501.4405, L501.9985, L501.9520, L501.0900, L500.4100, L500.2500, L501.4100 ####[facility] [address] [place], [address] UR CREAT 97.30 mg/dL Normal 39-259 [facility] Comment on above: Performed By: #### L 501.4405, L501.9985, L501.9520, L501.0900, L500.4100, L500.2500, L501.4100 ####[facility] [address] [place], [address] Protein/Creatinine (U) [Mass ratio]Ordered By: Jessica Astorga on 07-30-2024 Urine Protein/Creatinine Ratio 97 mg/g CRE 0-200 [facility] Random urine creatinine torrie urement (mass/volume)Ordered By: Jessica Astorga on 07-30-2024 Creatinine Unsp time (U) [Mass/Vol] 97.30 mg/dL 39-259 [facility] Screening total cholesterol/ high density lipoprotein (HDL) cholesterol ratioOrdered By: Jessica Astorga on 07-30-2024 Cholesterol.total/Tomasa sterol in HDL [Mass ratio] 3.47 {ratio} [facility] Serum creatinine measurement (mass/volume)Ordered By: Jessica Astorga on 07-30-2024 Creatinine [Mass/Vol] 0.64 mg/dL Low 0.70-1.20 [facility] Serum glucose measurement (m ass/volume)Ordered By: Jessica Astorga on 07-30-2024 Glucose [Mass/Vol] 80 mg/dL 70-99 [facility] Serum or plasma alanine das otransferase (ALT) measurementOrdered By: Jessica Astorga on 07-30-2024 ALT [Catalytic activity/Vol] 13 U/L <47 [facility] Serum or plasma calcium torrie urement (mass/volume)Ordered By: Jessica Astorga on 07-30-2024 Calcium [Mass/Vol] 9.3 mg/dL 7.6-11.0 [facility] Serum or plasma cholesterol in HDL measurement (mass/volume)Ordered By: Jessica Astorga on 07-30-2024 Cholesterol in HDL [Mass/Vol] 48 mg/dL >40 [facility] Comment on above: National Cholesterol Education Program (NCEP) guidelines:<40 mg/dL: Low HDL-cholesterol (major risk factor for CHD)>= 60 mg/dL: High HDL-cholesterol (negative risk factor for CHD)HDL-cholesterol is affected by a number of factors, e.g. smoking, exercise, hormones, sex and age. Serum or plasma cholesterol measurement (mass/volume)Ordered By: Jessica Astorga on 07-30-2024 Cholesterol [Mass/Vol] 166 mg/dL <201 [facility] Comment on above: Cholesterol level, D esirable <200 mg/dLBorderline high cholesterol 200-239 mg/dLHigh cholesterol >=240 mg/dLRecommendations of the NCEP Adult Treatment Panel for the following risk-cutoff thresholds for the [place] population. Serum or plasma urea nitroge n measurement (mass/volume)Ordered By: Jessica Astorga on 07-30-2024 Urea nitrogen [Mass/Vol] 12 mg/dL 4-19 [facility] Sodium levelOrdered By: Jessica Astorga on 07-30-2024 Sodium [Moles/Vol] 138 mmol/L 133-145 [facility] TSH DL <= 0.005 mIU/L QnOrde red By: Jessica Astorga on 07-30-2024 Thyroid Stimulating Hormone (TSH) 1.650 uIU/mL 0.300-4.200 [facility] TSH Qn 1.650 uIU/mL 0.300-4.200 [facility] Thyroid Stim Hormone (TSH)on 07-30-2024 TSH 1.650 uIU/mL Normal 0.300-4.200 [facility] Comment on above: Performed By: #### L 501.4405, L501.9985, L501.9520, L501.0900, L500.4100, L500.2500, L501.4100 ####[facility] [address] [place], [address] Triglycerides measurementOrd ered By: Jessica Astorga on 07-30-2024 Triglyceride [Mass/Vol] 68 mg/dL <199 [facility] Comment on above: The drugs N-Acetylcy steine and Metamizole may falsely depress this assay. Normal range: <150 mg/dLBorderline High: 150-199 mg/dLHigh: 200-499 mg/dLVery High: >500 mg/dL Urine protein measurement (m ass/volume)Ordered By: Jessica Astorga on 07-30-2024 Protein (U) [Mass/Vol] 9.4 mg/dL 0.0-12.0 [facility] Urine protein/creatinine mas s ratioOrdered By: Jessica Astorga on 07-30-2024 Protein/Creatinine (U) [Mass ratio] 97 mg/g CRE 0-200 [facility] Absolute neutrophil countOrd ered By: Cheryle Shannon on 06-12-2024 Neutrophils (Bld) [#/Vol] 8.3 10*3/uL High 2.0-7.7 [facility] Albumin to globulin ratioOrd ered By: Cheryle Shannon on 06-12-2024 Albumin/Globulin [Mass ratio] 0.9 {ratio} 0.9-2.4 [facility] Basophil percentageOrdered B y: Cheryle Shannon on 06-12-2024 Basophils/100 WBC (Bld) 1.0 % 0-1 [facility] Bilirubin, totalOrdered By: Cheryle Shannon on 06-12-2024 Bilirubin [Mass/Vol] 0.70 mg/dL 0.20-1.00 [facility] Comment on above: For patients on eltr ombopag therapy, use of Dimension [place] TBIL is not recommended. Blood urea nitrogen (BUN)/cr eatinine ratioOrdered By: Cheryle Shannon on 06-12-2024 Urea nitrogen/Creatinine [Mass ratio] 18.1 mg/mg 10- [facility] CBC W/Diff, Automatedon 05-24 Absolute Lymph 2.30 X10 3/uL Normal 0.83-4.51 [facility] Comment on above: Performed By: #### L 500.4050, L100.0100 #### [facility] [address] [place], [address] Absolute Neut 8.3 X10 3/uL High 2.0-7.7 [facility] Comment on above: Performed By: #### L 500.4050, L100.0100 #### [facility] [address] [place], [address] Basophils/100 WBC (Bld) 1.0 % Normal 0-1 [facility] Comment on above: Performed By: #### L 500.4050, L100.0100 #### [facility] [address] [place], [address] Eosinophils/100 WBC (Bld) 9.0 % High 0-5 [facility] Comment on above: Performed By: #### L 500.4050, L100.0100 #### [facility] [address] [place], [address] Erythrocyte distribution width (RBC) [Ratio] 13.2 % Normal 11.6-14.6 [facility] Comment on above: Performed By: #### L 500.4050, L100.0100 #### [facility] [address] [place], [address] Hematocrit (Bld) [Volume fraction] 45.6 % Normal 40-54 [facility] Comment on above: Performed By: #### L 500.4050, L100.0100 #### [facility] [address] [place], [address] Hemoglobin (Bld) [Mass/Vol] 15.2 g/dL Normal 13.0-16.5 [facility] Comment on above: Performed By: #### L 500.4050, L100.0100 #### [facility] [address] [place], [address] IG% 0.400 Normal 0.0-0.9 [facility] Comment on above: Result Comment: IG% - Immature Granulocytes (promyelocytes, myelocytes and metamyelocytes) > 1% indicates that a LEFT SHIFT is Present. Performed By: #### L 500.4050, L100.0100 #### [facility] [address] [place], [address] Lymphocytes/100 WBC (Bld) 18.3 % Low 19-41 [facility] Comment on above: Performed By: #### L 500.4050, L100.0100 #### [facility] [address] [place], [address] MCH (RBC) [Entitic mass] 33.1 pg High 27.0-32.0 [facility] Comment on above: Performed By: #### L 500.4050, L100.0100 #### [facility] [address] [place], [address] MCHC (RBC) [Mass/Vol] 33.3 g/dL Normal 32-36 [facility] Comment on above: Performed By: #### L 500.4050, L100.0100 #### [facility] [address] [place], [address] MCV (RBC) [Entitic vol] 99.3 fL High 80-94 [facility] Comment on above: Performed By: #### L 500.4050, L100.0100 #### [facility] [address] [place], [address] Monocytes/100 WBC (Bld) 5.7 % Normal 0-10 [facility] Comment on above: Performed By: #### L 500.4050, L100.0100 #### [facility] [address] [place], [address] Neutrophils/100 WBC (Bld) 65.6 % Normal 47-70 [facility] Comment on above: Performed By: #### L 500.4050, L100.0100 #### [facility] [address] [place], [address] Nucleated RBC (Bld) [#/Vol] 0 10*3/uL Normal 0-5 [facility] Comment on above: Performed By: #### L 500.4050, L100.0100 #### [facility] [address] [place], [address] Platelet mean volume (Bld) [Entitic vol] 9.4 fL Normal 6.2-12.0 [facility] Comment on above: Performed By: #### L 500.4050, L100.0100 #### [facility] [address] [place], [address] Platelets (Bld) [#/Vol] 347 10*3/uL Normal 150-450 [facility] Comment on above: Performed By: #### L 500.4050, L100.0100 #### [facility] [address] [place], [address] RBC (Bld) [#/Vol] 4.59 10*6/uL Low 4.6-6.2 [facility] Comment on above: Performed By: #### L 500.4050, L100.0100 #### [facility] [address] [place], [address] RDW SD 48.0 fl High 35.1-43.9 [facility] Comment on above: Performed By: #### L 500.4050, L100.0100 #### [facility] [address] [place], [address] WBC (Bld) [#/Vol] 12.6 10*3/uL High 4.4-11.0 [facility] Comment on above: Performed By: #### L 500.4050, L100.0100 #### [facility] [address] [place], [address] Carbon dioxide measurementOr dered By: Cheryle Shannon on 06-12-2024 CO2 [Moles/Vol] 27.0 mmol/L 21.0-32.0 [facility] Chloride measurementOrdered By: Cheryle Shannon on 06-12-2024 Chloride [Moles/Vol] 106 mmol/L 98-107 [facility] Comprehensive Metabolic Prof ilon 06-12-2024 Albumin [Mass/Vol] 3.5 g/dL Normal 3.2-5.0 [facility] Comment on above: Performed By: #### L 500.4050, L100.0100 ####[facility] [address] [place], [address] Albumin/Globulin [Mass ratio] 0.9 {ratio} Normal 0.9-2.4 [facility] Comment on above: Performed By: #### L 500.4050, L100.0100 ####[facility] [address] [place], [address] ALK P 81 U/L Normal 45-117 [facility] Comment on above: Performed By: #### L 500.4050, L100.0100 ####[facility] [address] [place], [address] ALT [Catalytic activity/Vol] 22 U/L Normal 16-61 [facility] Comment on above: Performed By: #### L 500.4050, L100.0100 ####[facility] [address] [place], [address] AST [Catalytic activity/Vol] 18 U/L Normal 15-37 [facility] Comment on above: Performed By: #### L 500.4050, L100.0100 ####[facility] [address] [place], [address] Bilirubin [Mass/Vol] 0.70 mg/dL Normal 0.20-1.00 [facility] Comment on above: Result Comment: For patients on eltrombopag therapy, use of Dimension [place] TBIL is not recommended. Performed By: #### L 500.4050, L100.0100 ####[facility] [address] [place], [address] BUN/CRE 18.1 RATIO Normal 10-20 [facility] Comment on above: Performed By: #### L 500.4050, L100.0100 ####[facility] [address] [place], [address] CA,Total 9.6 mg/dL Normal 8.5-10.1 [facility] Comment on above: Performed By: #### L 500.4050, L100.0100 ####[facility] [address] [place], [address] Chloride [Moles/Vol] 106 mmol/L Normal 98-107 [facility] Comment on above: Performed By: #### L 500.4050, L100.0100 ####[facility] [address] [place], [address] CO2 [Moles/Vol] 27.0 mmol/L Normal 21.0-32.0 [facility] Comment on above: Performed By: #### L 500.4050, L100.0100 ####[facility] [address] [place], [address] Creatinine [Mass/Vol] 0.83 mg/dL Normal 0.70-1.30 [facility] Comment on above: Result Comment: The validity of the calculated GFR GFRAA in patients over 70 years has not been determined. Clinical correlation is essential. Performed By: #### L 500.4050, L100.0100 ####[facility] [address] [place], [address] EST GFR - AA 118 mL/min Normal >60 [facility] Comment on above: Result Comment: Afri can [place] GFR Calc Performed By: #### L 500.4050, L100.0100 ####[facility] [address] [place], [address] GAP 6 Normal 5-15 [facility] Comment on above: Performed By: #### L 500.4050, L100.0100 ####[facility] [address] [place], [address] GFR/1.73 sq M.predicted among non-blacks MDRD (S/P/Bld) [Vol rate/Area] 98 mL/min/{1.73_m2} Normal >60 [facility] Comment on above: Result Comment: Non- GFR Calc Performed By: #### L 500.4050, L100.0100 ####[facility] [address] [place], [address] Globulin (S) [Mass/Vol] 4.0 g/dL Normal 2.2-4.2 [facility] Comment on above: Performed By: #### L 500.4050, L100.0100 ####[facility] [address] [place], [address] Glucose [Mass/Vol] 113 mg/dL High 74-106 [facility] Comment on above: Result Comment: Fast ing Glucose result from 100 to 125 mg/dL suggests IMPAIRED HOMEOSTASIS per A.D.A. criteria. Performed By: #### L 500.4050, L100.0100 ####[facility] [address] [place], [address] Potassium [Moles/Vol] 4.8 mmol/L Normal 3.5-5.1 [facility] Comment on above: Performed By: #### L 500.4050, L100.0100 ####[facility] [address] [place], [address] Sodium [Moles/Vol] 139 mmol/L Normal 136-145 [facility] Comment on above: Performed By: #### L 500.4050, L100.0100 ####[facility] [address] [place], [address] T PROT 7.5 g/dL Normal 6.4-8.2 [facility] Comment on above: Performed By: #### L 500.4050, L100.0100 ####[facility] [address] [place], [address] Urea nitrogen [Mass/Vol] 15 mg/dL Normal 7-18 [facility] Comment on above: Performed By: #### L 500.4050, L100.0100 ####[facility] [address] [place], [address] Eosinophil percentageOrdered By: Cheryle Shannon on 06-12-2024 Eosinophils/100 WBC (Bld) 9.0 % High 0-5 [facility] Erythrocyte distribution wid th ratioOrdered By: Cheryle Shannon on 06-12-2024 Erythrocyte distribution width (RBC) [Ratio] 13.2 % 11.6-14.6 [facility] Erythrocyte distribution wid th standard deviationOrdered By: Cheryle Shannon on 06-12-2024 Erythrocyte distribution width (RBC) [Entitic vol] 48.0 fL High 35.1-43.9 [facility] Estimated glomerular filtrat ion rate (GFR) AmericanOrdered By: Cheryle Shannon on 06-12-2024 Estimated GFR (MDRD) Amer 118 mL/min >60 [facility] Comment on above: GFR Calc Glomerular filtration rate ( GFR) estimationOrdered By: Cheryle Shannon on 06-12-2024 Estimated GFR (MDRD) Non-Af Amer 98 mL/min >60 [facility] Comment on above: Non- GFR Calc Glucose measurementOrdered B y: Cheryle Shannon on 06-12-2024 Glucose [Mass/Vol] 113 mg/dL High 74-106 [facility] Comment on above: Fasting Glucose resu lt from 100 to 125 mg/dL suggests IMPAIRED HOMEOSTASIS per A.D.A. criteria. Hematocrit Auto (Bld) [Volum e fraction]Ordered By: Cheryle Shannon on 06-12-2024 Hematocrit (Bld) [Volume fraction] 45.6 % 40-54 [facility] Hemoglobin measurementOrdere d By: Cheryle Shannon on 06-12-2024 Hemoglobin (Bld) [Mass/Vol] 15.2 g/dL 13.0-16.5 [facility] Immature granulocytes/100 WB C Auto (Bld)Ordered By: Cheryle Shannon on 06-12-2024 Immature granulocytes/100 WBC (Bld) 0.400 % 0.0-0.9 [facility] Comment on above: IG% - Immature Granu locytes (promyelocytes, myelocytes and metamyelocytes) > 1% indicates that a LEFT SHIFT is Present. Laboratory - Chemistry and C hemistry - challengeOrdered By: Cheryle Shannon on 06-12-2024 AST [Catalytic activity/Vol] 18 U/L 15-37 [facility] Lymphocytes Auto (Unsp spec) [#/Vol]Ordered By: Cheryle Shannon on 06-12-2024 Lymphocytes (Bld) [#/Vol] 2.30 10*3/uL 0.83-4.51 [facility] Lymphocytes/100 WBC Auto (Un sp spec)Ordered By: Cheryle Shannon on 06-12-2024 Lymphocytes/100 WBC (Bld) 18.3 % Low 19-41 [facility] MCV (mean corpuscular volume ) determinationOrdered By: Cheryle Shannon on 06-12-2024 MCV (RBC) [Entitic vol] 99.3 fL High 80-94 [facility] Mean corpuscular hemoglobin (MCH) determinationOrdered By: Cheryle Shannon on 06-12-2024 MCH (RBC) [Entitic mass] 33.1 pg High 27.0-32.0 [facility] Mean corpuscular hemoglobin concentration (MCHC) determinationOrdered By: Cheryle Shannon on 06-12-2024 MCHC (RBC) [Mass/Vol] 33.3 g/dL 32-36 [facility] Mean platelet volume determi nationOrdered By: Cheryle Shannon on 06-12-2024 Platelet mean volume (Bld) [Entitic vol] 9.4 fL 6.2-12.0 [facility] Monocyte percentageOrdered B y: Cheryle Shannon on 06-12-2024 Monocytes/100 WBC (Bld) 5.7 % 0-10 [facility] Neutrophil percentageOrdered By: Cheryle Shannon on 06-12-2024 Neutrophils/100 WBC (Bld) 65.6 % 47-70 [facility] Nucleated red blood cell per centageOrdered By: Cheryle Shannon on 06-12-2024 Nucleated RBC/100 WBC (Bld) [Ratio] 0 % 0-5 [facility] Platelet countOrdered By: Brain Shannon on 06-12-2024 Platelets (Bld) [#/Vol] 347 10*3/uL 150-450 [facility] Potassium measurementOrdered By: Cheryle Shannon on 06-12-2024 Potassium [Moles/Vol] 4.8 mmol/L 3.5-5.1 [facility] RBC Auto (Bld) [#/Vol]Ordere d By: Cheryle Shannon on 06-12-2024 RBC (Bld) [#/Vol] 4.59 10*6/uL Low 4.6-6.2 [facility] Serum anion gap measurementO rdered By: Cheryle Shannon on 06-12-2024 Anion gap [Moles/Vol] 6 mmol/L 5-15 [facility] Serum globulin measurementOr dered By: Cheryle Shannon on 06-12-2024 Globulin (S) [Mass/Vol] 4.0 g/dL 2.2-4.2 [facility] Serum or plasma alanine das otransferase (ALT) measurementOrdered By: Cheryle Shannon on 06-12-2024 ALT [Catalytic activity/Vol] 22 U/L 16-61 [facility] Serum or plasma albumin torrie urement (mass/volume)Ordered By: Cheryle Shannon on 06-12-2024 Albumin [Mass/Vol] 3.5 g/dL 3.2-5.0 [facility] Serum or plasma alkaline dagoberto sphatase measurementOrdered By: Cheryle Shannon on 06-12-2024 ALP [Catalytic activity/Vol] 81 U/L 45-117 [facility] Serum or plasma calcium torrie urement (mass/volume)Ordered By: Cheryle Shannon on 06-12-2024 Calcium [Mass/Vol] 9.6 mg/dL 8.5-10.1 [facility] Serum or plasma creatinine m easurement (mass/volume)Ordered By: Cheryle Shannon on 06-12-2024 Creatinine [Mass/Vol] 0.83 mg/dL 0.70-1.30 [facility] Comment on above: The validity of the calculated GFR & GFRAA in patients over 70 years has not been determined. Clinical correlation is essential. Serum or plasma urea nitroge n measurement (mass/volume)Ordered By: Cheryle Shannon on 06-12-2024 Urea nitrogen [Mass/Vol] 15 mg/dL 7-18 [facility] Sodium levelOrdered By: Enedina Shannon on 06-12-2024 Sodium [Moles/Vol] 139 mmol/L 136-145 [facility] Total proteinOrdered By: Shellie Shannon on 06-12-2024 Protein [Mass/Vol] 7.5 g/dL 6.4-8.2 [facility] White blood cell (WBC) count Ordered By: Cheryle Shannon on 06-12-2024 WBC (Bld) [#/Vol] 12.6 10*3/uL High 4.4-11.0 [facility] [facility] [place] [facility] Visit Reporton 1 06-01-2023 Urgent Care Visit Report [facility] [address], [address] [place] [address] OFFICE VISIT Date of Service: 04/01/24 MR#: [id number] Acct: [id number] Name: SIENA SOSA Rep #: [id number] : 1955 Provider: SHAYAN garcia Age/Sex: 69/M Location: [facility] [place] Status: Signed Intake Vital Signs 03/29/24 13:32 04/01/24 13:36 Height 5 ft 6 in 5 ft 6 in Weight: 154 lb 6 oz 153 lb BMI 24.9 24.7 BP 136/94 H Blood Pressure Location Lt brachial Position Sitting Respiration 22 H Pulse 88 Pulse Source Monitor Temp 98.2 F Temp Source Oral Pulse Oximetry (%) 84 Oxygen Delivery Method room air Intake Visit Reasons: ST/SHORT OF BREATH/COUGH/CONGEST ION Chief Complaint: SOB CHEST CONGESTION Park [employer] Specialist Required: No Accompanied by: Is patient in pain?: No Allergies clopidogrel (From Plavix) Allergy (Verified 04/01/24 13:38) Rash dandelion (Taraxacum officinale) Allergy (Verified 04/01/24 13:38) Other NSAIDS (Non-Steroidal Anti-Inflamma Allergy (Verified 04/01/24 13:38) Hives Medications ???Medication ???Instructions ???Recorded ???Confirmed ???Type duloxetine 60 mg capsule,delayed 60 mg PO QHS Depression 07/23/16 04/01/24 History release folic acid 1 mg tablet 2 mg PO DAILY Arthritis 07/23/16 04/01/24 History methotrexate sodium 2.5 mg tablet 12.5 mg PO FR Arthritis 07/23/16 04/01/24 History atorvastatin 20 mg tablet 20 mg PO QHS Cholesterol 07/30/16 04/01/24 History aspirin 81 mg tablet,delayed 81 mg PO DAILY 02/10/21 04/01/24 History release amlodipine 5 mg tablet 5 mg PO QHS 09/27/22 04/01/24 History fluticasone furoate 200 1 inh inhalation DAILY 09/27/22 04/01/24 History mcg-vilanterol 25 mcg/dose inhalation powder (Breo Ellipta) albuterol sulfate 90 mcg/actuation 2 puff inhalation Q6H PRN 05/25/23 04/01/24 Rx aerosol inhaler shortness of breath or wheezing #6.7 grams metoprolol succinate 50 mg 50 mg PO DAILY #30 tabs 05/25/23 04/01/24 Rx tablet,extended release 24 hr primidone 50 mg tablet 50 mg PO BID #180 tabs 03/06/24 04/01/24 Rx azithromycin 250 mg tablet See Rx Instructions PO .COMPLEX #6 04/01/24 04/01/24 Rx (Zithromax Z-Sarath) tabs doxycycline hyclate 100 mg capsule 100 mg PO BID 7 days #14 caps 04/01/24 04/01/24 Rx prednisone 10 mg tablet 10 mg PO .COMPLEX 12 days #30 tabs 04/01/24 04/01/24 Rx Have you fallen in the past year?: No Nurse's Note: pt states he has to use oxygen in the evenings, pt states he has been having to use it throughout the day with little to no change. Pt stated in the past when this happened he was admitted into the hospital and given medication/ treatment [facility] Medical History COPD (chronic obstructive pulmonary disease) Leg cramps History of adenomatous polyp of colon Cancer Depression High cholesterol Smoker Shortness of breath on exertion Hypertension Peripheral arterial occlusive disease Rheumatoid arthritis Anxiety Arthritis Hyperlipidemia Surgical History History of colonoscopy APLL APLL Hx of shoulder surgery S/P carpal tunnel release Family History Mother Colon cancer Father Arthritis Social History household members: spouse Smoking Status: Current every day smoker tobacco type: cigarettes second hand exposure: Yes alcohol intake: never substance use type: does not use caffeine: Yes what type of physical activity do you participate in: none frequency: does not exercise seatbelt use: always HPI HPI Chief Complaint: SOB CHEST CONGESTION Details: SIENA SOSA, is a 69 M who presents to the office today for concerns regarding sore throat, shortness of breath, cough, and congestion. He states known sick contacts with . He declines respiratory viral evaluation. This has been ongoing for one week. He has been using his oxygen during the day when he typically only uses it at night. ROS Const Constitutional: Positive for fever(s) (one day); No body ache, chills, fatigue, headache(s), snoring or change in appetite Eyes Eyes: No blurry vision, change in vision, double vision, irritation, discharge, vision loss, dry eyes, bulging eyes, floaters, visual disturbances, eye pain, Light sensitivity, spots in vision, tunnel vision or other ENT ENT: Positive for sore throat; No ear or mastoid pain, ear discharge, ear pressure, tinnitus, dizziness/vertigo, nosebleed/epistaxis, nasal congestion, nose pain, sinus pressure, sinus pain, nasal discharge, post nasal drip, headache(s), facial pain, dental pain, difficulty swallowing, bad breath, hoarseness, lip swelling, mouth lesions, mouth pain, neck ashwini (more content not included)... Normal [facility] Cerv Spine 4 or 5 Viewson Cerv Spine 4 or 5 Views [facility] [address] [place] [address] Cerv Spine 4 or 5 Views MR#: [id number] Acct: [id number] Name: SIENA SOSA Rep #: [id number] : 1955 M 69 From: Vince Rosenthal DO PCP: Dr. Jessica Astorga MD Status: DEP AMB Study: Cerv Spine 4 or 5 Views Date of Exam: 03/29/24 Exam# [id number] Ordering Dr: Yanet Hutchins [id number] STUDY: X-RAY - CERVICAL SPINE REASON FOR EXAM: Male, 69 years old. neck pain -- please do upright AP, LAT, flex/ext TECHNIQUE: 4 view(s) of the cervical spine were obtained. COMPARISON: None FINDINGS: Normal anterior atlantoaxial articulation. Normal odontoid process. Straightening of the cervical lordosis. Degenerative changes of the vertebral bodies with spurring at the endplates. Narrowed lower cervical disc space heights. Limited extension. The soft tissue structures are unremarkable. RAD/Cerv Spine 4 or 5 Views IMPRESSION: Degenerative cervical changes with limited extension. Electronically Signed: Vince Rosenthal DO at 23:57 EST Reading Location ID and State: [facility] / [place] Tel [phone], Service support , CC: BRAIN Sampson; Dr. Jessica Astorga MD Travel Ticketing Reviewer: Signed Normal [facility] Orthopedic Visit Reporton Orthopedic Visit Report [facility] [address] [place] [address] OFFICE VISIT Date of Service: 03/29/24 MR#: [id number] Acct: [id number] Name: SIENA SOSA Rep #: [id number] : 1955 Provider: Dr. Cali Navas MD Age/Sex: 69/M Location: [facility] [place] Status: Signed Intake Vital Signs 03/06/24 11:00 03/29/24 13:32 Height 5 ft 6 in 5 ft 6 in Weight: 154 lb 154 lb 6 oz BMI 24.8 24.9 BP 128/76 H Blood Pressure Location Lt brachial Position Sitting Respiration 18 Pulse 72 Pulse Source Monitor Temp 97.7 F L Temp Source Temporal Pulse Oximetry (%) 94 Oxygen Delivery Method room air Intake Visit Reasons: CERVICAL SPINE Chief Complaint: Is patient in pain?: No Allergies clopidogrel (From Plavix) Allergy (Verified 03/29/24 13:32) Rash dandelion (Taraxacum officinale) Allergy (Verified 03/29/24 13:32) Other NSAIDS (Non-Steroidal Anti-Inflamma Allergy (Verified 03/29/24 13:32) Hives Medications ???Medication ???Instructions ???Recorded ???Confirmed ???Type duloxetine 60 mg capsule,delayed 60 mg PO QHS Depression 07/23/16 03/29/24 History release folic acid 1 mg tablet 2 mg PO DAILY Arthritis 07/23/16 03/29/24 History methotrexate sodium 2.5 mg tablet 12.5 mg PO FR Arthritis 07/23/16 03/29/24 History atorvastatin 20 mg tablet 20 mg PO QHS Cholesterol 07/30/16 03/29/24 History aspirin 81 mg tablet,delayed 81 mg PO DAILY 02/10/21 03/29/24 History release amlodipine 5 mg tablet 5 mg PO QHS 09/27/22 03/29/24 History fluticasone furoate 200 1 inh inhalation DAILY 09/27/22 03/29/24 History mcg-vilanterol 25 mcg/dose inhalation powder (Breo Ellipta) albuterol sulfate 90 mcg/actuation 2 puff inhalation Q6H PRN 05/25/23 03/29/24 Rx aerosol inhaler shortness of breath or wheezing #6.7 grams metoprolol succinate 50 mg 50 mg PO DAILY #30 tabs 05/25/23 03/29/24 Rx tablet,extended release 24 hr primidone 50 mg tablet 50 mg PO BID #180 tabs 03/06/24 03/29/24 Rx Have you fallen in the past year?: No PFSH Medical History COPD (chronic obstructive pulmonary disease) Leg cramps History of adenomatous polyp of colon Cancer Depression High cholesterol Smoker Shortness of breath on exertion Hypertension Peripheral arterial occlusive disease Rheumatoid arthritis Anxiety Arthritis Hyperlipidemia Surgical History History of colonoscopy APLL APLL Hx of shoulder surgery S/P carpal tunnel release Family History Mother Colon cancer Father Arthritis Social History household members: spouse Smoking Status: Current every day smoker tobacco type: cigarettes second hand exposure: Yes alcohol intake: never substance use type: does not use caffeine: Yes what type of physical activity do you participate in: none frequency: does not exercise seatbelt use: always HPI CERVICAL SPINE Details: This documentation accurately reflects the service provided and the decisions made by me, Dr. Cali Navas MD 03/29/24 1330. Part of today???s visit was documented by Lina CORTES, acting as scribe. SIENA SOSA is a 69 year old M here today NEW patient for his neck. His states that this all started when they went to see Dr. Price for his tremors and when he was examining him his reflexes were too strong and recommended the patient talk to Dr. Navas for it. He denies having any pain in his neck or lower back. Denies numbness, tingling or other associated symptoms. Denies weakness in either arm. He did have an MRI at [facility] on 11/14/23. Says that he has a decrease in writing due to the tremors. He is not able to button shirts or tie shoe laces. No falls. Tremors just affect his upper extremities. Ortho Exam General General: Yes no acute distress Neurologic: Yes alert and Yes oriented x3 Spine SPINE TESTING CERVICAL THORACIC LUMBAR Musculoskeletal Strength 0=absent - 5=normal Details: Neurological exam of the upper extremities shows 5x5 power. Normal sensations across all dermatomes. Brisk lower extremity reflexes, left worse than right. No midline or paraspinal tenderness. Romberg's negative. Single leg stand shows poor balance. Rosa's negative. Positive clonus left ankle. 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 Normal [facility] Thyroid Stim Hormone (TSH)on 03-08-2024 TSH 1.050 uIU/mL Normal 0.358-3.740 [facility] Comment on above: Performed By: #### L [id number] #### [facility] [address] [place], [address] Neurology Visit Reporton Neurology Visit Report [facility] [address], [address] [place] [address] OFFICE VISIT Date of Service: 03/06/24 MR#: [id number] Acct: [id number] Name: SIENA SOSA Rep #: [id number] : 1955 Provider: Dr. James lynch MD Age/Sex: 69/M Location: [facility]. Status: Signed HPI HPI Chief Complaint: Details: Interim History: Siena returns for follow-up visit. He has a history of hypertension, hyperlipidemia, COPD, peripheral vascular disease status post left lower extremity arterial stent placement, and rheumatoid arthritis. He has been experiencing a tremor since he was in his 20s. His tremor worsened over time. His tremor affects both hands but is worse on the right. His tremor has interfered with activities such as using eating utensils, writing and other activities requiring fine motor control of the hands, however since initiation of primidone earlier in 2023, his tremor has diminished and he is no longer experiencing functional impairment due to his tremor. He has not had slowing of his gait. He denied having speech difficulty, swallowing difficulty or change in his voice. He denied having headache, numbness or weakness. He denies having neck pain, gait imbalance or low back pain. He denies having bowel or bladder dysfunction. He takes duloxetine for anxiety. He has had bilateral carpal tunnel surgery in years past. His spine MRI which moderate to severe central canal stenosis at C5-6 and C6-7 with associated signal change within the spinal cord. Physical Exam: Neuro: The patient is awake and alert and responds appropriately; motor strength is 5/5 in the quadriceps bilaterally and foot dorsiflexors bilaterally; deep tendon reflexes are +3 at the right knee, +2 at the left knee, and nonsustained clonus is noted at the ankles a moderate tremor is noted in both hands when arms are extended; no rigidity is noted in the wrists; gait is unremarkable Neck: No bruits Heart: Regular rhythm and rate Note: On his initial assessment in October 2023 plantar responses were downward on the right and upward on the left Supplemental Info CBC, CMP (09/06/2023): MCV 97.7 (high) Cervical spine MRI (11/14/2023): FINDINGS: VERTEBRAE: Vertebral body heights maintained. Degenerative endplate bone marrow changes of C5-6 and C6/-7. VERTEBRAL ALIGNMENT: Reversal of the cervical lordosis without significant anterior or posterior subluxation. SPINAL CORD: Slightly increased T2 cord signal at C5-6 and C6-7. SOFT TISSUES: No prevertebral fluid collection. INTERVERTEBRAL DISCS: C2-3: No significant posterior disc protrusion, central canal stenosis, or foraminal narrowing. C3-4: Very mild disc bulge with uncovertebral and facet arthropathy resulting in minimal narrowing of the thecal sac and mild bilateral foraminal narrowing. C4-5: Mild posterior disc bulge osteophyte complex with uncovertebral and facet arthropathy resulting in mild indentation of the ventral cord, mild central canal stenosis, and bilateral foraminal narrowing. C5-6, C6-7: Mild posterior disc bulge osteophyte complexes with uncovertebral and facet arthropathy resulting in moderate-severe central canal stenosis, mild flattening of the ventral cord, and bilateral foraminal narrowing. C7-T1: Minimal disc bulge without significant central canal stenosis. Mild right foraminal narrowing. IMPRESSION: Multilevel degenerative disc disease resulting in moderate-severe spinal canal stenosis, mild cord impingement, mild cord edema/myelopathy, and bilateral foraminal narrowing of C5-6 and C6-7. Mild spinal canal stenosis, mild cord impingement, and mild bilateral foraminal narrowing of C4-5. These images were reviewed on 11/28/2023. CBC, CMP (02/23/2024): MCV 99.6 (high), glucose 115 (high) Assessment and Plan Assessment and Plan (1) Essential tremor: Status: Acute (2) Myelopathy: Status: Acute (3) Cervical spinal stenosis: Status: Acute Orders: Orders Thyroid Stim Hormone (TSH) Today G25.0 - Essential tremor Referrals Orthopedics G95.9 - Disease of spinal cord, unspecified, M48.02 - Spinal stenosis, cervical region Medications: Changed From primidone One-half tablet PO daily for one week then one-half tablet BID for one week then one tablet BID thereafter 60 tabs 5RF To primidone 50 mg PO BID 60 tabs 0RF Plan Details Additional Comments: The patient has an essential tremor that affects both hands (right greater than left). Primidone was initiated earlier in 2023 and he is no longer experiencing functional impairment due to his tremor. He is tolerating primidone well. - Primidone 50 milligrams twice daily will be continued. - A TSH will be checked. He has a history of rheumatoid arthritis. He exhibits hyperreflexia at at the right knee and nonsustained clonus at the ankles. On prior assessment and upward left plantar respons (more content not included)... Normal [facility] CBC W/Diff, Automatedon 10-0 -2023 Absolute Lymph 2.30 X10 3/uL Normal 0.83-4.51 [facility] Comment on above: Performed By: #### L 500.4050, L100.0100 #### [facility] [address] [place], [address] Absolute Neut 6.7 X10 3/uL Normal 2.0-7.7 [facility] Comment on above: Performed By: #### L 500.4050, L100.0100 #### [facility] [address] [place], [address] Basophils/100 WBC (Bld) 1.0 % Normal 0-1 [facility] Comment on above: Performed By: #### L 500.4050, L100.0100 #### [facility] [address] [place], [address] Eosinophils/100 WBC (Bld) 2.3 % Normal 0-5 [facility] Comment on above: Performed By: #### L 500.4050, L100.0100 #### [facility] [address] [place], [address] Erythrocyte distribution width (RBC) [Ratio] 12.8 % Normal 11.6-14.6 [facility] Comment on above: Performed By: #### L 500.4050, L100.0100 #### [facility] [address] [place], [address] Hematocrit (Bld) [Volume fraction] 48.8 % Normal 40-54 [facility] Comment on above: Performed By: #### L 500.4050, L100.0100 #### [facility] [address] [place], [address] Hemoglobin (Bld) [Mass/Vol] 16.2 g/dL Normal 13.0-16.5 [facility] Comment on above: Performed By: #### L 500.4050, L100.0100 #### [facility] [address] [place], [address] IG% 0.400 Normal 0.0-0.9 [facility] Comment on above: Result Comment: IG% - Immature Granulocytes (promyelocytes, myelocytes and metamyelocytes) > 1% indicates that a LEFT SHIFT is Present. Performed By: #### L 500.4050, L100.0100 #### [facility] [address] [place], [address] Lymphocytes/100 WBC (Bld) 22.8 % Normal 19-41 [facility] Comment on above: Performed By: #### L 500.4050, L100.0100 #### [facility] [address] [place], [address] MCH (RBC) [Entitic mass] 33.1 pg High 27.0-32.0 [facility] Comment on above: Performed By: #### L 500.4050, L100.0100 #### [facility] [address] [place], [address] MCHC (RBC) [Mass/Vol] 33.2 g/dL Normal 32-36 [facility] Comment on above: Performed By: #### L 500.4050, L100.0100 #### [facility] [address] [place], [address] MCV (RBC) [Entitic vol] 99.6 fL High 80-94 [facility] Comment on above: Performed By: #### L 500.4050, L100.0100 #### [facility] [address] [place], [address] Monocytes/100 WBC (Bld) 6.7 % Normal 0-10 [facility] Comment on above: Performed By: #### L 500.4050, L100.0100 #### [facility] [address] [place], [address] Neutrophils/100 WBC (Bld) 66.8 % Normal 47-70 [facility] Comment on above: Performed By: #### L 500.4050, L100.0100 #### [facility] [address] [place], [address] Nucleated RBC (Bld) [#/Vol] 0 10*3/uL Normal 0-5 [facility] Comment on above: Performed By: #### L 500.4050, L100.0100 #### [facility] [address] [place], [address] Platelet mean volume (Bld) [Entitic vol] 9.4 fL Normal 6.2-12.0 [facility] Comment on above: Performed By: #### L 500.4050, L100.0100 #### [facility] [address] [place], [address] Platelets (Bld) [#/Vol] 303 10*3/uL Normal 150-450 [facility] Comment on above: Performed By: #### L 500.4050, L100.0100 #### [facility] [address] [place], [address] RBC (Bld) [#/Vol] 4.90 10*6/uL Normal 4.6-6.2 [facility] Comment on above: Performed By: #### L 500.4050, L100.0100 #### [facility] [address] [place], [address] RDW SD 47.2 fl High 35.1-43.9 [facility] Comment on above: Performed By: #### L 500.4050, L100.0100 #### [facility] [address] [place], [address] WBC (Bld) [#/Vol] 10.1 10*3/uL Normal 4.4-11.0 [facility] Comment on above: Performed By: #### L 500.4050, L100.0100 #### [facility] [address] [place], [address] Comprehensive Metabolic Prof ilon 02-23-2024 Albumin [Mass/Vol] 3.7 g/dL Normal 3.2-5.0 [facility] Comment on above: Performed By: #### L 500.4050, L100.0100 #### [facility] [address] [place], [address] Albumin/Globulin [Mass ratio] 1.0 {ratio} Normal 0.9-2.4 [facility] Comment on above: Performed By: #### L 500.4050, L100.0100 #### [facility] [address] [place], [address] ALK P 90 U/L Normal 45-117 [facility] Comment on above: Performed By: #### L 500.4050, L100.0100 #### [facility] [address] [place], [address] ALT [Catalytic activity/Vol] 23 U/L Normal 16-61 [facility] Comment on above: Performed By: #### L 500.4050, L100.0100 #### [facility] [address] [place], [address] AST [Catalytic activity/Vol] 21 U/L Normal 15-37 [facility] Comment on above: Performed By: #### L 500.4050, L100.0100 #### [facility] [address] [place], [address] Bilirubin [Mass/Vol] 0.50 mg/dL Normal 0.20-1.00 [facility] Comment on above: Result Comment: For patients on eltrombopag therapy, use of Dimension [place] TBIL is not recommended. Performed By: #### L 500.4050, L100.0100 #### [facility] [address] [place], [address] BUN/CRE 14.7 RATIO Normal 10-20 [facility] Comment on above: Performed By: #### L 500.4050, L100.0100 #### [facility] [address] [place], [address] CA,Total 9.6 mg/dL Normal 8.5-10.1 [facility] Comment on above: Performed By: #### L 500.4050, L100.0100 #### [facility] [address] [place], [address] Chloride [Moles/Vol] 106 mmol/L Normal 98-107 [facility] Comment on above: Performed By: #### L 500.4050, L100.0100 #### [facility] [address] [place], [address] CO2 [Moles/Vol] 27.0 mmol/L Normal 21.0-32.0 [facility] Comment on above: Performed By: #### L 500.4050, L100.0100 #### [facility] [address] [place], [address] Creatinine [Mass/Vol] 0.81 mg/dL Normal 0.70-1.30 [facility] Comment on above: Result Comment: The validity of the calculated GFR GFRAA in patients over 70 years has not been determined. Clinical correlation is essential. Performed By: #### L 500.4050, L100.0100 #### [facility] [address] [place], [address] EST GFR - AA 121 mL/min Normal >60 [facility] Comment on above: Result Comment: Afri can [place] GFR Calc Performed By: #### L 500.4050, L100.0100 #### [facility] [address] [place], [address] GAP 4 Low 5-15 [facility] Comment on above: Performed By: #### L 500.4050, L100.0100 #### [facility] [address] [place], [address] GFR/1.73 sq M.predicted among non-blacks MDRD (S/P/Bld) [Vol rate/Area] 100 mL/min/{1.73_m2} Normal >60 [facility] Comment on above: Result Comment: Non- GFR Calc Performed By: #### L 500.4050, L100.0100 #### [facility] [address] [place], [address] Globulin (S) [Mass/Vol] 3.6 g/dL Normal 2.2-4.2 [facility] Comment on above: Performed By: #### L 500.4050, L100.0100 #### [facility] [address] [place], [address] Glucose [Mass/Vol] 115 mg/dL High 74-106 [facility] Comment on above: Result Comment: Fast ing Glucose result from 100 to 125 mg/dL suggests IMPAIRED HOMEOSTASIS per A.D.A. criteria. Performed By: #### L 500.4050, L100.0100 #### [facility] [address] [place], [address] Potassium [Moles/Vol] 4.9 mmol/L Normal 3.5-5.1 [facility] Comment on above: Performed By: #### L 500.4050, L100.0100 #### [facility] [address] [place], [address] Sodium [Moles/Vol] 138 mmol/L Normal 136-145 [facility] Comment on above: Performed By: #### L 500.4050, L100.0100 #### [facility] [address] [place], [address] T PROT 7.3 g/dL Normal 6.4-8.2 [facility] Comment on above: Performed By: #### L 500.4050, L100.0100 #### [facility] [address] [place], [address] Urea nitrogen [Mass/Vol] 12 mg/dL Normal 7-18 [facility] Comment on above: Performed By: #### L 500.4050, L100.0100 #### [facility] [address] [place], [address] Absolute lymphocyte countOrd ered By: Cheryle Shannon on 09-06-2023 Lymphocytes Auto (Unsp spec) [#/Vol] 2.57 10*3/uL 0.83-4.51 [facility] Automated lymphocyte count a s percentage of total leukocytesOrdered By: Cheryle Shannon on 09-06-2023 Lymphocytes/100 WBC Auto (Unsp spec) 24.5 % 19-41 [facility] Basophil percentageOrdered B y: Cheryle Shannon on 09-06-2023 Basophils/100 WBC (Bld) 0.6 % 0-1 [facility] Bilirubin [Mass/Vol] 0.60 mg/dL 0.20-1.00 [facility] Comment on above: For patients on eltr ombopag therapy, use of Dimension [place] TBIL is not recommended. Chloride [Moles/Vol] 107 mmol/L 98-107 [facility] Eosinophils/100 WBC (Bld) 1.1 % 0-5 [facility] Glucose [Mass/Vol] 85 mg/dL 74-106 [facility] Hemoglobin (Bld) [Mass/Vol] 15.6 g/dL 13.0-16.5 [facility] Monocytes/100 WBC (Bld) 4.9 % 0-10 [facility] Neutrophils (Bld) [#/Vol] 7.2 10*3/uL 2.0-7.7 [facility] Neutrophils/100 WBC (Bld) 68.7 % 47-70 [facility] Potassium [Moles/Vol] 4.4 mmol/L 3.5-5.1 [facility] Protein [Mass/Vol] 7.6 g/dL 6.4-8.2 [facility] Sodium [Moles/Vol] 140 mmol/L 136-145 [facility] WBC (Bld) [#/Vol] 10.5 10*3/uL 4.4-11.0 [facility] Determination of erythrocyte mean corpuscular volume (MCV)Ordered By: Cheryle Shannon on 09-06-2023 MCV (RBC) [Entitic vol] 97.7 fL 80-94 [facility] Erythrocyte distribution wid th ratioOrdered By: Cheryle Mirtha on 09-06-2023 Erythrocyte distribution width (RBC) [Ratio] 13.3 % 11.6-14.6 [facility] Erythrocyte distribution wid th standard deviationOrdered By: Cheryle Shannon on 09-06-2023 Erythrocyte distribution width (RBC) [Entitic vol] 48.1 fL 35.1-43.9 [facility] Hematocrit Auto (Bld) [Volum e fraction]Ordered By: Cheryle Shannon on 09-06-2023 Hematocrit (Bld) [Volume fraction] 46.4 % 40-54 [facility] Immature granulocytes/100 WB C Auto (Bld)Ordered By: Cheryle Shannon on 09-06-2023 Immature granulocytes/100 WBC (Bld) 0.200 % 0.0-0.9 [facility] Comment on above: IG% - Immature Granu locytes (promyelocytes, myelocytes and metamyelocytes) > 1% indicates that a LEFT SHIFT is Present. Laboratory - Chemistry and C hemistry - challengeOrdered By: Cheryle Shannon on 09-06-2023 Albumin/Globulin [Mass ratio] 1.0 {ratio} 0.9-2.4 [facility] ALP [Catalytic activity/Vol] 84 U/L 45-117 [facility] ALT [Catalytic activity/Vol] 25 U/L 16-61 [facility] CO2 [Moles/Vol] 27.0 mmol/L 21.0-32.0 [facility] Globulin (S) [Mass/Vol] 3.8 g/dL 2.2-4.2 [facility] Urea nitrogen/Creatinine [Mass ratio] 14.1 mg/mg 10-20 [facility] - Hematology and Cell countsOrdered By: Cheryle Shannon on 09-06-2023 MCH (RBC) [Entitic mass] 32.8 pg 27.0-32.0 [facility] MCHC (RBC) [Mass/Vol] 33.6 g/dL 32-36 [facility] Nucleated RBC/100 WBC (Bld) [Ratio] 0 % 0-5 [facility] Platelet mean volume (Bld) [Entitic vol] 9.2 fL 6.2-12.0 [facility] Platelets (Bld) [#/Vol] 287 10*3/uL 150-450 [facility] No Panel InformationOrdered By: Cheryle Shannon on 09-06-2023 Estimated GFR (MDRD) Amer 115 mL/min >60 [facility] Comment on above: GFR Calc Estimated GFR (MDRD) Non-Af Amer 95 mL/min >60 [facility] Comment on above: Non- GFR Calc RBC Auto (Bld) [#/Vol]Ordere d By: Cheryle Shannon on 09-06-2023 RBC (Bld) [#/Vol] 4.75 10*6/uL 4.6-6.2 [facility] Serum or plasma calcium torrie urement (mass/volume)Ordered By: Cheryle Shannon on 09-06-2023 Calcium [Mass/Vol] 9.4 mg/dL 8.5-10.1 [facility] Serum or plasma creatinine m easurement (mass/volume)Ordered By: Cheryle Shannon on 09-06-2023 Creatinine [Mass/Vol] 0.85 mg/dL 0.70-1.30 [facility] Comment on above: The validity of the calculated GFR & GFRAA in patients over 70 years has not been determined. Clinical correlation is essential. Serum or plasma urea nitroge n measurement (mass/volume)Ordered By: Cheryle Shannon on 09-06-2023 Urea nitrogen [Mass/Vol] 12 mg/dL 7-18 [facility] Thin prep Papanicolaou smear with manual screeningOrdered By: Cheryle Shannon on 09-06-2023 Thin prep Papanicolaou smear with manual screening 3.8 g/dL 3.2-5.0 [facility] Thin prep Papanicolaou smear with manual screening 22 U/L 15-37 [facility] Thin prep Papanicolaou smear with manual screening 6 5-15 [facility] Absolute lymphocyte countOrd ered By: Cheryle Shannon on 06-14-2023 Lymphocytes Auto (Unsp spec) [#/Vol] 1.63 10*3/uL 0.83-4.51 [facility] Automated lymphocyte count a s percentage of total leukocytesOrdered By: Cheryle Shannon on 06-14-2023 Lymphocytes/100 WBC Auto (Unsp spec) 15.5 % 19-41 [facility] Basophil percentageOrdered B y: Cheryle Shannon on 06-14-2023 Basophils/100 WBC (Bld) 0.4 % 0-1 [facility] Bilirubin [Mass/Vol] 0.30 mg/dL 0.20-1.00 [facility] Comment on above: For patients on eltr ombopag therapy, use of Dimension [place] TBIL is not recommended. Chloride [Moles/Vol] 106 mmol/L 98-107 [facility] Eosinophils/100 WBC (Bld) 1.7 % 0-5 [facility] Glucose [Mass/Vol] 96 mg/dL 74-106 [facility] Hemoglobin (Bld) [Mass/Vol] 13.6 g/dL 13.0-16.5 [facility] Monocytes/100 WBC (Bld) 7.3 % 0-10 [facility] Neutrophils (Bld) [#/Vol] 7.7 10*3/uL 2.0-7.7 [facility] Neutrophils/100 WBC (Bld) 73.3 % 47-70 [facility] Potassium [Moles/Vol] 4.1 mmol/L 3.5-5.1 [facility] Protein [Mass/Vol] 6.6 g/dL 6.4-8.2 [facility] Sodium [Moles/Vol] 138 mmol/L 136-145 [facility] WBC (Bld) [#/Vol] 10.5 10*3/uL 4.4-11.0 [facility] Determination of erythrocyte mean corpuscular volume (MCV)Ordered By: Cheryle Shannon on 06-14-2023 MCV (RBC) [Entitic vol] 100.5 fL 80-94 [facility] Erythrocyte distribution wid th ratioOrdered By: Cheryle Mirtha on 06-14-2023 Erythrocyte distribution width (RBC) [Ratio] 12.3 % 11.6-14.6 [facility] Erythrocyte distribution wid th standard deviationOrdered By: [facility] Mirtha on 06-14-2023 Erythrocyte distribution width (RBC) [Entitic vol] 44.5 fL 35.1-43.9 [facility] Hematocrit Auto (Bld) [Volum e fraction]Ordered By: Cherylerobbie Shannon on 06-14-2023 Hematocrit (Bld) [Volume fraction] 41.5 % 40-54 [facility] Immature granulocytes/100 WB C Auto (Bld)Ordered By: [facility] Mirtha on 06-14-2023 Immature granulocytes/100 WBC (Bld) 1.800 % 0.0-0.9 [facility] Comment on above: IG% - Immature Granu locytes (promyelocytes, myelocytes and metamyelocytes) > 1% indicates that a LEFT SHIFT is Present. Laboratory - Chemistry and C hemistry - challengeOrdered By: Cheryle Shannon on 06-14-2023 Albumin/Globulin [Mass ratio] 0.5 {ratio} 0.9-2.4 [facility] ALP [Catalytic activity/Vol] 74 U/L 45-117 [facility] ALT [Catalytic activity/Vol] 21 U/L 16-61 [facility] CO2 [Moles/Vol] 27.0 mmol/L 21.0-32.0 [facility] Globulin (S) [Mass/Vol] 4.5 g/dL 2.2-4.2 [facility] Urea nitrogen/Creatinine [Mass ratio] 16.9 mg/mg 10-20 [facility] - Hematology and Cell countsOrdered By: Cheryle Shannon on 06-14-2023 MCH (RBC) [Entitic mass] 32.9 pg 27.0-32.0 [facility] MCHC (RBC) [Mass/Vol] 32.8 g/dL 32-36 [facility] Nucleated RBC/100 WBC (Bld) [Ratio] 0 % 0-5 [facility] Platelets (Bld) [#/Vol] 317 10*3/uL 150-450 [facility] No Panel InformationOrdered By: Cheryle Shannon on 06-14-2023 Estimated GFR (MDRD) Amer 143 mL/min >60 [facility] Comment on above: GFR Calc Estimated GFR (MDRD) Non-Af Amer 118 mL/min >60 [facility] Comment on above: Non- GFR Calc Platelet mean volume Blayne-Ec ker (Bld) [Entitic vol]Ordered By: Cheryle Shannon on 06-14-2023 Platelet mean volume (Bld) [Entitic vol] 9.0 fL 6.2-12.0 [facility] RBC Auto (Bld) [#/Vol]Ordere d By: Cheryle Shannon on 06-14-2023 RBC (Bld) [#/Vol] 4.13 10*6/uL 4.6-6.2 [facility] Serum or plasma calcium torrie urement (mass/volume)Ordered By: Cheryle Shannon on 06-14-2023 Calcium [Mass/Vol] 9.0 mg/dL 8.5-10.1 [facility] Serum or plasma creatinine m easurement (mass/volume)Ordered By: Cheryle Shannon on 06-14-2023 Creatinine [Mass/Vol] 0.71 mg/dL 0.70-1.30 [facility] Comment on above: The validity of the calculated GFR & GFRAA in patients over 70 years has not been determined. Clinical correlation is essential. Serum or plasma urea nitroge n measurement (mass/volume)Ordered By: Cheryle Shannon on 06-14-2023 Urea nitrogen [Mass/Vol] 12 mg/dL 7-18 [facility] Thin prep Papanicolaou smear with manual screeningOrdered By: Cheryle Shannon on 06-14-2023 Thin prep Papanicolaou smear with manual screening 2.1 g/dL 3.2-5.0 [facility] Thin prep Papanicolaou smear with manual screening 16 U/L 15-37 [facility] Thin prep Papanicolaou smear with manual screening 5 5-15 [facility] Absolute lymphocyte countOrd ered By: Christoph Aparicio on 05-25-2023 Lymphocytes Auto (Unsp spec) [#/Vol] 0.59 10*3/uL 0.83-4.51 [facility] Basophil percentageOrdered B y: Saul Henry on 05-25-2023 Chloride [Moles/Vol] 111 mmol/L 98-107 [facility] Glucose [Mass/Vol] 159 mg/dL 74-106 [facility] Comment on above: Fasting Glucose resu lt greater than or equal to 126 mg/dL suggests DIABETES MELLITUS per A.D.A. criteria. Potassium [Moles/Vol] 3.9 mmol/L 3.5-5.1 [facility] Sodium [Moles/Vol] 138 mmol/L 136-145 [facility] Basophil percentageOrdered B y: Christoph Aparicio on 05-25-2023 Basophils/100 WBC (Bld) 0.3 % 0-1 [facility] Eosinophils/100 WBC (Bld) 0.0 % 0-5 [facility] Neutrophils (Bld) [#/Vol] 5.1 10*3/uL 2.0-7.7 [facility] Neutrophils/100 WBC (Bld) 85.0 % 47-70 [facility] WBC (Bld) [#/Vol] 6.0 10*3/uL 4.4-11.0 [facility] Blood erythrocytes count (nu mber/volume)Ordered By: Christoph Aparicio on 05-25-2023 RBC (Bld) [#/Vol] 4.71 10*6/uL 4.6-6.2 [facility] Blood hemoglobin measurement (mass/volume)Ordered By: Christoph Aparicio on 05-25-2023 Hemoglobin (Bld) [Mass/Vol] 15.6 g/dL 13.0-16.5 [facility] Blood lymphocytes/100 leukoc ytesOrdered By: Christoph Aparicio on 05-25-2023 Lymphocytes/100 WBC (Bld) 9.8 % 19-41 [facility] Blood manual differential co mment interpretation (narrative result)Ordered By: Christoph Aparicio on 05-25-2023 Manual differential comment [place]ilo (Bld) [Interp] SCANNED [facility] Blood monocytes/100 leukocyt esOrdered By: Christoph Aparicio on 05-25-2023 Monocytes/100 WBC (Bld) 4.6 % 0-10 [facility] Blood platelet mean volumeOr dered By: Christoph Aparicio on 05-25-2023 Platelet mean volume (Bld) [Entitic vol] 9.8 fL 6.2-12.0 [facility] Determination of erythrocyte mean corpuscular volume (MCV)Ordered By: Christoph Aparicio on 05-25-2023 MCV (RBC) [Entitic vol] 98.1 fL 80-94 [facility] Hematocrit Auto (Bld) [Volum e fraction]Ordered By: Christoph Aparicio on 05-25-2023 Hematocrit (Bld) [Volume fraction] 46.2 % 40-54 [facility] - Chemistry and C hemistry - challengeOrdered By: Saul Henry on 05-25-2023 CO2 [Moles/Vol] 24.0 mmol/L 21.0-32.0 [facility] Urea nitrogen/Creatinine [Mass ratio] 24.0 mg/mg 10-20 [facility] - Hematology and Cell countsOrdered By: Christoph Aparicio on 05-25-2023 Erythrocyte distribution width (RBC) [Entitic vol] 44.3 fL 35.1-43.9 [facility] Erythrocyte distribution width (RBC) [Ratio] 12.3 % 11.6-14.6 [facility] Immature granulocytes/100 WBC (Bld) 0.300 % 0.0-0.9 [facility] Comment on above: IG% - Immature Granu locytes (promyelocytes, myelocytes and metamyelocytes) > 1% indicates that a LEFT SHIFT is Present. MCH (RBC) [Entitic mass] 33.1 pg 27.0-32.0 [facility] Nucleated RBC/100 WBC (Bld) [Ratio] 0 % 0-5 [facility] MCHC Auto (RBC) [Mass/Vol]Or dered By: Christoph Aparicio on 05-25-2023 MCHC (RBC) [Mass/Vol] 33.8 g/dL 32-36 [facility] No Panel InformationOrdered By: Saul Henry on 05-25-2023 Estimated Creatinine Clearance Calc 64.69 ml/min [facility] Estimated GFR (MDRD) Amer 178 mL/min >60 [facility] Comment on above: GFR Calc Estimated GFR (MDRD) Non-Af Amer 147 mL/min >60 [facility] Comment on above: Non- GFR Calc No Panel InformationOrdered By: Christoph Aparicio on 05-25-2023 Reactive Lymphocytes 1+ [facility] Platelets bldOrdered By: Cole Aparicio on 05-25-2023 Platelets (Bld) [#/Vol] 151 10*3/uL 150-450 [facility] Serum or plasma calcium torrie urement (mass/volume)Ordered By: Saul Henry on 05-25-2023 Calcium [Mass/Vol] 8.1 mg/dL 8.5-10.1 [facility] Serum or plasma creatinine m easurement (mass/volume)Ordered By: Saul Henry on 05-25-2023 Creatinine [Mass/Vol] 0.58 mg/dL 0.70-1.30 [facility] Comment on above: The validity of the calculated GFR & GFRAA in patients over 70 years has not been determined. Clinical correlation is essential. Serum or plasma urea nitroge n measurement (mass/volume)Ordered By: Saul Henry on 05-25-2023 Urea nitrogen [Mass/Vol] 14 mg/dL 7-18 [facility] Thin prep Papanicolaou smear with manual screeningOrdered By: Saul Henry on 05-25-2023 Thin prep Papanicolaou smear with manual screening 3 5-15 [facility] Absolute lymphocyte countOrd ered By: Era William on 05-24-2023 Lymphocytes Auto (Unsp spec) [#/Vol] 0.71 10*3/uL 0.83-4.51 [facility] Assessment of wrist artery p atency prior to arterial punctureOrdered By: Christoph Aparicio on 05-24-2023 Arterial patency Wrist artery --pre arterial puncture Positive [facility] Base excessOrdered By: Jake Aparicio on 05-24-2023 Base excess Calc (BldV) [Moles/Vol] -2 mmol/L -2-2 [facility] Basophil percentageOrdered B y: Christoph Aparicio on 05-24-2023 Basophil percentage 22.5 mmol/L 22-26 [facility] Basophils/100 WBC (Bld) 92 % 95-99 [facility] Basophil percentageOrdered B y: Era William on 05-24-2023 Basophils/100 WBC (Bld) 0.2 % 0-1 [facility] Chloride [Moles/Vol] 101 mmol/L 98-107 [facility] Eosinophils/100 WBC (Bld) 0.0 % 0-5 [facility] Glucose [Mass/Vol] 120 mg/dL 74-106 [facility] Comment on above: Fasting Glucose resu lt from 100 to 125 mg/dL suggests IMPAIRED HOMEOSTASIS per A.D.A. criteria. Neutrophils (Bld) [#/Vol] 3.9 10*3/uL 2.0-7.7 [facility] Neutrophils/100 WBC (Bld) 74.3 % 47-70 [facility] Potassium [Moles/Vol] 4.5 mmol/L 3.5-5.1 [facility] Comment on above: Moderate Hemolysis, Result may be falsely increased. Sodium [Moles/Vol] 136 mmol/L 136-145 [facility] WBC (Bld) [#/Vol] 5.2 10*3/uL 4.4-11.0 [facility] Blood erythrocytes count (nu mber/volume)Ordered By: Era William on 05-24-2023 RBC (Bld) [#/Vol] 5.36 10*6/uL 4.6-6.2 [facility] Blood hemoglobin measurement (mass/volume)Ordered By: Era William on 05-24-2023 Hemoglobin (Bld) [Mass/Vol] 17.6 g/dL 13.0-16.5 [facility] Blood lymphocytes/100 leukoc ytesOrdered By: Era William on 05-24-2023 Lymphocytes/100 WBC (Bld) 13.6 % 19-41 [facility] Blood monocytes/100 leukocyt esOrdered By: Era William on 05-24-2023 Monocytes/100 WBC (Bld) 11.3 % 0-10 [facility] Blood platelet mean volumeOr dered By: Era William on 05-24-2023 Platelet mean volume (Bld) [Entitic vol] 10.2 fL 6.2-12.0 [facility] CNOVon 05-24-2023 CNOV Office Visit (UCWSTR) SIENA SOSA ([id number]) 1955 M Date Time Provider Department 05/24/23 11:45 AM JITENDRA TURNER [facility] During your visit today, we recorded the following information about you: Temperature Pulse Respiration Blood pressure 98.4 degrees 80/minute 18/minute 110/70 Weight 65.8 kg Jitendra Turner APRN.PHOTO TECH 05/24/2023 11:53 AM Signed Patient came in with complaints of wheezing and nausea. Patient coloring is more blue blue at this time. Patient is shaky. Patient said this is not his normal. Patient fell yesterday out of no where. pulse ox is 92% at rest. Patient is being referred to the emergency room for full evaluation. will take patient Allergies As of Date: 05/24/2023 Noted Allergy Reaction DANDELION EXTRACT 07/16/2022 7 - Swelling IBUPROFEN 07/28/2016 4 - Hives Date Reviewed: 01/10/2023 Reviewed by: Tom Sosa MD - Fully Assessed Primary Visit Diagnosis:SOB (shortness of breath) [R06.02] Prescriptions as of 05/24/2023 - methotrexate 2.5 mg tablet - albuterol HFA (PROAIR HFA) 90 mcg/actuation inhaler Inhale 2 Puffs as instructed every 4 hours as needed. - amLODIPine (NORVASC) 5 mg tablet TAKE 1 TABLET BY MOUTH EVERYDAY AT BEDTIME - BREO ELLIPTA 200-25 mcg/dose inhaler - metoprolol succinate ER (TOPROL XL) 50 mg 24 hr tablet - BABY ASPIRIN ORAL Take 81 mg by mouth once daily. - clopidogrel (PLAVIX) 75 mg tablet 75 mg once daily. - DULoxetine (CYMBALTA) 60 mg capsule Take 60 mg by mouth once daily. - atorvastatin (LIPITOR) 20 mg tablet Take 20 mg by mouth once daily. - folic acid 1 mg tablet Take 2 mg by mouth once daily. Problem List As Of Date 05/24/2023 Noted Resolved PAD (peripheral artery disease) ([facility]) [I73.9] 07/28/2016 Pulmonary emphysema ([facility]) [J43.9] 07/28/2016 Encounter Status:Closed by JITENDRA TURNER on 05/24/23 Normal [facility] CO2 (BldA) [Partial pressure ]Ordered By: Christoph Aparicio on 05-24-2023 CO2 (Bld) [Partial pressure] 32.6 mm[Hg] 35-45 [facility] Determination of erythrocyte mean corpuscular volume (MCV)Ordered By: Era William on 05-24-2023 MCV (RBC) [Entitic vol] 96.8 fL 80-94 [facility] Gram stain for investigation of transfusion reactionOrdered By: Christoph Aparicio on 05-24-2023 Microscopic observation Gram stain Nom (Unsp spec) [facility] Microscopic observation Gram stain Nom (Unsp spec) [facility] Hematocrit Auto (Bld) [Volum e fraction]Ordered By: Era William on 05-24-2023 Hematocrit (Bld) [Volume fraction] 51.9 % 40-54 [facility] - Chemistry and C hemistry - challengeOrdered By: Era William on 05-24-2023 CO2 [Moles/Vol] 30.0 mmol/L 21.0-32.0 [facility] Urea nitrogen/Creatinine [Mass ratio] 19.3 mg/mg 10-20 [facility] - Hematology and Cell countsOrdered By: Era William on 05-24-2023 Erythrocyte distribution width (RBC) [Entitic vol] 43.8 fL 35.1-43.9 [facility] Erythrocyte distribution width (RBC) [Ratio] 12.4 % 11.6-14.6 [facility] Immature granulocytes/100 WBC (Bld) 0.600 % 0.0-0.9 [facility] Comment on above: IG% - Immature Granu locytes (promyelocytes, myelocytes and metamyelocytes) > 1% indicates that a LEFT SHIFT is Present. MCH (RBC) [Entitic mass] 32.8 pg 27.0-32.0 [facility] Nucleated RBC/100 WBC (Bld) [Ratio] 0 % 0-5 [facility] MCHC Auto (RBC) [Mass/Vol]Or dered By: Era William on 05-24-2023 MCHC (RBC) [Mass/Vol] 33.9 g/dL 32-36 [facility] Microbial respiratory cultur eOrdered By: Christoph Aparicio on 05-24-2023 Bacteria identified Respiratory culture Nom (Unsp spec) [facility] Bacteria identified Respiratory culture Nom (Unsp spec) [facility] No Panel InformationOrdered By: Christoph Aparicio on 05-24-2023 Streptococcus pneumoniae Antigen (M [facility] Streptococcus pneumoniae Antigen (M [facility] Blood Gas Oxygen Percent 1.0 [facility] Blood Gas Sample Site R Radial [facility] Blood Gas Specimen Type ART [facility] Blood Gas Total CO2 24 mmol/L [facility] Blood Gas Vent Mode Not entered [facility] Oxygen Delivery Device Cannula [facility] No Panel InformationOrdered By: Era William on 05-24-2023 Estimated GFR (MDRD) Amer 119 mL/min >60 [facility] Comment on above: GFR Calc Estimated GFR (MDRD) Non-Af Amer 98 mL/min >60 [facility] Comment on above: Non- GFR Calc Reactive Lymphocytes 1+ [facility] Oxygen (BldA) [Partial press ure]Ordered By: Christoph Aparicio on 05-24-2023 Oxygen (Bld) [Partial pressure] 59 mmHG 75-100 [facility] Platelets bldOrdered By: [place] William on 05-24-2023 Platelets (Bld) [#/Vol] 164 10*3/uL 150-450 [facility] Respiratory pathogens detect ion panel by molecular detection methodOrdered By: Christoph Aparicio on 05-24-2023 Respiratory pathogens DNA and RNA panel ANETTE+probe (Resp) [facility] Respiratory pathogens DNA and RNA panel ANETTE+probe (Resp) [facility] Serum or plasma calcium torrie urement (mass/volume)Ordered By: Era William on 05-24-2023 Calcium [Mass/Vol] 8.2 mg/dL 8.5-10.1 [facility] Serum or plasma creatinine m easurement (mass/volume)Ordered By: Era William on 05-24-2023 Creatinine [Mass/Vol] 0.83 mg/dL 0.70-1.30 [facility] Comment on above: The validity of the calculated GFR & GFRAA in patients over 70 years has not been determined. Clinical correlation is essential. Serum or plasma urea nitroge n measurement (mass/volume)Ordered By: Era William on 05-24-2023 Urea nitrogen [Mass/Vol] 16 mg/dL 7-18 [facility] Thin prep Papanicolaou smear with manual screeningOrdered By: Era William on 05-24-2023 Thin prep Papanicolaou smear with manual screening 5 5-15 [facility] pH measurementOrdered By: Bossman Aparicio on 05-24-2023 pH (Unsp spec) 7.45 [pH] 7.35-7.45 [facility] Absolute lymphocyte countOrd ered By: Cheryle Shannon on 03-18-2023 Lymphocytes Auto (Unsp spec) [#/Vol] 1.70 10*3/uL 0.83-4.51 [facility] Basophil percentageOrdered B y: Cheryle Shannon on 03-18-2023 Basophils/100 WBC (Bld) 0.5 % 0-1 [facility] Bilirubin [Mass/Vol] 0.40 mg/dL 0.20-1.00 [facility] Comment on above: For patients on eltr ombopag therapy, use of Dimension [place] TBIL is not recommended. Chloride [Moles/Vol] 106 mmol/L 98-107 [facility] Eosinophils/100 WBC (Bld) 1.0 % 0-5 [facility] Glucose [Mass/Vol] 137 mg/dL 74-106 [facility] [facility] Comment on above: Fasting Glucose resu lt greater than or equal to 126 mg/dL suggests DIABETES MELLITUS per A.D.A. criteria. Neutrophils (Bld) [#/Vol] 8.5 10*3/uL 2.0-7.7 [facility] Neutrophils/100 WBC (Bld) 78.1 % 47-70 [facility] Potassium [Moles/Vol] 4.1 mmol/L 3.5-5.1 [facility] Protein [Mass/Vol] 6.7 g/dL 6.4-8.2 [facility] Sodium [Moles/Vol] 139 mmol/L 136-145 [facility] WBC (Bld) [#/Vol] 10.9 10*3/uL 4.4-11.0 [facility] Blood erythrocytes count (nu mber/volume)Ordered By: Cheryle Shannon on 03-18-2023 RBC (Bld) [#/Vol] 4.54 10*6/uL 4.6-6.2 [facility] Blood hemoglobin measurement (mass/volume)Ordered By: Cheryle Shannon on 03-18-2023 Hemoglobin (Bld) [Mass/Vol] 15.9 g/dL 13.0-16.5 [facility] Blood lymphocytes/100 leukoc ytesOrdered By: Cheryle Shannon on 03-18-2023 Lymphocytes/100 WBC (Bld) 15.6 % 19-41 [facility] Blood monocytes/100 leukocyt esOrdered By: Cheryle Shannon on 03-18-2023 Monocytes/100 WBC (Bld) 4.3 % 0-10 [facility] Blood platelet mean volumeOr dered By: Cheryle Shannon on 03-18-2023 Platelet mean volume (Bld) [Entitic vol] 9.4 fL 6.2-12.0 [facility] Determination of erythrocyte mean corpuscular volume (MCV)Ordered By: Cheryle Shannon on 03-18-2023 MCV (RBC) [Entitic vol] 101.8 fL 80-94 [facility] Hematocrit Auto (Bld) [Volum e fraction]Ordered By: Cheryle Shannon on 03-18-2023 Hematocrit (Bld) [Volume fraction] 46.2 % 40-54 [facility] Laboratory - Chemistry and C hemistry - challengeOrdered By: Cheryle Shannon on 03-18-2023 ALP [Catalytic activity/Vol] 90 U/L 45-117 [facility] ALT [Catalytic activity/Vol] 25 U/L 16-61 [facility] CO2 [Moles/Vol] 28.0 mmol/L 21.0-32.0 [facility] Globulin (S) [Mass/Vol] 3.4 g/dL 2.2-4.2 [facility] Urea nitrogen/Creatinine [Mass ratio] 18.1 mg/mg 10-20 [facility] Laboratory - Hematology and Cell countsOrdered By: Cheryle Shannon on 03-18-2023 Erythrocyte distribution width (RBC) [Entitic vol] 46.0 fL 35.1-43.9 [facility] Erythrocyte distribution width (RBC) [Ratio] 12.3 % 11.6-14.6 [facility] Immature granulocytes/100 WBC (Bld) 0.500 % 0.0-0.9 [facility] Comment on above: IG% - Immature Granu locytes (promyelocytes, myelocytes and metamyelocytes) > 1% indicates that a LEFT SHIFT is Present. MCH (RBC) [Entitic mass] 35.0 pg 27.0-32.0 [facility] Nucleated RBC/100 WBC (Bld) [Ratio] 0 % 0-5 [facility] MCHC Auto (RBC) [Mass/Vol]Or dered By: Cheryle Shannon on 03-18-2023 MCHC (RBC) [Mass/Vol] 34.4 g/dL 32-36 [facility] No Panel InformationOrdered By: Cheryle Shannon on 03-18-2023 Estimated GFR (MDRD) Amer 119 mL/min >60 [facility] Comment on above: GFR Calc Estimated GFR (MDRD) Non-Af Amer 98 mL/min >60 [facility] Comment on above: Non- GFR Calc Platelets bldOrdered By: Shellie Shannon on 03-18-2023 Platelets (Bld) [#/Vol] 241 10*3/uL 150-450 [facility] Serum or plasma albumin torrie urement (mass/volume)Ordered By: Cheryle Shannon on 03-18-2023 Albumin [Mass/Vol] 3.3 g/dL 3.2-5.0 [facility] Serum or plasma albumin/glob ulin mass ratioOrdered By: Cheryle Shannon on 03-18-2023 Albumin/Globulin [Mass ratio] 1.0 {ratio} 0.9-2.4 [facility] Serum or plasma calcium torrie urement (mass/volume)Ordered By: Cheryle Shannon on 03-18-2023 Calcium [Mass/Vol] 8.9 mg/dL 8.5-10.1 [facility] Serum or plasma creatinine m easurement (mass/volume)Ordered By: Cheryle Shannon on 03-18-2023 Creatinine [Mass/Vol] 0.83 mg/dL 0.70-1.30 [facility] Comment on above: The validity of the calculated GFR & GFRAA in patients over 70 years has not been determined. Clinical correlation is essential. Serum or plasma urea nitroge n measurement (mass/volume)Ordered By: Cheryle Shannon on 03-18-2023 Urea nitrogen [Mass/Vol] 15 mg/dL 7-18 [facility] Thin prep Papanicolaou smear with manual screeningOrdered By: Cheryle Shannon on 03-18-2023 Thin prep Papanicolaou smear with manual screening 16 U/L 15-37 [facility] Thin prep Papanicolaou smear with manual screening 5 5-15 [facility] Basophil percentageOrdered B y: Jessica Astorga on 01-21-2023 Cholesterol [Mass/Vol] 165 mg/dL <200 [facility] Comment on above: <200 mg/dL Desirable 200-240 mg/dL Borderline >240 mg/dL High Risk Triglyceride [Mass/Vol] 64 mg/dL <199 [facility] Comment on above: The drugs N-Acetylcy steine and Metamizole may falsely depress this assay.Serum Triglycerides Reference Interval Normal <150 mg/dL Borderline high 150 - 199 mg/dL High 200 - 499 mg/dL Very High > or = 500 mg/dL Laboratory - Chemistry and C hemistry - challengeOrdered By: Jessica Astorga on 01-21-2023 ALT [Catalytic activity/Vol] 25 U/L 16-61 [facility] No Panel InformationOrdered By: Jessica Astorga on 01-21-2023 Prostate Specific Antigen Screen 17.00 ng/mL 0.00-4.00 [facility] Comment on above: This test was perfor med using the TPSA assay method for [employer] chemistry system. Values obtained with differentassay methods cannot be used interchangably.When changing PSA assays in the course of monitoring apatient, additional sequential testing should be carriedout to confirm baseline values. Serum or plasma cholesterol in HDL measurement (mass/volume)Ordered By: Jessica Astorga on 01-21-2023 Cholesterol in HDL [Mass/Vol] 58 mg/dL >40 [facility] Comment on above: The drugs N-Acetylcy steine and Metamizole may falsely depress this assay. Reference Range HDL <40 mg/dL Low HDL Cholesterol HDL >or= 60 mg/dL High HDL Cholesterol Serum or plasma cholesterol in VLDL measurement (mass/volume)Ordered By: Jessica Astorga on 01-21-2023 Cholesterol in VLDL [Mass/Vol] 13 mg/dL 5-40 [facility] Serum or plasma low density lipoprotein (LDL) cholesterol measurement (mass/volume)Ordered By: Jessica Astorga on 01-21-2023 Cholesterol in LDL [Mass/Vol] 94 mg/dL 0-130 [facility] Thin prep Papanicolaou smear with manual screeningOrdered By: Jessica Astorga on 01-21-2023 Thin prep Papanicolaou smear with manual screening 18 U/L 15-37 [facility] CNPNon 12-24-2022 CNPN Telephone ([facility]) SIENA SOSA ([id number]) 1955 M Date Time Provider Department 12/24/22 [facility] During your visit today, we recorded the following information about you: Agueda Disla 12/24/2022 1:17 PM Signed Erick Siddiqui a voicemail for: schedule appt with Dr. Tom Sosa per Dr. Sosa's recommendation. Dr. Sosa thinks this pt should see him after reviewing the scans. He feels this is JAYCE. Allergies As of Date: 12/24/2022 Noted Allergy Reaction DANDELION EXTRACT 07/16/2022 7 - Swelling IBUPROFEN 07/28/2016 4 - Hives Date Reviewed: 12/20/2022 Reviewed by: Elayne Grover COA - Fully Assessed Reason for Visit: Appointment [186] Cmt: Erick gloria voicemail for: schedule appt with Dr. Tom Sosa per Dr. Sosa's recommendation. Dr. Sosa thinks this pt should see him after reviewing the scans. ?He feels this is JAYCE. Prescriptions as of 12/24/2022 - methotrexate 2.5 mg tablet - albuterol HFA (PROAIR HFA) 90 mcg/actuation inhaler Inhale 2 Puffs as instructed every 4 hours as needed. - benzonatate (TESSALON PERLE) 100 mg capsule Take 2 capsules by mouth three times daily as needed. - amLODIPine (NORVASC) 5 mg tablet TAKE 1 TABLET BY MOUTH EVERYDAY AT BEDTIME - BREO ELLIPTA 200-25 mcg/dose inhaler - metoprolol succinate ER (TOPROL XL) 50 mg 24 hr tablet - BABY ASPIRIN ORAL Take 81 mg by mouth once daily. - clopidogrel (PLAVIX) 75 mg tablet 75 mg once daily. - DULoxetine (CYMBALTA) 60 mg capsule Take 60 mg by mouth once daily. - atorvastatin (LIPITOR) 20 mg tablet Take 20 mg by mouth once daily. - folic acid 1 mg tablet Take 2 mg by mouth once daily. Problem List As Of Date 12/24/2022 Noted Resolved PAD (peripheral artery disease) (HCC) [I73.9] 07/28/2016 Pulmonary emphysema (HCC) [J43.9] 07/28/2016 Encounter Status:Closed by AGUEDA DISLA on 12/24/22 Normal [facility] Telephone (OPHTCR) SIENA SOSA ([id number]) 1955 M Date Time Provider Department 12/24/22 DUGLAS HARRISON OPHTCR During your visit today, we recorded the following information about you: Duglas Harrison MD 12/24/2022 11:30 AM Signed Discussed images/exam with Dr. Sosa and Jing Vallecillo. Exam with Dr. Sosa recommended. Notified pt that schedulers will call to establish appt. All questions answered. Allergies As of Date: 12/24/2022 Noted Allergy Reaction DANDELION EXTRACT 07/16/2022 7 - Swelling IBUPROFEN 07/28/2016 4 - Hives Date Reviewed: 12/20/2022 Reviewed by: Elayne Grover, ODILON - Fully Assessed Reason for Visit: Patient Update [1234] Prescriptions as of 12/24/2022 - methotrexate 2.5 mg tablet - albuterol HFA (PROAIR HFA) 90 mcg/actuation inhaler Inhale 2 Puffs as instructed every 4 hours as needed. - benzonatate (TESSALON PERLE) 100 mg capsule Take 2 capsules by mouth three times daily as needed. - amLODIPine (NORVASC) 5 mg tablet TAKE 1 TABLET BY MOUTH EVERYDAY AT BEDTIME - BREO ELLIPTA 200-25 mcg/dose inhaler - metoprolol succinate ER (TOPROL XL) 50 mg 24 hr tablet - BABY ASPIRIN ORAL Take 81 mg by mouth once daily. - clopidogrel (PLAVIX) 75 mg tablet 75 mg once daily. - DULoxetine (CYMBALTA) 60 mg capsule Take 60 mg by mouth once daily. - atorvastatin (LIPITOR) 20 mg tablet Take 20 mg by mouth once daily. - folic acid 1 mg tablet Take 2 mg by mouth once daily. Problem List As Of Date 12/24/2022 Noted Resolved PAD (peripheral artery disease) ([facility]) [I73.9] 07/28/2016 Pulmonary emphysema ([facility]) [J43.9] 07/28/2016 Encounter Status:Closed by DU[facility] ([id number]) 1955 M Date Time Provider Department 12/24/22 JING VALLECILLO OPHN During your visit today, we recorded the following information about you: Jing Vallecillo APRN.[facility] 12/24/2022 5:06 PM Signed Phoned pt. Scheduled with Dr. Tom Sosa on 01/10 at 11:30am. Allergies As of Date: 12/24/2022 Noted Allergy Reaction DANDELION EXTRACT 07/16/2022 7 - Swelling IBUPROFEN 07/28/2016 4 - Hives Date Reviewed: 12/20/2022 Reviewed by: Elayne Grover, COA - Fully Assessed Reason for Visit: Appointment [186] Prescriptions as of 12/24/2022 - methotrexate 2.5 mg tablet - albuterol HFA (PROAIR HFA) 90 mcg/actuation inhaler Inhale 2 Puffs as instructed every 4 hours as needed. - benzonatate (TESSALON PERLE) 100 mg capsule Take 2 capsules by mouth three times daily as needed. - amLODIPine (NORVASC) 5 mg tablet TAKE 1 TABLET BY MOUTH EVERYDAY AT BEDTIME - BREO ELLIPTA 200-25 mcg/dose inhaler - metoprolol succinate ER (TOPROL XL) 50 mg 24 hr tablet - BABY ASPIRIN ORAL Take 81 mg by mouth once daily. - clopidogrel (PLAVIX) 75 mg tablet 75 mg once daily. - DULoxetine (CYMBALTA) 60 mg capsule Take 60 mg by mouth once daily. - atorvastatin (LIPITOR) 20 mg tablet Take 20 mg by mouth once daily. - folic acid 1 mg tablet Take 2 mg by mouth once daily. Problem List As Of Date 12/24/2022 Noted Resolved PAD (peripheral artery disease) (HCC) [I73.9] 07/28/2016 Pulmonary emphysema (HCC) [J43.9] 07/28/2016 Encounter Status:Closed by JING VALLECILLO on 12/24/22 Normal [facility] Absolute lymphocyte countOrd ered By: Cheryle Shannon on 12-23-2022 Lymphocytes Auto (Unsp spec) [#/Vol] 2.29 10*3/uL 0.83-4.51 [facility] Basophil percentageOrdered B y: Cheryle Shannon on 12-23-2022 Basophils/100 WBC (Bld) 0.6 % 0-1 [facility] Bilirubin [Mass/Vol] 0.30 mg/dL 0.20-1.00 [facility] Comment on above: For patients on eltr ombopag therapy, use of Dimension [place] TBIL is not recommended. Chloride [Moles/Vol] 108 mmol/L 98-107 [facility] Eosinophils/100 WBC (Bld) 2.2 % 0-5 [facility] Glucose [Mass/Vol] 85 mg/dL 74-106 [facility] Neutrophils (Bld) [#/Vol] 6.0 10*3/uL 2.0-7.7 [facility] Neutrophils/100 WBC (Bld) 64.1 % 47-70 [facility] Potassium [Moles/Vol] 3.9 mmol/L 3.5-5.1 [facility] Protein [Mass/Vol] 6.7 g/dL 6.4-8.2 [facility] Sodium [Moles/Vol] 140 mmol/L 136-145 [facility] WBC (Bld) [#/Vol] 9.4 10*3/uL 4.4-11.0 [facility] Blood erythrocytes count (nu mber/volume)Ordered By: Cheryle Shannon on 12-23-2022 RBC (Bld) [#/Vol] 4.61 10*6/uL 4.6-6.2 [facility] Blood hemoglobin measurement (mass/volume)Ordered By: Cheryle Shannon on 12-23-2022 Hemoglobin (Bld) [Mass/Vol] 16.1 g/dL 13.0-16.5 [facility] Blood lymphocytes/100 leukoc ytesOrdered By: Cheryle Shannon on 12-23-2022 Lymphocytes/100 WBC (Bld) 24.5 % 19-41 [facility] Blood monocytes/100 leukocyt esOrdered By: Cheryle Shannon on 12-23-2022 Monocytes/100 WBC (Bld) 8.2 % 0-10 [facility] Blood platelet mean volumeOr dered By: Cheryle Shannon on 12-23-2022 Platelet mean volume (Bld) [Entitic vol] 9.5 fL 6.2-12.0 [facility] Determination of erythrocyte mean corpuscular volume (MCV)Ordered By: Cheryle Shannon on 12-23-2022 MCV (RBC) [Entitic vol] 100.4 fL 80-94 [facility] Hematocrit Auto (Bld) [Volum e fraction]Ordered By: Cheryle Shannon on 12-23-2022 Hematocrit (Bld) [Volume fraction] 46.3 % 40-54 [facility] Laboratory - Chemistry and C hemistry - challengeOrdered By: [facility] Mirtha on 12-23-2022 ALP [Catalytic activity/Vol] 80 U/L 45-117 [facility] ALT [Catalytic activity/Vol] 28 U/L 16-61 [facility] CO2 [Moles/Vol] 31.0 mmol/L 21.0-32.0 [facility] Globulin (S) [Mass/Vol] 3.3 g/dL 2.2-4.2 [facility] Urea nitrogen/Creatinine [Mass ratio] 12.6 mg/mg 10-20 [facility] Laboratory - Hematology and Cell countsOrdered By: Cherylerobbie Shannon on 12-23-2022 Erythrocyte distribution width (RBC) [Entitic vol] 48.3 fL 35.1-43.9 [facility] Erythrocyte distribution width (RBC) [Ratio] 13.1 % 11.6-14.6 [facility] Immature granulocytes/100 WBC (Bld) 0.400 % 0.0-0.9 [facility] Comment on above: IG% - Immature Granu locytes (promyelocytes, myelocytes and metamyelocytes) > 1% indicates that a LEFT SHIFT is Present. MCH (RBC) [Entitic mass] 34.9 pg 27.0-32.0 [facility] Nucleated RBC/100 WBC (Bld) [Ratio] 0 % 0-5 [facility] MCHC Auto (RBC) [Mass/Vol]Or dered By: Chreyle Shannon on 12-23-2022 MCHC (RBC) [Mass/Vol] 34.8 g/dL 32-36 [facility] No Panel InformationOrdered By: Cheryle Shannon on 12-23-2022 Estimated GFR (MDRD) Amer 125 mL/min >60 [facility] Comment on above: GFR Calc Estimated GFR (MDRD) Non-Af Amer 103 mL/min >60 [facility] Comment on above: Non- GFR Calc Platelets bldOrdered By: Shellie Shannon on 12-23-2022 Platelets (Bld) [#/Vol] 262 10*3/uL 150-450 [facility] Serum or plasma albumin torrie urement (mass/volume)Ordered By: Cheryle Shannon on 12-23-2022 Albumin [Mass/Vol] 3.4 g/dL 3.2-5.0 [facility] Serum or plasma albumin/glob ulin mass ratioOrdered By: Cheryle Shannon on 12-23-2022 Albumin/Globulin [Mass ratio] 1.0 {ratio} 0.9-2.4 [facility] Serum or plasma calcium torrie urement (mass/volume)Ordered By: Cheryle Shannon on 12-23-2022 Calcium [Mass/Vol] 9.0 mg/dL 8.5-10.1 [facility] Serum or plasma creatinine m easurement (mass/volume)Ordered By: Cheryle Shannon on 12-23-2022 Creatinine [Mass/Vol] 0.80 mg/dL 0.70-1.30 [facility] Comment on above: The validity of the calculated GFR & GFRAA in patients over 70 years has not been determined. Clinical correlation is essential. Serum or plasma urea nitroge n measurement (mass/volume)Ordered By: Cheryle Shannon on 12-23-2022 Urea nitrogen [Mass/Vol] 10 mg/dL 7-18 [facility] Thin prep Papanicolaou smear with manual screeningOrdered By: Cheryle Shannon on 12-23-2022 Thin prep Papanicolaou smear with manual screening 17 U/L 15-37 [facility] Thin prep Papanicolaou smear with manual screening 1 5-15 [facility] CNPNon 11-02-2022 CNPN Telephone (OPHTMN) SIENA SOSA ([id number]) 1955 M Date Time Provider Department 11/02/22 CLIFF HICKS During your visit today, we recorded the following information about you: Gia Magdiel 11/02/2022 4:50 PM Signed Patient is being referred by Dr. Lozano for a corneal contusion and the doctor would like to know if you can see the patient sooner than the NA appt. Records are in your office for review. Cliff Hicks MD 11/03/2022 2:39 PM Signed I reviewed the notes-I would suggest trying to get in with any of our cornea providers in the meantime for an initial consultation. If needed, I can always see the patient in follow-up if my input is needed but I would expect any of her cornea doctors could at least provide some initial guidance here. Malini Coffman 11/04/2022 10:22 AM Signed Appointment appears to have been scheduled with Dr. Harrison on 12/20/22. Allergies As of Date: 11/02/2022 Noted Allergy Reaction IBUPROFEN 07/28/2016 4 - Hives Date Reviewed: 05/17/2022 Reviewed by: Priscilla Lowe MA - Fully Assessed Reason for Visit: Appointment [186] Received Outside Medical Records [[id number]] Prescriptions as of 11/04/2022 - albuterol HFA (PROAIR HFA) 90 mcg/actuation inhaler Inhale 2 Puffs as instructed every 4 hours as needed. - benzonatate (TESSALON PERLE) 100 mg capsule Take 2 capsules by mouth three times daily as needed. - amLODIPine (NORVASC) 5 mg tablet TAKE 1 TABLET BY MOUTH EVERYDAY AT BEDTIME - BREO ELLIPTA 200-25 mcg/dose inhaler - metoprolol succinate ER (TOPROL XL) 50 mg 24 hr tablet - BABY ASPIRIN ORAL Take 81 mg by mouth once daily. - clopidogrel (PLAVIX) 75 mg tablet 75 mg once daily. - DULoxetine (CYMBALTA) 60 mg capsule Take 60 mg by mouth once daily. - atorvastatin (LIPITOR) 20 mg tablet Take 20 mg by mouth once daily. - folic acid 1 mg tablet Take 2 mg by mouth once daily. Problem List As Of Date 11/02/2022 Noted Resolved PAD (peripheral artery disease) ([facility]) [I73.9] 07/28/2016 Pulmonary emphysema ([facility]) [J43.9] 07/28/2016 Encounter Status:Closed by CLIFF HICKS on 11/03/22 Normal [facility] Absolute lymphocyte countOrd ered By: Dr. Shannon on 09-22-2022 Lymphocytes Auto (Unsp spec) [#/Vol] 2.12 10*3/uL 0.83-4.51 [facility] Basophil percentageOrdered B y: Dr. Shannon on 09-22-2022 Basophils/100 WBC (Bld) 0.7 % 0-1 [facility] Bilirubin [Mass/Vol] 0.40 mg/dL 0.20-1.00 [facility] Comment on above: For patients on eltr ombopag therapy, use of Dimension [place] TBIL is not recommended. Chloride [Moles/Vol] 106 mmol/L 98-107 [facility] Eosinophils/100 WBC (Bld) 1.4 % 0-5 [facility] Glucose [Mass/Vol] 109 mg/dL 74-106 [facility] Comment on above: Fasting Glucose resu lt from 100 to 125 mg/dL suggests IMPAIRED HOMEOSTASIS per A.D.A. criteria. Neutrophils (Bld) [#/Vol] 7.4 10*3/uL 2.0-7.7 [facility] Neutrophils/100 WBC (Bld) 70.7 % 47-70 [facility] Potassium [Moles/Vol] 4.2 mmol/L 3.5-5.1 [facility] Protein [Mass/Vol] 6.9 g/dL 6.4-8.2 [facility] Sodium [Moles/Vol] 140 mmol/L 136-145 [facility] WBC (Bld) [#/Vol] 10.5 10*3/uL 4.4-11.0 [facility] Blood erythrocytes count (nu mber/volume)Ordered By: Dr. Shannon on 09-22-2022 RBC (Bld) [#/Vol] 4.90 10*6/uL 4.6-6.2 [facility] Blood hemoglobin measurement (mass/volume)Ordered By: Dr. Shannon on 09-22-2022 Hemoglobin (Bld) [Mass/Vol] 16.8 g/dL 13.0-16.5 [facility] Blood lymphocytes/100 leukoc ytesOrdered By: Dr. Shannon on 09-22-2022 Lymphocytes/100 WBC (Bld) 20.3 % 19-41 [facility] Blood monocytes/100 leukocyt esOrdered By: Dr. Shannon on 09-22-2022 Monocytes/100 WBC (Bld) 6.5 % 0-10 [facility] Blood platelet mean volumeOr dered By: Dr. Shannon on 09-22-2022 Platelet mean volume (Bld) [Entitic vol] 9.9 fL 6.2-12.0 [facility] Determination of erythrocyte mean corpuscular volume (MCV)Ordered By: Dr. Shannon on 09-22-2022 MCV (RBC) [Entitic vol] 100.2 fL 80-94 [facility] Hematocrit Auto (Bld) [Volum e fraction]Ordered By: Dr. Shannon on 09-22-2022 Hematocrit (Bld) [Volume fraction] 49.1 % 40-54 [facility] Laboratory - Chemistry and C hemistry - challengeOrdered By: Dr. Shannon on 09-22-2022 ALP [Catalytic activity/Vol] 90 U/L 45-117 [facility] ALT [Catalytic activity/Vol] 34 U/L 16-61 [facility] CO2 [Moles/Vol] 26.0 mmol/L 21.0-32.0 [facility] Globulin (S) [Mass/Vol] 3.2 g/dL 2.2-4.2 [facility] Urea nitrogen/Creatinine [Mass ratio] 13.6 mg/mg 10-20 [facility] Laboratory - Hematology and Cell countsOrdered By: Dr. Shannon on 09-22-2022 Erythrocyte distribution width (RBC) [Entitic vol] 48.8 fL 35.1-43.9 [facility] Erythrocyte distribution width (RBC) [Ratio] 13.2 % 11.6-14.6 [facility] Immature granulocytes/100 WBC (Bld) 0.400 % 0.0-0.9 [facility] Comment on above: IG% - Immature Granu locytes (promyelocytes, myelocytes and metamyelocytes) > 1% indicates that a LEFT SHIFT is Present. MCH (RBC) [Entitic mass] 34.3 pg 27.0-32.0 [facility] Nucleated RBC/100 WBC (Bld) [Ratio] 0 % 0-5 [facility] MCHC Auto (RBC) [Mass/Vol]Or dered By: Dr. Shannon on 09-22-2022 MCHC (RBC) [Mass/Vol] 34.2 g/dL 32-36 [facility] No Panel InformationOrdered By: Dr. Shannno on 09-22-2022 Estimated GFR (MDRD) Amer 101 mL/min >60 [facility] Comment on above: GFR Calc Estimated GFR (MDRD) Non-Af Amer 83 mL/min >60 [facility] Comment on above: Non- GFR Calc Platelets bldOrdered By: Dr. Shannon on 09-22-2022 Platelets (Bld) [#/Vol] 278 10*3/uL 150-450 [facility] Serum or plasma albumin torrie urement (mass/volume)Ordered By: Dr. Shannon on 09-22-2022 Albumin [Mass/Vol] 3.7 g/dL 3.2-5.0 [facility] Serum or plasma albumin/glob ulin mass ratioOrdered By: Dr. Shannon on 09-22-2022 Albumin/Globulin [Mass ratio] 1.2 {ratio} 0.9-2.4 [facility] Serum or plasma calcium torrie urement (mass/volume)Ordered By: Dr. Shannon on 09-22-2022 Calcium [Mass/Vol] 9.1 mg/dL 8.5-10.1 [facility] Serum or plasma creatinine m easurement (mass/volume)Ordered By: Dr. Shannon on 09-22-2022 Creatinine [Mass/Vol] 0.96 mg/dL 0.70-1.30 [facility] Comment on above: The validity of the calculated GFR & GFRAA in patients over 70 years has not been determined. Clinical correlation is essential. Serum or plasma urea nitroge n measurement (mass/volume)Ordered By: Dr. Shannon on 09-22-2022 Urea nitrogen [Mass/Vol] 13 mg/dL 7-18 [facility] Thin prep Papanicolaou smear with manual screeningOrdered By: Dr. Shannon on 09-22-2022 Thin prep Papanicolaou smear with manual screening 22 U/L 15-37 [facility] Thin prep Papanicolaou smear with manual screening 8 5-15 [facility] Absolute lymphocyte countOrd ered By: Dr. Shannon on 06-23-2022 Lymphocytes Auto (Unsp spec) [#/Vol] 2.17 10*3/uL 0.83-4.51 [facility] Basophil percentageOrdered B y: Dr. Shannon on 06-23-2022 Basophils/100 WBC (Bld) 0.5 % 0-1 [facility] Bilirubin [Mass/Vol] 0.50 mg/dL 0.20-1.00 [facility] Comment on above: For patients on eltr ombopag therapy, use of Dimension [place] TBIL is not recommended. Chloride [Moles/Vol] 107 mmol/L 98-107 [facility] Eosinophils/100 WBC (Bld) 0.9 % 0-5 [facility] Glucose [Mass/Vol] 102 mg/dL 74-106 [facility] Comment on above: Fasting Glucose resu lt from 100 to 125 mg/dL suggests IMPAIRED HOMEOSTASIS per A.D.A. criteria. Neutrophils (Bld) [#/Vol] 7.1 10*3/uL 2.0-7.7 [facility] Neutrophils/100 WBC (Bld) 68.9 % 47-70 [facility] Potassium [Moles/Vol] 4.5 mmol/L 3.5-5.1 [facility] Comment on above: Slight Hemolysis, Re sult may be falsely increased. Protein [Mass/Vol] 7.2 g/dL 6.4-8.2 [facility] Sodium [Moles/Vol] 142 mmol/L 136-145 [facility] WBC (Bld) [#/Vol] 10.2 10*3/uL 4.4-11.0 [facility] Blood erythrocytes count (nu mber/volume)Ordered By: Dr. Shannon on 06-23-2022 RBC (Bld) [#/Vol] 4.80 10*6/uL 4.6-6.2 [facility] Blood hemoglobin measurement (mass/volume)Ordered By: Dr. Shannon on 06-23-2022 Hemoglobin (Bld) [Mass/Vol] 15.8 g/dL 13.0-16.5 [facility] Blood lymphocytes/100 leukoc ytesOrdered By: Dr. Shannon on 06-23-2022 Lymphocytes/100 WBC (Bld) 21.2 % 19-41 [facility] Blood monocytes/100 leukocyt esOrdered By: Dr. Shannon on 06-23-2022 Monocytes/100 WBC (Bld) 6.5 % 0-10 [facility] Blood platelet mean volumeOr dered By: Dr. Shannon on 06-23-2022 Platelet mean volume (Bld) [Entitic vol] 9.7 fL 6.2-12.0 [facility] Determination of erythrocyte mean corpuscular volume (MCV)Ordered By: Dr. Shannon on 06-23-2022 MCV (RBC) [Entitic vol] 101.5 fL 80-94 [facility] Hematocrit Auto (Bld) [Volum e fraction]Ordered By: Dr. Shannon on 06-23-2022 Hematocrit (Bld) [Volume fraction] 48.7 % 40-54 [facility] Laboratory - Chemistry and C hemistry - challengeOrdered By: Dr. Shannon on 06-23-2022 ALP [Catalytic activity/Vol] 76 U/L 45-117 [facility] ALT [Catalytic activity/Vol] 28 U/L 16-61 [facility] CO2 [Moles/Vol] 27.0 mmol/L 21.0-32.0 [facility] Globulin (S) [Mass/Vol] 3.3 g/dL 2.2-4.2 [facility] Urea nitrogen/Creatinine [Mass ratio] 14.0 mg/mg 10-20 [facility] Laboratory - Hematology and Cell countsOrdered By: Dr. Shannon on 06-23-2022 Erythrocyte distribution width (RBC) [Entitic vol] 46.8 fL 35.1-43.9 [facility] Erythrocyte distribution width (RBC) [Ratio] 12.5 % 11.6-14.6 [facility] Immature granulocytes/100 WBC (Bld) 2.000 % 0.0-0.9 [facility] Comment on above: IG% - Immature Granu locytes (promyelocytes, myelocytes and metamyelocytes) > 1% indicates that a LEFT SHIFT is Present. MCH (RBC) [Entitic mass] 32.9 pg 27.0-32.0 [facility] Nucleated RBC/100 WBC (Bld) [Ratio] 0 % 0-5 [facility] MCHC Auto (RBC) [Mass/Vol]Or dered By: Dr. Shannon on 06-23-2022 MCHC (RBC) [Mass/Vol] 32.4 g/dL 32-36 [facility] No Panel InformationOrdered By: Dr. Shannon on 06-23-2022 Estimated GFR (MDRD) Amer 127 mL/min >60 [facility] Comment on above: GFR Calc Estimated GFR (MDRD) Non-Af Amer 105 mL/min >60 [facility] Comment on above: Non- GFR Calc Platelets bldOrdered By: Dr. Shannon on 06-23-2022 Platelets (Bld) [#/Vol] 281 10*3/uL 150-450 [facility] Serum or plasma albumin torrie urement (mass/volume)Ordered By: Dr. Shannon on 06-23-2022 Albumin [Mass/Vol] 3.9 g/dL 3.2-5.0 [facility] Serum or plasma albumin/glob ulin mass ratioOrdered By: Dr. Shannon on 06-23-2022 Albumin/Globulin [Mass ratio] 1.2 {ratio} 0.9-2.4 [facility] Serum or plasma calcium torrie urement (mass/volume)Ordered By: Dr. Shannon on 06-23-2022 Calcium [Mass/Vol] 8.9 mg/dL 8.5-10.1 [facility] Serum or plasma creatinine m easurement (mass/volume)Ordered By: Dr. Shannon on 06-23-2022 Creatinine [Mass/Vol] 0.78 mg/dL 0.70-1.30 [facility] Comment on above: The validity of the calculated GFR & GFRAA in patients over 70 years has not been determined. Clinical correlation is essential. Serum or plasma urea nitroge n measurement (mass/volume)Ordered By: Dr. Shannon on 06-23-2022 Urea nitrogen [Mass/Vol] 11 mg/dL 7-18 [facility] Thin prep Papanicolaou smear with manual screeningOrdered By: Dr. Shannon on 06-23-2022 Thin prep Papanicolaou smear with manual screening 23 U/L 15-37 [facility] Comment on above: Slight Hemolysis, Re sult may be falsely increased. Thin prep Papanicolaou smear with manual screening 8 5-15 [facility] XR CHEST 2V FRONTAL/LATon [facility] XR Chest PA and Lateralon IMPRESSION: Bilateral perihilar hazy opacities may be infectious/inflammat ory Travel Ticketing Reviewer: [facility] Transcribe Date/Time: May 18 2022 10:16A Dictated by : KIM JONES MD This examination was interpreted and the report reviewed and electronically signed by: KIM JONES MD on May 18 2022 10:17AM [facility] DIVISION OF RADIOLOGY * * *Final Report* * * DATE OF EXAM: May 18 2022 10:05AM WOX 5291 - XR CHEST 2V FRONTAL/LAT / PROCEDURE REASON: Acute cough * * * * Physician Interpretation * * * * EXAMINATION: CHEST RADIOGRAPH (2 VIEW FRONTAL & LATERAL) CLINICAL HISTORY: Acute cough MQ: XC2_6 EXAM DATE/TIME: 05/18/2022 10:05 AM COMPARISON: No relevant prior studies available. RESULT: Lines, tubes, and devices: None. Lungs and pleura: Bilateral perihilar hazy opacities. Hyperinflation of the lungs. No pleural effusion or pneumothorax. Cardiomediastinal silhouette: Normal cardiomediastinal silhouette. Bones and soft tissues: Degenerative disease of the thoracic spine. DIVISION OF RADIOLOGY Provider, [facility] [place] - 05/18/2022 * * *Final Report* * * DATE OF EXAM: May 18 2022 10:05AM WOX 5291 - XR CHEST 2V FRONTAL/LAT / PROCEDURE REASON: Acute cough * * * * Physician Interpretation * * * * EXAMINATION: CHEST RADIOGRAPH (2 VIEW FRONTAL & LATERAL) CLINICAL HISTORY: Acute cough MQ: XC2_6 EXAM DATE/TIME: 05/18/2022 10:05 AM COMPARISON: No relevant prior studies available. RESULT: Lines, tubes, and devices: None. Lungs and pleura: Bilateral perihilar hazy opacities. Hyperinflation of the lungs. No pleural effusion or pneumothorax. Cardiomediastinal silhouette: Normal cardiomediastinal silhouette. Bones and soft tissues: Degenerative disease of the thoracic spine. IMPRESSION IMPRESSION: Bilateral perihilar hazy opacities may be infectious/inflammat ory Travel Ticketing Reviewer: ANNI Transcribe Date/Time: May 18 2022 10:16A Dictated by : KIM JONES MD This examination was interpreted and the report reviewed and electronically signed by: KIM JONES MD on May 18 2022 10:17AM EST [facility] Radiology Study observation (narrative) [facility]ureano [facility] XR Chest PA and LateralOrder ed By: [facility]cf Provider on 05-18-2022 [facility] Absolute lymphocyte countOrd ered By: Dr. Shannon on 03-23-2022 Lymphocytes Auto (Unsp spec) [#/Vol] 2.30 10*3/uL 0.83-4.51 [facility] Basophil percentageOrdered B y: Dr. Shannon on 03-23-2022 Basophils/100 WBC (Bld) 0.7 % 0-1 [facility] Bilirubin [Mass/Vol] 0.50 mg/dL 0.20-1.00 [facility] Comment on above: For patients on eltr ombopag therapy, use of Dimension [place] TBIL is not recommended. Chloride [Moles/Vol] 105 mmol/L 98-107 [facility] Eosinophils/100 WBC (Bld) 1.3 % 0-5 [facility] Glucose [Mass/Vol] 93 mg/dL 74-106 [facility] Neutrophils (Bld) [#/Vol] 6.8 10*3/uL 2.0-7.7 [facility] Neutrophils/100 WBC (Bld) 68.6 % 47-70 [facility] Potassium [Moles/Vol] 4.3 mmol/L 3.5-5.1 [facility] Protein [Mass/Vol] 7.0 g/dL 6.4-8.2 [facility] Sodium [Moles/Vol] 138 mmol/L 136-145 [facility] WBC (Bld) [#/Vol] 9.9 10*3/uL 4.4-11.0 [facility] Blood erythrocytes count (nu mber/volume)Ordered By: Dr. Shannon on 03-23-2022 RBC (Bld) [#/Vol] 4.71 10*6/uL 4.6-6.2 [facility] Blood hemoglobin measurement (mass/volume)Ordered By: Dr. Shannon on 03-23-2022 Hemoglobin (Bld) [Mass/Vol] 16.1 g/dL 13.0-16.5 [facility] Blood lymphocytes/100 leukoc ytesOrdered By: Dr. Shannon on 03-23-2022 Lymphocytes/100 WBC (Bld) 23.1 % 19-41 [facility] Blood monocytes/100 leukocyt esOrdered By: Dr. Shannon on 03-23-2022 Monocytes/100 WBC (Bld) 6.1 % 0-10 [facility] Blood platelet mean volumeOr dered By: Dr. Shannon on 03-23-2022 Platelet mean volume (Bld) [Entitic vol] 9.7 fL 6.2-12.0 [facility] Determination of erythrocyte mean corpuscular volume (MCV)Ordered By: Dr. Shannon on 03-23-2022 MCV (RBC) [Entitic vol] 100.4 fL 80-94 [facility] Hematocrit Auto (Bld) [Volum e fraction]Ordered By: Dr. Shannon on 03-23-2022 Hematocrit (Bld) [Volume fraction] 47.3 % 40-54 [facility] Laboratory - Chemistry and C hemistry - challengeOrdered By: Dr. Shannon on 03-23-2022 ALP [Catalytic activity/Vol] 79 U/L 45-117 [facility] ALT [Catalytic activity/Vol] 28 U/L 16-61 [facility] CO2 [Moles/Vol] 28.0 mmol/L 21.0-32.0 [facility] Globulin (S) [Mass/Vol] 3.3 g/dL 2.2-4.2 [facility] Urea nitrogen/Creatinine [Mass ratio] 15.2 mg/mg 10-20 [facility] Laboratory - Hematology and Cell countsOrdered By: Dr. Shannon on 03-23-2022 Erythrocyte distribution width (RBC) [Entitic vol] 48.4 fL 35.1-43.9 [facility] Erythrocyte distribution width (RBC) [Ratio] 13.0 % 11.6-14.6 [facility] Immature granulocytes/100 WBC (Bld) 0.200 % 0.0-0.9 [facility] Comment on above: IG% - Immature Granu locytes (promyelocytes, myelocytes and metamyelocytes) > 1% indicates that a LEFT SHIFT is Present. MCH (RBC) [Entitic mass] 34.2 pg 27.0-32.0 [facility] Nucleated RBC/100 WBC (Bld) [Ratio] 0 % 0-5 [facility] MCHC Auto (RBC) [Mass/Vol]Or dered By: Dr. Shannon on 03-23-2022 MCHC (RBC) [Mass/Vol] 34.0 g/dL 32-36 [facility] No Panel InformationOrdered By: Dr. Shannon on 03-23-2022 Estimated GFR (MDRD) Amer 139 mL/min >60 [facility] Comment on above: GFR Calc Estimated GFR (MDRD) Non-Af Amer 115 mL/min >60 [facility] Comment on above: Non- GFR Calc Platelets bldOrdered By: Dr. Shannon on 03-23-2022 Platelets (Bld) [#/Vol] 306 10*3/uL 150-450 [facility] Serum or plasma albumin torrie urement (mass/volume)Ordered By: Dr. Shannon on 03-23-2022 Albumin [Mass/Vol] 3.7 g/dL 3.2-5.0 [facility] Serum or plasma albumin/glob ulin mass ratioOrdered By: Dr. Shannon on 03-23-2022 Albumin/Globulin [Mass ratio] 1.1 {ratio} 0.9-2.4 [facility] Serum or plasma calcium torrie urement (mass/volume)Ordered By: Dr. Shannon on 03-23-2022 Calcium [Mass/Vol] 9.2 mg/dL 8.5-10.1 [facility] Serum or plasma creatinine m easurement (mass/volume)Ordered By: Dr. Shannon on 03-23-2022 Creatinine [Mass/Vol] 0.73 mg/dL 0.70-1.30 [facility] Comment on above: The validity of the calculated GFR & GFRAA in patients over 70 years has not been determined. Clinical correlation is essential. Serum or plasma urea nitroge n measurement (mass/volume)Ordered By: Dr. Shannon on 03-23-2022 Urea nitrogen [Mass/Vol] 11 mg/dL 7-18 [facility] Thin prep Papanicolaou smear with manual screeningOrdered By: Dr. 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 Travel Ticketing Reviewer: ANNI Transcribe Date/Time: Jan 14 2022 12:32P Dictated by : LON WHITE MD This examination was interpreted and the report reviewed and electronically signed by: LON WHITE MD on Jan 14 2022 12:34PM [facility] DIVISION OF RADIOLOGY * * *Final Report* * * DATE OF EXAM: Jan 14 2022 12:27PM WOX 5228 - XR LUMBAR 3V AP/LAT/L5-S1 / PROCEDURE REASON: Left sided sciatica * * * * Physician Interpretation * * * * EXAM TITLE: XR LUMBAR 3V AP/LAT/L5-S1 EXAM DATE/TIME: 01/14/2022 12:27 PM COMPARISON: None. CLINICAL INDICATION/HISTORY: Pain. TECHNIQUE: AP, lateral and cone down lateral views of the lumbar spine are presented. FINDINGS: There are five [id number] lumbar vertebrae. No acute fracture or subluxations are noted. There is diffuse disc space narrowing involving L1-L5 levels. There is at least moderate osteophyte formation. Others: Degenerative changes noted in bilateral hips. DIVISION OF RADIOLOGY Provider, [facility] [place] - 01/14/2022 * * *Final Report* * * DATE OF EXAM: Jan 14 2022 12:27PM WOX 5228 - XR LUMBAR 3V AP/LAT/L5-S1 / PROCEDURE REASON: Left sided sciatica * * * * Physician Interpretation * * * * EXAM TITLE: XR LUMBAR 3V AP/LAT/L5-S1 EXAM DATE/TIME: 01/14/2022 12:27 PM COMPARISON: None. CLINICAL INDICATION/HISTORY: Pain. TECHNIQUE: AP, lateral and cone down lateral views of the lumbar spine are presented. FINDINGS: There are five [id number] lumbar vertebrae. No acute fracture or subluxations are noted. There is diffuse disc space narrowing involving L1-L5 levels. There is at least moderate osteophyte formation. Others: Degenerative changes noted in bilateral hips. 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 Travel Ticketing Reviewer: [facility] Transcribe Date/Time: Jan 14 2022 12:32P Dictated by : LON WHITE MD This examination was interpreted and the report reviewed and electronically signed by: LON WHITE MD on Jan 14 2022 12:34PM [facility] Radiology Study observation (narrative) Tj laureano [facility] XR Lumbar spine 3 ViewsOrder ed By: Ccf Provider on 01-14-2022 [facility] Absolute lymphocyte counton 12-25-2021 Lymphocytes Auto (Unsp spec) [#/Vol] 1.90 10*3/uL 0.83-4.51 [facility] Work Phone: Basophil percentageon 2021 Basophils/100 WBC (Bld) 0.7 % 0-1 [facility] Work Phone: [phone] Bilirubin [Mass/Vol] 0.40 mg/dL 0.20-1.00 [facility] Work Phone: [phone] Comment on above: For patients on eltr ombopag therapy, use of Dimension [place] TBIL is not recommended. Chloride [Moles/Vol] 111 mmol/L 98-107 [facility] Work Phone: [phone] Eosinophils/100 WBC (Bld) 2.2 % 0-5 [facility] Work Phone: [phone] Glucose [Mass/Vol] 79 mg/dL 74-106 [facility] Work Phone: [phone] Neutrophils (Bld) [#/Vol] 7.4 10*3/uL 2.0-7.7 [facility] Work Phone: [phone] Neutrophils/100 WBC (Bld) 71.0 % 47-70 [facility] Work Phone: [phone] Potassium [Moles/Vol] 4.3 mmol/L 3.5-5.1 [facility] Work Phone: [phone] Protein [Mass/Vol] 6.9 g/dL 6.4-8.2 [facility] Work Phone: [phone] Sodium [Moles/Vol] 140 mmol/L 136-145 [facility] Work Phone: [phone] WBC (Bld) [#/Vol] 10.5 10*3/uL 4.4-11.0 [facility] Work Phone: [phone] Blood erythrocytes count (nu mber/volume)on 12-25-2021 RBC (Bld) [#/Vol] 4.65 10*6/uL 4.6-6.2 [facility] Work Phone: [phone] Blood hemoglobin measurement (mass/volume)on 12-25-2021 Hemoglobin (Bld) [Mass/Vol] 16.1 g/dL 13.0-16.5 [facility] Work Phone: Blood lymphocytes/100 leukoc yteson 12-25-2021 Lymphocytes/100 WBC (Bld) 18.2 % 19-41 [facility] Work Phone: Blood monocytes/100 leukocyt eson 12-25-2021 Monocytes/100 WBC (Bld) 7.6 % 0-10 [facility] Work Phone: Blood platelet mean volumeon 12-25-2021 Platelet mean volume (Bld) [Entitic vol] 9.5 fL 6.2-12.0 [facility] Work Phone: Determination of erythrocyte mean corpuscular volume (MCV)on 12-25-2021 MCV (RBC) [Entitic vol] 101.9 fL 80-94 [facility] Work Phone: Hematocrit Auto (Bld) [Volum e fraction]on 12-25-2021 Hematocrit (Bld) [Volume fraction] 47.4 % 40-54 [facility] Work Phone: Laboratory - Chemistry and C hemistry - challengeon 12-25-2021 ALP [Catalytic activity/Vol] 77 U/L 45-117 [facility] Work Phone: ALT [Catalytic activity/Vol] 22 U/L 16-61 [facility] Work Phone: CO2 [Moles/Vol] 27.0 mmol/L 21.0-32.0 [facility] Work Phone: Globulin (S) [Mass/Vol] 3.4 g/dL 2.2-4.2 [facility] Work Phone: Urea nitrogen/Creatinine [Mass ratio] 17.6 mg/mg 10-20 [facility] Work Phone: Laboratory - Hematology and Cell countson 12-25-2021 Erythrocyte distribution width (RBC) [Entitic vol] 50.2 fL 35.1-43.9 [facility] Work Phone: Erythrocyte distribution width (RBC) [Ratio] 13.4 % 11.6-14.6 [facility] Work Phone: Immature granulocytes/100 WBC (Bld) 0.300 % 0.0-0.9 [facility] Work Phone: Comment on above: IG% - Immature Granu locytes (promyelocytes, myelocytes and metamyelocytes) > 1% indicates that a LEFT SHIFT is Present. MCH (RBC) [Entitic mass] 34.6 pg 27.0-32.0 [facility] Work Phone: Nucleated RBC/100 WBC (Bld) [Ratio] 0 % 0-5 [facility] Work Phone: MCHC Auto (RBC) [Mass/Vol]on 12-25-2021 MCHC (RBC) [Mass/Vol] 34.0 g/dL 32-36 [facility] Work Phone: No Panel Informationon 12-25 Estimated GFR (MDRD) Amer 116 mL/min >60 [facility] Work Phone: Comment on above: GFR Calc Estimated GFR (MDRD) Non-Af Amer 96 mL/min >60 [facility] Work Phone: Comment on above: Non- GFR Calc Platelets bldon 12-25-2021 Platelets (Bld) [#/Vol] 262 10*3/uL 150-450 [facility] Work Phone: Serum or plasma albumin torrie urement (mass/volume)on 12-25-2021 Albumin [Mass/Vol] 3.5 g/dL 3.2-5.0 [facility] Work Phone: Serum or plasma albumin/glob ulin mass ratioon 12-25-2021 Albumin/Globulin [Mass ratio] 1.0 {ratio} 0.9-2.4 [facility] Work Phone: Serum or plasma calcium torrie urement (mass/volume)on 12-25-2021 Calcium [Mass/Vol] 9.0 mg/dL 8.5-10.1 [facility] Work Phone: Serum or plasma creatinine m easurement (mass/volume)on 12-25-2021 Creatinine [Mass/Vol] 0.85 mg/dL 0.70-1.30 [facility] Work Phone: Comment on above: The validity of the calculated GFR & GFRAA in patients over 70 years has not been determined. Clinical correlation is essential. Serum or plasma urea nitroge n measurement (mass/volume)on 12-25-2021 Urea nitrogen [Mass/Vol] 15 mg/dL 7-18 [facility] Work Phone: Thin prep Papanicolaou smear with manual screeningon 12-25-2021 Thin prep Papanicolaou smear with manual screening 16 U/L 15-37 [facility] Work Phone: Thin prep Papanicolaou smear with manual screening 2 5-15 [facility] Work Phone: No Panel Informationon 11-17 Prostate Specific Antigen Screen 12.50 ng/mL 0.00-4.00 [facility] Work Phone: Comment on above: This test was perfor med using the TPSA assay method [facility]. Values obtained with differentassay methods cannot be used interchangably.When changing PSA assays in the course of monitoring apatient, additional sequential testing should be carriedout to confirm baseline values. Absolute lymphocyte counton 09-29-2021 Lymphocytes Auto (Unsp spec) [#/Vol] 2.86 10*3/uL 0.83-4.51 [facility] Work Phone: Basophil percentageon 2021 Basophils/100 WBC (Bld) 0.7 % 0-1 [facility] Work Phone: Bilirubin [Mass/Vol] 0.50 mg/dL 0.20-1.00 [facility]: Comment on above: For patients on eltr ombopag therapy, use of Dimension [place] TBIL is not recommended. Chloride [Moles/Vol] 107 mmol/L 98-107 [facility] Work Phone: [phone] Eosinophils/100 WBC (Bld) 1.7 % 0-5 [facility] Work Phone: Glucose [Mass/Vol] 107 mg/dL 74-106 [facility] Work Phone: [phone] Comment on above: Fasting Glucose resu lt from 100 to 125 mg/dL suggests IMPAIRED HOMEOSTASIS per A.D.A. criteria. Neutrophils (Bld) [#/Vol] 6.0 10*3/uL 2.0-7.7 [facility] Work Phone: Neutrophils/100 WBC (Bld) 62.1 % 47-70 [facility] Work Phone: Potassium [Moles/Vol] 4.7 mmol/L 3.5-5.1 [facility] Work Phone: [phone] Protein [Mass/Vol] 7.4 g/dL 6.4-8.2 [facility] Work Phone: Sodium [Moles/Vol] 139 mmol/L 136-145 [facility] Work Phone: WBC (Bld) [#/Vol] 9.7 10*3/uL 4.4-11.0 [facility] Work Phone: Blood erythrocytes count (nu mber/volume)on 09-29-2021 RBC (Bld) [#/Vol] 4.87 10*6/uL 4.6-6.2 [facility] Work Phone: Blood hemoglobin measurement (mass/volume)on 09-29-2021 Hemoglobin (Bld) [Mass/Vol] 16.2 g/dL 13.0-16.5 [facility] Work Phone: [phone] Blood lymphocytes/100 leukoc yteson 09-29-2021 Lymphocytes/100 WBC (Bld) 29.6 % 19-41 [facility] Work Phone: Blood monocytes/100 leukocyt eson 09-29-2021 Monocytes/100 WBC (Bld) 5.6 % 0-10 [facility] Work Phone: Blood platelet mean volumeon 09-29-2021 Platelet mean volume (Bld) [Entitic vol] 9.4 fL 6.2-12.0 [facility] Work Phone: Determination of erythrocyte mean corpuscular volume (MCV)on 09-29-2021 MCV (RBC) [Entitic vol] 97.9 fL 80-94 [facility] Work Phone: Hematocrit Auto (Bld) [Volum e fraction]on 09-29-2021 Hematocrit (Bld) [Volume fraction] 47.7 % 40-54 [facility] Work Phone: Laboratory - Chemistry and C hemistry - challengeon 09-29-2021 ALP [Catalytic activity/Vol] 85 U/L 45-117 [facility] Work Phone: ALT [Catalytic activity/Vol] 31 U/L 16-61 [facility] Work Phone: [phone] CO2 [Moles/Vol] 26.0 mmol/L 21.0-32.0 [facility] Work Phone: Globulin (S) [Mass/Vol] 3.5 g/dL 2.2-4.2 [facility] Work Phone: Urea nitrogen/Creatinine [Mass ratio] 24.6 mg/mg 10-20 [facility] Work Phone: Laboratory - Hematology and Cell countson 09-29-2021 Erythrocyte distribution width (RBC) [Entitic vol] 44.6 fL 35.1-43.9 [facility] Work Phone: Erythrocyte distribution width (RBC) [Ratio] 12.4 % 11.6-14.6 [facility] Work Phone: Immature granulocytes/100 WBC (Bld) 0.300 % 0.0-0.9 [facility] Work Phone: Comment on above: IG% - Immature Granu locytes (promyelocytes, myelocytes and metamyelocytes) > 1% indicates that a LEFT SHIFT is Present. MCH (RBC) [Entitic mass] 33.3 pg 27.0-32.0 [facility] Work Phone: Nucleated RBC/100 WBC (Bld) [Ratio] 0 % 0-5 [facility] Work Phone: MCHC Auto (RBC) [Mass/Vol]on 09-29-2021 MCHC (RBC) [Mass/Vol] 34.0 g/dL 32-36 [facility] Work Phone: No Panel Informationon 09-29 Estimated GFR (MDRD) Amer 116 mL/min >60 [facility] Work Phone: Comment on above: GFR Calc Estimated GFR (MDRD) Non-Af Amer 96 mL/min >60 [facility] Work Phone: Comment on above: Non- GFR Calc Platelets bldon 09-29-2021 Platelets (Bld) [#/Vol] 290 10*3/uL 150-450 [facility] Work Phone: Serum or plasma albumin torrie urement (mass/volume)on 09-29-2021 Albumin [Mass/Vol] 3.9 g/dL 3.2-5.0 [facility] Work Phone: Serum or plasma albumin/glob ulin mass ratioon 09-29-2021 Albumin/Globulin [Mass ratio] 1.1 {ratio} 0.9-2.4 [facility] Work Phone: Serum or plasma calcium torrie urement (mass/volume)on 09-29-2021 Calcium [Mass/Vol] 9.2 mg/dL 8.5-10.1 [facility] Work Phone: Serum or plasma creatinine m easurement (mass/volume)on 09-29-2021 Creatinine [Mass/Vol] 0.85 mg/dL 0.70-1.30 [facility] Work Phone: Comment on above: The validity of the calculated GFR & GFRAA in patients over 70 years has not been determined. Clinical correlation is essential. Serum or plasma urea nitroge n measurement (mass/volume)on 09-29-2021 Urea nitrogen [Mass/Vol] 21 mg/dL 7-18 [facility] Work Phone: Thin prep Papanicolaou smear with manual screeningon 09-29-2021 Thin prep Papanicolaou smear with manual screening 25 U/L 15-37 [facility] Work Phone: Thin prep Papanicolaou smear with manual screening 6 5-15 [facility] Work Phone: Absolute lymphocyte counton 07-02-2021 Lymphocytes Auto (Unsp spec) [#/Vol] 2.34 10*3/uL 0.83-4.51 [facility] Work Phone: Basophil percentageon 2021 Basophils/100 WBC (Bld) 0.7 % 0-1 [facility] Work Phone: Bilirubin [Mass/Vol] 0.60 mg/dL 0.20-1.00 [facility] Work Phone: Comment on above: For patients on eltr ombopag therapy, use of Dimension [place] TBIL is not recommended. Chloride [Moles/Vol] 108 mmol/L 98-107 [facility] Work Phone: Eosinophils/100 WBC (Bld) 1.9 % 0-5 [facility] Work Phone: Glucose [Mass/Vol] 107 mg/dL 74-106 [facility] Work Phone: Comment on above: Fasting Glucose resu lt from 100 to 125 mg/dL suggests IMPAIRED HOMEOSTASIS per A.D.A. criteria. Neutrophils (Bld) [#/Vol] 6.4 10*3/uL 2.0-7.7 [facility] Work Phone: Neutrophils/100 WBC (Bld) 65.9 % 47-70 [facility] Work Phone: Potassium [Moles/Vol] 4.3 mmol/L 3.5-5.1 [facility] Work Phone: Protein [Mass/Vol] 7.1 g/dL 6.4-8.2 [facility] Work Phone: Sodium [Moles/Vol] 140 mmol/L 136-145 [facility] Work Phone: WBC (Bld) [#/Vol] 9.7 10*3/uL 4.4-11.0 [facility] Work Phone: Blood erythrocytes count (nu mber/volume)on 07-02-2021 RBC (Bld) [#/Vol] 4.51 10*6/uL 4.6-6.2 [facility]: [phone] Blood hemoglobin measurement (mass/volume)on 07-02-2021 Hemoglobin (Bld) [Mass/Vol] 15.4 g/dL 13.0-16.5 [facility] Work Phone: Blood lymphocytes/100 leukoc yteson 07-02-2021 Lymphocytes/100 WBC (Bld) 24.2 % 19-41 [facility] Work Phone: Blood monocytes/100 leukocyt eson 07-02-2021 Monocytes/100 WBC (Bld) 7.0 % 0-10 [facility] Work Phone: [phone] Blood platelet mean volumeon 07-02-2021 Platelet mean volume (Bld) [Entitic vol] 9.5 fL 6.2-12.0 [facility] Work Phone: Determination of erythrocyte mean corpuscular volume (MCV)on 07-02-2021 MCV (RBC) [Entitic vol] 99.1 fL 80-94 [facility] Work Phone: Hematocrit Auto (Bld) [Volum e fraction]on 07-02-2021 Hematocrit (Bld) [Volume fraction] 44.7 % 40-54 [facility] Work Phone: Laboratory - Chemistry and C hemistry - challengeon 07-02-2021 ALP [Catalytic activity/Vol] 73 U/L 45-117 [facility] Work Phone: ALT [Catalytic activity/Vol] 34 U/L 16-61 [facility] Work Phone: CO2 [Moles/Vol] 28.0 mmol/L 21.0-32.0 [facility] Work Phone: Globulin (S) [Mass/Vol] 3.4 g/dL 2.2-4.2 [facility] Work Phone: Urea nitrogen/Creatinine [Mass ratio] 15.7 mg/mg 10-20 [facility] Work Phone: Laboratory - Hematology and Cell countson 07-02-2021 Erythrocyte distribution width (RBC) [Entitic vol] 47.5 fL 35.1-43.9 [facility] Work Phone: Erythrocyte distribution width (RBC) [Ratio] 13.1 % 11.6-14.6 [facility] Work Phone: Immature granulocytes/100 WBC (Bld) 0.300 % 0.0-0.9 [facility] Work Phone: Comment on above: IG% - Immature Granu locytes (promyelocytes, myelocytes and metamyelocytes) > 1% indicates that a LEFT SHIFT is Present. MCH (RBC) [Entitic mass] 34.1 pg 27.0-32.0 [facility] Work Phone: Nucleated RBC/100 WBC (Bld) [Ratio] 0 % 0-5 [facility] Work Phone: MCHC Auto (RBC) [Mass/Vol]on 07-02-2021 MCHC (RBC) [Mass/Vol] 34.5 g/dL 32-36 [facility] Work Phone: No Panel Informationon 07-02 Estimated GFR (MDRD) Amer 131 mL/min >60 [facility] Work Phone: Comment on above: GFR Calc Estimated GFR (MDRD) Non-Af Amer 108 mL/min >60 [facility] Work Phone: Comment on above: Non- GFR Calc Platelets bldon 07-02-2021 Platelets (Bld) [#/Vol] 303 10*3/uL 150-450 [facility] Work Phone: Serum or plasma albumin torrie urement (mass/volume)on 07-02-2021 Albumin [Mass/Vol] 3.7 g/dL 3.2-5.0 [facility] Work Phone: Serum or plasma albumin/glob ulin mass ratioon 07-02-2021 Albumin/Globulin [Mass ratio] 1.1 {ratio} 0.9-2.4 [facility] Work Phone: Serum or plasma calcium trorie urement (mass/volume)on 07-02-2021 Calcium [Mass/Vol] 8.7 mg/dL 8.5-10.1 [facility] Work Phone: Serum or plasma creatinine m easurement (mass/volume)on 07-02-2021 Creatinine [Mass/Vol] 0.77 mg/dL 0.70-1.30 [facility] Work Phone: Comment on above: The validity of the calculated GFR & GFRAA in patients over 70 years has not been determined. Clinical correlation is essential. Serum or plasma urea nitroge n measurement (mass/volume)on 07-02-2021 Urea nitrogen [Mass/Vol] 12 mg/dL 7-18 [facility] Work Phone: Thin prep Papanicolaou smear with manual screeningon 07-02-2021 Thin prep Papanicolaou smear with manual screening 19 U/L 15-37 [facility] Work Phone: Thin prep Papanicolaou smear with manual screening 4 5-15 [facility] Work Phone: Office Visit: discuss PVRon 03-24-2017 Documentation of current medications (procedure) Done Invalid Interpretation Code [facility] Work Phone: Fall risk assessment No Invalid Interpretation Code [facility] Work Phone: Tobacco smoking status NHIS Never Invalid Interpretation Code [facility] Work Phone: Tobacco use HS Current every day smoker Invalid Interpretation Code [facility] Work Phone: No Panel Information [facility] Vital Signs Date Time Vital Sign Value Performing Clinician Facility 08-27-2024 10:57-0400 Body height 167.[address] Jessica Astorga MD Work Phone: [facility] 08-27-2024 10:57-0400 Body mass index (BMI) [Ratio] 26.1 kg/m2 Dr. Jessica Astorga MD Work Phone: [facility] 08-27-2024 10:57-0400 Body temperature 98 [degF] Dr. Jessica Astorga MD Work Phone: [facility] 08-27-2024 10:57-0400 Body weight 73.[address] Jessica Astorga MD Work Phone: [facility] 08-27-2024 10:57-0400 Diastolic blood pressure 74 mm[Hg] Dr. Jessica Astorga MD Work Phone: [facility] 08-27-2024 10:57-0400 Heart rate 71 /min Dr. Jessica Astorga MD Work Phone: [facility] 08-27-2024 10:57-0400 Respiratory rate 17 /min Dr. Jessica Astorga MD Work Phone: [facility] 08-27-2024 10:57-0400 SaO2% (BldA) [Mass fraction] 93 % Dr. Jessica Astorga MD Work Phone: [phone] [place] [address] 08-27-2024 10:57-0400 Systolic blood pressure 130 mm[Hg] Dr. Jessica Astorga MD Work Phone: [facility] 05-25-2023 18:34-0500 Body temperature 98 [degF] Dr. Jessica Astorga Work Phone: [facility] 05-25-2023 18:34-0500 Diastolic blood pressure 65 mm[Hg] Dr. Jessica Astorga Work Phone: [facility] 05-25-2023 18:34-0500 Heart rate 79 /min Dr. Jessica Astorga Work Phone: [phone] [place] [address] 05-25-2023 18:34-0500 Inhaled oxygen flow rate 2 L/min Dr. Jessica Astorga Work Phone: [phone] [place] [address] 05-25-2023 18:34-0500 Respiratory rate 18 /min Dr. Jessica Astorga Work Phone: [facility] 05-25-2023 18:34-0500 SaO2% (BldA) [Mass fraction] 95 % Dr. Jessica Astorga Work Phone: [facility] 05-25-2023 18:34-0500 Systolic blood pressure 134 mm[Hg] Dr. Jessica Astorga Work Phone: [phone] [place] [address] 05-25-2023 05:02-0500 Body mass index (BMI) [Ratio] 23.3 kg/m2 Dr. Jessica Astogra Work Phone: [facility] 05-25-2023 05:02-0500 Body weight 65.[address] Jessica Astorga Work Phone: [phone] [place] [address] 05-24-2023 15:34-0500 Body height 167.64 cm [facility] 05-24-2023 14:43-0500 Diastolic blood pressure 72 mm[Hg] [facility] 05-24-2023 14:43-0500 Heart rate 67 /min [facility] 05-24-2023 14:43-0500 Respiratory rate 24 /min [facility] 05-24-2023 14:43-0500 SaO2% (BldA) [Mass fraction] 92 % [facility] 05-24-2023 14:43-0500 Systolic blood pressure 107 mm[Hg] [facility] 05-24-2023 14:10-0500 Inhaled oxygen flow rate 3 L/min [facility] 05-24-2023 12:05-0500 Body temperature 96.8 [degF] [facility] 10-01-2022 09:05-0400 Body temperature 97.8 [degF] Dr. Jessica Astorga Work Phone: [facility] 10-01-2022 09:05-0400 Diastolic blood pressure 64 mm[Hg] Dr. Jessica Astorga Work Phone: [facility] 10-01-2022 09:05-0400 Heart rate 77 /min Dr. Jessica Astorga Work Phone: [facility] 10-01-2022 09:05-0400 Respiratory rate 16 /min Dr. Jessica Astorga Work Phone: [facility] 10-01-2022 09:05-0400 SaO2% (BldA) [Mass fraction] 97 % Dr. Jessica Astorga Work Phone: [facility] 10-01-2022 09:05-0400 Systolic blood pressure 94 mm[Hg] Dr. Jessica Astorga Work Phone: [facility] 10-01-2022 07:27-0400 Body height 167.[address] Jessica Astorga Work Phone: [facility] 10-01-2022 07:27-0400 Body mass index (BMI) [Ratio] 23.2 kg/m2 Dr. Jessica Astorga Work Phone: [facility] 10-01-2022 07:27-0400 Body weight 65.[address] Jessica Astorga Work Phone: [facility] 07-16-2022 10:57-0500 Body height 167.[address] Jessica Astorga Work Phone: [facility] 07-16-2022 10:57-0500 Body mass index (BMI) [Ratio] 23.8 kg/m2 Dr. Jessica Astorga Work Phone: [facility] 07-16-2022 10:57-0500 Body weight 67.[address] Jessica Astorga Work Phone: [facility] 05-17-2022 12:58-0500 Body temperature 97.39 [degF] Nayeli Liset ARTS ADMINISTRATOR OR MANAGER.PHOTO TECH Work Phone: [facility] 05-17-2022 12:58-0500 Body weight 67.77 kg Nayeli Liset ARTS ADMINISTRATOR OR MANAGER.PHOTO TECH Work Phone: [facility] 05-17-2022 12:58-0500 Diastolic blood pressure 70 mm[Hg] Nayeli Liset ARTS ADMINISTRATOR OR MANAGER.PHOTO TECH Work Phone: [facility] 05-17-2022 12:58-0500 Heart rate 80 /min Nayeli Liset ARTS ADMINISTRATOR OR MANAGER.PHOTO TECH Work Phone: [facility] 05-17-2022 12:58-0500 Respiratory rate 26 /min Nayeli Liset ARTS ADMINISTRATOR OR MANAGER.PHOTO TECH Work Phone: [facility] 05-17-2022 12:58-0500 SaO2% (BldA) [Mass fraction] 93 % Nayeli Liset ARTS ADMINISTRATOR OR MANAGER.PHOTO TECH Work Phone: [facility] 05-17-2022 12:58-0500 Systolic blood pressure 112 mm[Hg] Nayeli Liset ARTS ADMINISTRATOR OR MANAGER.PHOTO TECH Work Phone: [facility] 01-14-2022 11:43-0400 Body temperature 98.8 [degF] Elza Molina ARTS ADMINISTRATOR OR MANAGER.PHOTO TECH Work Phone: [facility] 01-14-2022 11:43-0400 Body weight 67.22 kg Elza Altman-Ketan ARTS ADMINISTRATOR OR MANAGER.PHOTO TECH Work Phone: [facility] 01-14-2022 11:43-0400 Diastolic blood pressure 78 mm[Hg] Elza Praisler-Wood ARTS ADMINISTRATOR OR MANAGER.PHOTO TECH Work Phone: [facility] 01-14-2022 11:43-0400 Heart rate 80 /min Elza Praisler-Wood ARTS ADMINISTRATOR OR MANAGER.PHOTO TECH Work Phone: [facility] 01-14-2022 11:43-0400 Respiratory rate 20 /min Elza Praisler-Wood ARTS ADMINISTRATOR OR MANAGER.PHOTO TECH Work Phone: [facility] 01-14-2022 11:43-0400 SaO2% (BldA) [Mass fraction] 96 % Elza Praisler-Wood ARTS ADMINISTRATOR OR MANAGER.PHOTO TECH Work Phone: [facility] 01-14-2022 11:43-0400 Systolic blood pressure 140 mm[Hg] Elza Praisler-Wood ARTS ADMINISTRATOR OR MANAGER.PHOTO TECH Work Phone: [facility] Encounters Encounter Date Encounter Type Care Provider Facility Start: 01-29-2025 End: 01-29-[address] Jessica Astorga MD Work Phone: -[facility] Start: 01-29-2025 End: 01-29-2025 Patient encounter procedure Philippe Cesar SERVICES COORDINATOR-C -[facility] Start: 01-29-2025 End: 01-29-2025 ambulatory Philippe Cesar SERVICES COORDINATOR Facility:[facility] Start: 01-25-2025 End: 01-25-[address] Jessica Astorga MD Work Phone: -[facility] Start: 01-25-2025 End: 01-25-[address] Cheryle Shannon MD -[facility] Work Phone: Start: 01-25-2025 End: 01-25-2025 ambulatory hPilippe Blevins SERVICES COORDINATOR Facility:[facility] Start: 11-12-2024 End: 11-12-[address] Jessica Astorga MD Work Phone: [facility] Work Phone: Start: 11-12-2024 End: 11-12-[address] Cheryle Shannon MD -[facility] Work Phone: Start: 11-12-2024 End: 11-12-2024 ambulatory Jessica S Jolliff Facility:[facility] Start: 09-05-2024 End: 09-05-[address] Jessica Astorga MD Work Phone: [facility] Work Phone: Start: 09-05-2024 End: 09-05-[address] Cheryle Shannon MD -[facility] Work Phone: Start: 09-05-2024 End: 09-05-2024 ambulatory Jessica S Jolliff Facility:[facility] Start: 08-27-2024 End: 08-27-[address] James Price MD -[facility] Work Phone: Start: 08-27-2024 End: 08-27-2024 ambulatory Jessica S Jolliff Facility:[facility] Start: 08-01-2024 ambulatory Jessica S Jolliff Facility: [facility] Start: 07-30-2024 End: 07-30-[address] Jessica Astorga MD Work Phone: [facility] Work Phone: Start: 07-30-2024 End: 07-30-[address] [facility] Start: 07-30-2024 End: 07-30-2024 ambulatory Jessica S Jolliff Facility:[facility] Start: 06-12-2024 End: 06-12-[address] [facility] Start: 06-12-2024 End: 06-12-2024 ambulatory Jessica S Jolliff Facility:[facility] Start: 04-01-2024 End: 04-01-2024 ambulatory Jessica S Jolliff Facility:[facility] Start: 03-29-2024 End: 03-29-2024 ambulatory Jessica Astorga Facility:[facility] Start: 03-08-2024 End: 03-08-2024 ambulatory Jessica Astorga Facility:[facility] Start: 03-06-2024 End: 03-06-2024 ambulatory Jessica Astorga Facility:[facility] Start: 02-23-2024 End: 02-23-2024 ambulatory Jessica Astorga Facility:[facility] Start: 09-06-2023 End: 09-06-[address] Jessica Astorga Work Phone: [facility] Work Phone: Start: 09-06-2023 End: 09-06-[address] Jessica Astorga Work Phone: [facility] Work Phone: Start: 06-14-2023 End: 06-14-[address] Jessica Astorga Work Phone: [facility] Work Phone: Start: 06-14-2023 End: 06-14-[address] Jessica Astorga Work Phone: [facility] Work Phone: Start: 05-25-2023 Non-patient / Non-visit Dr. Robert Astorga Work Phone: [facility] Work Phone: Start: 05-24-2023 Non-patient / Non-visit Dr. Robert Astorga Work Phone: [facility] Work Phone: Start: 05-24-2023 End: 05-25-2023 Evaluation and management of inpatient [facility] Work Phone: Start: 05-24-2023 End: 05-24-2023 ambulatory JESSICA ASTORGA Facility:[facility] Start: 03-18-2023 End: 03-18-2023 ambulatory [facility] Work Phone: Start: 03-18-2023 End: 03-18-2023 Patient encounter procedure [facility] Work Phone: Start: 01-21-2023 End: 01-21-[address] Jessica Astorga Work Phone: [facility] Work Phone: Start: 01-21-2023 End: 01-21-[address] Jessica Astorga Work Phone: [facility] Work Phone: Start: 01-10-2023 End: 01-10-2023 ambulatory JESSICA ASTORGA Facility:[facility] Start: 01-10-2023 End: 01-10-2023 Patient encounter procedure Tom Sosa MD Work Phone: Ophthalmology Comment on above: Conjunctival lesion (Primary Dx); Refraction error Start: 12-24-2022 Telephone encounter Duglas Harrison MD Work Phone: Ophthalmology Comment on above: Patient Update Appointment Start: 12-23-2022 End: 12-23-[address] Jessica Astorga Work Phone: [facility] Work Phone: Start: 12-23-2022 End: 12-23-[address] Jessica Astorga Work Phone: [facility] Work Phone: Start: 12-20-2022 End: 12-20-2022 ambulatory JESSICA ASTORGA Facility:[facility] Start: 12-20-2022 End: 12-20-2022 Patient encounter procedure Duglas Harrison MD Work Phone: Ophthalmology Comment on above: Conjunctival lesion (Primary Dx); Other chronic allergic conjunctivitis of both eyes; Dry eye syndrome of bilateral lacrimal glands; Meibomian gland dysfunction (MGD) of upper and lower lids of both eyes Start: 11-02-2022 Telephone encounter Cliff Hicks MD Work Phone: Ophthalmology Comment on above: Appointment; Receive d Outside Medical Records Start: 10-01-2022 Non-patient / Non-visit Dr. Robert Astorga Work Phone: [facility] Start: 10-01-2022 End: 10-01-2022 Admission to same day surgery center Dr. Jessica Astorga Work Phone: [facility] Start: 10-01-2022 End: 10-01-[address] Jessica Astorga Work Phone: [facility] Work Phone: Start: 09-22-2022 End: 09-22-[address] Jessica Astorga Work Phone: [facility] Work Phone: Start: 09-22-2022 End: 09-22-[address] Jessica Astorga Work Phone: [facility] Start: 07-16-2022 Non-patient / Non-visit Dr. Robert Astorga Work Phone: [facility] Start: 06-23-2022 End: 06-23-2022 ambulatory [facility] Work Phone: Start: 06-23-2022 End: 06-23-2022 Patient encounter procedure [facility] Start: 05-18-2022 Telephone encounter Nayeli Hutchins APRN.PHOTO TECH Work Phone: [facility] Comment on above: Results Start: 05-18-2022 End: 05-18-2022 Subsequent hospital visit by physician [facility] Work Phone: Radiology Comment on above: Acute cough [R05.1] Start: 05-17-2022 End: 05-17-2022 Patient encounter procedure Nayeli Hutchins APRN.PHOTO TECH Work Phone: [facility] Comment on above: Acute cough (Primary Dx); Wheezing; Rhonchi Start: 03-23-2022 End: 03-23-2022 ambulatory [facility] Work Phone: Start: 03-23-2022 End: 03-23-2022 Patient encounter procedure [facility] Start: 02-01-2022 End: 02-01-2022 ambulatory [facility] Work Phone: Start: 02-01-2022 End: 02-01-2022 [facility] Start: 01-14-2022 End: 01-14-2022 Subsequent hospital visit by physician [facility] Work Phone: Radiology Comment on above: Left sided sciatica [M54.32] Start: 01-14-2022 End: 01-14-2022 Patient encounter procedure Elza Molina APRN.[facility] Work Phone: [place] [facility] Comment on above: Left sided sciatica (Primary Dx) Start: 12-25-2021 End: 12-25-2021 Patient encounter procedure [facility] Start: 11-17-2021 End: 11-17-2021 Patient encounter procedure [facility] Start: 09-29-2021 End: 09-29-2021 Patient encounter procedure [facility] Start: 07-02-2021 End: 07-02-2021 Patient encounter procedure [facility] Procedures Date Procedure Procedure Detail Performing Clinician Start: 01-29-2025 Prostate specific an tigen measurement Dr. Jessica Astorga MD Work Phone: Comment on above: This test was perfor med using the [employer] tPSA method. Measured values of a patient sample can vary depending on the testing procedure used. PSA values determined on patient samples by different testing procedures cannot be used interchangeably. If there is a change in PSA assays while monitoring therapy, sequential testing should be performed to confirm baseline values. Start: 05-24-2023 Investigation of transfusion reaction Dr. Jessica Astorga Work Phone: Start: 05-24-[address] Jessica Astorga Work Phone: Start: 05-24-[address] l culture Dr. Jessica Astorga Work Phone: Start: 05-24-2023 Streptococcus pneumo niae Antigen (M Dr. Jessica Astorga Work Phone: Start: 05-24-2023 Plain chest X-ray Start: 12-20-2022 End: 12-20-2022 Cmptr ophthalmic dx img ant segmt w/i&r uni/bi Duglas Harrison MD Work Phone: Start: 12-20-2022 Computerized corneal topography uni/bi Duglas Harrison MD Work Phone: Start: 10-01-[address] Jessica burgos Work Phone: Start: 05-18-2022 Radiologic exam ches t 2 views Nayeli Hutchins ARTS ADMINISTRATOR OR MANAGER.PHOTO TECH Work Phone: Start: 02-01-2022 Plain x-ray of pelvi s and lower extremity Start: 01-14-2022 Radex spine lumbosac ral 2/3 views Elza Molina ARTS ADMINISTRATOR OR MANAGER.PHOTO TECH Work Phone: History of decompres jamison of median nerve S/P carpal tunnel release Comment on above: bilateral 2014 Plan of Treatment Date Care Activity Detail Author Start: 01-22-2024 Influenza vaccination Influenza Vaccine (#1) [facility] Start: 05-25-2023 Patient discharge [facility] Start: 05-25-2023 Blood chemistry [facility] Start: 05-24-2023 Following clinical pathway protocol [facility] Start: 05-24-2023 Ambulation without limitation [facility] Start: 05-24-2023 Assessment of risk of venous thromboembolism [facility] Start: 05-24-2023 Bacteria identified in Sputum by Culture [facility] Start: 05-24-2023 Continuous pulse oximetry [facility] Start: 05-24-2023 Incentive spirometry [facility] Start: 05-24-2023 Insertion of catheter into peripheral vein [facility] Start: 05-24-2023 Measuring intake and output [facility] Start: 05-24-2023 Oxygen therapy [facility] Start: 05-24-2023 Physiotherapy of chest [facility] Start: 05-24-2023 Providing care according to standard [facility] Start: 05-24-2023 [facility] Start: 05-24-2023 Dual pressure spontaneous ventilation support [facility] Start: 05-24-2023 Verification routine [facility] Start: 05-24-2023 Admission procedure [facility] Start: 05-24-2023 Influenza virus A and B and Respiratory syncytial virus RNA panel - Upper respiratory specimen by ANETTE with probe detection [facility] Start: 05-24-2023 Coronavirus COVID-19 PCR Coronavirus COVID-19 PCR [facility] Start: 05-24-2023 Respiratory Culture Respiratory Culture [facility] Start: 05-24-2023 SARS-CoV-2 [facility] Start: 05-23-2023 Advance Directive Discussion Advance Directive Discussion [facility] Start: 01-21-2023 Influenza vaccination [facility] Start: 10-01-2022 Colonoscopy w/biopsy single/multiple COLONOSCOPY AND BIOPSY [facility] Start: 10-01-2022 Colsc flx w/rmvl of tumor polyp lesion snare tq COLONOSCOPY W/LESION REMOVAL [facility] Start: 10-01-2022 Patient discharge [facility] Start: 05-23-2022 ADVANCE DIRECTIVE DISCUSSION ADVANCE DIRECTIVE DISCUSSION [facility] Start: 05-23-2022 DEPRESSION ASSESSMENT DEPRESSION ASSESSMENT [facility] Start: 01-21-2022 Influenza vaccination INFLUENZA (#1) [facility] Start: 01-21-2022 Pneumococcal Vaccine: 65+ (2 of 2 - PCV) Pneumococcal Vaccine: 65+ (2 of 2 - PCV) [facility] Start: 05-23-2021 ADVANCE DIRECTIVE DISCUSSION ADVANCE DIRECTIVE DISCUSSION [facility] Start: 05-23-2021 DEPRESSION ASSESSMENT DEPRESSION ASSESSMENT [facility] Start: 03-24-2017 End: 03-24-2017 Appointment Appointment [facility] [employer] Work Phone: Start: 02-28-2017 End: 10-09-2017 Arterial exam Arterial exam [facility] [employer] Work Phone: Start: 02-28-2017 End: 02-28-2017 N-invas physiologic std lxtr art compl bi PVR with exercise [facility] [employer] Work Phone: Start: 2016 RSV Vaccine (1 - Risk 60-74 years 1-dose series) RSV Vaccine (1 - Risk 60-74 years 1-dose series) [facility] Start: 01-06-2011 PROSTATE CANCER SCREENING DISCUSSION PROSTATE CANCER SCREENING DISCUSSION [facility] Start: 01-06-2011 Prostate specific antigen measurement Prostate Cancer Screening Discussion [facility] Start: 01-06-2006 Influenza vaccination LUNG CANCER SCREENING [facility] Start: 01-06-2006 SHINGRIX VACCINE (1 of 2) SHINGRIX VACCINE (1 of 2) [facility] Start: 01-06-2001 COLOGUARD (FIT-DNA) COLOGUARD (FIT-DNA) [facility] Start: 01-06-2001 Colonoscopy COLONOSCOPY [facility] Start: 01-06-2001 COLORECTAL CANCER SCREENING COLORECTAL CANCER SCREENING [facility] Start: 01-06-[address] COLONOGRAPHY [facility] Start: 01-06-2001 DIABETES SCREEN DIABETES SCREEN [facility] Start: 01-06-2001 Diabetes Screening Diabetes Screening [facility] Start: 01-06-2001 FECAL OCCULT BLOOD FECAL OCCULT BLOOD [facility] Start: 01-06-2001 Screening for malignant neoplasm of colon [facility] Start: 01-06-2001 SIGMOIDOSCOPY SIGMOIDOSCOPY [facility] Start: 01-06-1991 Lipid panel Lipid Screening [facility] Start: 01-06-1991 LIPID SCREEN LIPID SCREEN [facility] Start: 01-06-1986 Zoledronic acid therapy ALPHA-1 ANTITRYPSIN DEFICIENCY SCREENING [facility] Start: 01-06-1975 SHINGRIX VACCINE (1 of 2) SHINGRIX VACCINE (1 of 2) [facility] Start: 01-06-1975 Urine microalbumin profile [facility] Start: 01-06-1974 ANNUAL PCP TEAM CHRONIC DISEASE VISIT ANNUAL PCP TEAM CHRONIC DISEASE VISIT [facility] Start: 01-06-1974 Anxiety Screening Anxiety Screening [facility] Start: 01-06-1974 Depression Screening Depression Screening [facility] Start: 01-06-1974 HEPATITIS C SCREENING HEPATITIS C SCREENING [facility] Start: 01-06-1974 Hepatitis C screening Hepatitis C Screening [facility] Start: 01-06-1974 SPIROMETRY SPIROMETRY [facility] Start: 1968 Adult depression screening assessment DEPRESSION SCREENING [facility] Start: 01-06-1962 PNEUMOCOCCAL: 65+ (1 - PCV) PNEUMOCOCCAL: 65+ (1 - PCV) [facility] Start: 01-06-1961 COVID-19 VACCINE (#1) COVID-19 VACCINE (#1) [facility] Start: 1955 COVID-19 VACCINE (#1) COVID-19 VACCINE (#1) [facility] Start: 1955 ABDOMINAL AORTIC ANEURYSM SCREENING ABDOMINAL AORTIC ANEURYSM SCREENING [facility] Start: 1955 Abdominal aortic aneurysm screening Abdominal Aortic Aneurysm Screening [facility] Anion gap measurement [facility] Bacteria identified in Unspecified specimen by Respiratory culture [facility] BUN/Creatinine ratio [facility] Calcium [Mass/volume ] in Serum or Plasma [facility] Carbon dioxide, tota l [Moles/volume] in Serum or Plasma [facility] Chloride [Moles/volu me] in Serum or Plasma [facility] Colonoscopy [facility] Creatinine [Moles/vo lume] in Serum or Plasma [facility] Glucose [Mass/volume ] in Serum or Plasma [facility] Hematocrit [Volume Fraction] of Blood [facility] Hemoglobin [Mass/vol ume] in Blood [facility] Leukocytes [#/volume ] in Blood [facility] Mean corpuscular hemoglobin concentration determination [facility] Mean corpuscular hemoglobin determination [facility] Measurement of renal function [facility] Neutrophil count [facility] Neutrophil percent differential count [facility] Patient referral [facility] Work Phone: Platelets [#/volume] in Blood [facility] Potassium [Moles/vol ume] in Serum or Plasma [facility] Red blood cell count [facility] Red cell distributio n width determination [facility] SARS-CoV-2 [facility] Sodium [Moles/volume ] in Serum or Plasma [facility] Urea nitrogen [Mass/volume] in Serum or Plasma [facility] Payers Date Payer Category Payer Self-pay [id number] 2023 Private Health Insurance [id number] 2018 Unknown [id number] 2018 Unknown [id number] Medicare [id number] Medicare [id number] Unknown [id number] 2.16.8 [id number] Unknown [id number] 2.16.8 [id number] Unknown [id number] 2.16.8 [id number] Unknown [id number] 2.16.8 [id number] Unknown [id number] 2.16.8 [id number] Unknown [id number] 2.16.8 [id number] Unknown [id number] 2.16.8 [id number] Unknown [id number] 2.16.8 [id number] Unknown [id number] 2.16.8 [id number] Unknown [id number] 2.16.8 [id number] Unknown [id number] 2.16.8 [id number] Unknown [id number] 2.16.8 [id number] Unknown [id number] 2.16.8 [id number] Unknown [id number] 2.16.8 [id number] Social History Date Type Detail Facility Start: 02-10-2021 End: 05-24-2023 Tobacco smoking status PRIS Unknown if ever smoked [facility] Start: 1955 Sex Assigned At Male W [facility] Start: 01-14-2022 End: 05-24-2023 Tobacco smoking status PRIS Smokes tobacco daily [facility] History of tobacco use Cigarette Smoker C [facility] Start: 04-29-2020 End: 01-14-2022 Cigarettes smoked current (pack per day) - Reported 1 [facility] Start: 01-14-2022 End: 01-10-2023 Tobacco use and exposure Smokeless tobacco non-user [facility] Start: 01-14-2022 End: 05-17-2022 Alcohol intake Current non-drinker of alcohol (finding) [facility] Start: 01-14-2022 Tobacco Comment recently cut b ack to 4-5 days [facility] Start: 1955 Sex Assigned At Not on file C [facility] Start: 01-04-2022 End: 01-14-2022 Exposure to SARS-CoV-2 (event) Not sure [facility] Work Phone: Start: 04-29-2020 End: 05-17-2022 Tobacco use panel [facility] National Score (1-10 0), lower number is lower risk 68 [facility] Start: 08-09-2024 End: 09-10-2024 Sex Male (finding) [facility] Medical Equipment Procedure Code Equipment Code Equipment Origin al Text Equipment Identifier Dates Colonoscopy RESOLUTION 360 C LIP 235 CM FDA Start: 02-13-2021 Colonoscopy RESOLUTION 360 C LIP 235 CM FDA Start: 02-13-2021 Colonoscopy RESOLUTION 360 C LIP 235 CM FDA Start: 02-13-2021 Colonoscopy RESOLUTION 360 C LIP 235 CM FDA Start: 02-13-2021 Colonoscopy RESOLUTION 360 C LIP 235 CM FDA Start: 02-13-2021 Colonoscopy RESOLUTION 360 C LIP 235 CM FDA Start: 02-13-2021 Colonoscopy RESOLUTION 360 C LIP 235 CM FDA Start: 02-13-2021 Colonoscopy RESOLUTION 360 C LIP 235 CM FDA Start: 02-13-2021 Colonoscopy RESOLUTION 360 C LIP 235 CM FDA Start: 02-13-2021 Colonoscopy RESOLUTION 360 C LIP 235 CM FDA Start: 02-13-2021 Colonoscopy RESOLUTION 360 C LIP 235 CM FDA Start: 02-13-2021 Colonoscopy RESOLUTION 360 C LIP 235 CM FDA Start: 02-13-2021 Colonoscopy RESOLUTION 360 C LIP 235 CM FDA Start: 02-13-2021 Colonoscopy RESOLUTION 360 C LIP 235 CM FDA Start: 02-13-2021 Colonoscopy RESOLUTION 360 C LIP 235 CM FDA Start: 02-13-2021 Colonoscopy RESOLUTION 360 C LIP 235 CM FDA Start: 02-13-2021 Colonoscopy RESOLUTION 360 C LIP 235 CM FDA Start: 02-13-2021 Colonoscopy RESOLUTION 360 C LIP 235 CM FDA Start: 02-13-2021 Colonoscopy RESOLUTION 360 C LIP 235 CM FDA Start: 02-13-2021 Goals Date Patient Goal Desired Activity /State Functional Status Date Assessment Result Facility 05-25-2023 Functional status [facility] Work Phone: Mental Status Date Assessment Result Facility 05-25-2023 Cognitive function Appropriate;Cooperativ e [facility] Work Phone: 05-24-2023 Cognitive function Arousable To Voice/Nam e [facility] Work Phone: 05-24-2023 Cognitive function Level Of Cons ciousness Awake;Alert;Appropriate;Follow s Commands [facility] Work Phone: 10-01-2022 Cognitive function Level Of Cons ciousness Awake;Appropriate [facility] Work Phone: 10-01-2022 Cognitive function Voice/Name [facility] Work Phone: Clinical Notes 01-14-2022 to 08-27-2024 Note Date & Type Note Facility 08-27-2024 Evaluation note Diagnosis Onset Date Resolution Essential tremor acute August 10:57am Cervical spinal stenosis inactive August 27, 2024 10:57am Myelopathy inactive August 27 10:57am [facility] Work Phone: 1(466) 900-760901-03-2024 Discharge summary Author Saul Henry [facility] May 25, 2023 2:46pm Note Date/Time May 25, 2023 2: 40pm [facility] Medical Records Department [address] [place] [address] Discharge Summary 05/25/23 1437 MR#: [id number] Acct: [id number] Name: SIENA SOSA Rep #:[id number] : 1955 68 From: Saul Henry DO PCP: Dr. Jessica Astorga MD Status:ADM IN Location: [place] [id number] Providers Date of Admission: 05/24/23 Primary Care Physician: Dr. Jessica Astorga MD Reason For Visit: COPD EXACERBATION Diagnosis Discharge Diagnosis (1) COPD exacerbation: Status: Chronic Code(s): J44.1 - Chronic obstructive pulmonary disease with (acute) exacerbation Plan COPD exacerbation * possible due to viral acute bronchitis: * ABG was done in the ED 7.4 on 1 L of oxygen. * scheduled bronchodilator, IV Solu-Medrol, Mucinex, incentive spirometry and Pep. * SARS-CoV-2 and flu antigens are negative. COVID-19 PCR, respiratory panel negative. * Advised follow-up in pulmonary clinic for PFT. * Patient requiring 3 L of oxygen with activity. Patient is ambulatory in the home and community and requires home oxygen with portability. * Change to prednisone taper. Albuterol. Chronic conditions: * Hypertension: Amlodipine 5 mg daily continued. Metoprolol succinate 50 mg daily. * Dyslipidemia: * Peripheral arterial occlusive disease:Patient had left lower extremity arteriogram by Dr. Hanna in 2018 and found to have left SFA in-stent restenosis and angioplasty was done. * Chronic smoker: Smoking cessation advised. * Rheumatoid arthritis: Patient on methotrexate and folic acid continued. DVT prophylaxis moderate to high risk: Lovenox 40 mg subcut daily. Code Status: full. Medications at Discharge Home Medications duloxetine 60 mg capsule,delayed release 60 mg PO QHS Depression 07/23/16 folic acid 1 mg tablet 2 mg PO DAILY Arthritis 07/23/16 methotrexate sodium 2.5 mg tablet 12.5 mg PO FR Arthritis 07/23/16 atorvastatin 20 mg tablet 20 mg PO QHS Cholesterol 07/30/16 aspirin 81 mg tablet,delayed release 81 mg PO DAILY 02/10/21 amlodipine 5 mg tablet 5 mg PO QHS 09/27/22 fluticasone furoate 200 mcg-vilanterol 25 mcg/dose inhalation powder (Breo Ellipta) 1 inh inhalation DAILY 09/27/22 albuterol sulfate 90 mcg/actuation aerosol inhaler 2 puff inhalation Q6H PRN shortness of breath or wheezing #6.7 grams 05/25/23 azithromycin 250 mg tablet 500 mg (2 x 250 mg) PO Q24 #3 tabs 05/25/23 metoprolol succinate 50 mg tablet,extended release 24 hr 50 mg PO DAILY #30 tabs05/25/23 prednisone 10 mg tablet 10 mg PO DAILY #30 tabs 05/25/23 Hospital Course Operations None Procedures None Summary of Care Provided Minutes Spent on Discharge: 32 Weight / BMI Weight Weight: 65.5 kg Body Mass Index (BMI) 23.3 ABG / Lab / Microbiology Data 05/25/23 07:15 05/25/23 08:37 Laboratory: Laboratory Results - last 24 hr 05/25/23 07:15: WBC 6.0, RBC 4.71, Hgb 15.6, Hct 46.2, MCV 98.1 H, MCH 33.1 H, MCHC 33.8, RDW Std Deviation 44.3 H, RDW Coeff of Carmen 12.3, Plt Count 151, MPV 9.8, Immature Gran % (Auto) 0.300, Neut % (Auto) 85.0 H, Lymph % (Auto) 9.8 L, Alcorn % (Auto) 4.6, Eos % (Auto) 0.0, Baso % (Auto) 0.3, Absolute Neuts (auto) 5.1, Absolute Lymphs (auto) 0.59 L, Nucleated RBC % 0, Differential Comment SCANNED, Reactive Lymphocytes 1+, Sodium Cancelled, Potassium Cancelled, Chloride Cancelled, Carbon Dioxide Cancelled, Anion Gap Cancelled, BUN Cancelled, Creatinine Cancelled, Estim Creat Clear Calc Cancelled, Est GFR (MDRD) Af Amer Cancelled, Est GFR (MDRD) Non-Af Cancelled, BUN/Creatinine Ratio Cancelled, Glucose Cancelled, Calcium Cancelled 05/25/23 08:37: Sodium 138, Potassium 3.9, Chloride 111 H, Carbon Dioxide 24.0, Anion Gap 3 L, BUN 14, Creatinine 0.58 L, Estim Creat Clear Calc 64.69, Est GFR (MDRD) Af Amer 178, Est GFR (MDRD) Non-Af 147, BUN/Creatinine Ratio 24.0 H, Glucose 159 H, Calcium 8.1 L Microbiology: Microbiology 05/24/23 20:30 Urine, Random Streptococcus pneumoniae Antigen (M - Final 05/24/23 20:30 Urine, Clean Catch Legionella Antigen - Final 05/24/23 16:05 Sputum, Expectorated/Coughed Gram Stain - Final 05/24/23 Unknown Mucosa - Nasopharyngeal Respiratory Panel (PCR) - Final 05/24/23 Unknown Mucosa - Nasopharyngeal Coronavirus COVID-19 PCR - Final 05/24/23 12:09 Nasal Secretion SARS-CoV-2 & FLU Antigen (Rapid) - Final ABG: ABG 05/24/23 15:17 Specimen Type ART Sample Site R Radial pH 7.45 Bicarbonate Actual 22.5 Total CO2 24 Base Excess -2 O2 Saturation 92 L O2 % 1.0 ABG pCO2 32.6 L ABG pO2 59 L Erick Test Positive O2 Delivery Device Cannula Vent Mode Not entered D/C Instructions Discharge Diet: No restrictions Meaningful Use Info Meaningful Use Diagnoses (Choose all that apply): None applicable Discharge Plan Admission Admit Date/Time: 05/24/23 14:33 Primary Reason for Your Visit: COPD exacerbation. Attending Provider: Saul Henry Primary Care Provider: Jessica Astorga Consulting Providers: Christoph Aparicio Instructions Additional Instructions / Restrictions: An exacerbation of your COPD. It is unclear what started out but it may have been due to an infection he may have had a week before. Your infectious workup here, however, was negative. You will be on prednisone taper as well as albuterol as needed. You will require oxygen least temporarily. Please follow-up with pulmonology as outpatient. Discharge Orders/Prescriptions Prescriptions: New metoprolol succinate 50 mg Tablet Extended Release 24 Hr 50 mg PO DAILY Qty: 30 0RF azithromycin 250 mg Tablet 500 mg PO Q24 Qty: 3 0RF albuterol sulfate 90 mcg/actuation HFA aerosol inhaler 2 puff inhalation Q6H PRN (Reason: shortness of breath or wheezing) Qty: 6.7 0RF prednisone 10 mg tablet 10 mg PO DAILY Qty: 30 0RF Rx Instructions: 4 tabs daily for 3 days, then 3 tabs daily for 3 days, then 2 tabs daily for 3 days, then 1 tab daily for 3 days Continued methotrexate sodium 2.5 MG tablet 12.5 mg PO FR folic acid 1 MG tablet 2 mg PO DAILY duloxetine 60 MG capsule 60 mg PO QHS atorvastatin 20 MG tablet 20 mg PO QHS aspirin 81 mg Tablet,Delayed Release (Dr/Ec) 81 mg PO DAILY amlodipine 5 mg Tablet 5 mg PO QHS fluticasone furoate-vilanterol [Breo Ellipta] 200-25 mcg/dose Blister With Device 1 inh INHALATION DAILY Discontinued metoprolol tartrate 50 mg Tablet 50 mg PO DAILY Referrals / Follow Up: [facility] [Provider Group] - Within 1 Month Jessica Astorga MD [Primary Care Provider] - Within 2 Weeks Disposition Disposition (needs filled in before D/C Order can be placed): Home, Self Care Charges/Coding Visit Charges Inpatient E&M: 49027 Disch Hosp >30min 05/25/23 1446 <Electronically signed by Saul Henry DO> Cosigner Signature (if applicable): CC: Dr. Jessica Astorga MD; Dr. Saul Henry DO~ Signed [facility] Work Phone: 1(399) 338-660201-03-2024 Progress note Author Saulkeily Henry [facility] May 25, 2023 2:37pm Note Date/Time May 25, 2023 8: 47am [facility] Medical Records Department [address] [place] [id number] Progress Note - Hospitalist 05/25/23 0844 MR#: [id number] Acct: [id number] Name: SIENA SOSA Rep #:[id number] : 1955 68 From: Saul Henry DO PCP: Dr. Jessica Astorga MD Status:ADM IN [id number] Reason for Visit Reason for Visit: Diagnoses Chronic obstructive pulmonary disease with (acute) exacerbation (05/24/23) Subjective Subjective Feeling better overall. Breathing better. Said he been sick for about a week before initially presenting. Objective Data Objective Data Vital Signs: Vital Signs Temp Pulse Resp BP Pulse Ox O2 Del Method O2 Flow Rate 36.6 C 64 20 H 101/74 95 Nasal Cannula 2 05/25/23 05:00 05/25/23 05:00 05/25/23 05:00 05/25/23 05:00 05/25/23 07:15 05/25/23 07:15 05/25/23 07:15 Oxygen Flow Rate (L/min) 2 Oxygen Delivery Method Nasal Cannula Weight: 65.5 kg Body Mass Index (BMI) 23.3 Intake & Output: Intake and Output for Last 24 Hours 05/23/23 05/24/23 05/25/23 23:59 23:59 23:59 Intake Total 1000 / 1000 1000 / 1000 Output Total 300 / 300 500 / 500 Balance 700 / 700 500 / 500 Lab / Micro Data 05/25/23 07:15 05/25/23 08:37 Labs: Laboratory Results - last 24 hr 05/24/23 12:05: WBC 5.2, RBC 5.36, Hgb 17.6 H, Hct 51.9, MCV 96.8 H, MCH 32.8 H,MCHC 33.9, RDW Std Deviation 43.8, RDW Coeff of Carmen 12.4, Plt Count 164, MPV 10.2, Immature Gran % (Auto) 0.600, Neut % (Auto) 74.3 H, Lymph % (Auto) 13.6 L,Alcorn % (Auto) 11.3 H, Eos % (Auto) 0.0, Baso % (Auto) 0.2, Absolute Neuts (auto)3.9, Absolute Lymphs (auto) 0.71 L, Nucleated RBC % 0, Reactive Lymphocytes 1+, Sodium 136, Potassium 4.5, Chloride 101, Carbon Dioxide 30.0, Anion Gap 5, BUN 16, Creatinine 0.83, Est GFR (MDRD) Af Amer 119, Est GFR (MDRD) Non-Af 98, BUN/Creatinine Ratio 19.3, Glucose 120 H, Calcium 8.2 L 05/25/23 07:15: WBC 6.0, RBC 4.71, Hgb 15.6, Hct 46.2, MCV 98.1 H, MCH 33.1 H, MCHC 33.8, RDW Std Deviation 44.3 H, RDW Coeff of Carmen 12.3, Plt Count 151, MPV 9.8, Immature Gran % (Auto) 0.300, Neut % (Auto) 85.0 H, Lymph % (Auto) 9.8 L, Alcorn % (Auto) 4.6, Eos % (Auto) 0.0, Baso % (Auto) 0.3, Absolute Neuts (auto) 5.1, Absolute Lymphs (auto) 0.59 L, Nucleated RBC % 0, Sodium Cancelled, Potassium Cancelled, Chloride Cancelled, Carbon Dioxide Cancelled, Anion Gap Cancelled, BUN Cancelled, Creatinine Cancelled, Estim Creat Clear Calc Cancelled, Est GFR (MDRD) Af Amer Cancelled, Est GFR (MDRD) Non-Af Cancelled, BUN/Creatinine Ratio Cancelled, Glucose Cancelled, Calcium Cancelled Micro: Microbiology 05/24/23 Unknown Mucosa - Nasopharyngeal Respiratory Panel (PCR) - Final 05/24/23 Unknown Mucosa - Nasopharyngeal Coronavirus COVID-19 PCR - Final 05/24/23 12:09 Nasal Secretion SARS-CoV-2 & FLU Antigen (Rapid) - Final ABG Data ABG results: ABG 05/24/23 15:17 Specimen Type ART Sample Site R Radial pH 7.45 Bicarbonate Actual 22.5 Total CO2 24 Base Excess -2 O2 Saturation 92 L O2 % 1.0 ABG pCO2 32.6 L ABG pO2 59 L Erick Test Positive O2 Delivery Device Cannula Vent Mode Not entered Radiography Diagnostic Testing: Radiology Impression Chest X-Ray 05/24/23 12:50 IMPRESSION: 1. Hyperinflation and COPD changes. 2. No focal infiltrate is seen. Electronically Signed: Eduardo Llanos MD at 13:20 EST , Physical Exam Const alert and no apparent distress HEENT head/scalp atraumatic Resp clear to auscultation bilaterally Cardio regular rate and regular rhythm Neuro Sensorium / Orientation: awake and alert Assessment & Plan Assessment/Plan (1) COPD exacerbation: PLAN: Plan COPD exacerbation * possible due to viral acute bronchitis: * ABG was done in the ED 7.4 on 1 L of oxygen. * scheduled bronchodilator, IV Solu-Medrol, Mucinex, incentive spirometry and Pep. * SARS-CoV-2 and flu antigens are negative. COVID-19 PCR, respiratory panel negative. * Advised follow-up in pulmonary clinic for PFT. * Patient requiring 3 L of oxygen with activity. Patient is ambulatory in the home and community and requires home oxygen with portability. * Change to prednisone taper. Albuterol. Chronic conditions: * Hypertension: Amlodipine 5 mg daily continued. Metoprolol succinate 50 mg daily. * Dyslipidemia: * Peripheral arterial occlusive disease:Patient had left lower extremity arteriogram by Dr. Hanna in 2018 and found to have left SFA in-stent restenosis and angioplasty was done. * Chronic smoker: Smoking cessation advised. * Rheumatoid arthritis: Patient on methotrexate and folic acid continued. DVT prophylaxis moderate to high risk: Lovenox 40 mg subcut daily. Code Status: full. 05/25/23 1437 <Electronically signed by Saul Henry DO> Cosigner Signature (if applicable): CC: ~ Signed [facility] Work Phone: 1(300) 990-696801-02-2024 History and physical note Author Christoph Aparicio [facility] May 24, 2023 3:51pm Note Date/Time May 24, 2023 2: 39pm [facility] Medical Records Department [address] [place] [address] H&P Exam - Hospitalist 05/24/23 1438 MR#: [id number] Acct: [id number] Name: SIENA SOSA Rep #:[id number] : 1955 68 From: Christoph Laureano PCP: Dr. Jessica Astorga MD Status:ADM IN [facility] [id number] HPI - General General Date of Admission: 05/24/23 Date of Service: 05/24/23 Chief Complaint: Shortness of breath and cough and dyspnea for 1 week HPI Narrative SIENA SOSA, is a 68 M, history of COPD, currently smoker about half pack per day came to ED for shortness of breath progressively worsening along with cough for 1 week. Patient is states that he was not getting better therefore went to urgent care today from where he was sent to ED. Patient has chronic tremors andshaking but denies history of Parkinson disease or associated diagnosis. He measured his temperature at home and was afebrile. Not on home oxygen or NIPPV. In ED, patient was tachypneic and found hypoxic, 88% on room air, 93% on 3 L of oxygen. Patient given treatment for COPD exacerbation and further admitted. Earlier patient tested negative for COVID and flu. PFSH Medical History Anxiety Arthritis Cancer COPD (chronic obstructive pulmonary disease) Depression High cholesterol History of adenomatous polyp of colon Hyperlipidemia Hypertension Leg cramps Peripheral arterial occlusive disease Rheumatoid arthritis Shortness of breath on exertion Smoker Home Medications duloxetine 60 mg capsule,delayed release 60 mg PO QHS Depression 07/23/16 [History Last Taken Unknown] folic acid 1 mg tablet 2 mg PO DAILY Arthritis 07/23/16 [History Last Taken Unknown] methotrexate sodium 2.5 mg tablet 12.5 mg PO FR Arthritis 07/23/16 [History Last Taken Unknown] atorvastatin 20 mg tablet 20 mg PO QHS Cholesterol 07/30/16 [History Last Taken Unknown] aspirin 81 mg tablet,delayed release 81 mg PO DAILY 02/10/21 [History Last Taken 02/12/21 18:00] metoprolol tartrate 50 mg tablet 50 mg PO DAILY 02/10/21 [History Last Taken 02/13/21 06:00] amlodipine 5 mg tablet 5 mg PO QHS 09/27/22 [History Last Taken Unknown] fluticasone furoate 200 mcg-vilanterol 25 mcg/dose inhalation powder (Breo Ellipta) 1 inh inhalation DAILY 09/27/22 [History Last Taken Unknown] metoprolol succinate 50 mg tablet,extended release 24 hr mg PO 05/24/23 [History Last Taken Unknown] Allergy/AdvReac Type Severity Reaction Status Date / Time clopidogrel [From Plavix] Allergy Rash Verified 10/01/22 07:26 dandelion (Taraxacum Allergy Other Verified 10/01/22 07:26 officinale) NSAIDS (Non-Steroidal Allergy Hives Verified 10/01/22 07:26 Anti-Inflamma Family History Mother Colon cancer Father Arthritis Surgical History APLL APLL History of colonoscopy Hx of shoulder surgery S/P carpal tunnel release Social History household members: spouse Smoking Status: Current every day smoker tobacco type: cigarettes second hand exposure: Yes alcohol intake: never substance use type: does not use caffeine: Yes what type of physical activity do you participate in: none frequency: does not exercise seatbelt use: always ROS ROS Narrative Constitutional: Reports fatigue and weakness. No fever. HEENT: Reports systems reviewed and no addt'l complaints, except as documented Respiratory/Chest: As described in HPI. Mild wheezing CVS: Denies chest pain pressure or tightness. Gastrointestinal: Denies coffee ground emesis, hematemesis or vomiting Genitourinary: Denies burning urination or new urinary tract symptoms Musculoskeletal: Denies acute joint pain or limited range of motion. No acute injury Neurologic: Chronic tremors but does not have diagnosis. Denies seizure-like symptoms. skin: No ulcer. No rash Endocrinology: Reports systems reviewed and no addt'l complaints, except as documented Hematologic/Lymphatic: Reports systems reviewed and no addt'l complaints, exceptas documented Rest 14 ROS are negative except as mentioned in HPI Vital Signs Vital Signs Vital Signs: 05/24/23 12:05 05/24/23 12:34 05/24/23 12:35 Temperature 96.8 F L Temperature Source Temporal Pulse Rate 76 70 Respiratory Rate 26 H 19 H Respiratory Effort Short of Breath Respiratory Depth Respiratory Pattern Tachypnea Blood Pressure 113/72 110/91 H Blood Pressure Mean 85 97 Pulse Ox 88 96 Oxygen Delivery Method Room Air Nasal Cannula Oxygen Flow Rate (L/min) 3 05/24/23 13:21 05/24/23 13:40 05/24/23 14:10 Temperature Temperature Source Pulse Rate 69 68 Respiratory Rate 18 24 H Respiratory Effort Normal Non-Labored Respiratory Depth Normal Respiratory Pattern Normal Normal Blood Pressure 112/76 Blood Pressure Mean 88 Pulse Ox 93 Oxygen Delivery Method Nasal Cannula Nasal Cannula Oxygen Flow Rate (L/min) 3 3 Results Lab / Micro Data 05/24/23 12:05 05/24/23 12:05 Labs: Laboratory Results - last 24 hr 05/24/23 12:05: WBC 5.2, RBC 5.36, Hgb 17.6 H, Hct 51.9, MCV 96.8 H, MCH 32.8 H,MCHC 33.9, RDW Std Deviation 43.8, RDW Coeff of Carmen 12.4, Plt Count 164, MPV 10.2, Immature Gran % (Auto) 0.600, Neut % (Auto) 74.3 H, Lymph % (Auto) 13.6 L,Alcorn % (Auto) 11.3 H, Eos % (Auto) 0.0, Baso % (Auto) 0.2, Absolute Neuts (auto)3.9, Absolute Lymphs (auto) 0.71 L, Nucleated RBC % 0, Reactive Lymphocytes 1+, Sodium 136, Potassium 4.5, Chloride 101, Carbon Dioxide 30.0, Anion Gap 5, BUN 16, Creatinine 0.83, Est GFR (MDRD) Af Amer 119, Est GFR (MDRD) Non-Af 98, BUN/Creatinine Ratio 19.3, Glucose 120 H, Calcium 8.2 L Micro: Microbiology 05/24/23 12:09 Nasal Secretion SARS-CoV-2 & FLU Antigen (Rapid) - Final Imagaing Radiology Impression Chest X-Ray 05/24/23 12:50 IMPRESSION: 1. Hyperinflation and COPD changes. 2. No focal infiltrate is seen. Electronically Signed: Eduardo Llanos MD at 13:20 EST , Assessment & Plan Assessment/Plan (1) COPD exacerbation: PLAN: Plan This is a 68-year-old gentleman with history of COPD is being admitted for COPD exacerbation: 1. COPD exacerbation possible due to viral acute bronchitis: ABG was done in the ED 7.4 on 1 L of oxygen. Will increase oxygen at least to 2 L/min. Patient is being admitted on MedSurg floor. Patient is being managed on scheduled bronchodilator, IV Solu-Medrol, Mucinex, incentive spirometry and Pep.SARS-CoV-2 and flu antigens are negative. COVID-19 PCR, respiratory panel and sputum culture ordered ordered. Advised follow-up in pulmonary clinic for PFT. 2. Hypertension: Amlodipine 5 mg daily continued. Metoprolol succinate 50 mg daily. 3. Dyslipidemia: 4. Peripheral arterial occlusive disease:Patient had left lower extremity arteriogram by Dr. Hanna in 2018 and found to have left SFA in-stent restenosis and angioplasty was done. 5. Chronic smoker: Smoking cessation advised. 6. Maternal arthritis: Patient on methotrexate and folic acid continued. DVT prophylaxis moderate to high risk: Lovenox 40 mg subcut daily. Living will/advanced directive/end of life care: Patient does have living will or advanced directive. His near the bedside is power of document review attorney for health. After discussion of benefits/risks procedures involved with full code,DNR CC arrest and DNR CC, the patient opted for full code. Patient does want artificial life support including intubation, tube feed, ventilator and/chest compression, central venous catheter, vasopressor and DC shock if needed Total time spent in [id number] encounter in discussion of advanced directive 17 minutes. Charges/Coding Visit Charges Inpatient E&M: 16896 Init Hosp L3 Procedures Hospitalists Procedures: 43213 Advncd Care Plan 30 Min 05/24/23 1551 <Electronically signed by Christoph Aparicio MD> Cosigner Signature (if applicable): CC: Dr. Jessica Astorga MD; Dr. Christoph Aparicio MD~ Signed [facility] Work Phone: 1(686) 236-739001-02-2024 Discharge summary Author Kalin Stahl [facility] May 24, 2023 3:10pm Note Date/Time May 24, 2023 12 :36pm [facility] Medical Records Department [address] [place] [address] Emergency Department Summary 05/24/23 MR#: [id number] Acct: [id number] Name: SIENA SOSA Rep #:[id number] : 1955 68 From: Kalin Stahl MD PCP: Dr. Jessica Astorga MD Status:ADM IN Location: [facility] [place] [id number] HPI <BRAIN Lane - Last Filed: 05/24/23 15:00> History of Present Illness Chief Complaint: Cold Sx Narrative Narrative: Patient presenting today after being sent from urgent care due to hypoxia. He reports that he has been sick with flulike symptoms over the past week. He is concerned that he has COVID. He reports that he has had shortness of breath, nausea, diarrhea, productive cough, weakness, lightheadedness, and decreased appetite. He reports that he feels dehydrated. He denies fever, chills, abdominal pain, chest pain. Has has a PMH of daily tobacco use, COPD, hypertension, and peripheral vascular disease. PE Risk Factors: Negative for Prior DVT or PE, Recent immobilization, Recent surgery or Recent travel PFSH <BRAIN Lane - Last Filed: 05/24/23 15:00> [facility] Medical History Anxiety Arthritis Cancer COPD (chronic obstructive pulmonary disease) Depression High cholesterol History of adenomatous polyp of colon Hyperlipidemia Hypertension Leg cramps Peripheral arterial occlusive disease Rheumatoid arthritis Shortness of breath on exertion Smoker Home Medications duloxetine 60 mg capsule,delayed release 60 mg PO QHS Depression 07/23/16 [History Last Taken Unknown] folic acid 1 mg tablet 2 mg PO DAILY Arthritis 07/23/16 [History Last Taken Unknown] methotrexate sodium 2.5 mg tablet 12.5 mg PO FR Arthritis 07/23/16 [History Last Taken Unknown] atorvastatin 20 mg tablet 20 mg PO QHS Cholesterol 07/30/16 [History Last Taken Unknown] aspirin 81 mg tablet,delayed release 81 mg PO DAILY 02/10/21 [History Last Taken 02/12/21 18:00] metoprolol tartrate 50 mg tablet 50 mg PO DAILY 02/10/21 [History Last Taken 02/13/21 06:00] amlodipine 5 mg tablet 5 mg PO QHS 09/27/22 [History Last Taken Unknown] fluticasone furoate 200 mcg-vilanterol 25 mcg/dose inhalation powder (Breo Ellipta) 1 inh inhalation DAILY 09/27/22 [History Last Taken Unknown] metoprolol succinate 50 mg tablet,extended release 24 hr mg PO 05/24/23 [History Last Taken Unknown] Allergy/AdvReac Type Severity Reaction Status Date / Time clopidogrel [From Plavix] Allergy Rash Verified 10/01/22 07:26 dandelion (Taraxacum Allergy Other Verified 10/01/22 07:26 officinale) NSAIDS (Non-Steroidal Allergy Hives Verified 10/01/22 07:26 Anti-Inflamma Family History Mother Colon cancer Father Arthritis Surgical History APLL APLL History of colonoscopy Hx of shoulder surgery S/P carpal tunnel release Social History household members: spouse Smoking Status: Current every day smoker tobacco type: cigarettes second hand exposure: Yes alcohol intake: never substance use type: does not use caffeine: Yes what type of physical activity do you participate in: none frequency: does not exercise seatbelt use: always ROS <BRAIN Lane - Last Filed: 05/24/23 15:00> ROS ED Constitutional Constitutional ED: Reports fatigue and weakness; Denies chills or fever(s) ENT ENT ED: Denies rhinorrhea or sore throat Cardiovascular Cardiovascular: Denies chest pain or palpitations Respiratory/Chest Respiratory/Chest: Reports chest congestion, cough, dyspnea and dyspnea on exertion Gastrointestinal Gastrointestinal: Reports diarrhea and nausea; Denies abdominal pain or vomiting Musculoskeletal Musculoskeletal: Denies arthralgias or myalgias Integumentary Denies rash Neurologic Neurologic: Reports weakness EXAM <BRAIN Lane - Last Filed: 05/24/23 15:00> Physical Exam Const Vital Signs: 05/24/23 12:05 05/24/23 12:34 05/24/23 12:35 Temperature 96.8 F L Temperature Source Temporal Pulse Rate 76 70 Respiratory Rate 26 H 19 H Respiratory Effort Short of Breath Respiratory Depth Respiratory Pattern Tachypnea Blood Pressure 113/72 110/91 H Blood Pressure Mean 85 97 Pulse Ox 88 96 Oxygen Delivery Method Room Air Nasal Cannula Oxygen Flow Rate (L/min) 3 05/24/23 13:21 05/24/23 13:40 05/24/23 14:10 Temperature Temperature Source Pulse Rate 69 68 Respiratory Rate 18 24 H Respiratory Effort Normal Non-Labored Respiratory Depth Normal Respiratory Pattern Normal Normal Blood Pressure 112/76 Blood Pressure Mean 88 Pulse Ox 93 Oxygen Delivery Method Nasal Cannula Nasal Cannula Oxygen Flow Rate (L/min) 3 3 Positive well nourished, well developed and no apparent distress General Appearance ED: well developed HEENT Reports normocephalic, head/scalp atraumatic and dry mucous membranes Mouth ED: Yes dry mucous membranes Mouth: dry mucous membranes Eyes PERRL and EOMs intact bilaterally Neck full ROM and supple Chest Wall inspection of chest normal Resp normal respiratory effort and clear to auscultation bilaterally Cardio regular rate and regular rhythm GI soft to palpation, non-tender, non-distended and no masses Back/Spine normal ROM and normal to inspection Extremity normal to inspection and full ROM Neuro oriented x3, CN's II-XII intact bilaterally, moves all extremities, no focal motor deficits and no sensory deficits noted Sensorium / Orientation: awake and alert Psych mental status grossly normal and thought process normal Skin no rashes or lesions noted and no wounds <Dr. Kalin Stahl MD - Last Filed: 05/24/23 15:10> Physical Exam Const Vital Signs: 05/24/23 12:05 05/24/23 12:34 05/24/23 12:35 Temperature 96.8 F L Temperature Source Temporal Pulse Rate 76 70 Respiratory Rate 26 H 19 H Respiratory Effort Short of Breath Respiratory Depth Respiratory Pattern Tachypnea Blood Pressure 113/72 110/91 H Blood Pressure Mean 85 97 Pulse Ox 88 96 Oxygen Delivery Method Room Air Nasal Cannula Oxygen Flow Rate (L/min) 3 05/24/23 13:21 05/24/23 13:40 05/24/23 14:10 Temperature Temperature Source Pulse Rate 69 68 Respiratory Rate 18 24 H Respiratory Effort Normal Non-Labored Respiratory Depth Normal Respiratory Pattern Normal Normal Blood Pressure 112/76 Blood Pressure Mean 88 Pulse Ox 93 Oxygen Delivery Method Nasal Cannula Nasal Cannula Oxygen Flow Rate (L/min) 3 3 MDM <BRAIN Lane - Last Filed: 05/24/23 15:00> [facility] Narrative Medical decision making narrative: Patient presenting with cold-like symptoms he has had over the past week. He went to urgent care originally but was sent here due to being hypoxic. He is 88% on room air and has been placed on 3 L supplemental O2 and is now 96%. He is slightly tachypneic. Labs will be obtained as well as COVID and influenza swabs. He will be given IV fluids. Chest x-ray will be obtained to rule out infiltrate and other cardiopulmonary abnormality and shows COPD changes. COVID and flu negative. Labs are unremarkable. He was given Solu-Medrol and breathing treatments. On reexamination patient was taken off supplemental O2 and did drop to 86% on room air. Given his hypoxia, I do feel that he needs to be admitted to the hospital for further treatment. I spoke with Dr. Aparicio, patient will be admitted in stable condition and is comfortable with plan. Lab Data Attestation: I reviewed the patient's lab results. Labs: Laboratory Results - last 24 hr 05/24/23 12:05 WBC 5.2 RBC 5.36 Hgb 17.6 H Hct 51.9 MCV 96.8 H MCH 32.8 H MCHC 33.9 RDW Std Deviation 43.8 RDW Coeff of Carmen 12.4 Plt Count 164 MPV 10.2 Immature Gran % (Auto) 0.600 Neut % (Auto) 74.3 H Lymph % (Auto) 13.6 L Alcorn % (Auto) 11.3 H Eos % (Auto) 0.0 Baso % (Auto) 0.2 Absolute Neuts (auto) 3.9 Absolute Lymphs (auto) 0.71 L Nucleated RBC % 0 Reactive Lymphocytes 1+ Sodium 136 Potassium 4.5 Chloride 101 Carbon Dioxide 30.0 Anion Gap 5 BUN 16 Creatinine 0.83 Est GFR (MDRD) Af Amer 119 Est GFR (MDRD) Non-Af 98 BUN/Creatinine Ratio 19.3 Glucose 120 H Calcium 8.2 L Radiography X-Ray: Read by ED Physician and Read by Radiologist Diagnostic Testing: Clinical Impression(s) from Imaging Studies Chest X-Ray 05/24/23 12:50 IMPRESSION: 1. Hyperinflation and COPD changes. 2. No focal infiltrate is seen. Electronically Signed: Eduardo Llanos MD at 13:20 EST , <Dr. Kalin Stahl MD - Last Filed: 05/24/23 15:10> [facility] Lab Data Labs: Laboratory Results - last 24 hr 05/24/23 12:05 WBC 5.2 RBC 5.36 Hgb 17.6 H Hct 51.9 MCV 96.8 H MCH 32.8 H MCHC 33.9 RDW Std Deviation 43.8 RDW Coeff of Carmen 12.4 Plt Count 164 MPV 10.2 Immature Gran % (Auto) 0.600 Neut % (Auto) 74.3 H Lymph % (Auto) 13.6 L Alcorn % (Auto) 11.3 H Eos % (Auto) 0.0 Baso % (Auto) 0.2 Absolute Neuts (auto) 3.9 Absolute Lymphs (auto) 0.71 L Nucleated RBC % 0 Reactive Lymphocytes 1+ Sodium 136 Potassium 4.5 Chloride 101 Carbon Dioxide 30.0 Anion Gap 5 BUN 16 Creatinine 0.83 Est GFR (MDRD) Af Amer 119 Est GFR (MDRD) Non-Af 98 BUN/Creatinine Ratio 19.3 Glucose 120 H Calcium 8.2 L Radiography Diagnostic Testing: Clinical Impression(s) from Imaging Studies Chest X-Ray 05/24/23 12:50 IMPRESSION: 1. Hyperinflation and COPD changes. 2. No focal infiltrate is seen. Electronically Signed: Eduardo Llanos MD at 13:20 EST , Treatment and Re-Evaluation Comments:: I have personally performed a face to face assessment of the patient and have reviewed the NICOLASA Note. I performed a substantive portion of the visit including all aspects of the following. My ledbetter findings include: History is cold symptoms with mild dyspnea for the past week. Thinks he may have a history of COPD but is not sure. Continues to smoke. Has not used his rescue inhaler at all in the past week even though he admits he has 1. Has beenusing a prescription maintenance inhaler. Exam is diffuse end expiratory wheezes and diminished breath sounds symmetrically but no rales or rhonchi. Mildly tachypneic but in no distress. Conversive in full sentences. No leg edema no JVD. Medical Decison Making infectious workup including chest x-ray, swabs, nebulizers, steroids, oxygen and reevaluation. Other additions or changes: [None] Discharge Plan Dx/Rx/DC Orders Clinical Impression: Viral illness, Hypoxia, COPD exacerbation Disposition Disposition: Acute Care Hospital [facility] What to do if you have Problems For any increased pain, shortness of breath, bleeding, nausea or vomiting, chest pain, or any unexpected problems, contact your Primary Care Provider. Call [facility] ([phone]) or report to the closest Emergency Room. Call 911 if necessary. 05/24/23 1510 <Electronically signed by Kalin Stahl MD> Cosigner Signature (if applicable): 05/24/23 1500 <Electronically signed by Era DE LA PAZ> CC: Dr. Jessica Astorga MD ~ Signed [facility] Work Phone: 1(398) 897-348301-02-2024 Discharge summary Author Kalin Stahl [facility] May 24, 2023 3:10pm Note Date/Time May 24, 2023 12 :36pm [facility] Medical Records Department [address] [place] [address] Emergency Department Summary 05/24/23 MR#: [id number] Acct: [id number] Name: SIENA SOSA Rep #:[id number] : 1955 68 From: Kalin Stahl MD PCP: Dr. Jessica Astorga MD Status:ADM IN Location: [facility] [id number] HPI <BRAIN Lane - Last Filed: 05/24/23 15:00> History of Present Illness Chief Complaint: Cold Sx Narrative Narrative: Patient presenting today after being sent from urgent care due to hypoxia. He reports that he has been sick with flulike symptoms over the past week. He is concerned that he has COVID. He reports that he has had shortness of breath, nausea, diarrhea, productive cough, weakness, lightheadedness, and decreased appetite. He reports that he feels dehydrated. He denies fever, chills, abdominal pain, chest pain. Has has a PMH of daily tobacco use, COPD, hypertension, and peripheral vascular disease. PE Risk Factors: Negative for Prior DVT or PE, Recent immobilization, Recent surgery or Recent travel PFSH <BRAIN Lane - Last Filed: 05/24/23 15:00> PFSH Medical History Anxiety Arthritis Cancer COPD (chronic obstructive pulmonary disease) Depression High cholesterol History of adenomatous polyp of colon Hyperlipidemia Hypertension Leg cramps Peripheral arterial occlusive disease Rheumatoid arthritis Shortness of breath on exertion Smoker Home Medications duloxetine 60 mg capsule,delayed release 60 mg PO QHS Depression 07/23/16 [History Last Taken Unknown] folic acid 1 mg tablet 2 mg PO DAILY Arthritis 07/23/16 [History Last Taken Unknown] methotrexate sodium 2.5 mg tablet 12.5 mg PO FR Arthritis 07/23/16 [History Last Taken Unknown] atorvastatin 20 mg tablet 20 mg PO QHS Cholesterol 07/30/16 [History Last Taken Unknown] aspirin 81 mg tablet,delayed release 81 mg PO DAILY 02/10/21 [History Last Taken 02/12/21 18:00] metoprolol tartrate 50 mg tablet 50 mg PO DAILY 02/10/21 [History Last Taken 02/13/21 06:00] amlodipine 5 mg tablet 5 mg PO QHS 09/27/22 [History Last Taken Unknown] fluticasone furoate 200 mcg-vilanterol 25 mcg/dose inhalation powder (Breo Ellipta) 1 inh inhalation DAILY 09/27/22 [History Last Taken Unknown] metoprolol succinate 50 mg tablet,extended release 24 hr mg PO 05/24/23 [History Last Taken Unknown] Allergy/AdvReac Type Severity Reaction Status Date / Time clopidogrel [From Plavix] Allergy Rash Verified 10/01/22 07:26 dandelion (Taraxacum Allergy Other Verified 10/01/22 07:26 officinale) NSAIDS (Non-Steroidal Allergy Hives Verified 10/01/22 07:26 Anti-Inflamma Family History Mother Colon cancer Father Arthritis Surgical History APLL APLL History of colonoscopy Hx of shoulder surgery S/P carpal tunnel release Social History household members: spouse Smoking Status: Current every day smoker tobacco type: cigarettes second hand exposure: Yes alcohol intake: never substance use type: does not use caffeine: Yes what type of physical activity do you participate in: none frequency: does not exercise seatbelt use: always ROS <BRAIN Lane - Last Filed: 05/24/23 15:00> ROS ED Constitutional Constitutional ED: Reports fatigue and weakness; Denies chills or fever(s) ENT ENT ED: Denies rhinorrhea or sore throat Cardiovascular Cardiovascular: Denies chest pain or palpitations Respiratory/Chest Respiratory/Chest: Reports chest congestion, cough, dyspnea and dyspnea on exertion Gastrointestinal Gastrointestinal: Reports diarrhea and nausea; Denies abdominal pain or vomiting Musculoskeletal Musculoskeletal: Denies arthralgias or myalgias Integumentary Denies rash Neurologic Neurologic: Reports weakness EXAM <BRAIN Lane - Last Filed: 05/24/23 15:00> Physical Exam Const Vital Signs: 05/24/23 12:05 05/24/23 12:34 05/24/23 12:35 Temperature 96.8 F L Temperature Source Temporal Pulse Rate 76 70 Respiratory Rate 26 H 19 H Respiratory Effort Short of Breath Respiratory Depth Respiratory Pattern Tachypnea Blood Pressure 113/72 110/91 H Blood Pressure Mean 85 97 Pulse Ox 88 96 Oxygen Delivery Method Room Air Nasal Cannula Oxygen Flow Rate (L/min) 3 05/24/23 13:21 05/24/23 13:40 05/24/23 14:10 Temperature Temperature Source Pulse Rate 69 68 Respiratory Rate 18 24 H Respiratory Effort Normal Non-Labored Respiratory Depth Normal Respiratory Pattern Normal Normal Blood Pressure 112/76 Blood Pressure Mean 88 Pulse Ox 93 Oxygen Delivery Method Nasal Cannula Nasal Cannula Oxygen Flow Rate (L/min) 3 3 Positive well nourished, well developed and no apparent distress General Appearance ED: well developed HEENT Reports normocephalic, head/scalp atraumatic and dry mucous membranes Mouth ED: Yes dry mucous membranes Mouth: dry mucous membranes Eyes PERRL and EOMs intact bilaterally Neck full ROM and supple Chest Wall inspection of chest normal Resp normal respiratory effort and clear to auscultation bilaterally Cardio regular rate and regular rhythm GI soft to palpation, non-tender, non-distended and no masses Back/Spine normal ROM and normal to inspection Extremity normal to inspection and full ROM Neuro oriented x3, CN's II-XII intact bilaterally, moves all extremities, no focal motor deficits and no sensory deficits noted Sensorium / Orientation: awake and alert Psych mental status grossly normal and thought process normal Skin no rashes or lesions noted and no wounds <Dr. Kalin Stahl MD - Last Filed: 05/24/23 15:10> Physical Exam Const Vital Signs: 05/24/23 12:05 05/24/23 12:34 05/24/23 12:35 Temperature 96.8 F L Temperature Source Temporal Pulse Rate 76 70 Respiratory Rate 26 H 19 H Respiratory Effort Short of Breath Respiratory Depth Respiratory Pattern Tachypnea Blood Pressure 113/72 110/91 H Blood Pressure Mean 85 97 Pulse Ox 88 96 Oxygen Delivery Method Room Air Nasal Cannula Oxygen Flow Rate (L/min) 3 05/24/23 13:21 05/24/23 13:40 05/24/23 14:10 Temperature Temperature Source Pulse Rate 69 68 Respiratory Rate 18 24 H Respiratory Effort Normal Non-Labored Respiratory Depth Normal Respiratory Pattern Normal Normal Blood Pressure 112/76 Blood Pressure Mean 88 Pulse Ox 93 Oxygen Delivery Method Nasal Cannula Nasal Cannula Oxygen Flow Rate (L/min) 3 3 [facility] <BRAIN Lane - Last Filed: 05/24/23 15:00> [facility] Narrative Medical decision making narrative: Patient presenting with cold-like symptoms he has had over the past week. He went to urgent care originally but was sent here due to being hypoxic. He is 88% on room air and has been placed on 3 L supplemental O2 and is now 96%. He is slightly tachypneic. Labs will be obtained as well as COVID and influenza swabs. He will be given IV fluids. Chest x-ray will be obtained to rule out infiltrate and other cardiopulmonary abnormality and shows COPD changes. COVID and flu negative. Labs are unremarkable. He was given Solu-Medrol and breathing treatments. On reexamination patient was taken off supplemental O2 and did drop to 86% on room air. Given his hypoxia, I do feel that he needs to be admitted to the hospital for further treatment. I spoke with Dr. Aparicio, patient will be admitted in stable condition and is comfortable with plan. Lab Data Attestation: I reviewed the patient's lab results. Labs: Laboratory Results - last 24 hr 05/24/23 12:05 WBC 5.2 RBC 5.36 Hgb 17.6 H Hct 51.9 MCV 96.8 H MCH 32.8 H MCHC 33.9 RDW Std Deviation 43.8 RDW Coeff of Carmen 12.4 Plt Count 164 MPV 10.2 Immature Gran % (Auto) 0.600 Neut % (Auto) 74.3 H Lymph % (Auto) 13.6 L Alcorn % (Auto) 11.3 H Eos % (Auto) 0.0 Baso % (Auto) 0.2 Absolute Neuts (auto) 3.9 Absolute Lymphs (auto) 0.71 L Nucleated RBC % 0 Reactive Lymphocytes 1+ Sodium 136 Potassium 4.5 Chloride 101 Carbon Dioxide 30.0 Anion Gap 5 BUN 16 Creatinine 0.83 Est GFR (MDRD) Af Amer 119 Est GFR (MDRD) Non-Af 98 BUN/Creatinine Ratio 19.3 Glucose 120 H Calcium 8.2 L Radiography X-Ray: Read by ED Physician and Read by Radiologist Diagnostic Testing: Clinical Impression(s) from Imaging Studies Chest X-Ray 05/24/23 12:50 IMPRESSION: 1. Hyperinflation and COPD changes. 2. No focal infiltrate is seen. Electronically Signed: Eduardo Llanos MD at 13:20 EST , <Dr. Kalin Stahl MD - Last Filed: 05/24/23 15:10> [facility] Lab Data Labs: Laboratory Results - last 24 hr 05/24/23 12:05 WBC 5.2 RBC 5.36 Hgb 17.6 H Hct 51.9 MCV 96.8 H MCH 32.8 H MCHC 33.9 RDW Std Deviation 43.8 RDW Coeff of Carmen 12.4 Plt Count 164 MPV 10.2 Immature Gran % (Auto) 0.600 Neut % (Auto) 74.3 H Lymph % (Auto) 13.6 L Alcorn % (Auto) 11.3 H Eos % (Auto) 0.0 Baso % (Auto) 0.2 Absolute Neuts (auto) 3.9 Absolute Lymphs (auto) 0.71 L Nucleated RBC % 0 Reactive Lymphocytes 1+ Sodium 136 Potassium 4.5 Chloride 101 Carbon Dioxide 30.0 Anion Gap 5 BUN 16 Creatinine 0.83 Est GFR (MDRD) Af Amer 119 Est GFR (MDRD) Non-Af 98 BUN/Creatinine Ratio 19.3 Glucose 120 H Calcium 8.2 L Radiography Diagnostic Testing: Clinical Impression(s) from Imaging Studies Chest X-Ray 05/24/23 12:50 IMPRESSION: 1. Hyperinflation and COPD changes. 2. No focal infiltrate is seen. Electronically Signed: Eduardo Llanos MD at 13:20 EST , Treatment and Re-Evaluation Comments:: I have personally performed a face to face assessment of the patient and have reviewed the NICOLASA Note. I performed a substantive portion of the visit including all aspects of the following. My ledbetter findings include: History is cold symptoms with mild dyspnea for the past week. Thinks he may have a history of COPD but is not sure. Continues to smoke. Has not used his rescue inhaler at all in the past week even though he admits he has 1. Has beenusing a prescription maintenance inhaler. Exam is diffuse end expiratory wheezes and diminished breath sounds symmetrically but no rales or rhonchi. Mildly tachypneic but in no distress. Conversive in full sentences. No leg edema no JVD. Medical Decison Making infectious workup including chest x-ray, swabs, nebulizers, steroids, oxygen and reevaluation. Other additions or changes: [None] Discharge Plan Dx/Rx/DC Orders Clinical Impression: Viral illness, Hypoxia, COPD exacerbation Disposition Disposition: Acute Care [facility] What to do if you have Problems For any increased pain, shortness of breath, bleeding, nausea or vomiting, chest pain, or any unexpected problems, contact your Primary Care Provider. Call [facility] ([phone]) or report to the closest Emergency Room. Call 911 if necessary. 05/24/23 1510 <Electronically signed by Kalin Stahl MD> Cosigner Signature (if applicable): 05/24/23 1500 <Electronically signed by Era DE LA PAZ> CC: Dr. Jessica Astorga MD ~ Signed [facility] Work Phone: 1(740) 442-451701-02-2024 NoteHNO ID: [id number] Author: Jitendra Turner APRN.PHOTO TECH Service: ? Author Type: Nurse Practitioner Type: Progress Notes Filed: 05/24/2023 11:53 AM Note Text: Patient came in with complaints of wheezing and nausea. Patient coloring is more blue blue at this time. Patient is shaky. Patient said this is not his normal. Patient fell yesterday out of no where. pulse ox is 92% at rest. Patient is being referred to the emergency room for full evaluation. [facility] NoteHNO ID: [id number] Author: Tom Sosa MD Service: ? Author Type: Physician Type: [...] agree with all of its relevant components. Tom Sosa MD January 10, 2023 12:03 [facility]08-21-2023 History of Present illness Narrative* Tom Sosa MD - 01/10/2023 11:24 AM EDT 68 yo male, - referred by Dr [...] and plan as stated above and agree withall of its relevant components. Tom Sosa MD January 10, 2023 12:03 PM documented in [facility]Way[facility]08-[facility]-2023 Miscellaneous Notes* Telephone Encounter - Jing Vallecillo APRN.CNP - 12/24/2022 5:06 PM EDT Phoned pt. Scheduled with Dr. Tom Sosa on 01/10 at 11:30am. documented in this encounterWayne Hospital08-04-2023 Miscellaneous Notes* Telephone Encounter - Duglas Harrison MD - 12/24/2022 11:27 AM EDT Discussed images/exam with Dr. Sosa and Jing Vallecillo. Exam with Dr. Sosa recommended. Notified pt that schedulers will call to establish appt. All questions answered. documented in this encounterWayne Hospital07-31-2023 NoteHNO ID: [id number] Author: Duglas Harrison MD Service: ? Author [...] images obtained - will discuss with Dr. Tom Sosa Other chronic allergic conjunctivitis of both eyes - discussed OTC allergy drop such as pataday Dry eye syndrome, both eyes Meibomian gland dysfunction, both eyes - Treatment options discussed, including warm compresses, lid cleansers (occusoft eyelash rack cleaner/theratears sterilid), and ATs (instructions printed/reviewed) I have confirmed and edited as necessary the relevant ophthalmic history, ROS, and the neuro exam findings as obtained by others. I have seen and examined Siena [place]. I have discussed the case and the management of this patient's care with the Resident/Fellow, if applicable. I also have reviewed and agree with the assessment and plan as stated above and agree with all of its relevant components. Duglas Harrison [facility]07-31-2023 Instructions* Patient Instructions* Duglas Harrison MD - 12/20/2022 10:09 AM EDT Start Artificial tears 3-4 times daily Brands, such as the examples listed below, are available over the counter at stores like [employer], etc. - Systane - Optive - Blink and Soothe XP - Refresh Artificial tear drops are available in 2 versions: - With preservative: large bottle, can be irritating with frequent >4 times daily use over time,good for occasional use - Without preservative: small [...] blurred vision or discharge. documented in this encounterWayne Hospital07-31-2023 History of Present illness Narrative* Duglas Harrison MD - 12/20/2022 9:30 AM EDT Conjunctival lesion OS - 3 months ago noticed lesion OS - [place] - symmetric intermittent itching (no pain) - likely related to ocular surface per below - temporal conj lesion with engorged vessel - images obtained - will discuss with Dr. Tom Sosa Other chronic allergic conjunctivitis of both eyes - discussed OTC allergy drop such as pataday Dry eye syndrome, both eyes Meibomian gland dysfunction, both eyes - Treatment options discussed, including warm compresses, lid cleansers (occusoft eyelash rack cleaner/theratears sterilid), and ATs (instructions printed/reviewed) I have [...] components. Duglas Harrison MD documented in this encounterWayne Hospital06-14-2023 Miscellaneous Notes* Telephone Encounter - Cliff Hicks MD - 11/03/2022 2:39 PM EDT I reviewed the notes-I would suggest trying to get in with any of our cornea providers in the meantime for an initial consultation. If needed, I can always see the patient in follow-up if my input isneeded but I would expect any of her cornea doctors could at least provide some initial guidance here. * Telephone Encounter - Gia Veloz - 11/02/2022 4:37 PM EDT Patient is being referred by Dr. Lozano for a corneal contusion and the doctor would like to know if you can see the patient sooner than the NA appt. Records are in your office for review. documented in this encounterWayne Hospital05-12-2023 Procedure [facility]05-12-2023 Procedure [facility]12-27-2022 Miscellaneous Notes* Telephone Encounter - Nayeli Hutchins APRN.[facility] - 05/18/2022 11:43 AM EST This SERVICES COORDINATOR called patient at [phone]. and identified with [...] : KIM JONES MD documented in this encounterWayne Hospital12-27-2022 History of Present illness Narrative* Valerie Thapa RT(R) - 05/18/2022 10:00 AM EST Radiology Service Progress Note PATIENT NAME: Siena Sosa DATE OF SERVICE: May 18, 2022 TIME: 10:01 AM PATIENT IDENTITY VERIFICATION COMPLETED USING TWO (2) IDENTIFIERS: Name and Date of confirmedby patient verbally. FALL SCREENING: Has the patient had 2 falls in the last year or 1 fall with injury or currently using an Ambulatory Assistive Device (Walker, Cane, Wheelchair, Crutches, etc.)? No PATIENT GENDER DATA: Male PATIENT RELEVANT IMPLANT DATA REVIEWED: Not Applicable RADIOLOGY DEPARTMENT: General X-ray: Exam(s) Completed: Chest X-Ray PERIPHERAL IV DATA: Not applicable SIGNED BY: RT Jalil(R) May 18, 2022 10:01 AM documented in this encounterWayne Hospital12-26-2022 History of Present illness Narrative* Nayeli Hutchins APRN.PHOTO TECH - 05/17/2022 1:25 PM EST Subjective The history is provided by the patient and the spouse. No professor of languages was used. HPI Siena Sosa is a 67 year old male who presents today for CC of cough, chest congestion, wheezing, shortness of breath for 10 days. He was not tested for covid or flu He has used mucinex without relief. He is an everyday smoker, denies any asthma or copd, patient of Dr. Delacruz, denies any known kidneyissues BP 112/70 Pulse 80 Temp 36.3 C [...] have confirmed and edited as necessary, the [facility] Review of Systems Constitutional: Positive for [...] for higher level of care were discussed indetail warranting prompt ER evaluation. Nayeli Hutchins APRN.ANABELL documented in this encounterWayne Hospital12-26-2022 Instructions* Patient Instructions* Nayeli Hutchins APRN.CNP - 05/17/2022 1:22 PM [...] breath, inability to swallow. documented in this encounterWayne Hospital08-25-2022 Instructions* Patient Instructions* Elza Molina APRN.PHOTO TECH - 01/14/2022 12:45 PM EDT ASSESSMENT/PLAN: 1. Left sided sciatica - ICD9: 724.3, ICD10: M54.32 Sciatica - Ice for localized tenderness - Prednisone burst- see orders - Xrays- see orders - XR LUMBAR GENERAL 3V AP/LAT/L5-S1 Radiologist FINDINGS: There are five teg-yog-xbzmkvf lumbar vertebrae. No acute fracture or subluxations are noted. There is diffuse disc space narrowing involving L1-L5 levels. There is at least moderate osteophyte formation. Others: Degenerative changes noted in bilateral hips. 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 Travel Ticketing Reviewer: ANNI Transcribe Date/Time: Jan 14 2022 12:32P [...] - Discussed expected course of illness Elza Molina APRN.PHOTO TECH SCIATICA: Your exam shows you have sciatica, a condition most often seen in patients with disc disease of thelower back. Sciatica causes pain to radiate from [...] recommended because it can increase the degree ofdisc protrusion. Surgery is reserved for patients that do not improve with conservative treatment, or who have signs of severe nerve root pressure. You should see your doctor for follow up care as recommended. A program for back injury rehabilitation with stretching and strengthening exercises is an important part of management. Please call yourdoctor, a back specialist, or the emergency room right away if you notice increased pain, weakness,or numbness in your legs, or if you have any difficulty with bladder or bowel control. documented in this encounterWayne Hospital08-25-2022 History of Present illness Narrative* Valerie Thapa RT(Geovanna) - 01/14/2022 12:10 PM EDT Radiology Service Progress Note PATIENT NAME: Siena Sosa DATE OF SERVICE: January 14, 2022 TIME: 12:13 PM PATIENT IDENTITY VERIFICATION COMPLETED USING TWO (2) IDENTIFIERS: Name and Date of confirmedby patient verbally. FALL SCREENING: Has the patient [...] RT Jalil(R) January 14, 2022 12:13 PM documented in this encounterWayne Hospital08-25-2022 History of Present illness Narrative* Elza Molina APRN.CNP - 01/14/2022 12:04 PM EDT Images from the original note were not [...] which made his pain worse. He denies anyloss of bowel or bladder function. Review of [...] 3V AP/LAT/L5-S1 Radiologist FINDINGS: There are five hlz-ugz-ajkuhrq lumbar vertebrae. No acute fracture or subluxations are noted. There is diffuse disc space narrowing involving L1-L5 levels. There is at least moderate osteophyte formation. Others: Degenerative changes noted in bilateral hips. 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 Travel Ticketing Reviewer: ANNI Transcribe Date/Time: Jan 14 2022 12:32P [...] - Discussed expected course of illness Elza Molina APRN.PHOTO TECH documented in this encounterCorey Hospital noteNo assessment information availableWKindred Hospital L[facility] Work Phone: Evaluation note* Diagnosis Left sided sciatica- Primary Sciatica [facility]* Diagnosis Acute cough- Primary Wheezing Rhonchi Abnormal chest sounds [facility]* Diagnosis Onset Date Resolution Status History of adenomatous polyp of colon acute [facility] Work Phone: Evaluation note* Diagnosis Conjunctival lesion- Primary Unspecified disorder of conjunctiva Other chronic allergic conjunctivitis of both eyes Dry eye syndrome of bilateral lacrimal glands Tear film insufficiency, unspecified Meibomian gland dysfunction (MGD) of upper and lower lids of both eyes [facility] encounter [facility]* Diagnosis Conjunctival lesion- Primary Unspecified disorder of conjunctiva Refraction error Unspecified disorder of refraction and accommodation documented [facility] this encounter [facility]* Diagnosis Onset Date Resolution Status Hypoxia acute Viral illness acute COPD exacerbation chronic [facility] Work Phone: Evaluation note* Diagnosis Onset Date Resolution Status Hypoxia acute COPD exacerbation resolved [facility] Work Phone: Evaluation note* Diagnosis Acute cough documented [facility] this encounter [facility]* Diagnosis Left sided sciatica Sciatica documented in this encounter [facility] and [facility] Author Dr. Hanna [facility] October 01, 2022 7:38am Note Date/Time October 01, 2022 7:38a m [facility] Medical Records Department [address] [place] [address] History & Physical Exam 10/01/22 0736 MR#: [id number] Acct: [id number] Name: SIENA SOSA Rep #:[id number] : 1955 67 From: Gennaro Hanna MD PCP: Dr. Jessica Astorga MD Status:[facility] Location: [place] [address] HPI - General General Date of Service: 10/01/22 Chief Complaint: Personal history of colon polyps HPI Narrative SIENA SOSA, is a 67 M who presents who presents via open access today for a colonoscopy. He has a personal history of multiple colon polyps. January 2021 I did a colonoscopy identified multiple polyps and had to use an Endoloop snare for one of them. He has a family history of the mother has colon cancer. He denies abdominal pain bright red blood per rectum or melena. PFSH Medical History Anxiety Arthritis Cancer COPD (chronic obstructive pulmonary disease) Depression High cholesterol History of adenomatous polyp of colon Hyperlipidemia Hypertension Leg cramps Peripheral arterial occlusive disease Rheumatoid arthritis Shortness of breath on exertion Smoker Home Medications duloxetine 60 mg capsule,delayed release 60 mg PO QHS Depression 07/23/16 [History Last Taken Unknown] folic acid 1 mg tablet 2 mg PO DAILY Arthritis 07/23/16 [History Last Taken Unknown] methotrexate sodium 2.5 mg tablet 12.5 mg PO FR Arthritis 07/23/16 [History Last Taken Unknown] atorvastatin 20 mg tablet 20 mg PO QHS Cholesterol 07/30/16 [History Last Taken Unknown] aspirin 81 mg tablet,delayed release 81 mg PO DAILY 02/10/21 [History Last Taken 02/12/21 18:00] metoprolol tartrate 50 mg tablet 50 mg PO DAILY 02/10/21 [History Last Taken 02/13/21 06:00] amlodipine 5 mg tablet 5 mg PO QHS 09/27/22 [History Last Taken Unknown] fluticasone furoate 200 mcg-vilanterol 25 mcg/dose inhalation powder (Breo Ellipta) 1 inh inhalation DAILY 09/27/22 [History Last Taken Unknown] Allergy/AdvReac Type Severity Reaction Status Date / Time clopidogrel [From Plavix] Allergy Rash Verified 10/01/22 07:26 dandelion (Taraxacum Allergy Other Verified 10/01/22 07:26 officinale) NSAIDS (Non-Steroidal Allergy Hives Verified 10/01/22 07:26 Anti-Inflamma Family History Mother Colon cancer Father Arthritis Surgical History (Updated 09/27/22 @ 12:04 by Kamala Espana) APLL APLL History of colonoscopy Hx of shoulder surgery S/P carpal tunnel release Social History (Updated 07/16/22 @ 10:49 by Ambreen Das) household members: spouse Smoking Status: Current every day smoker tobacco type: cigarettes second hand exposure: Yes alcohol intake: never substance use type: does not use caffeine: Yes what type of physical activity do you participate in: none frequency: does not exercise seatbelt use: always ROS Constitutional Constitutional: Reports systems reviewed and no addt'l complaints, except as documented Cardiovascular Cardiovascular: Denies chest pain Respiratory/Chest Respiratory/Chest: Denies shortness of breath at rest Gastrointestinal Gastrointestinal: Denies abdominal pain, change in bowel habits, hematochezia ormelena Vital Signs Vital Signs Vital Signs: 10/01/22 07:27 10/01/22 07:27 Temperature 97.7 F L Temperature Source Temporal Pulse Rate 73 Respiratory Rate 16 Respiratory Pattern Normal Blood Pressure 130/68 H Blood Pressure Mean 88 Blood Pressure Source Monitor Blood Pressure Position Semi-Fowlers Blood Pressure Location Left Arm Pulse Ox 97 Oxygen Delivery Method Room Air Weight Weight: 143 lb 15.39 oz Body Mass Index (BMI) 23.2 Physical Exam Const alert, oriented x3 and no apparent distress General Appearance: cooperative and comfortable Eyes General Eye: normal appearance of both eyes Neck General: normal visual inspection Chest inspection of chest normal Resp Effort and Inspection: able to speak in complete sentences and symmetric chest movement Auscultation: clear to auscultation bilaterally Cardio regular rate and regular rhythm GI soft to palpation, non-tender and non-distended Extremity no calf tenderness Neuro oriented x3 Psych thought process normal Assessment & Plan Assessment/Plan (1) History of adenomatous polyp of colon: PLAN: The patient presents via open access today. I propose for him a colonoscopy with possible biopsy or polypectomy as indicated. He is aware of the technique, benefit, risk, alternatives. We will proceed as noted. Gennaro Hanna M.D., F.A.C.S. 10/01/22 0738 <Electronically signed by Gennaro Hanna MD> Cosigner Signature (if applicable): CC: Dr. Jessica Astorga MD; Dr. Gennaro Hanna MD~ Signed [facility] Work Phone: [facility] for referral (narrative)* Diagnostic Procedure Only (Urgent) - Closed Specialty Diagnoses / Procedures Referred By Contac t Referred To Contact XR IMAGING Diagnoses Left sided sciatica Procedures XR LUMBAR GENERAL 3V AP/LAT/L5-S1 RADEX SPINE LUMBOSACRAL 2/3 VIEWS Elza Molina APRN.PHOTO TECH [address] [place] [address] Xr Imaging Referral ID Status Reason Start Date Expiration Date V isits Requested Visits Authorized [id number] Closed Auto-Generate d Referral 01/14/2022 02/13/[address] [facility] for referral (narrative)* Diagnostic Procedure Only (Urgent) - Closed Specialty Diagnoses / Procedures Referred By Contac t Referred To Contact XR IMAGING Diagnoses Left sided sciatica Procedures XR LUMBAR GENERAL 3V AP/LAT/L5-S1 RADEX SPINE LUMBOSACRAL 2/3 VIEWS Elza Molina APRN.PHOTO TECH [address] [place] [address] [place] [address] Referral ID Status Reason Start Date Expiration Date V isits Requested Visits Authorized [id number] Closed Auto-Generate d Referral 01/14/2022 02/13/2023 1 1 [facility])No reason for referral information availableWKindred Hospital Lima Work Phone: Reason for visit Narrative* Diagnostic Procedure Only (Urgent) - Closed Specialty Diagnoses / Procedures Referred By Contac t Referred To Contact XR IMAGING Diagnoses Left sided sciatica Procedures XR LUMBAR GENERAL 3V AP/LAT/L5-S1 RADEX SPINE LUMBOSACRAL 2/3 VIEWS Elza Molina APRN.PHOTO TECH [address] [place] [address] [place] [address] Referral ID Status Reason Start Date Expiration Date V isits Requested Visits Authorized [id number] Closed Auto-Generate d Referral 01/14/2022 02/13/2023 1 1 [facility] Chief Complaint and Reason for Visit Chief Complaint STANDING ORDER S/O- PAIN- COPY PCP Chief Complaint S/O- PAIN- COPY PCP Chief Complaint S/O- PAIN- COPY PCP HIP PAIN Chief Complaint S/O- PAIN- COPY PCP HIP PAIN S/O- PAIN- COPY PCP Chief Complaint Amb Documentation STANDING ORDER Chief Complaint Amb Documentation STANDING ORDER Reason for Visit History of adenomato us polyp of colon Chief Complaint STANDING ORDER S/O Reason for Visit History of adenomato us polyp of colon Chief Complaint S/O EORDER Reason for Visit History of adenomato us polyp of colon Chief Complaint S/O EORDER S/O- PAIN- COPY PCP Chief Complaint S/O- PAIN- COPY PCP COPD EXACERBATION Reason for Visit Hypoxia Viral illness COPD exacerbation Chief Complaint S/O- PAIN- COPY PCP COPD EXACERBATION COPD EXACERBATION COPD EXACERBATION Reason for Visit Hypoxia Viral illness COPD exacerbation Chief Complaint S/O- PAIN- COPY PCP COPD EXACERBATION COPD EXACERBATION COPD EXACERBATION S/O- PAIN- COPY PCP Reason for Visit Hypoxia COPD exacerbation Chief Complaint COPD EXACERBATION COPD EXACERBATION COPD EXACERBATION S/O- PAIN- COPY PCP S/O- PAIN- COPY PCP Reason for Visit Hypoxia COPD exacerbation Chief Complaint Admit Date 6 M FU August 27, 2024 10:5 7am S/O- PAIN- COPY PCP September 05, 2024 10: 53am Reason for Visit Admit Date Essential tremor August 27, 2024 10:5 7am Cervical spinal stenosis August 27, 2024 10:57am Myelopathy August 27, 2024 10:5 7am Chief Complaint Admit Date S/O- PAIN- COPY PCP January 25, 2025 11:38am Family History Relationship Condition Age at Onset Recorded Date/T [place] mother Malignant neoplasm of colon Unknown father Arthritis Unknown Advance Directives Advance Directive Response Recorded Date/ Time Advance Directives Yes June 10:39am Living Will Yes February 10, 2021 9:26am Power of Database Administration Project Manager Yes January 9:26am Advance Directive Response Recorded Date/ Time Advance Directives Yes June 9:39am Living Will Yes February 10, 2021 8:26am Power of Database Administration Project Manager Yes January 8:26am Advance Directive Response Recorded Date/ Time Name of Medical Power of Database Administration Project Manager September 27, 2022 11:56am Advance Directives Yes June 10:39am Living Will Yes September 27, 2022 11 :56am Power of Database Administration Project Manager Yes September 27, 2022 11:56am Advance Directive Response Recorded Date/ Time Advance Directives Yes June 10:39am Living Will Yes September 27, 2022 11 :56am Power of Database Administration Project Manager Yes September 27, 2022 11:56am Advance Directive Response Recorded Date/ Time Advance Directives Yes June 9:39am Living Will No May 24 12:35pm Power of Database Administration Project Manager No May 24 12:35pm Advance Directive Response Recorded Date/ Time Name of Medical Power of Database Administration Project Manager Meghann Mae May 24, 2023 3:43pm Advance Directives Yes June 9:39am Living Will Yes May 24 3:43pm Power of Database Administration Project Manager Yes May 24 3:43pm Advance Directive Response Recorded Date/ Time Name of Medical Power of Database Administration Project Manager Meghann Mae May 24, 2023 4:43pm Advance Directives Yes June 10:39am Living Will Yes Giana 2nd, 202 4 4:43pm Power of Database Administration Project Manager Yes May 24 024 4:43pm Advance Directive Response Recorded Date/ Time Advance Directives Yes June 10:39am Advance Directive Response Recorded Date/ Time Living Will Yes May 24 4:43pm Do you have a Healthcare Power of Database Administration Project Manager? Yes May 24, 2023 4:43pm Advance Directives Yes June 10:39am Reason for Referral Specialty Diagnoses / Procedures Referred By Contnicole t Referred To Contact Nayeli Hutchins APRN.PHOTO TECH [address] [place] [address] Referral ID Status Reason Start Date Expiration Date V isits Requested Visits Authorized [id number] Pending Review 1 1 Summary Purpose Additional Source Comments Goals (unrecognized section and content) Goals may be documented in a n alternate sectionGoals may be documented in an alternate sectionGoals may be documented in an alternate sectionGoals may be documented in an alternate sectionGoals may be documented in an alternate sectionGoals may be documented in an alternate sectionGoals may be documented in an alternate sectionGoals may be documented in an alternate sectionGoals may be documented in an alternate sectionGoals may be documented in an alternate sectionGoals may be documented in an alternate sectionGoals may be documented in an alternate section Source Comments (unrecognize d section and content) In the event this informatio n is protected by the Federal Confidentiality of Alcohol and Drug Abuse Patient Records regulations: The Federal rules restrict any use of the information to criminally investigate or prosecute any alcohol or drug abuse patient.[facility] the event this information is protected by the Federal Confidentiality of Alcohol and Drug Abuse Patient Records regulations: The Federal rules restrict any use of the information to criminally investigate or prosecute any alcohol or drug abuse patient.[facility] HospitalIn the event this information is protected by the Federal Confidentiality of Alcohol and Drug Abuse Patient Records regulations: The Federal rules restrict any use of the information to criminally investigate or prosecute any alcohol or drug abuse patient.[facility] the event this information is protected by the Federal Confidentiality of Alcohol and Drug Abuse Patient Records regulations: The Federal rules restrict any use of the information to criminally investigate or prosecute any alcohol or drug abuse patient.[facility] HospitalIn the event this information is protected by the Federal Confidentiality of Alcohol and Drug Abuse Patient Records regulations: The Federal rules restrict any use of the information to criminally investigate or prosecute any alcohol or drug abuse patient.[facility] HospitalIn the event this information is protected by the Federal Confidentiality of Alcohol and Drug Abuse Patient Records regulations: The Federal rules restrict any use of the information to criminally investigate or prosecute any alcohol or drug abuse patient.[facility] HospitalIn the event this information is protected by the Federal Confidentiality of Alcohol and Drug Abuse Patient Records regulations: The Federal rules restrict any use of the information to criminally investigate or prosecute any alcohol or drug abuse patient.[facility] HospitalIn the event this information is protected by the Federal Confidentiality of Alcohol and Drug Abuse Patient Records regulations: The Federal rules restrict any use of the information to criminally investigate or prosecute any alcohol or drug abuse patient.[facility] HospitalIn the event this information is protected by the Federal Confidentiality of Alcohol and Drug Abuse Patient Records regulations: The Federal rules restrict any use of the information to criminally investigate or prosecute any alcohol or drug abuse patient.[facility] HospitalIn the event this information is protected by the Federal Confidentiality of Alcohol and Drug Abuse Patient Records regulations: The Federal rules restrict any use of the information to criminally investigate or prosecute any alcohol or drug abuse patient.[facility] Reason for Visit (unrecogniz ed section and content) Reason Comments Pain Pt reported (LT) hip , leg pain rated intermittent 10, x5 days denied accident. Reason Comments Cough Fatigue,wheezing x1. 5 weeks Reason Comments Results Reason Comments Appointment Received Outside Medical Records Reason Comments Corneal evaluation Reason Comments Patient Update Reason Comments Appointment Reason Comments Conjunctival lesion OS Care Teams (unrecognized sec tion and content) Calibration Technician Relationship Specialty Start Date End Date Jessica Astorga PCP - General Family Practice 07/27/16 Calibration Technician Relationship Specialty Start Date End Date Jessica Astorga PCP - General Family Medicine 07/27/16 Calibration Technician Relationship Specialty Start Date End Date Jessica Astorga PCP - General Family Medicine 07/27/16 Team Status: Active Member Role Status Dates Dr. Jessica Astorga MD Family Provider Active Dr. Jessica Astorga MD Primary Care Provider Active Team Status: Inactive Member Role Status Dates Dr. Jessica Astorga MD Primary Care Provider Active Dr. Cheryle Shannon MD Attending Provider, Referring Provider Active Team Status: Active Member Role Status Dates Dr. Jessica Astorga MD Primary Care Provider Active [facility] Attending Provider Active Team Status: Active Member Role Status Dates Dr. Jessica Astorga MD Primary Care Provider, Referrin g Provider Active Dr. Gennaro Hanna MD Attending Provider, Other Prov ider Active Team Status: Inactive Member Role Status Dates Dr. Jessica Astorga MD Primary Care Provider, Referrin g Provider Active Dr. Gennaro Hanna MD Attending Provider Active Calibration Technician Relationship Specialty Start Date End Date Jessica Astorga PCP - General Family Medicine 07/27/16 Calibration Technician Relationship Specialty Start Date End Date Jessica Astorga PCP - General Family Medicine 07/27/16 Calibration Technician Relationship Specialty Start Date End Date Jessica Astorga PCP - General Family Medicine 07/27/16 Team Status: Inactive Member Role Status Dates Dr. Jessica Astorga MD Primary Care Provider Active Dr. Cheryle Shannon MD Attending Provider Active Calibration Technician Relationship Specialty Start Date End Date Jessica Astorga PCP - General Family Medicine 07/27/16 Team Status: Inactive Member Role Status Dates Dr. Jessica Astorga MD Primary Care Prov ider, Attending Provider, Referring Provider Active Team Status: Active Member Role Status Dates Dr. Jessica Astorga MD Primary Care Provider Active Dr. Kalin Stahl MD Emergency Provider Active Dr. Christoph Aparicio MD Admit Provider, Attending Provi cheo Active Team Status: Active Member Role Status Dates Dr. Jessica Astorga MD Primary Care Provider Active Dr. Kalin Stahl MD Emergency Provider Active Dr. Christoph Aparicio MD Admit Provider, A ttending Provider, Other Provider Active Team Status: Active Member Role Status Dates Dr. Jessica Astorga MD Primary Care Provider Active Dr. Kalin Stahl MD Emergency Provider Active Dr. Christoph Aparicio MD Admit Provider, Other Provider Active Dr. Saul Henry DO Attending Provider, Other Provid er Active Team Status: Inactive Member Role Status Dates Dr. Jessica Astorga MD Primary Care Provider Active Dr. Kalin Stahl MD Emergency Provider Active Dr. Christoph Aparicio MD Admit Provider, Other Provider Active Dr. Saul Henry DO Attending Provider Active Calibration Technician Relationship Specialty Start Date End Date Jessica Astorga PCP - General Family Medicine 07/27/16 Team Status: Inactive Member Role Status Dates Dr. Jessica Astorga MD Primary Care Provider Active Start: June 12, 2024 End: June 12, 2024 Dr. Cheryle Shannon MD Attending Provider Active Start: June 12, 2024 End: June 12, 2024 Dr. Cheryle Shannon MD Referring Provider Active Start: June 12, 2024 End: June 12, 2024 Team Status: Inactive Member Role Status Dates Dr. Jessica Astorga MD Primary Care Provider Active Start: July 30, 2024 End: July 30, 2024 Dr. Jessica Astorga MD Attending Provider Active Start: July 30, 2024 End: July 30, 2024 Team Status: Inactive Member Role Status Dates Dr. Jessica Astorga MD Primary Care Provider Active Start: August 27, 2024 End: August 27, 2024 Dr. Jessica Astorga MD Referring Provider Active Start: August 27, 2024 End: August 27, 2024 Dr. James Price MD Attending Provider Active Start: August 27, 2024 End: August 27, 2024 Team Status: Inactive Member Role Status Dates Dr. Jessica Astorga MD Primary Care Provider Active Start: September 05, 2024 End: September 05, 2024 Dr. Cheryle Shannon MD Attending Provider Active Start: September 05, 2024 End: September 05, 2024 Dr. Cheryle Shannon MD Referring Provider Active Start: September 05, 2024 End: September 05, 2024 Team Status: Inactive Member Role Status Dates Dr. Jessica Astorga MD Primary Care Provider Active Start: November 12, 2024 End: November 12, 2024 Dr. Cheryle Shannon MD Attending Provider Active Start: November 12, 2024 End: November 12, 2024 Dr. Cheryle Shannon MD Referring Provider Active Start: November 12, 2024 End: November 12, 2024 Team Status: Active Member Role/Relationship Status Dates Dr. Jessica Astorga MD Family Provider Active Philippe McMorrow SERVICES COORDINATOR, SERVICES COORDINATOR-C Primary Care Provider Active Team Status: Inactive Member Role/Relationship Status Dates Dr. Jessica Astorga MD Primary Care Provider Active Start: November 12, 2024 End: November 12, 2024 Dr. Cheryle Shannon MD Attending Provider Active Start: November 12, 2024 End: November 12, 2024 Dr. Cheryle Shannon MD Referring Provider Active Start: November 12, 2024 End: November 12, 2024 Team Status: Inactive Member Role/Relationship Status Dates Philippe Tanorrow SERVICES COORDINATOR, SERVICES COORDINATOR-C Primary Care Provider Active Start: January 25, 2025 End: January 25, 2025 Dr. Cheryle Shannon MD Attending Provider Active Start: January 25, 2025 End: January 25, 2025 Dr. Cheryle Shannon MD Referring Provider Active Start: January 25, 2025 End: January 25, 2025 Team Status: Active Member Role/Relationship Status Dates Philippe McMorrow SERVICES COORDINATOR, SERVICES COORDINATOR-C Primary Care Provider Active Start: January 29, 2025 Philippe McMorrow SERVICES COORDINATOR, SERVICES COORDINATOR-C Attending Provider Active Start: January 29, 2025 Philippe McMorrow SERVICES COORDINATOR, SERVICES COORDINATOR-C Referring Provider Active Start: January 29, 2025 Team Status: Active Member Role/Relationship Status Dates Dr. Jessica Astorga MD Primary care physician Active Philippe Tanorrow SERVICES COORDINATOR, SERVICES COORDINATOR-C Primary care physician Active Team Status: Inactive Member Role/Relationship Status Dates Dr. Jessica Astorga MD Primary care physician Active Start: November 12, 2024 End: November 12, 2024 Dr. Cheryle Shannon MD Attending physician Active Start: November 12, 2024 End: November 12, 2024 Dr. Cheryle Shannon MD Referring Provider Active Start: November 12, 2024 End: November 12, 2024 Team Status: Inactive Member Role/Relationship Status Dates Philippe Tanorrow SERVICES COORDINATOR, SERVICES COORDINATOR-C Primary care physician Active Start: January 25, 2025 End: January 25, 2025 Dr. Cheryle Shannon MD Attending physician Active Start: January 25, 2025 End: January 25, 2025 Dr. Cheryle Shannon MD Referring Provider Active Start: January 25, 2025 End: January 25, 2025 Team Status: Inactive Member Role/Relationship Status Dates Philippe Britneyorrow SERVICES COORDINATOR, SERVICES COORDINATOR-C Primary care physician Active Start: January 29, 2025 End: January 29, 2025 Philippe Tanorrow SERVICES COORDINATOR, SERVICES COORDINATOR-C Attending physician Active Start: January 29, 2025 End: January 29, 2025 Philippe McMorrow SERVICES COORDINATOR, SERVICES COORDINATOR-C Referring Provider Active Start: January 29, 2025 End: January 29, 2025 (unrecognized sect ion and content) No Status Records FoundNo Status Records Found INFORMATION SOURCE (unrecogn ized section and content) DATE CREATED AUTHOR 05/25/2023 [facility] DATE CREATED AUTHOR AUTHOR'S JAMSHID LICONA 02/22/2025 [facility] FOR RECORDS PERTAINING TO PATIENTS WHO ARE [...] BE BASED ON THE PRIMARY CLINICAL RECORDS. [employer] provides no warranty or guarantee of the accuracy or completeness of information in this document.
[2025-04-19 11:57] LABS: Hematocrit 42.6 % (40-54); Hemoglobin 14.4 g/dL (13.0-16.5); Immature Granulocytes Count 0.040 X10^3/uL (0.0-0.0); Mean Corp Hgb Conc 33.8 g/dL (32-36); Mean Corpuscular Volume 99.1 fL (80-94); Mean Platelet Vol. 9.5 fl (6.2-12.0); NRBC Flagged by Analyzer 0 % (0-5); Platelet Count 286 K/mm3 (150-450); RBC Distribution Width CV 13.5 % (11.6-14.6); RBC Distribution Width SD 48.7 fl (35.1-43.9); Red Blood Count 4.30 M/mm3 (4.6-6.2); White Blood Count 8.5 K/mm3 (4.4-11.0)
[2025-04-19 12:44] LABS: AST(SGOT) 25 U/L (<=37); Alanine Aminotransfer ALT/SGPT 22 U/L (<=46); Albumin, Serum 4.2 g/dL (3.4-4.8); Alkaline Phosphatase 84 U/L (40-129); Anion Gap 10 (5-15); BUN 10 mg/dL (4-19); BUN/Creat Ratio 13.9 RATIO (10-20); Calcium,Total 9.2 mg/dL (7.6-11.0); Carbon Dioxide 26.2 mmol/L (21.0-32.0); Chloride 105 mmol/L (98-108); Globulin 2.9 g/dL (2.2-4.2); Glucose 135 mg/dL (70-99); Potassium 4.5 mmol/L (3.3-5.1)
== END | disposition home or self-care (01) ==
LOC: MTLAB 11:12
PROVIDERS: Referring Provider Internal Medicine Rheumatology; Visit Provider Internal Medicine Rheumatology
DX: M05.70 Rheumatoid arthritis with rheumatoid factor of unspecified site without organ or systems involvement (principal); Z79.899 Other long term (current) drug therapy
CPT/HCPCS: 36415; 80053; 85025